=== PATIENT | male | born 1955 | race Caucasian/White ===

== ENCOUNTER 2019-07-15 14:57 | Outpatient (CLI) | payer MEDICARE, MEDICAID, SELFPAY ==
--- NOTE | 2019-07-15 15:14 | CT_ITS ---
WS: [id number] CT CHEST TECHNIQUE: Contrast enhanced CT of the chest with coronal and sagittal reformatted images. CLINICAL INFORMATION: LUNG CANCER COMPARISON: CTA chest August 02, [address] chest May 15, 2018 DLP: 488.[address] scans at [facility] use at least one of these dose optimization techniques: automat ed exposure control; mA and/or kV adjustment per patient size (includes targeted exams where dose is matched to clinical indication); or iterative reconstruction. FINDINGS: Advanced chronic emphysematous changes. Prior postoperative changes left upper lobe laterally with pu lmonary nodule resection. Associated parenchymal fibrosis along the area of resection left upper lobe anteriorly. No recurrent parenchymal lesion in this location. Increasing nodular opacity left lower lobe along the diaphragm laterally measuring 7 mm. On the prior examination there was hazy ill-defined fibrosis in this area. Recommend 3 month follow-up. Proximal main pulmonary arteries are normal. No mediastinal or hilar lymphadenopathy. Normal caliber thoracic aorta. No axillary lymphadenopathy. Postoperative changes lower cervical spine. Multiple chronic left posterior rib fractures. CT/CT chest w con* [id number] IMPRESSION: 1. Prior postoperative changes resection left upper lobe pulmonary nodule. No evidence of recurrent parenchymal lesion in this location. 2. Noncalcified nodule left lower lobe measuring 7 mm with surrounding fibros is. This is increased since the prior examinations and recommend 3 month follow -up. 3. No mediastinal or hilar lymphadenopathy. 4. Advanced chronic emphysematous changes.
[2019-07-15 15:37] LABS: Basophils # 0.1 10^3/uL (0.0-0.1); Basophils % 0.7 %; Eosinophils # 0.2 10^3/uL (0.0-0.8); Eosinophils % 2.6 %; Hematocrit 44.8 % (42.0-52.0); Hemoglobin 14.4 g/dL (11.7-16.6); Lymphocytes # 2.5 10^3/uL (0.8-4.8); Lymphocytes % 36.2 %; Mean Corpuscular HGB Conc 32.1 g/dL (30.0-36.0); Mean Corpuscular Hemoglobin 29.7 pg (28.0-34.0); Mean Corpuscular Volume 92.4 fL (80-94); Mean Platelet Volume 10.8 fL (7.4-10.4); Monocytes # 0.4 10^3/uL (0.2-0.9); Monocytes % 5.6 %; Neutrophils # 3.8 10^3/uL (1.8-7.7); Neutrophils % 54.8 %; Nucleated Red Blood Cells % 0 %; Platelet Count 212 10^3/cmm (130-400); Red Blood Count 4.85 10^6/uL (4.1-5.3); Red Cell Distribution Width 12.8 % (12.1-15.1)
[2019-07-15 16:01] LABS: Alanine Aminotransferase 9 U/L (0-41); Albumin Level 4.3 g/dL (3.5-5.2); Alkaline Phosphatase 74 IU/L (40-130); Anion Gap 14.2 (5-19); Aspartate Amino Transferase 16 U/L (0-40); Blood Urea Nitrogen 11 mg/dL (8-23); Calcium 9.2 mg/dL (8.5-10.5); Carbon Dioxide 29 mmol/L (22-29); Chloride 99 mmol/L (98-107); Globulin 2.7 g/dL (1.3-4.6); Glomerular Filtration Rate 98.3 mL/min (90-130); Glucose 97 mg/dL (65-115); Osmolality Calculated 282 mOsm/kg (285-295); Potassium 4.2 mmol/L (3.5-5.1); Sodium 138 mmol/L (136-145); Total Bilirubin 0.2 mg/dL (0.15-1.2)
[2019-07-15] MEDS: iohexol 300 mg/mL 100 mL Btl IV (16:23)
== END 2019-07-15 14:58 | disposition home or self-care (01) ==
LOC: RAD 14:58
PROVIDERS: PCP Family Medicine; Visit Provider Internal Medicine Hematology & Oncology
DX: C34.90 Malignant neoplasm of unspecified part of unspecified bronchus or lung (principal); R91.1 Solitary pulmonary nodule
CPT/HCPCS: 36415; 71260; 80053; 85025

== ENCOUNTER 2019-07-20 09:11 | Outpatient (CLI) | payer MEDICARE, MEDICAID, SELFPAY ==
--- NOTE | 2019-07-25 23:03 | ONC FU_ITS ---
[facility] Patient Note Patient: Gato Lizarraga Unit #: [id number]: 1955 Dictated By: Giat EwingDate of Visit: July 20, 2019 Onc MED Follow-Up/Prog Note Chief Complaint: Left lung cancer status post wedge resection History of Present Illness: Mr. Lizarraga is a 63-year-old gentleman with history of small left upper lobe pulmonary nodule first seen on CT scan of chest done in February 2017. A follow-up CT scan done on 10/02/2017 showed small increase in size. CT PET scan was done on 10/09/2017 showed increased activity in this suspicious lesion and also in right thyroid lobe nodule. Mr Lizarraga has history of COPD/emphysema bilaterally and is dependent on home oxygen. Mr Lizarraga underwent left upper lobe wedge resection on 11/10/2017. 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 An additional nodule in left upper lung apex was a hematoma as per discussion with Dr. Cummings pathologist. Patient tolerated procedure well PMH: history of melanoma excision from his head ???2 in the past. 40+ year history of chronic smoking Mr Lizarraga is here today for followup and review of CT Chest from 07/15/2019. He was scheduled to see Dr Mullen this am, but Dr Mullen could not make it to the office today. Mr Lizarraga was offered an appointment with me today to review the CT report and this allowed him to be seen by an oncology provider. He states overall he feels really rough . He states he is having more shortness of breath and is having to wear his o2 continuous at home, but he did not have any with him at the time of our visit. Mr Pelaez was informed of the CT findings per the report statements. The report statements were: Prior postoperative changes resection left upper lobe pulmonary nodule. No evidence of recurrent parenchymal lesion in this location. 2. Noncalcified nodule left lower lobe measuring 7 mm with surrounding fibrosis. This is increased since the prior examination recommend 3-month follow-up. 3. No mediastinal or hilar lymphadenopathy. 4. Advanced chronic emphysematous changes. He states that he is having significant shortness of breath, scratchy throat, productive cough of brown sputum. He states that his shortness of breath has gotten worse. He is currently on prednisone. He states overall he is feeling pretty rotten. I suspect this is more a COPD flare and the cancer is the scan looks so good. He denies diarrhea or constipation. He has had no mouth sores or sore throat or difficulty swallowing. His ECOG is 2. Past Medical History: Anxiety Attention deficit disorder Bph Cervical disc disease Chronic obstructive pulmonary disease Depression Emphysema Nocturnal hypoxia Osteoarthritis Overactive bladder History of viral hep c Past Surgical History: Appendectomy Carpal tunnel release Lumbar fusion Multiple cervical discectomies Had surgery x 2 for pneumothorax. Allergies: Ambien, Aminophylline, Amitriptyline HCl, Biaxin, Cymbalta, Doxycycline, FentaNYL, Ibuprofen, Ketorolac Tromethamine, Methadone HCl, Nubain, and Tetracycline HCl. Medications: Albuterol Sulfate 1 ((2.5 mg/3ml) 0.083%) Nebulization solution Inhalation PRN ARIPiprazole 1 Tablet (of 20 mg) Oral daily Baclofen 1 Tablet (of 20 mg) Oral b.i.d. Cialis 1 Tablet (of 5 mg) Oral daily FLUoxetine HCl 1 Capsule (of 20 mg) Oral daily Gabapentin 1 Tablet (of 600 mg) Oral t.i.d. Multiple Vitamins-Minerals 1 Tablet Oral daily predniSONE 1 Tablet (of 5 mg) Oral b.i.d. for 2 days PRN Spiriva Respimat 1 Puff(s) (of 1.25 mcg/act) Aerosol, solution Inhalation b.i.d. Symbicort 2 puff(s) (of 160-4.5 mcg/act) Aerosol Inhalation b.i.d. Tamsulosin HCl 2 Capsule (of 0.4 mg) Oral daily Family History: Mr. Lizarraga's mother at age 55: lung cancer. Mr. Lizarraga's father at age 64: stroke. Mr. Lizarraga has 1 brother who is : lung cancer. Social History: Mr. Lizarraga is and he is a disabled. He is a daily smoker who has smoked 1.0 pack/day for 44 years. He drinks occasionally. He has indicated exposure to the following products: recreational drug use. smokes marijuana 3 times daily. Review Of Symptoms: Constitutional Denies fevers, chills, night sweats, excessive fatigue or weight loss. Allergic/Immunologic No reactions. Eyes Denies significant visual changes. No diplopia. No amaurosis. ENMT Denies changes in hearing, sore throat, mouth sores, difficulty or changes in swallowing ability, and/or sinus drainage. Hematologic/Lymphatic Denies easy bruising or bleeding. The patient denies any tender or palpable lymph nodes. Respiratory Denies dyspnea on exertion, chest pain. He has had a cough with scant hemoptysis but denies orthopnea. Hard to breathe at times. Denies wheezing. Cardiovascular Denies anginal chest pain, palpitations or orthopnea. Gastrointestinal Denies nausea, vomiting, diarrhea, GI bleeding, or constipation. Denies change in bowel habits and/or stool color, no heartburn or early satiety. Genitourinary (M) Denies hematuria, dysuria, increased frequency, urgency, hesitancy or incontinence. Musculoskeletal Denies joint pain, swelling or redness. No decreased range of motion. Integumentary Denies chronic rashes, inflammation, ulcerations or skin changes. Neurologic Denies headache, blurred vision, and no areas of focal weakness or numbness. Normal gait. No sensory problems. Psychiatric Denies insomnia, depression, olivier or mood swings. Vital Signs: Performed on July 20, 2019 09:49 Height - 70.50 in Weight - 133.8 lbs (LOW) BSA - 1.77 sq.m BMI - 18.93 Temperature - 97.7 F (LOW) Pulse - 67 /min Respiration - 20 /min BP - 132/81 mm(hg) O2 Sat - 97 % Pain - 6,2 - Ambulatory/capable of all self-care, unable to perform any work activities. Up and about more than 50% of waking hours. (ECOG) Physical Examination: Constitutional Alert, oriented, no acute distress. Skin pink, warm and dry. Head Normocephalic; atraumatic. Eyes Conjunctivae and sclerae are clear and without icterus. Pupils are reactive and equal. ENMT No oral exudates, ulcers, masses, thrush or mucositis. Oropharynx clear. Tongue normal. Neck Supple without masses or thyromegaly. No jugular venous distension. Hematologic/Lymphatic No petechiae or purpura. No tender or palpable lymph nodes in the cervical or supraclavicular areas. Respiratory Lungs are diminished to auscultation without rhonchi but intermittent wheezing. Cardiovascular Regular rate and rhythm of heart without murmurs,clicks, gallops or rubs. Abdomen Non-tender, non-distended, no masses or ascites. No guarding or rebound tenderness. No pulsatile masses. Back/Spine Non-tender to palpation. Extremities No visible deformities, no cyanosis, clubbing or edema. Musculoskeletal No tenderness or swelling, normal range of motion without obvious weakness. Integumentary No rashes or lesions. Neurologic No sensory or motor deficits, normal cerebellar function, normal gait. Psychiatric Alert and oriented times three. Coherent speech. Verbalizes understanding of our discussions today. Laboratory:Test performed on July 15, 2019 15:29 Sodium 138 mmol/L Potassium 4.2 mmol/L Chloride 99 mmol/L CO2 29 mmol/L Anion Gap 14.2 BUN 11 mg/dL Creatinine 0.8 mg/dL Cr Clearance (Est) 83.24 mL/min eGFR 98.3 mL/min Glucose 97 mg/dL Calcium 9.2 mg/dL Protein, Total 7.0 g/dL Albumin 4.3 g/dL Globulin 2.7 g/dL Bilirubin, Total 0.2 mg/dL ALT (SGPT) 9 U/L AST (SGOT) 16 U/L Alkaline Phosphatase 74 IU/L WBC 7.0 10 3/uL RBC 4.85 10 6/uL HGB 14.4 g/dL HCT 44.8 % MCV 92.4 fL MCH 29.7 pg MCHC 32.1 g/dL RDW 12.8 % Platelet Count 212 10 3/cmm MPV 10.8 fL Neutrophils 3.8 10 3/uL Lymphocytes 2.5 10 3/uL Monocytes 0.4 10 3/uL Eosinophils 0.2 10 3/uL Basophils 0.1 10 3/uL Neutrophil % 54.8 % Lymphocyte % 36.2 % Monocyte % 5.6 % Eosinophil % 2.6 % Basophils % 0.7 % Impression: 1. 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 T1a N X, MX stage I A1 Advanced is COPD with emphysema on home oxygen 40+ years History of chronic smoking next Right thyroid nodule evaluated by ENT Dr. Umanzor. Mr Lizarraga is here today to review of CT Chest from 07/15/2019. He was scheduled to see Dr Mullen this am, but Dr Mullen could not make it to the office today. He states overall he feels really rough . He states he is having more shortness of breath and is having to wear his o2 continuous at home, but he did not have any with him at the time of our visit. Mr Pelaez was informed of the CT findings per the report statements. The report statements were: Prior postoperative changes resection left upper lobe pulmonary nodule. No evidence of recurrent parenchymal lesion in this location. 2. Noncalcified nodule left lower lobe measuring 7 mm with surrounding fibrosis. This is increased since the prior examination recommend 3-month follow-up. 3. No mediastinal or hilar lymphadenopathy. 4. Advanced chronic emphysematous changes. I suspect he is having a flare of his emphysema. I will have him start antibiotis and increase his steroid dose to control symptoms. Plan: 1. Proceed with Levaquin 500 mg po if needed. 2, Compazine and Ativan prn nausea. 3. Levaqin 500 mg po daily x 7 days to [facility]. 4. May increase Prednisone up to 20 mg BID. He can try weaning down off it when sees what dose works best for him. 5. Labs from July 15, 2019 were reviewed in detail and a copy was given to Mr. Lizarraga. WBC 7.0, hemoglobin 14.4 platelets 212,000 neutrophils 3800. Potassium 4.2 glucose 97 creatinine 0.8 and LFTs are normal. 6. Will plan for follwup in 2 weeks or before if his symptoms worsen. 7. Mr. Lizarraga's contact us in interim should questions or problems arise. Signed By: Oswaldo EwingNXiomaraPXiomara-ELIJAH, AOENIDP Marisa Mullen MD <<Signature on File>>
== END 2019-07-20 09:12 | disposition home or self-care (01) ==
PROVIDERS: PCP Family Medicine; Visit Provider Nurse Practitioner
DX: C34.12 Malignant neoplasm of upper lobe, left bronchus or lung (principal); J43.9 Emphysema, unspecified; Z90.2 Acquired absence of lung [part of]; R91.1 Solitary pulmonary nodule; J84.10 Pulmonary fibrosis, unspecified; F17.210 Nicotine dependence, cigarettes, uncomplicated; Z79.52 Long term (current) use of systemic steroids
CPT/HCPCS: 99214

== ENCOUNTER 2019-08-12 16:01 | Outpatient (CLI) | payer MEDICARE, MEDICAID, SELFPAY ==
--- NOTE | 2019-08-12 17:01 | ONC FU_ITS ---
Dr. Mullen follow up note Patient: Gato Lizarraga Unit #: [id number]: 1955 Dicatated By: Marisa Mullen M.D.Date of Visit:Aug 12, 2019 Onc Med Follow-up/Prog Note History of Present Illness: Mr. Lizarraga is a 63-year-old gentleman with history of small left upper lobe pulmonary nodule first seen on CT scan of chest done in February 2017. A follow-up CT scan done on 10/02/2017 showed small increase in size. CT PET scan was done on 10/09/2017 showed increased activity in this suspicious lesion and also in right thyroid lobe nodule. Mr Lizarraga has history of COPD/emphysema bilaterally and is dependent on home oxygen. Mr Lizarraga underwent left upper lobe wedge resection on 11/10/2017. 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 An additional nodule in left upper lung apex was a hematoma as per discussion with Dr. Cummings pathologist. Patient tolerated procedure well PMH: history of melanoma excision from his head ???2 in the past. 40+ year history of chronic smoking CT Chest from 07/15/2019. .showed Prior postoperative changes resection left upper lobe pulmonary nodule. No evidence of recurrent parenchymal lesion in this location. 2. Noncalcified nodule left lower lobe measuring 7 mm with surrounding fibrosis. This is increased since the prior examination recommend 3-month follow-up. 3. No mediastinal or hilar lymphadenopathy. 4. Advanced chronic emphysematous changes. Came for follow-up, denies any specific complaint except recently had a spider bite and now taking antibiotics and improving. Also complaining of dyspnea on exertion, has seen his imaging manager in [place], as per patient he was informed about advanced stage lung condition and he is still smoking about half a pack a day. And smoking marijuana for chronic pain, also complaining of anxiety and in the past he has seen psychiatrist behavioral health but did not get long well with him because of his marijuana issue. No willing to go to [place] for evaluation. And also concerned about small subcentimeter nodule seen in his left lower lobe of lung on his recently done CT scan of chest. Medications: Albuterol Sulfate 1 ((2.5 mg/3ml) 0.083%) Nebulization solution Inhalation PRN, ARIPiprazole 1 Tablet (of 20 mg) Oral daily, Baclofen 1 Tablet (of 20 mg) Oral b.i.d., Cialis 1 Tablet (of 5 mg) Oral daily, FLUoxetine HCl 1 Capsule (of 20 mg) Oral daily, Gabapentin 1 Tablet (of 600 mg) Oral t.i.d., Multiple Vitamins-Minerals 1 Tablet Oral daily, predniSONE 1 Tablet (of 20 mg) Oral daily for 30 days, Spiriva Respimat 1 Puff(s) (of 1.25 mcg/act) Aerosol, solution Inhalation b.i.d., Symbicort 2 puff(s) (of 160-4.5 mcg/act) Aerosol Inhalation b.i.d., Tamsulosin HCl 2 Capsule (of 0.4 mg) Oral daily Allergies: Ambien, Aminophylline, Amitriptyline HCl, Biaxin, Cymbalta, Doxycycline, FentaNYL, fentaNYL Citrate, Ibuprofen, Ketorolac Tromethamine, Methadone HCl, Nubain, and Tetracycline HCl. Review of Systems: Constitutional - Appetite is good and weight is stable. Energy level is poor, ENMT - No sinus congestion/drainage. No mouth sores. No sore throat or difficulty swallowing, Hematologic/Lymphatic - No abnormal bruising or bleeding, Respiratory - Frequent shortness of breath. No cough. Pt complains of lung pain , Cardiovascular - No angina pain. No palpitations, Gastrointestinal - No nausea or vomiting. No heartburn or acid reflux. No diarrhea or constipation. No blood in the stool or black stools, Genitourinary (M) - No dysuria or hematuria. No urinary frequency. No urgency or incontinence, Musculoskeletal - No joint or bone pain, Neurologic - No headache or dizziness. No numbness/paresthesias or other focal neurologic symptoms, Psychiatric - No anxiety or depression. No insomnia. Vital Signs: Performed on Aug 12, 2019 16:14 Height - 70.50 in Weight - 98.4 lbs (LOW) BSA - 1.55 sq.m BMI - 13.92 (LOW) Temperature - 98.4 F Pulse - 104 /min (HIGH) Respiration - 18 /min BP - 134/80 mm(hg) O2 Sat - 95 % (LOW) Pain - 8 Performance Status: 1 - No physically strenuous activity, but ambulatory and able to carry out light or sedentary work (e.g. office work, light house work). (ECOG) Physical Examination: ENMT - No mouth sores, no thrush or jaundice, Respiratory - Poor air entry otherwise clear, Cardiovascular - Regular rate and rhythm of heart, Abdomen - Soft, bowel sounds present. Lab/Imaging: Test performed on July 15, 2019 15:29 Sodium 138 mmol/L Potassium 4.2 mmol/L Chloride 99 mmol/L CO2 29 mmol/L Anion Gap 14.2 BUN 11 mg/dL Creatinine 0.8 mg/dL Cr Clearance (Est) 83.24 mL/min eGFR 98.3 mL/min Glucose 97 mg/dL Calcium 9.2 mg/dL Protein, Total 7.0 g/dL Albumin 4.3 g/dL Globulin 2.7 g/dL Bilirubin, Total 0.2 mg/dL ALT (SGPT) 9 U/L AST (SGOT) 16 U/L Alkaline Phosphatase 74 IU/L WBC 7.0 10 3/uL RBC 4.85 10 6/uL HGB 14.4 g/dL HCT 44.8 % MCV 92.4 fL MCH 29.7 pg MCHC 32.1 g/dL RDW 12.8 % Platelet Count 212 10 3/cmm MPV 10.8 fL Neutrophils 3.8 10 3/uL Lymphocytes 2.5 10 3/uL Monocytes 0.4 10 3/uL Eosinophils 0.2 10 3/uL Basophils 0.1 10 3/uL Neutrophil % 54.8 % Lymphocyte % 36.2 % Monocyte % 5.6 % Eosinophil % 2.6 % Basophils % 0.7 % Impression: 1. 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 T1a N X, MX stage I A1 Advanced is COPD with emphysema on home oxygen 40+ years History of chronic smoking next Right thyroid nodule evaluated by ENT Dr. Umanzor. CT Chest from 07/15/2019. showed Prior postoperative changes resection left upper lobe pulmonary nodule. No evidence of recurrent parenchymal lesion in this location. 2. Noncalcified nodule left lower lobe measuring 7 mm with surrounding fibrosis. This is increased since the prior examination recommend 3-month follow-up. 3. No mediastinal or hilar lymphadenopathy. 4. Advanced chronic emphysematous changes. Plan: Discussed with patient regarding his concerns about subcentimeter nodule seen in the left lower lobe of the lung on recently done CT scan of chest. Patient was informed, and as recommended by radiology, will consider repeating his CT scan of the chest in 3 months to assess left lower lobe lung nodule, if change in size , then will consider further work-up. So we will schedule him for CT scan of the chest in the last week of September 2019 and then he will return to clinic [address] scan of the chest is done for follow-up and for further discussion. His recently done lab work-up including CBC CMP showed within normal values. As far as anxiety /stress and history of ADD is concerned, patient has issues with [facility] in [place], so will refer him to behavioral health at [facility] in [facility]. Patient was reassured that his follow-up CT scan done in June 2019 showed no evidence of recurrence of disease. And he was also encouraged to quit smoking and was offered any assistance he may need. And he was advised to follow-up with his PMD and pulmonology for his other active issues. Signed By: Marisa Mullen M.D. <<Signature on File>>
== END 2019-08-12 16:02 | disposition home or self-care (01) ==
LOC: ONCMED 16:06
PROVIDERS: PCP Family Medicine; Visit Provider Internal Medicine Hematology & Oncology
DX: Z08 Encounter for follow-up examination after completed treatment for malignant neoplasm (principal); Z85.118 Personal history of other malignant neoplasm of bronchus and lung; R91.1 Solitary pulmonary nodule; F43.9 Reaction to severe stress, unspecified; F98.8 Other specified behavioral and emotional disorders with onset usually occurring in childhood and adolescence; J43.9 Emphysema, unspecified; F17.200 Nicotine dependence, unspecified, uncomplicated; Z90.2 Acquired absence of lung [part of]; Z99.81 Dependence on supplemental oxygen
CPT/HCPCS: 99214

== ENCOUNTER 2019-09-23 20:07 | Emergency (ER) | payer MEDICARE, MEDICAID, SELFPAY ==
[2019-09-23 20:26] VITALS: BP 132/89; PULSE 87; RESP 18; TEMP 36.5; O2SAT 100; BMI 21.5
--- NOTE | 2019-09-23 20:43 | XRR_ITS ---
PROCEDURE INFORMATION: Exam: XR Chest, 1 View Exam date and time: 09/23/2019 8:52 PM Age: 64 years old Clinical indication: Dyspnea TECHNIQUE: Imaging protocol: XR of the chest Views: 1 view. COMPARISON: CT chest w con* [id number] 07/15/2019 4:08 PM FINDINGS: Lungs: Volume loss left lung with areas of interstitial scarring. Elevation left hemidiaphragm. Moderate gaseous distension of the stomach. Small linear lucency at or below the left medial hemidiaphragm is of uncertain significance. Hyperinflation. Underlying irregular right apical parenchymal opacity probably reflecting scarring/pleural thickening. Pleural space: Unremarkable. No pleural effusion. No pneumothorax. Heart/Mediastinum: Unremarkable. No cardiomegaly. Bones/joints: Plate fixation lower cervical spine. Distortion of multiple left ribs. XR/XR chest 1V portable [id number] IMPRESSION: 1. Volume loss left lung. 2. Hyperinflation with areas of interstitial scarring. 3. Small linear lucency at or below the medial left hemidiaphragm probably related to left upper quadrant soft tissue fat plane. Consider repeat upright chest for complete exclusion of free intraperitoneal air.
--- NOTE | 2019-09-23 20:44 | ECG_ITS ---
[facility] Test Date: 2019-09-23 Pat Name: Gato Lizarraga Department: Room: Gender: Male [place] [employer]: : 1955 Requested By: Yessi Collado Order Number: [id number] [place] MD: Johnny Garcia M.D. Measurements Intervals [place] Rate: 88 P: 78 NC: 148 QRS: 72 QRSD: 90 T: 80 QT: 351 QTc: 425 Interpretive Statements SINUS RHYTHM POSSIBLE RIGHT VENTRICULAR CONDUCTION DELAY [RSR (QR) IN V1/V2] MODERATE VOLTAGE CRITERIA FOR LVH, CONSIDER NORMAL VARIANT [MEETS CRITERIA IN ONE OF: R(aVL), S(V1), R(V5), R(V5/V6)+S(V1)] Compared to ECG 08/02/2018 11:55:59 Ventricular premature complex(es) no longer present Electronically Signed On 09-24-2019 16:02:08 CDT by Johnny Garcia M.D. [email or web address]/[id number]
--- NOTE | 2019-09-23 20:51 | ED_ITS ---
HPI - SOB/Dyspnea General: Chief Complaint: Shortness of Breath/Dyspnea Stated Complaint: sob/left arm pain Time Seen by Provider: 09/23/19 20:40 Source: patient Mode of arrival: ambulatory Limitations: no limitations History of Present Illness: HPI Narrative: Gato is a 64-year-old male who comes in complaining of shortness of breath for the past 2 to 3 days. He states he also has constant pain in the left side of his chest. States the pain feels like when he has had a collapsed lung in the past. States it hurts to move in certain position and hurts to take a deep breath. He has a cough but it is nonproductive. He denies any fevers or chills. Patient states that this is not like a heart problem in his opinion. It is very localized to the left lateral portion of his chest near his scar from previous lung surgery. Patient states that he is certain that he has a collapsed lung but agrees to have his heart checked out while he is here but he is adamant he wants a chest x-ray to make certain his lung is not collapsed. Associated symptoms: Reports chest pain; Deny abdominal pain, chest congestion, diaphoresis, dizziness, extremity pain, fever(s), hemoptysis, lightheadedness, nausea, orthopnea, palpitations, syncope or vomiting Review of Systems Const: Denies: fever(s), chills, body aches, fatigue, malaise or diaphoresis Eyes: Denies: change in vision, blurry vision, blind spots, photophobia, eye discharge or eye redness ENMT: Denies: throat pain, odynophagia, hoarseness, swelling of lips/tongue, oral sores, ear or mastoid pain, ear discharge, change in hearing or nasal discharge Card: Reports: chest pain; Denies: palpitations, irregular heart rhythm, edema, lightheadedness, syncope, pre-syncope, dyspnea on exertion or orthopnea Resp: Reports: dyspnea and non-productive cough; Denies: productive cough, wheezing, hemoptysis or chest congestion GI: Denies: abdominal pain, nausea, vomiting, hematemesis, coffee ground emesis, heartburn, diarrhea, constipation, GI cramping, hematochezia or melena : Denies: flank pain, dysuria, urinary frequency, urinary urgency or hematuria Musc: Denies: neck pain, back pain, extremity pain, extremity swelling, joint pain, joint swelling, joint redness, joint warmth or joint stiffness Skin/Breast: Denies: rash, pruritus, erythema, skin tenderness or jaundice Neuro: Denies: headache(s), numbness in extremities, weakness in extremities, sensory changes, lack of coordination, difficulty walking, dizziness, vertigo, confusion, Slurred speech present or seizure-like activity Jose/Lymph: Denies: easy bruising, easy bleeding, petechiae, purpura or enlarged lymph nodes All/Imm: Denies: urticaria, throat swelling, tongue swelling, facial swelling or acute wheezing PFSH ED PFSH: Medical History COPD (chronic obstructive pulmonary disease) History of lung cancer Spontaneous pneumothorax Surgical History History of cervical spinal surgery (05/14/12) C3-C4 ACDSHALONDA, Dr. Kirk History of decompression of median nerve (~1990) 1990 left wrist History of fusion of cervical spine Dr. May Kirk 03/31/2014 C7-T1 ACDFF Dr. May Kirk 05/14/2012 C3-C4 ACDFF Dr. May Kirk 05/18/2009 C4-C5 ACDFF History of lumbar fusion (~02/03/07) Dr. May Kirk 02/03/2007 L4-L5 anterior lumbar interbody fusion/fixation Dr. May Kirk 01/30/2006 Left L4-L5 hemilaminotomy/discectomy/foraminotomy History of lung surgery (~05/2008) Family History Mother Lung cancer Father Lung cancer Stroke Brother Lung cancer Social History Smoking and tobacco status: current every day smoker Alcohol intake: never Household members: spouse Marital status: Current occupational status: disabled History of recent travel: No Physical Exam Const: COMMON NORMALS: no acute distress, patient oriented x3, no limitations, healthy appearing and well nourished GENERAL APPEARANCE: cooperative, well kempt and well developed HENMT: COMMON NORMALS: normocephalic, atraumatic, external ears normal, EAC's normal and Normal external nose present HEAD & SCALP: normal to inspection, normocephalic and atraumatic FACE & SINUS: normal facial exam and face symmetric NOSE: Normal external nose present and Normal nares present EXTERNAL EAR: Yes external ears normal EXTERNAL AUDITORY CANAL: EAC's normal MOUTH: Normal oral and palatal mucosa present, lip normal and tongue normal Eye: COMMON NORMALS: Equal, round and reactive pupils present and conjunctivae normal GENERAL EYE: appearance normal, both eyes and all related structures ALIGNMENT: Yes alignment normal PERIORBITAL: periorbital findings normal EYELID: eyelids normal CONJUNCTIVA: Yes conjunctivae normal SCLERA: sclerae normal PUPIL: Yes Equal, round and reactive pupils present Neck/C-Spine: COMMON NORMALS: full ROM, no lymphadenopathy, supple, no meningeal signs and no JVD GENERAL: Yes normal visual inspection and Yes trachea midline Chest: COMMONS NORMALS: normal inspection of the chest and normal palpation of entire chest wall Resp: COMMON NORMALS: normal respiratory effort, No retractions and No use of accessory muscles EFFORT & INSPECTION: Yes able to speak in complete senten michael and Yes symmetric chest movement AUSCULTATION: no crackles, no rales, no rhonchi and no wheezes Cardio: COMMON NORMALS: no JVD, regular rate, regular rhythm, S1 normal heart sound present and S2 normal heart sound present RATE: regular rate RHYTHM: regular rhythm HEART SOUNDS: S1 normal heart sound present, S2 normal heart sound present, no click, no gallops, no murmurs, no rubs and abnormal split S2 GI: COMMON NORMALS: Soft to palpation and No hepatosplenomegaly present PALPATION: Yes Soft to palpation, No Tenderness to palpation present (GI), No Guarding due to palpation present (GI), No Rigid due to palpation, Yes No hepatosplenomegaly present, No Hernia present, No Palpable mass present and No Pulsatile mass present : COMMON NORMALS: Yes no CVA tenderness BLADDER/KIDNEY EXAM: Yes no CVA tenderness Back/Pelvis: COMMON NORMALS: no CVA tenderness, thoracic and lumbar spine normal to inspection, no thoracic nor lumbar tenderness and thoraco-lumbar ROM normal Extremity: COMMON NORMALS: normal to inspection, full ROM, capillary refill normal, no joint enlargement, no clubbing, cyanosis or edema and no calf tenderness Neuro: COMMON NORMALS: patient oriented x3, CN's II-XII intact bilaterally, moves all extremities, no focal motor deficits and no sensory deficits noted MENINGEAL SIGNS: Yes no meningeal signs SPEECH: speech normal Psych: COMMON NORMALS: mental status grossly normal, Normal thought process present, cooperative, normal affect, speech normal and activity/motor behavior normal APPEARANCE: Yes well kempt SPEECH: Yes normal speech THOUGHT PROCESS: Normal thought process present Skin: COMMON NORMALS: no rashes or lesions noted, turgor normal, no jaundice, no petechiae and no mottling GENERAL SKIN EXAM: no rashes or lesions noted and turgor normal Course Vital Signs: Vital signs: Vital Signs Temperature 97.7 F 09/23/19 20:26 Pulse Rate 85 09/23/19 21:20 Respiratory Rate 18 09/23/19 21:20 Blood Pressure 115/78 09/23/19 21:20 Pulse Oximetry 100 09/23/19 21:20 MDM - SOB/Dyspnea MDM Narrative: Medical decision making narrative: Patient's pain can mildly be reduced with palpation. Bedside ultrasound revealed no evidence of pneumothorax as there was good lung sliding. Chest x-ray was normal. CTA revealed no evidence of pulmonary embolism or collapsed lung. There is no infiltrates present either. Patient declines to stay and wants to go home. He does not feel as though this is his heart. He agrees to return should her symptoms change or worsen but at this time he is ready for discharge. Lab Data: Attestation: I reviewed the patient's lab results. Labs: Lab Results 09/23/19 09/23/19 09/23/19 Range/Units 20:54 20:58 21:10 WBC 6.1 (4.0-10.0) 10^3/ uL RBC 4.85 (4.1-5.3) 10^6/u L Hgb 14.3 (11.7-16.6) g/dL Hct 46.0 (42.0-52.0) % MCV 94.8 H (80-94) fL MCH 29.5 (28.0-34.0) pg MCHC 31.1 (30.0-36.0) g/dL RDW 12.3 (12.1-15.1) % Plt Count 239 (130-400) 10^3/c mm MPV 10.7 H (7.4-10.4) fL Neut % (Auto) 59.7 % Lymph % (Auto) 34.6 % [place] % (Auto) 4.9 % Eos % (Auto) 0.3 % Baso % (Auto) 0.3 % Neut # (Auto) 3.63 (1.8-7.7) 10^3/u L Lymph # (Auto) 2.1 (0.8-4.8) 10^3/u L [place] # (Auto) 0.3 (0.2-0.9) 10^3/u L Eos # (Auto) 0.0 (0.0-0.8) 10^3/u L Baso # (Auto) 0.0 (0.0-0.1) 10^3/u L Nucleated RBC % (a uto) 0 % Nucleated RBCs # 0.0 /100WBC PT 11.70 (10.5-13.3) SECO NDS INR 0.84 (0.8-1.2) Specimen Type Arterial Sample Site Brachial, left ABG pH 7.48 H (7.35-7.45) ABG pCO2 33.0 L (35-45) mmHg ABG pO2 192.0 H (80.0-100.0) mmH g ABG HCO3 24.6 (22-26) mmol/L ABG Base Excess 1.6 (-2.0-2.0) mmol/ L Torey Test N/a Hematocrit 44.6 (42-52) % O2 Delivery Device Nc O2 Liters/Min 3.0 % Secretary Bookkeeper ID Harkr Sodium (136-145) mmol/L Potassium (3.5-5.1) mmol/L Chloride (98-107) mmol/L Carbon Dioxide (22-29) mmol/L Anion Gap (5-19) BUN (8-23) mg/dL Creatinine (0.7-1.2) mg/dL GFR Calculation (90-130) mL/min Glucose (65-115) mg/dL Calculated Osmolal ity (285-295) mOsm/k g Calcium (8.5-10.5) mg/dL Magnesium (1.7-2.3) mg/dL Total Bilirubin (0.15-1.2) mg/dL AST (0-40) U/L ALT (0-41) U/L Alkaline Phosphata se (40-130) IU/L Troponin T Baselin e (0-15) ng/L Total Protein (6.6-8.7) g/dL Albumin (3.5-5.2) g/dL Globulin (1.3-4.6) g/dL 09/23/19 09/23/19 Range/Units 21:10 21:10 WBC (4.0-10.0) 10^3/ uL RBC (4.1-5.3) 10^6/u L Hgb (11.7-16.6) g/dL Hct (42.0-52.0) % MCV (80-94) fL MCH (28.0-34.0) pg MCHC (30.0-36.0) g/dL RDW (12.1-15.1) % Plt Count (130-400) 10^3/c mm MPV (7.4-10.4) fL Neut % (Auto) % Lymph % (Auto) % [place] % (Auto) % Eos % (Auto) % Baso % (Auto) % Neut # (Auto) (1.8-7.7) 10^3/u L Lymph # (Auto) (0.8-4.8) 10^3/u L [place] # (Auto) (0.2-0.9) 10^3/u L Eos # (Auto) (0.0-0.8) 10^3/u L Baso # (Auto) (0.0-0.1) 10^3/u L Nucleated RBC % (a uto) % Nucleated RBCs # /100WBC PT (10.5-13.3) SECO NDS INR (0.8-1.2) Specimen Type Sample Site ABG pH (7.35-7.45) ABG pCO2 (35-45) mmHg ABG pO2 (80.0-100.0) mmH g ABG HCO3 (22-26) mmol/L ABG Base Excess (-2.0-2.0) mmol/ L Torey Test Hematocrit (42-52) % O2 Delivery Device O2 Liters/Min % Secretary Bookkeeper ID Sodium 141 (136-145) mmol/L Potassium 4.4 (3.5-5.1) mmol/L Chloride 105 (98-107) mmol/L Carbon Dioxide 26 (22-29) mmol/L Anion Gap 14.4 (5-19) BUN 8 (8-23) mg/dL Creatinine 0.8 (0.7-1.2) mg/dL GFR Calculation 98.0 (90-130) mL/min Glucose 102 (65-115) mg/dL Calculated Osmolal ity 288 (285-295) mOsm/k g Calcium 9.7 (8.5-10.5) mg/dL Magnesium 1.9 (1.7-2.3) mg/dL Total Bilirubin 0.2 (0.15-1.2) mg/dL AST 12 (0-40) U/L ALT 9 (0-41) U/L Alkaline Phosphata se 64 (40-130) IU/L Troponin T Baselin e 6 (0-15) ng/L Total Protein 6.8 (6.6-8.7) g/dL Albumin 4.0 (3.5-5.2) g/dL Globulin 2.8 (1.3-4.6) g/dL Imaging Data^: CXR: My impression: No acute cardiopulmonary findings. No pneumothorax. No focal infiltrates. Elevated left hemidiaphragm consistent with previous. CT Chest: Radiologist's impression: [place] [address] CT Scan Report Signed Patient: Gato Lizarraga Unit #: [id number] : 1955 Age/Sex: 64 / M ADM Date: 09/23/19 Loc: ER Room/Bed: Attending Dr: Ordering Provider/Ordering MD: Yessi Bhatia DO Date of Service: 09/23/19 Procedure(s): CT angio chest PE protcl [id number] Accession Number(s): [id number] Report Number: [id number] PROCEDURE INFORMATION: Exam: CT Angiography Chest With Contrast Exam date and time: 09/23/2019 9:37 PM Age: 64 years old Clinical indication: Dyspnea; Prior surgery; Surgery date: 6+ months; Surgery type: Left lung h/o lt lung CA TECHNIQUE: Imaging protocol: Computed tomographic angiography of the chest with intravenous contrast. 3D rendering: MIP and/or 3D reconstructed images were created by the technologist. Radiation optimization: All CT scans at this facility use at least one of these dose optimization techniques: automated exposure control; mA and/or kV adjustment per patient size (includes targeted exams where dose is matched to clinical indication); or iterative reconstruction. Contrast material: OMNI; Contrast volume: 95 ml; Contrast route: INTRAVENOUS (IV); COMPARISON: CTA Chest-Pulmonary Emb [id number] 08/02/2018 11:30 AM, chest CT from 07/15/2019 RADIATION DOSE METRICS: Total DLP (mGy-cm): 550.85 FINDINGS: Pulmonary arteries: Overall exam quality is good for evaluating the pulmonary arteries. There are no intraluminal filling defects to indicate pulmonary embolism. Aorta: Unremarkable. No aortic aneurysm. No aortic dissection. Lungs: Since the recent prior study a somewhat curvilinear opacity in the left lower lobe lateral basal segment is unchanged, measuring 7 mm in thickness. The shape is more suggestive of a scar than a nodule. Extensive pulmonary scarring especially in the left upper lobe and both lung apices are unchanged. Centrilobular emphysema occurs diffusely but with a mild upper lobe predominance. Scattered pulmonary scars . No acute pneumonia. Pleural space: Unremarkable. No pneumothorax. No pleural effusion. Heart: Unremarkable. No cardiomegaly. No pericardial effusion. Lymph nodes: Several bilateral hilar and peribronchial lymph nodes measuring up to 1 cm. Liver: Incidental hepatic focal fat near the falciform ligament. Bones/joints: Chronic left upper lobe thoracotomy changes. No significant bony findings. Soft tissues: Unremarkable. CT/CT angio chest PE protcl [id number] IMPRESSION: 1. No pulmonary embolism or pneumonia. 2. Emphysema. 3. Chronic left upper lobe thoracotomy changes. 4. Unchanged left lower lobe curvilinear density, 7 mm. The shape is more suggestive of a scar than a nodule. 5. Other incidental findings as described. Radiation Dose CTDIVOL = (mGy): DLP = 550.85 (mGy-cm) Dictated By: Maddison Driscoll MD Signed By: Maddison Driscoll MD Signed Date/Time: 09/23/192215 DD/ 14 EKG Data^: EKG 1: Attestation: I personally reviewed and interpreted this EKG as follows: EKG Interpretation Date: 09/23/19 EKG interpretation time: 20:34 Interpretation: Normal sinus rhythm at 88 beats a minute, incomplete right bundle branch block, LVH, no acute ST-T wave changes. Discharge Plan Discharge Patient Disposition: Home Clinical Impression: Acute exacerbation of chronic obstructive airways disease Condition: Stable Prescriptions: New Augmentin 875-125 mg tablet 1 tab PO BID 10 Days Qty: 20 RF: 0 prednisone 10 mg tablet 20 mg PO TID 5 Days Qty: 30 RF: 0 No Action gabapentin 600 mg tablet 600 mg PO TID RF: 0 baclofen 20 mg tablet 20 mg PO BID RF: 0 cyanocobalamin (vitamin B-12) 1,000 mcg capsule 1,000 mcg PO DAILY RF: 0 tamsulosin 0.4 mg capsule 0.4 mg PO BID RF: 0 tadalafil [Cialis] 5 mg tablet 5 mg PO DAILY RF: 0 Symbicort 160-4.5 mcg/actuation HFA aerosol inhaler 2 puff INHALATION BID RF: 0 multivitamin Tablet 1 tab PO DAILY RF: 0 Spiriva Respimat 1.25 mcg/actuation mist 2 puff INHALATION DAILY RF: 0 Zofran 4 mg Tablet 4 mg PO PRN RF: 0 prednisone 5 mg tablet See Rx Instructions .ROUTE .COMPLEX RF: 0 ProAir HFA 90 mcg/actuation Hfa Aerosol Inhaler 2 puff INHALATION Q6H PRN (Reason: Shortness Of Breath) RF: 0 naproxen 500 mg Tablet 500 mg PO PRN RF: 0 Daliresp 500 mcg Tablet 500 mcg PO DAILY RF: 0 Discharge Orders: Discharge Order (Routine); Ordered 09/23/19 Ordered By: Yessi Bhatia Referrals: Jovani Deal MD [Physician] - 1-3 days Discharge Diet: Advance as tolerated Discharge Activity: Increase activity as tolerated Patient Instructions: Emphysema (ED), Chronic Obstructive Pulmonary Disease (ED) Activity Restrictions/Additional Instructions: Please return to the ER immediately for any of the signs or symptoms listed on your discharge instruction sheets, worsening/changing of your symptoms, you are not getting better as quickly as expected, or for ANY other cause or concerns. Return to the ER immediately for increasing shortness of breath, fever, return of chest pain, or for any other cause for concern. You have declined to stay for further cardiac testing and of course any heart problem can be life- threatening so if you change your mind, your chest pain returns, you become lightheaded or dizzy, you pass out or nearly pass out, or you simply change your mind you are more than welcome to return to the ER for recheck. Coding Level of Care Code ED Inside Steward/Stewardess for Laci Hidalgo
[2019-09-23 20:55] VITALS: PULSE 88; RESP 18; O2SAT 98
[2019-09-23] MEDS: ipratropium-albuterol 3 mL Neb INHALATION (20:55)
[2019-09-23 21:00] VITALS: PULSE 89
[2019-09-23 21:09] LABS: ABG PH Result 7.48 (7.35-7.45); Arterial Blood Gas Hematocrit 44.6 % (42-52); Base Excess ABG 1.6 mmol/L (-2.0-2.0); Blood Gas Operator Identificat HARKR; Blood Gas Sample Site Brachial, left; Blood Gas Sample Type Arterial; HCO3 ABG 24.6 mmol/L (22-26); Oxygen Device NC
[2019-09-23 21:20] VITALS: BP 115/78; PULSE 85; RESP 18; O2SAT 100
[2019-09-23 21:21] LABS: Basophils % 0.3 %; Eosinophils % 0.3 %; Hemoglobin 14.3 g/dL (11.7-16.6); Lymphocytes # 2.1 10^3/uL (0.8-4.8); Lymphocytes % 34.6 %; Mean Corpuscular HGB Conc 31.1 g/dL (30.0-36.0); Mean Corpuscular Hemoglobin 29.5 pg (28.0-34.0); Mean Corpuscular Volume 94.8 fL (80-94); Mean Platelet Volume 10.7 fL (7.4-10.4); Monocytes # 0.3 10^3/uL (0.2-0.9); Monocytes % 4.9 %; Neutrophils # 3.63 10^3/uL (1.8-7.7); Neutrophils % 59.7 %; Nucleated Red Blood Cells % 0 %; Platelet Count 239 10^3/cmm (130-400); Red Blood Count 4.85 10^6/uL (4.1-5.3); Red Cell Distribution Width 12.3 % (12.1-15.1); White Blood Count 6.1 10^3/uL (4.0-10.0)
[2019-09-23 21:28] LABS: INR 0.84 (0.8-1.2)
[2019-09-23 21:35] LABS: Alanine Aminotransferase 9 U/L (0-41); Alkaline Phosphatase 64 IU/L (40-130); Anion Gap 14.4 (5-19); Aspartate Amino Transferase 12 U/L (0-40); Blood Urea Nitrogen 8 mg/dL (8-23); Calcium 9.7 mg/dL (8.5-10.5); Carbon Dioxide 26 mmol/L (22-29); Chloride 105 mmol/L (98-107); Globulin 2.8 g/dL (1.3-4.6); Glucose 102 mg/dL (65-115); Magnesium 1.9 mg/dL (1.7-2.3); Osmolality Calculated 288 mOsm/kg (285-295); Potassium 4.4 mmol/L (3.5-5.1); Sodium 141 mmol/L (136-145); Total Bilirubin 0.2 mg/dL (0.15-1.2); Total Protein 6.8 g/dL (6.6-8.7)
[2019-09-23 21:37] LABS: Troponin(5th) Baseline 6 ng/L (0-15)
[2019-09-23] MEDS: sodium chloride 0.9% 1,000 ML 100 ML IV (21:37)
[2019-09-23] MEDS: iohexol 350 mg/mL 100 mL Btl 95 ML IV (21:54)
[2019-09-23 22:56] VITALS: BP 126/85; PULSE 94; RESP 17; O2SAT 100
--- NOTE | 2019-09-24 08:15 | PC.NURSE ---
Attempted to contact pt regarding radiology results and Dr Cortes recommendation that pt come back for further evaluation. Unable to reach pt by his contact number or his 's number. Will continue to try to contact pt.
--- NOTE | 2019-09-24 08:47 | PC.NURSE ---
Attempted to contact pt again, unable to reach pt.
--- NOTE | 2019-09-24 10:54 | PC.NURSE ---
Attempted again to call pt, still unable to reach. Dr Cortes notified.
--- NOTE | 2019-09-24 11:00 | PC.NURSE ---
[facility]'s Office contacted to do a well-being check on pt and instruct pt to return to [facility].
== END 2019-09-23 23:03 | disposition home or self-care (01) ==
PROVIDERS: Emergency Provider Emergency Medicine
DX: J44.1 Chronic obstructive pulmonary disease with (acute) exacerbation (principal); Z85.118 Personal history of other malignant neoplasm of bronchus and lung; F17.210 Nicotine dependence, cigarettes, uncomplicated
CPT/HCPCS: 12345; 36600; 71045; 71275; 80053; 82803; 83735; 84484; 85025; 85610; 93005; 94640; 96361; 96374; 99282; 99284; J2930; J7030; Q9967

== ENCOUNTER 2019-09-24 14:11 | Emergency (ER) | payer MEDICARE, MEDICAID, SELFPAY ==
[2019-09-24] VITALS (7 sets, daily range): BP systolic 119–138; BP diastolic 76–83; PULSE 78–92; RESP 16–20; TEMP 36.6–37.2; O2SAT 96–100
--- NOTE | 2019-09-24 14:12 | CTR_ITS ---
PROCEDURE INFORMATION: Exam: CT Chest With Contrast Exam date and time: 09/24/2019 2:15 PM Age: 64 years old Clinical indication: Abdominal pain; Acute; Chest pain; Type not specified; Additional info: Abdominal pain/ trauma TECHNIQUE: Imaging protocol: Computed tomography of the chest with intravenous contrast. Radiation optimization: All CT scans at this facility use at least one of these dose optimization techniques: automated exposure control; mA and/or kV adjustment per patient size (includes targeted exams where dose is matched to clinical indication); or iterative reconstruction. Contrast material: VISI 320; Contrast volume: 95 ml; Contrast route: INTRAVENOUS (IV); COMPARISON: CT angio chest PE protcl [id number] 09/23/2019 9:46 PM RADIATION DOSE METRICS: Total DLP (mGy-cm): 1160.97 FINDINGS: Thyroid: The bilateral thyroid lobes are unremarkable. Lungs: Moderate-severe paraseptal emphysema bilaterally. Pleural space: No pneumothorax identified. No pleural effusion demonstrated. Heart: Proximal LAD coronary artery calcifications. Mediastinal space: No mediastinal hematoma identified. Aorta: Mild aortic valvular calcification is present. There is no evidence of aortic pseudoaneurysm or traumatic dissection. Lymph nodes: No enlarged lymph nodes. Diaphragm: The left hemidiaphragm is moderately elevated. Bones/joints: No acute thoracic spine or sternal fracture identified. Lower cervical spinal anterior fixation hardware. No displaced rib fracture demonstrated. Chronic healed left 2nd through 11th rib fractures. Soft tissues: Unremarkable. IMPRESSION: 1. Pulmonary emphysema. 2. No acute injury identified. 3. Coronary atherosclerosis. 4. Please see the abdomen/pelvis CT report of the same date for additional findings. PROCEDURE INFORMATION: Exam: CT Abdomen And Pelvis With Contrast Exam date and time: 09/24/2019 2:15 PM Age: 64 years old Clinical indication: Abdominal pain; Acute; Chest pain; Type not specified; Additional info: Abdominal pain/ trauma TECHNIQUE: Imaging protocol: Computed tomography of the abdomen and pelvis with intravenous contrast. Radiation optimization: All CT scans at this facility use at least one of these dose optimization techniques: automated exposure control; mA and/or kV adjustment per patient size (includes targeted exams where dose is matched to clinical indication); or iterative reconstruction. Contrast material: VISI 320; Contrast volume: 95 ml; Contrast route: INTRAVENOUS (IV); COMPARISON: CT angio chest PE protcl [id number] 09/23/2019 9:46 PM RADIATION DOSE METRICS: Total DLP (mGy-cm): 1160.97 FINDINGS: Liver: Normal. No mass. Gallbladder and bile ducts: Normal. No calcified stones. No ductal dilation. Pancreas: Normal. No ductal dilation. Spleen: Normal. No splenomegaly. Adrenals: Normal. No mass. Kidneys and ureters: Mild bilateral extrarenal renal pelviectasis, a normal variant. Stomach and bowel: Mild rectal wall thickening. Appendix: No evidence of appendicitis. Intraperitoneal space: Unremarkable. No free air. No significant fluid collection. Vasculature: Unremarkable. No abdominal aortic aneurysm. Lymph nodes: No enlarged lymph nodes. Bladder: Unremarkable as visualized. Reproductive: Unremarkable as visualized. Bones/joints: No pelvic or sacral fracture identified. No acute lumbar spine fracture identified. Right femoral neck herniation pit, a normal variant. Anterior L4-L5 spinal fixation hardware, fused disc space graft. Soft tissues: Unremarkable. CT/CT chest abd pel w con* IMPRESSION: 1. Mild rectal wall thickening. The finding is consistent with mild nonspecific proctitis. Clinical correlation with the patient's specific symptomatology is recommended. 2. No acute injury identified. 3. Please see the CT chest report of the same date for additional findings. Radiation Dose CTDIVOL = (mGy): DLP = 1160.97~1160.97 (mGy-cm)
--- NOTE | 2019-09-24 14:13 | XRR_ITS ---
PROCEDURE INFORMATION: Exam: XR Chest, 1 View Exam date and time: 09/24/2019 2:48 PM Age: 64 years old Clinical indication: Chest pain; Type not specified; Patient HX: HX of lung cancer TECHNIQUE: Imaging protocol: XR of the chest Views: Frontal portable upright view of the chest. COMPARISON: CR XR chest 1V portable [id number] 09/23/2019 8:43 PM FINDINGS: Lungs: Stable left mid lung zone parenchymal scarring. The pulmonary vasculature appears attenuated in the bilateral upper lung zones. Increased left basilar pulmonary subsegmental atelectasis. The pulmonary vasculature is stable. Pleural space: No pleural effusion. No pneumothorax. Heart/Mediastinum: The heart is normal in size and contour. Mediastinum: Stable. Diaphragm: The left hemidiaphragm remains moderately elevated. Bones/joints: Lower cervical spinal anterior fixation hardware. Stable. XR/XR chest 1V portable [id number] IMPRESSION: 1. Stable left mid lung zone parenchymal scarring. 2. Bilateral pulmonary emphysema. 3. Increased left basilar pulmonary subsegmental atelectasis.
--- NOTE | 2019-09-24 14:13 | ECG_ITS ---
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 Measurements Intervals [place] Rate: 92 P: 76 GA: 140 QRS: 55 QRSD: 86 T: 76 QT: 349 QTc: 433 Interpretive Statements SINUS RHYTHM MODERATE VOLTAGE CRITERIA FOR LVH, CONSIDER NORMAL VARIANT [MEETS CRITERIA IN ONE OF: R(aVL), S(V1), R(V5), R(V5/V6)+S(V1)] Compared to ECG 09/23/2019 20:34:49 No significant changes Electronically Signed On 09-24-2019 16:07:08 CDT by Johnny Garcia M.D. [email or web address]
--- NOTE | 2019-09-24 14:25 | ED_ITS ---
HPI - Chest Pain General: Chief Complaint: Shortness of Breath/Dyspnea Stated Complaint: CP/ SOB Time Seen by Provider: 09/24/19 14:12 Source: patient and EMS Mode of arrival: EMS Limitations: no limitations History of Present Illness: HPI narrative: Gato is a very nice 64-year-old male who comes in for chest pain. Of note the patient was seen here last night for the same complaint. He felt as though he had a collapsed lung which has had several times in the past. X-ray and CT scan did not reveal this finding. The patient had an overread later by [facility] suggesting air underneath the diaphragm but this was not confirmed by our radiologist. The patient never was contacted but came back in on his own today secondary to return of his left-sided chest pain. He denies any abdominal pain. All of his pain is located up adjacent to his thoracotomy scar from previous pneumonectomy. Patient states it hurts to move in certain positions, cough and it hurts to take a deep breath. Patient CTA last night was negative for PE. PFS ED PFSH: Medical History COPD (chronic obstructive pulmonary disease) History of lung cancer Spontaneous pneumothorax Surgical History History of cervical spinal surgery (05/14/12) C3-C4 Dr. Reagan HERRERA History of decompression of median nerve (~1990) 1990 left wrist History of fusion of cervical spine Dr. May Kirk 03/31/2014 C7-T1 ACDFF Dr. May Kirk 05/14/2012 C3-C4 ACDFF Dr. May Kirk 05/18/2009 C4-C5 ACDFF History of lumbar fusion (~02/03/07) Dr. May Kirk 02/03/2007 L4-L5 anterior lumbar interbody fusion/fixation Dr. May Kirk 01/30/2006 Left L4-L5 hemilaminotomy/discectomy/foraminotomy History of lung surgery (~05/2008) Family History Mother Lung cancer Father Lung cancer Stroke Brother Lung cancer Social History Smoking and tobacco status: current every day smoker Alcohol intake: never Household members: spouse Marital status: Current occupational status: disabled History of recent travel: No Physical Exam Const: COMMON NORMALS: no acute distress, patient oriented x3, no limitations, healthy appearing and well nourished GENERAL APPEARANCE: cooperative, well kempt and well developed HENMT: COMMON NORMALS: normocephalic, atraumatic, external ears normal, EAC's normal and Normal external nose present HEAD & SCALP: normal to inspection, normocephalic and atraumatic FACE & SINUS: normal facial exam and face symmetric NOSE: Normal external nose present and Normal nares present EXTERNAL EAR: Yes external ears normal EXTERNAL AUDITORY CANAL: EAC's normal MOUTH: Normal oral and palatal mucosa present, lip normal and tongue normal Eye: COMMON NORMALS: Equal, round and reactive pupils present and conjunctivae normal GENERAL EYE: appearance normal, both eyes and all related structures ALIGNMENT: Yes alignment normal PERIORBITAL: periorbital findings normal EYELID: eyelids normal CONJUNCTIVA: Yes conjunctivae normal SCLERA: sclerae normal PUPIL: Yes Equal, round and reactive pupils present Neck/C-Spine: COMMON NORMALS: full ROM, no lymphadenopathy, supple, no meningeal signs and no JVD GENERAL: Yes normal visual inspection and Yes trachea midline Chest: COMMONS NORMALS: normal inspection of the chest and normal palpation of entire chest wall Resp: COMMON NORMALS: normal respiratory effort, No retractions and No use of accessory muscles EFFORT & INSPECTION: Yes able to speak in complete sentences and Yes symmetric chest movement AUSCULTATION: no crackles, no rales, no rhonchi and no wheezes Cardio: COMMON NORMALS: no JVD, regular rate, regular rhythm, S1 normal heart sound present and S2 normal heart sound present RATE: regular rate RHYTHM: regular rhythm HEART SOUNDS: S1 normal heart sound present, S2 normal heart sound present, no click, no gallops, no murmurs, no rubs and abnormal split S2 GI: COMMON NORMALS: Soft to palpation and No hepatosplenomegaly present PALPATION: Yes Soft to palpation, No Tenderness to palpation present (GI), No Guarding due to palpation present (GI), No Rigid due to palpation, Yes No hepatosplenomegaly present, No Hernia present, No Palpable mass present and No Pulsatile mass present : COMMON NORMALS: Yes no CVA tenderness BLADDER/KIDNEY EXAM: Yes no CVA tenderness Back/Pelvis: COMMON NORMALS: no CVA tenderness, thoracic and lumbar spine normal to inspection, no thoracic nor lumbar tenderness and thoraco-lumbar ROM normal Extremity: COMMON NORMALS: normal to inspection, full ROM, capillary refill normal, no joint enlargement, no clubbing, cyanosis or edema and no calf tenderness Neuro: COMMON NORMALS: patient oriented x3, CN's II-XII intact bilaterally, moves all extremities, no focal motor deficits and no sensory deficits noted MENINGEAL SIGNS: Yes no meningeal signs SPEECH: speech normal Psych: COMMON NORMALS: mental status grossly normal, Normal thought process present, cooperative, normal affect, speech normal and activity/motor behavior normal APPEARANCE: Yes well kempt SPEECH: Yes normal speech THOUGHT PROCESS: Normal thought process present Skin: COMMON NORMALS: no rashes or lesions noted, turgor normal, no jaundice, no petechiae and no mottling GENERAL SKIN EXAM: no rashes or lesions noted and turgor normal Course ED course: 1425 -bedside ultrasound reveals good lung sliding sign on the left. Vital Signs: Vital signs: Vital Signs Temperature 98.9 F 09/24/19 17:04 Pulse Rate 86 09/24/19 17:04 Respiratory Rate 18 09/24/19 17:04 Blood Pressure 136/82 09/24/19 17:04 Pulse Oximetry 96 09/24/19 16:42 MDM - Chest Pain MDM Narrative: Medical decision making narrative: Gato is a nice 64-year-old male who comes in complaining of chest pain. He was worked up and evaluated for this yesterday and there was no evidence of collapsed lung, PE or cardiac etiology. Patient's work-up again today is unremarkable including a CT of the abdomen pelvis which shows no free air. There is questionable proctitis on CT but the patient is asymptomatic. Nonetheless I will add some antibiotics for this. The patient is going to tried [id number] pain medicines for this. He still states that if he gets concerned he will come back as he has had 2 spontaneous pneumothoraces in the past. I have encouraged the patient to do so if he has that concern. At this time though the patient appears to be safe for discharge. His heart score is less than 3 and he shows no sign of PE, aortic dissection, pneumonia or other life-threatening illness. Lab Data: Attestation: I reviewed the patient's lab results. Labs: Lab Results 09/24/19 09/24/19 09/24/19 Range/Units 13:18 13:18 13:18 WBC 12.7 H (4.0-10.0) 10^3/ uL RBC 4.69 (4.1-5.3) 10^6/u L Hgb 14.1 (11.7-16.6) g/dL Hct 43.5 (42.0-52.0) % MCV 92.8 (80-94) fL MCH 30.1 (28.0-34.0) pg MCHC 32.4 (30.0-36.0) g/dL RDW 12.6 (12.1-15.1) % Plt Count 261 (130-400) 10^3/c mm MPV 11.0 H (7.4-10.4) fL Neut % (Auto) 90.1 % Lymph % (Auto) 6.9 % [place] % (Auto) 2.5 % Eos % (Auto) 0.0 % Baso % (Auto) 0.1 % Neut # (Auto) 11.43 H (1.8-7.7) 10^3/u L Lymph # (Auto) 0.9 (0.8-4.8) 10^3/u L [place] # (Auto) 0.3 (0.2-0.9) 10^3/u L Eos # (Auto) 0.0 (0.0-0.8) 10^3/u L Baso # (Auto) 0.0 (0.0-0.1) 10^3/u L Nucleated RBC % (a uto) 0 % Nucleated RBCs # 0.0 /100WBC Sodium 142 (136-145) mmol/L Potassium 3.8 (3.5-5.1) mmol/L Chloride 105 (98-107) mmol/L Carbon Dioxide 25 (22-29) mmol/L Anion Gap 15.8 (5-19) BUN 7 L (8-23) mg/dL Creatinine 0.7 (0.7-1.2) mg/dL GFR Calculation 114.3 (90-130) mL/min Glucose 124 H (65-115) mg/dL Calculated Osmolal ity 291 (285-295) mOsm/k g Lactic Acid (0.5-2.2) mmol/L Lactate (0.5-2.2) mmol/L Calcium 9.8 (8.5-10.5) mg/dL Magnesium 1.8 (1.7-2.3) mg/dL Total Bilirubin 0.2 (0.15-1.2) mg/dL AST 13 (0-40) U/L ALT 11 (0-41) U/L Alkaline Phosphata se 62 (40-130) IU/L Troponin T Baselin e 6 (0-15) ng/L Troponin T 120 Min [place] (0-15) ng/L Delta Troponin T (0-10) ABS# Total Protein 7.0 (6.6-8.7) g/dL Albumin 4.2 (3.5-5.2) g/dL Globulin 2.8 (1.3-4.6) g/dL Lipase 41 (13-60) U/L Urine Color (Yellow) Urine Appearance (CLEAR) Urine pH (5-7) Ur Specific Gravit y (1.005-1.030) Urine Protein (Negative) Urine Glucose (UA) (Normal) Urine Ketones (Negative) Urine Blood (Negative) Urine Nitrate (Negative) Urine Bilirubin (NEGATIVE) Urine Urobilinogen (Negative) mg/dL Ur Leukocyte Marilyn ase (Negative) Urine RBC (0-2) /hpf Urine WBC (0-5) /hpf Ur Squamous Epith Cells (0-5) Amorphous Sediment Urine Bacteria (NONE) 09/24/19 09/24/19 09/24/19 Range/Units 14:56 15:20 16:16 WBC (4.0-10.0) 10^3/ uL RBC (4.1-5.3) 10^6/u L Hgb (11.7-16.6) g/dL Hct (42.0-52.0) % MCV (80-94) fL MCH (28.0-34.0) pg MCHC (30.0-36.0) g/dL RDW (12.1-15.1) % Plt Count (130-400) 10^3/c mm MPV (7.4-10.4) fL Neut % (Auto) % Lymph % (Auto) % [place] % (Auto) % Eos % (Auto) % Baso % (Auto) % Neut # (Auto) (1.8-7.7) 10^3/u L Lymph # (Auto) (0.8-4.8) 10^3/u L [place] # (Auto) (0.2-0.9) 10^3/u L Eos # (Auto) (0.0-0.8) 10^3/u L Baso # (Auto) (0.0-0.1) 10^3/u L Nucleated RBC % (a uto) % Nucleated RBCs # /100WBC Sodium (136-145) mmol/L Potassium (3.5-5.1) mmol/L Chloride (98-107) mmol/L Carbon Dioxide (22-29) mmol/L Anion Gap (5-19) BUN (8-23) mg/dL Creatinine (0.7-1.2) mg/dL GFR Calculation (90-130) mL/min Glucose (65-115) mg/dL Calculated Osmolal ity (285-295) mOsm/k g Lactic Acid 2.3 H (0.5-2.2) mmol/L Lactate (0.5-2.2) mmol/L Calcium (8.5-10.5) mg/dL Magnesium (1.7-2.3) mg/dL Total Bilirubin (0.15-1.2) mg/dL AST (0-40) U/L ALT (0-41) U/L Alkaline Phosphata se (40-130) IU/L Troponin T Baselin e (0-15) ng/L Troponin T 120 Min [place] 6.00 (0-15) ng/L Delta Troponin T 0 (0-10) ABS# Total Protein (6.6-8.7) g/dL Albumin (3.5-5.2) g/dL Globulin (1.3-4.6) g/dL Lipase (13-60) U/L Urine Color Straw (Yellow) Urine Appearance Clear (CLEAR) Urine pH 7 (5-7) Ur Specific Gravit y 1.010 (1.005-1.030) Urine Protein Neg (Negative) Urine Glucose (UA) Norm (Normal) Urine Ketones Negative (Negative) Urine Blood Neg (Negative) Urine Nitrate Negative (Negative) Urine Bilirubin Neg (NEGATIVE) Urine Urobilinogen Norm (Negative) mg/dL Ur Leukocyte Marilyn ase Negative (Negative) Urine RBC 0-4 H (0-2) /hpf Urine WBC None (0-5) /hpf Ur Squamous Epith Cells None (0-5) Amorphous Sediment Not Reportable Urine Bacteria Trace (NONE) 09/24/19 Range/Units 16:16 WBC (4.0-10.0) 10^3/ uL RBC (4.1-5.3) 10^6/u L Hgb (11.7-16.6) g/dL Hct (42.0-52.0) % MCV (80-94) fL MCH (28.0-34.0) pg MCHC (30.0-36.0) g/dL RDW (12.1-15.1) % Plt Count (130-400) 10^3/c mm MPV (7.4-10.4) fL Neut % (Auto) % Lymph % (Auto) % [place] % (Auto) % Eos % (Auto) % Baso % (Auto) % Neut # (Auto) (1.8-7.7) 10^3/u L Lymph # (Auto) (0.8-4.8) 10^3/u L [place] # (Auto) (0.2-0.9) 10^3/u L Eos # (Auto) (0.0-0.8) 10^3/u L Baso # (Auto) (0.0-0.1) 10^3/u L Nucleated RBC % (a uto) % Nucleated RBCs # /100WBC Sodium (136-145) mmol/L Potassium (3.5-5.1) mmol/L Chloride (98-107) mmol/L Carbon Dioxide (22-29) mmol/L Anion Gap (5-19) BUN (8-23) mg/dL Creatinine (0.7-1.2) mg/dL GFR Calculation (90-130) mL/min Glucose (65-115) mg/dL Calculated Osmolal ity (285-295) mOsm/k g Lactic Acid (0.5-2.2) mmol/L Lactate 2.2 (0.5-2.2) mmol/L Calcium (8.5-10.5) mg/dL Magnesium (1.7-2.3) mg/dL Total Bilirubin (0.15-1.2) mg/dL AST (0-40) U/L ALT (0-41) U/L Alkaline Phosphata se (40-130) IU/L Troponin T Baselin e (0-15) ng/L Troponin T 120 Min [place] (0-15) ng/L Delta Troponin T (0-10) ABS# Total Protein (6.6-8.7) g/dL Albumin (3.5-5.2) g/dL Globulin (1.3-4.6) g/dL Lipase (13-60) U/L Urine Color (Yellow) Urine Appearance (CLEAR) Urine pH (5-7) Ur Specific Gravit y (1.005-1.030) Urine Protein (Negative) Urine Glucose (UA) (Normal) Urine Ketones (Negative) Urine Blood (Negative) Urine Nitrate (Negative) Urine Bilirubin (NEGATIVE) Urine Urobilinogen (Negative) mg/dL Ur Leukocyte Marilyn ase (Negative) Urine RBC (0-2) /hpf Urine WBC (0-5) /hpf Ur Squamous Epith Cells (0-5) Amorphous Sediment Urine Bacteria (NONE) Imaging Data^: CXR: My impression: No acute pneumothorax or infiltrate. Unchanged from previous. CT Chest/Abdomen/Pelvis: Radiologist's impression: [place] [address] CT Scan Report Signed Patient: Gato Lizarraga Unit #: [id number] : 1955 Age/Sex: 64 / M ADM Date: 09/24/19 Loc: ER Room/Bed: Attending Dr: Ordering Provider/Ordering MD: Yessi Bhatia DO Date of Service: 09/24/19 Procedure(s): CT chest abd pel w con* Accession Number(s): [id number] Report Number: [id number] PROCEDURE INFORMATION: Exam: CT Chest With Contrast Exam date and time: 09/24/2019 2:15 PM Age: 64 years old Clinical indication: Abdominal pain; Acute; Chest pain; Type not specified; Additional info: Abdominal pain/ trauma TECHNIQUE: Imaging protocol: Computed tomography of the chest with intravenous contrast. Radiation optimization: All CT scans at this facility use at least one of these dose optimization techniques: automated exposure control; mA and/or kV adjustment per patient size (includes targeted exams where dose is matched to clinical indication); or iterative reconstruction. Contrast material: VISI 320; Contrast volume: 95 ml; Contrast route: INTRAVENOUS (IV); COMPARISON: CT angio chest PE prot [id number] 09/23/2019 9:46 PM RADIATION DOSE METRICS: Total DLP (mGy-cm): 1160.97 FINDINGS: Thyroid: The bilateral thyroid lobes are unremarkable. Lungs: Moderate-severe paraseptal emphysema bilaterally. Pleural space: No pneumothorax identified. No pleural effusion demonstrated. Heart: Proximal LAD coronary artery calcifications. Mediastinal space: No mediastinal hematoma identified. Aorta: Mild aortic valvular calcification is present. There is no evidence of aortic pseudoaneurysm or traumatic dissection. Lymph nodes: No enlarged lymph nodes. Diaphragm: The left hemidiaphragm is moderately elevated. Bones/joints: No acute thoracic spine or sternal fracture identified. Lower cervical spinal anterior fixation hardware. No displaced rib fracture demonstrated. Chronic healed left 2nd through 11th rib fractures. Soft tissues: Unremarkable. IMPRESSION: 1. Pulmonary emphysema. 2. No acute injury identified. 3. Coronary atherosclerosis. 4. Please see the abdomen/pelvis CT report of the same date for additional findings. PROCEDURE INFORMATION: Exam: CT Abdomen And Pelvis With Contrast Exam date and time: 09/24/2019 2:15 PM Age: 64 years old Clinical indication: Abdominal pain; Acute; Chest pain; Type not specified; Additional info: Abdominal pain/ trauma TECHNIQUE: Imaging protocol: Computed tomography of the abdomen and pelvis with intravenous contrast. Radiation optimization: All CT scans at this facility use at least one of these dose optimization techniques: automated exposure control; mA and/or kV adjustment per patient size (includes targeted exams where dose is matched to clinical indication); or iterative reconstruction. Contrast material: VISI 320; Contrast volume: 95 ml; Contrast route: INTRAVENOUS (IV); COMPARISON: CT angio chest PE protcl [id number] 09/23/2019 9:46 PM RADIATION DOSE METRICS: Total DLP (mGy-cm): 1160.97 FINDINGS: Liver: Normal. No mass. Gallbladder and bile ducts: Normal. No calcified stones. No ductal dilation. Pancreas: Normal. No ductal dilation. Spleen: Normal. No splenomegaly. Adrenals: Normal. No mass. Kidneys and ureters: Mild bilateral extrarenal renal pelviectasis, a normal variant. Stomach and bowel: Mild rectal wall thickening. Appendix: No evidence of appendicitis. Intraperitoneal space: Unremarkable. No free air. No significant fluid collection. Vasculature: Unremarkable. No abdominal aortic aneurysm. Lymph nodes: No enlarged lymph nodes. Bladder: Unremarkable as visualized. Reproductive: Unremarkable as visualized. Bones/joints: No pelvic or sacral fracture identified. No acute lumbar spine fracture identified. Right femoral neck herniation pit, a normal variant. Anterior L4-L5 spinal fixation hardware, fused disc space graft. Soft tissues: Unremarkable. CT/CT chest abd pel w con* IMPRESSION: 1. Mild rectal wall thickening. The finding is consistent with mild nonspecific proctitis. Clinical correlation with the patient's specific symptomatology is recommended. 2. No acute injury identified. 3. Please see the CT chest report of the same date for additional findings. Radiation Dose CTDIVOL = (mGy): DLP = 1160.97 1160.97 (mGy-cm) Dictated By: Marty Gasca MD Signed By: Marty Gasca MD Signed Date/Time: 09/24/19 1534 DD/ 1532 EKG Data^: EKG 1: Attestation: I personally reviewed and interpreted this EKG as follows: EKG interpretation date: 09/24/19 EKG interpretation time: 14:19 Interpretation: Normal sinus rhythm at 92 beats a minute, LVH, no acute ST-T wave changes. EKG 2: Attestation: I personally reviewed and interpreted this EKG as follows: EKG interpretation date: 09/24/19 EKG interpretation time: 15:53 Interpretation: Normal sinus rhythm at 86 beats a minute, LVH, unchanged from previous. Discharge Plan Discharge Patient Disposition: Home Clinical Impression: Proctitis Chest pain Qualifiers: Chest pain type: chest pain on breathing Qualified Code(s): R07.1 - Chest pain on breathing Condition: Stable Prescriptions: New Cipro 500 mg tablet 500 mg PO BID Qty: 20 RF: 0 Flagyl 500 mg tablet 500 mg PO TID 10 Days Qty: 30 RF: 0 No Action gabapentin 600 mg tablet 600 mg PO TID RF: 0 baclofen 20 mg tablet 20 mg PO BID RF: 0 cyanocobalamin (vitamin B-12) 1,000 mcg capsule 1,000 mcg PO DAILY RF: 0 tamsulosin 0.4 mg capsule 0.4 mg PO BID RF: 0 tadalafil [Cialis] 5 mg tablet 5 mg PO DAILY RF: 0 Symbicort 160-4.5 mcg/actuation HFA aerosol inhaler 2 puff INHALATION BID RF: 0 multivitamin Tablet 1 tab PO DAILY RF: 0 Spiriva Respimat 1.25 mcg/actuation mist 2 puff INHALATION DAILY RF: 0 ondansetron HCl [Zofran] 4 mg Tablet 4 mg PO Q6H PRN (Reason: Nausea) RF: 0 albuterol sulfate [ProAir HFA] 90 mcg/actuation Hfa Aerosol Inhaler 2 puff INHALATION Q6H PRN (Reason: Shortness Of Breath) RF: 0 naproxen 500 mg Tablet 500 mg PO PRN RF: 0 Daliresp 500 mcg Tablet 500 mcg PO DAILY RF: 0 amoxicillin-pot clavulanate [Augmentin] 875-125 mg tablet 1 tab PO BID 10 Days Qty: 20 RF: 0 prednisone 10 mg tablet 20 mg PO TID 5 Days Qty: 30 RF: 0 Discharge Orders: Discharge Order (Routine); Ordered 09/24/19 Ordered By: Yessi Bhatia Referrals: Jovani Deal MD [Physician] - 1-3 days Discharge Diet: Advance as tolerated Discharge Activity: Increase activity as tolerated Patient Instructions: Pleurisy (ED) Activity Restrictions/Additional Instructions: Please return to the ER immediately for any of the signs or symptoms listed on your discharge instruction sheets, worsening/changing of your symptoms, you are not getting better as quickly as expected, or for ANY other cause or concerns. Discharge Date/Time: 09/24/19 17:06 Coding Level of Care Code ED [employer] for Chg Fwd Exam Comprehensive
[2019-09-24] MEDS: sodium chloride 0.9% 1,000 ML 100 ML IV (14:36)
[2019-09-24 14:42] LABS: Basophils % 0.1 %; Hematocrit 43.5 % (42.0-52.0); Hemoglobin 14.1 g/dL (11.7-16.6); Lymphocytes # 0.9 10^3/uL (0.8-4.8); Lymphocytes % 6.9 %; Mean Corpuscular HGB Conc 32.4 g/dL (30.0-36.0); Mean Corpuscular Hemoglobin 30.1 pg (28.0-34.0); Mean Corpuscular Volume 92.8 fL (80-94); Monocytes # 0.3 10^3/uL (0.2-0.9); Monocytes % 2.5 %; Neutrophils # 11.43 10^3/uL (1.8-7.7); Neutrophils % 90.1 %; Nucleated Red Blood Cells % 0 %; Platelet Count 261 10^3/cmm (130-400); Red Blood Count 4.69 10^6/uL (4.1-5.3); Red Cell Distribution Width 12.6 % (12.1-15.1); White Blood Count 12.7 10^3/uL (4.0-10.0)
[2019-09-24] MEDS: sodium chloride 0.9% 1,000 ML 999 ML IV ×2 (14:48→15:47)
[2019-09-24] MEDS: morphine 4 mg/mL SDV 1 mL IVP (14:49)
[2019-09-24] MEDS: ondansetron 2 mg/ML SDV 2 mL 4 MG IVP (14:50)
[2019-09-24 14:57] LABS: Alanine Aminotransferase 11 U/L (0-41); Albumin Level 4.2 g/dL (3.5-5.2); Alkaline Phosphatase 62 IU/L (40-130); Anion Gap 15.8 (5-19); Aspartate Amino Transferase 13 U/L (0-40); Blood Urea Nitrogen 7 mg/dL (8-23); Calcium 9.8 mg/dL (8.5-10.5); Carbon Dioxide 25 mmol/L (22-29); Chloride 105 mmol/L (98-107); Globulin 2.8 g/dL (1.3-4.6); Glomerular Filtration Rate 114.3 mL/min (90-130); Glucose 124 mg/dL (65-115); Lipase 41 U/L (13-60); Magnesium 1.8 mg/dL (1.7-2.3); Osmolality Calculated 291 mOsm/kg (285-295); Potassium 3.8 mmol/L (3.5-5.1); Sodium 142 mmol/L (136-145); Total Bilirubin 0.2 mg/dL (0.15-1.2)
[2019-09-24] MEDS: iodixanol 320 mg/mL 100mL Btl IV (15:06)
[2019-09-24 15:17] LABS: Bacteria Urine TRACE; Bilirubin Urine Neg (NEGATIVE); Blood Urine Neg (Negative); Glucose Urine UA Norm (Normal); Ketones Urine Negative (Negative); Leukocyte Esterase Urine Negative (Negative); Nitrate Urine Negative (Negative); Protein Urine Neg (Negative); Urine Appearance Clear (CLEAR); Urine Color Straw (Yellow); Urobilinogen Urine Norm (Negative); pH Urine 7 (5-7)
[2019-09-24 15:18] LABS: Add Urine Culture? No; RBC Urine 0-4 /hpf (0-2)
[2019-09-24 15:22] LABS: Troponin(5th) Baseline 6 ng/L (0-15)
[2019-09-24] MEDS: nicotine 21 mg Patch 1 PATCH TRANSDERMA (15:27)
[2019-09-24] MEDS: HYDROmorphone 1 mg/mL INJ 1 mL 0.5 MG IVP (15:28)
[2019-09-24 15:37] LABS: Lactic Sepsis W/Reflex 2.3 mmol/L (0.5-2.2)
--- NOTE | 2019-09-24 15:54 | PC.NURSE ---
EKG done at 1550 and shown to ER doctor
--- NOTE | 2019-09-24 16:13 | ECG_ITS ---
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 Measurements Intervals [place] Rate: 86 P: 72 [place]: 130 QRS: 56 QRSD: 86 T: 70 QT: 365 QTc: 437 Interpretive Statements SINUS RHYTHM MINIMAL VOLTAGE CRITERIA FOR LVH, CONSIDER NORMAL VARIANT [MEETS CRITERIA IN ONE OF: R(aVL), S(V1), R(V5), R(V5/V6)+S(V1)] Compared to ECG 09/24/2019 14:19:40 No significant changes Electronically Signed On 09-24-2019 16:20:42 CDT by Johnny Garcia M.D. [email or web address]
[2019-09-24 16:39] LABS: Lactate (Lactic Acid level) 2.2 mmol/L (0.5-2.2)
[2019-09-24 16:42] LABS: Troponin 5 2HR Delta 0 ABS# (0-10)
[2019-09-24 17:09] LABS: Reflex Lactate Order REFLEX LACTIC ORDERD
== END 2019-09-24 17:06 | disposition home or self-care (01) ==
PROVIDERS: Emergency Provider Emergency Medicine
DX: R07.1 Chest pain on breathing (principal); K62.89 Other specified diseases of anus and rectum; J44.9 Chronic obstructive pulmonary disease, unspecified; Z85.118 Personal history of other malignant neoplasm of bronchus and lung; F17.210 Nicotine dependence, cigarettes, uncomplicated
CPT/HCPCS: 12345; 36415; 71045; 71260; 74177; 80053; 81001; 83605; 83690; 83735; 84484; 85025; 93005; 96361; 96374; 96375; 99284; J1170; J2270; J2405; J3490; J7030; Q9967

== ENCOUNTER 2019-10-19 08:58 | Emergency (ER) | payer MEDICARE, MEDICAID, SELFPAY ==
[2019-10-19 08:59] VITALS: BP 116/79; PULSE 84; RESP 16; TEMP 36.7; O2SAT 96; BMI 19.5
[2019-10-19 09:35] VITALS: BP 116/79; PULSE 80; RESP 17; O2SAT 96
--- NOTE | 2019-10-19 09:36 | W.ED.SKABFB ---
HPI - Skin/Abscess/Foreign Bdy General: Chief complaint: General Medical Stated complaint: LEFT ELBOW INFECTION Time Seen by Provider: 10/19/19 09:09 Source: patient Mode of arrival: ambulatory Limitations: no limitations History of Present Illness: HPI narrative: Patient is a 64-year-old male who presents to ED today with a complaint of a spider bite to his right elbow that he initially noticed approximately 10 days ago. He was initially seen in [place] and placed on Clindamycin. Patient states after 2 days he was not improving so went back to the clinic where they switched his antibiotics to Keflex. Patient states he has been on this medication for 8 days now and does not seem to be improving. Patient has not noticed any redness streaking up or down his arm. He denies fever/chills. He is complaining of burning and pain around the wound site. Patient maintains full range of motion of his elbow. MD complaint: insect bite/sting (possibly ) and abscess/boil Onset (ago): day(s) Tetanus up to date: yes Location: RUE Severity: moderate Quality: burning Pain Consistency: constant Relieving factors: none Exacerbating factors: none Associated symptoms: Deny chills, fever(s), nausea or vomiting Treatments prior to arrival: antibiotic Review of Systems Const: Denies: fever(s), chills, body aches, change in appetite, change in weight, fatigue or malaise Card: Denies: chest pain Resp: Denies: dyspnea GI: Denies: nausea or vomiting Musc: Reports: joint pain (R elbow); Denies: extremity pain, extremity swelling, joint swelling, joint stiffness or limited range of motion Skin/Breast: Reports: new lesions (R elbow wound) Neuro: Denies: numbness in extremities, weakness in extremities or sensory changes [facility] ED PFSH: Medical History (Updated 10/19/19 @ 11:12 by ABDULLAHI Moody) COPD (chronic obstructive pulmonary disease) History of lung cancer Spontaneous pneumothorax Surgical History History of cervical spinal surgery (05/14/12) C3-C4 ACDSHALONDA, Dr. Kirk History of decompression of median nerve (~1990) 1990 left wrist History of fusion of cervical spine Dr. May Kirk 03/31/2014 C7-T1 ACDFF Dr. May Kirk 05/14/2012 C3-C4 ACDFF Dr. May Kirk 05/18/2009 C4-C5 ACDFF History of lumbar fusion (~02/03/07) Dr. May Kirk 02/03/2007 L4-L5 anterior lumbar interbody fusion/fixation Dr. May Kirk 01/30/2006 Left L4-L5 hemilaminotomy/discectomy/foraminotomy History of lung surgery (~05/2008) Family History Mother Lung cancer Father Lung cancer Stroke Brother Lung cancer Social History Smoking and tobacco status: current every day smoker Alcohol intake: never Household members: spouse Marital status: Current occupational status: disabled History of recent travel: No Physical Exam Const: COMMON NORMALS: no acute distress, patient oriented x3, no limitations and alert GENERAL APPEARANCE: cooperative and disheveled Extremity: NARRATIVE EXTREMITY EXAM: pt with wound to posterior aspect of R elbow; wound draining scant amount of clear/yellow liquid; no odor noted; there is no surrounding cellulitis or streaking; wound appears superficial and does not appear to involve olecranon bursa Neuro: COMMON NORMALS: patient oriented x3, moves all extremities, no focal motor deficits and no sensory deficits noted SENSORIUM/ORIENTATION: Yes alert Skin: OTHER: see extremity assessment Course Vital Signs: Vital signs: Vital Signs Temperature 98.0 F 10/19/19 08:59 Pulse Rate 80 10/19/19 09:35 Respiratory Rate 17 10/19/19 09:35 Blood Pressure 116/79 10/19/19 09:35 Pulse Oximetry 96 10/19/19 09:35 MDM - Skin/Abscess/Foreign Bdy MDM Narrative: Medical decision making narrative: pts vitals are normal; labs are non-concerning at this time; this does not appear to be infecting his bursa; pt maintains full ROM of joint; abscess draining on its own and not amendable to I&D at this time; culture was obtained from the drainage; recommended we place him on doxy or bactrim but patient reporting allergies to both of these medications; will put him on Augmentin until cultures return Lab Data: Labs: Lab Results 10/19/19 10/19/19 Range/Units 10:00 10:00 WBC 7.7 (4.0-10.0) 10^3/ uL RBC 4.11 (4.1-5.3) 10^6/u L Hgb 12.3 (11.7-16.6) g/dL Hct 38.7 L (42.0-52.0) % MCV 94.2 H (80-94) fL MCH 29.9 (28.0-34.0) pg MCHC 31.8 (30.0-36.0) g/dL RDW 12.7 (12.1-15.1) % Plt Count 214 (130-400) 10^3/c mm MPV 10.9 H (7.4-10.4) fL Neut % (Auto) 77.7 % Lymph % (Auto) 16.6 % [place] % (Auto) 3.5 % Eos % (Auto) 1.4 % Baso % (Auto) 0.4 % Neut # (Auto) 5.96 (1.8-7.7) 10^3/u L Lymph # (Auto) 1.3 (0.8-4.8) 10^3/u L [place] # (Auto) 0.3 (0.2-0.9) 10^3/u L Eos # (Auto) 0.1 (0.0-0.8) 10^3/u L Baso # (Auto) 0.0 (0.0-0.1) 10^3/u L Nucleated RBC % (a uto) 0 % Nucleated RBCs # 0.0 /100WBC Sodium 140 (136-145) mmol/L Potassium 3.8 (3.5-5.1) mmol/L Chloride 104 (98-107) mmol/L Carbon Dioxide 26 (22-29) mmol/L Anion Gap 13.8 (5-19) BUN 12 (8-23) mg/dL Creatinine 0.6 L (0.7-1.2) mg/dL GFR Calculation 136.5 H (90-130) mL/min Glucose 115 (65-115) mg/dL Calculated Osmolal ity 287 (285-295) mOsm/k g Calcium 8.3 L (8.5-10.5) mg/dL Total Bilirubin 0.2 (0.15-1.2) mg/dL AST 21 (0-40) U/L ALT 21 (0-41) U/L Alkaline Phosphata se 54 (40-130) IU/L C-Reactive Protein 12.6 H (0.0-4.9) mg/L Total Protein 6.3 L (6.6-8.7) g/dL Albumin 3.5 (3.5-5.2) g/dL Globulin 2.8 (1.3-4.6) g/dL Discharge Plan Discharge Patient Disposition: Home Clinical Impression: Accidental spider bite, Abscess of right elbow Condition: Stable Prescriptions: New Augmentin 875-125 mg tablet 1 tab PO Q12H 7 Days Qty: 14 RF: 0 No Action gabapentin 600 mg tablet 600 mg PO TID RF: 0 baclofen 20 mg tablet 20 mg PO BID RF: 0 cyanocobalamin (vitamin B-12) 1,000 mcg capsule 1,000 mcg PO DAILY RF: 0 tamsulosin 0.4 mg capsule 0.4 mg PO BID RF: 0 tadalafil [Cialis] 5 mg tablet 5 mg PO DAILY RF: 0 Symbicort 160-4.5 mcg/actuation HFA aerosol inhaler 2 puff INHALATION BID RF: 0 multivitamin Tablet 1 tab PO DAILY RF: 0 Spiriva Respimat 1.25 mcg/actuation mist 2 puff INHALATION DAILY RF: 0 ondansetron HCl [Zofran] 4 mg Tablet 4 mg PO Q6H PRN (Reason: Nausea) RF: 0 albuterol sulfate [ProAir HFA] 90 mcg/actuation Hfa Aerosol Inhaler 2 puff INHALATION Q6H PRN (Reason: Shortness Of Breath) RF: 0 naproxen 500 mg Tablet 500 mg PO PRN RF: 0 Daliresp 500 mcg Tablet 500 mcg PO DAILY RF: 0 Cipro 500 mg tablet 500 mg PO BID Qty: 20 RF: 0 Discharge Orders: Discharge Order (Routine); Ordered 10/19/19 Ordered By: Halima Acuña Patient Instructions: Brown Recluse Spider Bite, Brown Recluse Spider Bite (ED), Abscess (ED) Activity Restrictions/Additional Instructions: Please followup with primary care in 3-5 days for re-evaluation. Return to ED for worsening abscess, extreme pain with movement of your elbow, fevers greater than 100.4, red streaking up or down your arm or any other concerns you may have. Coding Level of Care Code ED Human Services Case Manager for Chg Fwd Exam Expanded Problem Focused
[2019-10-19] MEDS: vancomycin 1,000 MG in sodium chloride 0.9% 250 ML 250 MG IV (10:14)
[2019-10-19 10:23] LABS: Basophils % 0.4 %; Eosinophils # 0.1 10^3/uL (0.0-0.8); Eosinophils % 1.4 %; Hematocrit 38.7 % (42.0-52.0); Hemoglobin 12.3 g/dL (11.7-16.6); Lymphocytes # 1.3 10^3/uL (0.8-4.8); Lymphocytes % 16.6 %; Mean Corpuscular HGB Conc 31.8 g/dL (30.0-36.0); Mean Corpuscular Hemoglobin 29.9 pg (28.0-34.0); Mean Corpuscular Volume 94.2 fL (80-94); Mean Platelet Volume 10.9 fL (7.4-10.4); Monocytes # 0.3 10^3/uL (0.2-0.9); Monocytes % 3.5 %; Neutrophils # 5.96 10^3/uL (1.8-7.7); Neutrophils % 77.7 %; Nucleated Red Blood Cells % 0 %; Platelet Count 214 10^3/cmm (130-400); Red Blood Count 4.11 10^6/uL (4.1-5.3); Red Cell Distribution Width 12.7 % (12.1-15.1); White Blood Count 7.7 10^3/uL (4.0-10.0)
[2019-10-19 10:33] LABS: Alanine Aminotransferase 21 U/L (0-41); Albumin Level 3.5 g/dL (3.5-5.2); Alkaline Phosphatase 54 IU/L (40-130); Aspartate Amino Transferase 21 U/L (0-40); Blood Urea Nitrogen 12 mg/dL (8-23); C Reactive Protein 12.6 mg/L (0.0-4.9); Calcium 8.3 mg/dL (8.5-10.5); Carbon Dioxide 26 mmol/L (22-29); Chloride 104 mmol/L (98-107); Globulin 2.8 g/dL (1.3-4.6); Glomerular Filtration Rate 136.5 mL/min (90-130); Glucose 115 mg/dL (65-115); Osmolality Calculated 287 mOsm/kg (285-295); Sodium 140 mmol/L (136-145); Total Bilirubin 0.2 mg/dL (0.15-1.2); Total Protein 6.3 g/dL (6.6-8.7)
[2019-10-19 10:35] LABS: Anion Gap 13.8 (5-19); Potassium 3.8 mmol/L (3.5-5.1)
[2019-10-19 11:26] VITALS: BP 98/76; PULSE 83; RESP 17; O2SAT 96
== END 2019-10-19 11:20 | disposition home or self-care (01) ==
PROVIDERS: Emergency Provider Physician Assistant
DX: T63.301A Toxic effect of unspecified spider venom, accidental (unintentional), initial encounter (principal); L02.413 Cutaneous abscess of right upper limb; J44.9 Chronic obstructive pulmonary disease, unspecified; Z85.118 Personal history of other malignant neoplasm of bronchus and lung; F17.210 Nicotine dependence, cigarettes, uncomplicated
CPT/HCPCS: 12345; 36415; 80053; 85025; 86140; 87040; 87070; 87077; 87186; 87205; 96365; 99283; J3370; J7050

== ENCOUNTER 2019-10-27 07:59 | Outpatient (CLI) | payer MEDICARE, MEDICAID, SELFPAY ==
--- NOTE | 2019-10-27 09:00 | IR_ITS ---
WS: [id number] MYELOGRAM CERVICAL AND LUMBAR SPINE Fluoroscopic guided cervical myelogram CLINICAL INFORMATION: lumbar pain, CERVICAL PAIN COMPARISON: None. TECHNIQUE: The procedure, including risks, benefits, and complications, were discussed with the patie nt who agreed to proceed. A timeout was performed to confirm correct patient, procedure, and site. Using sterile technique, the patient was prepped and draped in the usual sterile fashion. After admin istration of local anesthesia using 1% preservative-free lidocaine and using fluoroscopic guidance, a 22-gauge spinal needle was advanced into the subarachnoid space at the L3-L4 level. Subsequently 13 cc of Omnipaque 300 was administered into the thecal sac. The needle was removed and hemostasis was a chieved. Subsequently the table was tilted down and contrast flowed freely into the cervical spine. S pot fluoroscopic images were obtained. FLUOROSCOPIC TIME: 1.[address] myelogram report for additional detail. IR/IR myelogram spine cervic/lumb IMPRESSION: 1. Uncomplicated cervical and lumbar myelogram. 2. Please see CT myelogram report for anatomic detail
[2019-10-27] MEDS: iohexol 300 mg/mL 50 mL Btl INTRATHECA (09:31)
--- NOTE | 2019-10-27 11:00 | CT_ITS ---
WS: [id number] CT CERVICAL MYELOGRAM TECHNIQUE: CT of the cervical spine coronal and sagittal reformatted images post intrathecal administ ration of contrast. CLINICAL INFORMATION: cervical pain COMPARISON: CT cervical spine July 17, 2015 DLP: 1433.[address] scans at [facility] use at least one of these dose optimization techniques: automat ed exposure control; mA and/or kV adjustment per patient size (includes targeted exams where dose is matched to clinical indication); or iterative reconstruction. FINDINGS: Mild cervical curve. Straightening of the normal cervical lordosis. Postoperative changes anterior in terbody cervical fusion C3-C4 and C4-C5. Anterior interbody cervical fusion at C7-T1 with subsidence along the C7-T1 interbody fusion graft. C2-C3: Mild disc bulging. Spinal canal and foramen are patent. Mild facet arthropathy. C3-C4: Anterior interbody cervical fusion. Moderate left bony foraminal narrowing. Mild right bony fo raminal narrowing. Mild to moderate facet arthropathy. C4-C5: Osteophytic ridging. Mild bilateral bony foraminal narrowing. Moderate facet arthropathy. C5-C6: Disc osteophytic ridging. Mild central canal stenosis. Moderate left greater than right bony f oraminal narrowing. Moderate facet arthropathy. C6-C7: Disc osteophyte complex with endplate ridging. Severe bilateral bony foraminal narrowing right greater than left. Mild facet arthropathy. Mild central canal stenosis. C7-T1: Anterior cervical fusion. Spinal canal is patent. Mild left greater than right bony foraminal narrowing. T1-T2: Tiny central disc protrusion. Slight contact of the thoracic cord. Spinal canal and foramen ar e patent. Advanced chronic emphysematous changes in the lung apices. CT/CT cervical spine w con [id number] IMPRESSION: 1. Anterior cervical fusion appears solid at C3-C4 and C4-C5. Solid appearing interbody fusion grafts at C3-C5. Anterior cervical fusion hardware at C3-4. No evidence of loosening. 2. C7-T1 Cervical fusion with interbody fusion graft. Subsidence along the int erbody fusion graft with no evidence of bony bridging beyond the confines of th e graft. 3. Mild central canal stenosis C5-C6 and C6-C7 due to disc osteophyte complexe s. 4. Multilevel moderate to severe bony foraminal narrowing worse at left C5-C6 and bilateral C6-7. 5. Small central disc protrusion T1-2 with slight contact of the thoracic cord . 6. Moderate to advanced facet arthropathy worse at left C5-C6.
--- NOTE | 2019-10-27 11:30 | CT_ITS ---
WS: [id number] CT LUMBAR SPINE TECHNIQUE: Contrast-enhanced CT of the lumbar spine with coronal and sagittal reformatted images. CLINICAL INFORMATION: lumbar pain COMPARISON: MRI lumbar 4 16,[address] 1 19,018 DLP: 1877.[address] scans at [facility] use at least one of these dose optimization techniques: automat ed exposure control; mA and/or kV adjustment per patient size (includes targeted exams where dose is matched to clinical indication); or iterative reconstruction. FINDINGS: Mild lumbar curve. No acute compression. No high-grade central canal stenosis. Pedicle screw fixation L4-5 with interbody fusion graft. No evidence of hardware loosening. L1-L2: Mild disc bulging. Slight effacement of ventral thecal sac. Narrowing of the left subarticular recess. Mild left foraminal narrowing. L2-L3: Mild disc bulging with narrowing of the subarticular recess bilaterally. Small right foraminal protrusion with mild right foraminal narrowing. Left subarticular protrusion impinges the traversing left L3 nerve root. L3-L4: Annular bulging with mild central canal stenosis. Narrowing of the subarticular recess bilater ally slight impingement traversing L4 nerve roots. Mild central canal stenosis. Mild right and no sig nificant left foraminal narrowing. Moderate facet arthropathy. L4-L5: Anterior lumbar fusion. Osteophytic ridging. Foramen are patent. Moderate facet arthropathy. L5-S1: Mild annular bulging with a tiny broad-based central protrusion. Mild facet arthropathy. Lasha[place] en are patent. Slight contact of the traversing right S1 nerve root. Mild facet arthropathy. Visualized pelvic bony structures: Normal. Paravertebral soft tissues: Normal. CT/CT lumbar spine w con [id number] IMPRESSION: 1. Mild lumbar curve. No acute compression. No high-grade central canal stenos is. 2. Prior postoperative changes pedicle screw fixation L4-5 with interbody fusi on. 3. Small left subarticular protrusion L2-3 impinges the traversing left L3 ner ve root in the subarticular recess. Mild left L2-3 foraminal narrowing. 4. Small right foraminal protrusion L2-3 contacts the exiting right L2 nerve r oot . 5. Mild central canal stenosis L3-4. 6. Mild left L1-2 foraminal narrowing with narrowing of the left subarticular recess.
== END 2019-10-27 08:00 | disposition home or self-care (01) ==
LOC: RADWPI 08:07
PROVIDERS: Family Provider Family Medicine; PCP Family Medicine; Visit Provider Licensed Practical Nurse
DX: M96.1 Postlaminectomy syndrome, not elsewhere classified (principal); Z98.1 Arthrodesis status; F17.210 Nicotine dependence, cigarettes, uncomplicated
CPT/HCPCS: 62305; 72040; 72120; 72126; 72132; 99214; Q9967

== ENCOUNTER 2020-01-17 11:02 | Outpatient (CLI) | payer MEDICARE, MEDICAID, SELFPAY ==
--- NOTE | 2020-01-17 11:12 | XR_ITS ---
WS: [id number] CERVICAL SPINE TECHNIQUE: 3 views of the cervical spine CLINICAL INFORMATION: RADICULOPATHY, CERVICAL REGION COMPARISON: None. FINDINGS: Straightening of the normal cervical lordosis. Normal C1-C2 articulation. Anterior cervical fusion C3 -5 and C7-T1. Fusion appears solid. Normal prevertebral soft tissues. Mild bony foraminal narrowing w orse at bilateral C6-7. XR/XR cervical spine 4-5V [id number] IMPRESSION: Straightening of the normal cervical lordosis with solid-appearing anterior cer vical fusion C3-C5 and C7-T1.
== END 2020-01-17 11:03 | disposition home or self-care (01) ==
LOC: RADWPI 11:10
PROVIDERS: PCP Family Medicine; Visit Provider Neurological Surgery
DX: M54.12 Radiculopathy, cervical region (principal); M43.23 Fusion of spine, cervicothoracic region; M43.22 Fusion of spine, cervical region
CPT/HCPCS: 72050

== ENCOUNTER 2020-01-23 11:42 | Emergency (ER) | payer MEDICARE, MEDICAID, SELFPAY ==
[2020-01-23 11:48] VITALS: BP 115/76; PULSE 93; RESP 14; TEMP 36.7; O2SAT 98
[2020-01-23 12:00] VITALS: BP 120/78; PULSE 82; O2SAT 98
--- NOTE | 2020-01-23 12:22 | ED_ITS ---
HPI - GI Bleed General: Chief complaint: GI Bleed Stated complaint: Bleeding from Rectum Time Seen by Provider: 01/23/20 11:56 Source: patient Mode of arrival: ambulatory Limitations: no limitations History of Present Illness: HPI Narrative: Mr. Lizarraga is a very nice 64-year-old male who comes in complaining of a 2-day history of bright red blood in his stools. The blood will be mixed with stool but can also happen spontaneously. Patient states he is blood mild to moderate amount at home. He does have some occasional cramping deep in his rectum. Patient denies any n ausea or vomiting. He denies any hematic emesis or melena. Patient has not had symptoms like this before. He is concerned he may have a hemorrhoid. Patient denies any syncopal or near syncopal type symptoms. He does not report dyspnea on exertion, chest pain or dizzy spells. Patient does not take any anticoagulation or antiplatelet agents. He is unaware of any exacerbating or alleviating factors. Associated symptoms: Denies abdominal pain, chills, easy bruising, fever(s), headache(s), malaise, nausea, rash, syncope or vomiting Review of Systems Const: Denies: fever(s), chills, body aches, fatigue, malaise or diaphoresis Eyes: Denies: change in vision, blurry vision, photophobia, eye discomfort, eye discharge, eye redness or yellow eyes ENMT: Denies: throat pain, odynophagia, hoarseness, swelling of lips/tongue, ear or mastoid pain, ear discharge, change in hearing or nasal discharge Card: Denies: chest pain, palpitations, irregular heart rhythm, edema, lightheadedness, syncope, pre-syncope, dyspnea on exertion or orthopnea Resp: Denies: dyspnea, productive cough, non-productive cough, wheezing, hemoptysis or chest congestion GI: Reports: hematochezia; Denies: abdominal pain, nausea, vomiting, hematemesis, coffee ground emesis, heartburn, diarrhea, constipation, GI cramping or melena : Denies: flank pain, dysuria, urinary frequency, urinary urgency or hematuria Musc: Denies: neck pain, back pain, extremity pain, extremity swelling, joint pain, joint swelling, joint redness, joint warmth or joint stiffness Skin/Breast: Denies: rash, pruritus, erythema, skin pain or skin tenderness Neuro: Denies: headache(s), numbness in extremities, weakness in extremities, sensory changes, lack of coordination, difficulty walking, dizziness, vertigo, confusion, Slurred speech present or seizure-like activity Jose/Lymph: Denies: easy bruising, easy bleeding, petechiae, purpura or enlarged lymph nodes All/Imm: Denies: urticaria, throat swelling, tongue swelling, facial swelling or acute wheezing PFSH ED PFSH: Medical History Cervical post-laminectomy syndrome COPD (chronic obstructive pulmonary disease) History of lung cancer Lumbar post-laminectomy syndrome Spontaneous pneumothorax Surgical History History of cervical spinal surgery (05/14/12) C3-C4 ACDFF, Dr. Kirk History of decompression of median nerve (~1990) 1990 left wrist History of fusion of cervical spine Dr. May Kirk 03/31/2014 C7-T1 ACDFF Dr. May Kirk 05/14/2012 C3-C4 ACDFF Dr. May Kirk 05/18/2009 C4-C5 ACDFF History of lumbar fusion (~02/03/07) Dr. May Kirk 02/03/2007 L4-L5 anterior lumbar interbody fusion/fixation Dr. May Kirk 01/30/2006 Left L4-L5 hemilaminotomy/discectomy/foraminotomy History of lung surgery (~05/2008) Family History Mother Lung cancer Father Lung cancer Stroke Brother Lung cancer Social History Smoking and tobacco status: current every day smoker Alcohol intake: never Household members: spouse Marital status: Current occupational status: disabled History of recent travel: No Physical Exam Const: COMMON NORMALS: no acute distress, patient oriented x3, no limitations and alert GENERAL APPEARANCE: cooperative HENMT: COMMON NORMALS: normocephalic, atraumatic, external ears normal, EAC's normal and Normal external nose present HEAD & SCALP: normal to inspection, normocephalic and atraumatic FACE & SINUS: normal facial exam and face symmetric NOSE: Normal external nose present and Normal nares present EXTERNAL EAR: Yes external ears normal EXTERNAL AUDITORY CANAL: EAC's normal MOUTH: Normal oral and palatal mucosa present, lip normal and tongue normal Eye: COMMON NORMALS: Equal, round and reactive pupils present and conjunctivae normal GENERAL EYE: appearance normal, both eyes and all related structures ALIGNMENT: Yes alignment normal PERIORBITAL: periorbital findings normal EYELID: eyelids normal CONJUNCTIVA: Yes conjunctivae normal SCLERA: sclerae normal PUPIL: Yes Equal, round and reactive pupils present Neck/C-Spine: COMMON NORMALS: full ROM, no lymphadenopathy, supple, no meningeal signs and no JVD GENERAL: Yes normal visual inspection and Yes tr achea midline Chest: COMMONS NORMALS: normal inspection of the chest and normal palpation of entire chest wall Resp: COMMON NORMALS: normal respiratory effort, No retractions, No use of accessory muscles and clear to auscultation bilaterally EFFORT & INSPECTION: Yes able to speak in complete sentences and Yes symmetric chest movement AUSCULTATION: clear to auscultation bilaterally, no crackles, no rales, no rhonchi and no wheezes Cardio: COMMON NORMALS: no JVD, regular rate, regular rhythm, S1 normal heart sound present and S2 normal heart sound present RATE: regular rate RHYTHM: regular rhythm HEART SOUNDS: S1 normal heart sound present, S2 normal heart sound present, no click, no gallops, no murmurs and no rubs GI: COMMON NORMALS: Soft to palpation and No hepatosplenomegaly present PALPATION: Yes Soft to palpation, No Tenderness to palpation present (GI), No Guarding due to palpation present (GI), No Rigid due to palpation, Yes No hepatosplenomegaly present, No Hernia present, No Palpable mass present and No Pulsatile mass present RECTAL EXAM: Yes deferred (Patient cannot tolerate pain for complete rectal.) OTHER: Hemorrhoid located in the 6 o'clock position with possible drainage/perirectal abscess. : COMMON NORMALS: Yes no CVA tenderness BLADDER/KIDNEY EXAM: Yes no CVA tenderness Back/Pelvis: COMMON NORMALS: no CVA tenderness, thoracic and lumbar spine normal to inspection, no thoracic nor lumbar tenderness and thoraco-lumbar ROM normal Extremity: COMMON NORMALS: normal to inspection, full ROM, capillary refill normal, no joint enlargement, no clubbing, cyanosis or edema and no calf tenderness Neuro: COMMON NORMALS: patient oriented x3, CN's II-XII intact bilaterally, moves all extremities, no focal motor deficits and no sensory deficits noted SENSORIUM/ORIENTATION: Yes alert MENINGEAL SIGNS: Yes no meningeal signs SPEECH: speech normal Psych: COMMON NORMALS: mental status grossly normal, Normal thought process present, cooperative, normal affect, speech normal and activity/motor behavior normal SPEECH: Yes normal speech THOUGHT PROCESS: Normal thought process present Skin: COMMON NORMALS: no rashes or lesions noted, turgor normal, no jaundice, no petechiae and no mottling GENERAL SKIN EXAM: no rashes or lesions noted and turgor normal Course Vital Signs: Vital signs: Vital Signs Temperature 98.0 F 01/23/20 11:48 Pulse Rate 93 01/23/20 11:48 Respiratory Rate 18 01/23/20 14:06 Blood Pressure 115/76 01/23/20 11:48 Pulse Oximetry 96 01/23/20 14:06 MDM - GI Bleed MDM Narrative: Medical decision making narrative: 0823 -patient was advised that he would need to come into the hospital for surgical drainage of his perirectal abscess. The patient is refusing this at this time. He wants his to stay with him but secondary to hospital policy this cannot happen. I did inform him he would be leaving AGAINST MEDICAL ADVICE but the patient has become hostile and angry and refuses to even signed AMA form. I will go and discharge him AMA with antibiotics. He does understand he is welcome to return. Patient at this time appears more than capable of making this decision. He has asked me questions and recent in his mind but ultimately he wants to go home and be with his . Patient was warned but he was also welcomed to return. Please see Dr. Harrison's consult as well. Lab Data: Attestation: I reviewed the patient's lab results. Labs: Lab Results 01/23/20 01/23/20 01/23/20 Range/Units 12:32 12:32 12:32 WBC 7.4 (4.0-10.0) 10^3/ uL RBC 3.99 L (4.1-5.3) 10^6/u L Hgb 11.8 (11.7-16.6) g/dL Hct 37.3 L (42.0-52.0) % MCV 93.5 (80-94) fL MCH 29.6 (28.0-34.0) pg MCHC 31.6 (30.0-36.0) g/dL RDW 12.5 (12.1-15.1) % Plt Count 222 (130-400) 10^3/c mm MPV 10.9 H (7.4-10.4) fL Neut % (Auto) 69.1 % Lymph % (Auto) 24.2 % Brantley % (Auto) 4.6 % Eos % (Auto) 1.7 % Baso % (Auto) 0.3 % Neut # (Auto) 5.13 (1.8-7.7) 10^3/u L Lymph # (Auto) 1.8 (0.8-4.8) 10^3/u L Brantley # (Auto) 0.3 (0.2-0.9) 10^3/u L Eos # (Auto) 0.1 (0.0-0.8) 10^3/u L Baso # (Auto) 0.0 (0.0-0.1) 10^3/u L Nucleated RBC % (a uto) 0 % Nucleated RBCs # 0.0 /100WBC PT 12.90 (12.1-14.9) SECO NDS INR 0.94 (0.8-1.2) Sodium (136-145) mmol/L Potassium (3.5-5.1) mmol/L Chloride (98-107) mmol/L Carbon Dioxide (22-29) mmol/L Anion Gap (5-19) BUN (8-23) mg/dL Creatinine (0.7-1.2) mg/dL GFR Calculation (90-130) mL/min Glucose (65-115) mg/dL Calculated Osmolal ity (285-295) mOsm/k g Calcium (8.5-10.5) mg/dL Total Bilirubin (0.15-1.2) mg/dL AST (0-40) U/L ALT (0-41) U/L Alkaline Phosphata se (40-130) IU/L Total Protein (6.6-8.7) g/dL Albumin (3.5-5.2) g/dL Globulin (1.3-4.6) g/dL Blood Type A Positive Rho(D) Type Positive Antibody Screen Negative 01/23/20 Range/Units 12:32 WBC (4.0-10.0) 10^3/ uL RBC (4.1-5.3) 10^6/u L Hgb (11.7-16.6) g/dL Hct (42.0-52.0) % MCV (80-94) fL MCH (28.0-34.0) pg MCHC (30.0-36.0) g/dL RDW (12.1-15.1) % Plt Count (130-400) 10^3/c mm MPV (7.4-10.4) fL Neut % (Auto) % Lymph % (Auto) % Brantley % (Auto) % Eos % (Auto) % Baso % (Auto) % Neut # (Auto) (1.8-7.7) 10^3/u L Lymph # (Auto) (0.8-4.8) 10^3/u L Brantley # (Auto) (0.2-0.9) 10^3/u L Eos # (Auto) (0.0-0.8) 10^3/u L Baso # (Auto) (0.0-0.1) 10^3/u L Nucleated RBC % (a uto) % Nucleated RBCs # /100WBC PT (12.1-14.9) SECO NDS INR (0.8-1.2) Sodium 139 (136-145) mmol/L Potassium 4.2 (3.5-5.1) mmol/L Chloride 100 (98-107) mmol/L Carbon Dioxide 32 H (22-29) mmol/L Anion Gap 11.2 (5-19) BUN 8 (8-23) mg/dL Creatinine 0.6 L (0.7-1.2) mg/dL GFR Calculation 136.5 H (90-130) mL/min Glucose 111 (65-115) mg/dL Calculated Osmolal ity 287 (285-295) mOsm/k g Calcium 8.8 (8.5-10.5) mg/dL Total Bilirubin 0.2 (0.15-1.2) mg/dL AST 16 (0-40) U/L ALT 14 (0-41) U/L Alkaline Phosphata se 75 (40-130) IU/L Total Protein 6.3 L (6.6-8.7) g/dL Albumin 3.2 L (3.5-5.2) g/dL Globulin 3.1 (1.3-4.6) g/dL Blood Type Rho(D) Type Antibody Screen Discharge Plan Discharge Patient Disposition: Left Against Medical Advice Clinical Impression: Perianal abscess Condition: Stable Prescriptions: New Flagyl 500 mg tablet 500 mg PO TID 10 Days Qty: 30 RF: 0 Cipro 500 mg tablet 500 mg PO BID Qty: 20 RF: 0 No Action gabapentin 600 mg tablet 600 mg PO TID RF: 0 cyanocobalamin (vitamin B-12) 1,000 mcg capsule 1,000 mcg PO DAILY RF: 0 tamsulosin 0.4 mg capsule 0.4 mg PO BID RF: 0 tadalafil [Cialis] 5 mg tablet 5 mg PO DAILY RF: 0 Symbicort 160-4.5 mcg/actuation HFA aerosol inhaler 2 puff INHALATION BID RF: 0 multivitamin Tablet 1 tab PO DAILY RF: 0 Spiriva Respimat 1.25 mcg/actuation mist 2 puff INHALATION DAILY RF: 0 baclofen 20 mg tablet 20 mg PO BID PRN (Reason: Pain) RF: 0 albuterol sulfate [ProAir HFA] 90 mcg/actuation Hfa Aerosol Inhaler 2 puff INHALATION Q6H PRN (Reason: Shortness Of Breath) RF: 0 naproxen 500 mg Tablet 500 mg PO BID PRN (Reason: Pain) RF: 0 Daliresp 500 mcg Tablet 500 mcg PO DAILY RF: 0 prednisone 5 mg Tablet 5 - 10 mg PO BID RF: 0 ropinirole 0.25 mg Tablet 0.25 mg PO DAILY RF: 0 Chantix 1 mg Tablet 1 mg PO . DIRECTED RF: 0 Discharge Orders: Discharge Order (Routine); Ordered 01/23/20 Ordered By: Yessi Bhatia Referrals: Jordy Harrison MD [Physician] - 1-3 days Gwyn Ruby [Primary Care Provider] - Discharge Diet: Clear Liquid Discharge Activity: Increase activity as tolerated Patient Instructions: Anorectal Abscess and Anal Fistula (ED) Activity Restrictions/Additional Instructions: You're leaving AGAINST MEDICAL ADVICE and are at risk for or severe permanent disability by doing so. You are more than welcome to return at any time for recheck and for further evaluation and care suture change you change your mind. Return to the ER for increased pain, fever, vomiting, or for any other cause for concern. Stand Alone Forms: Against Medical Advice Coding Level of Care Code ED Food Selector for Chg Fwd Exam Comprehensive
[2020-01-23] MEDS: sodium chloride 0.9% 1,000 ML 100 ML IV (12:45)
[2020-01-23] MEDS: ondansetron 2 mg/ML SDV 2 mL 4 MG IVP (12:46)
[2020-01-23 12:50] VITALS: RESP 18; O2SAT 97
[2020-01-23] MEDS: morphine 4 mg/mL SDV 1 mL IVP ×2 (12:50→14:06)
--- NOTE | 2020-01-23 12:57 | CTR_ITS ---
PROCEDURE INFORMATION: Exam: CT Abdomen And Pelvis With Contrast Exam date and time: 01/23/2020 1:36 PM Age: 64 years old Clinical indication: Abdominal pain; Additional info: Abdominal pain blood in stool TECHNIQUE: Imaging protocol: Computed tomography of the abdomen and pelvis with intravenous contrast. Radiation optimization: All CT scans at this facility use at least one of these dose optimization techniques: automated exposure control; mA and/or kV adjustment per patient size (includes targeted exams where dose is matched to clinical indication); or iterative reconstruction. Contrast material: OMNI 300; Contrast volume: 95 ml; Contrast route: INTRAVENOUS (IV); COMPARISON: CT chest abd pel w con* 09/24/2019 2:56 PM RADIATION DOSE METRICS: Total DLP (mGy-cm): 289.77 FINDINGS: Lungs: There are emphysematous changes at the lung bases. Streaky densities at the lung bases are most consistent with scarring and/or atelectasis. Diaphragm: Elevation of the left hemidiaphragm. Liver: Normal. No mass. Gallbladder and bile ducts: Normal. No calcified stones. No ductal dilation. Pancreas: Normal. No ductal dilation. Spleen: Normal. No splenomegaly. Adrenal glands: Normal. No mass. Kidneys and ureters: Normal. No hydronephrosis. Stomach and bowel: Colonic constipation is present. There is mucosal thickening of the distal rectosigmoid colon. Appendix: No evidence of appendicitis. Intraperitoneal space: Unremarkable. No free air. No significant fluid collection. Vasculature: There is scattered atherosclerotic plaque in the aorta and iliac arteries. Lymph nodes: Unremarkable. No enlarged lymph nodes. Urinary bladder: Unremarkable as visualized. Reproductive: Unremarkable as visualized. Bones/joints: There are chronic/healed left rib fracture sites. Status post L4-L5 anterior and interbody lumbar fusion. There is an anterior plate and screw fixation device in place without obvious complication. There are degenerative changes in the visualized spine. Soft tissues: Unremarkable. CT/CT abdomen pelvis w con* [id number] IMPRESSION: 1. There is mucosal thickening of the distal rectosigmoid colon. Differential includes nonspecific colitis. Follow-up to exclude neoplasm as clinically warranted. 2. Colonic constipation is present. 3. There are emphysematous changes at the lung bases. Radiation Dose CTDIVOL = (mGy): DLP = 289.77 (mGy-cm)
[2020-01-23 12:58] LABS: Basophils % 0.3 %; Eosinophils # 0.1 10^3/uL (0.0-0.8); Eosinophils % 1.7 %; Hematocrit 37.3 % (42.0-52.0); Hemoglobin 11.8 g/dL (11.7-16.6); Lymphocytes # 1.8 10^3/uL (0.8-4.8); Lymphocytes % 24.2 %; Mean Corpuscular HGB Conc 31.6 g/dL (30.0-36.0); Mean Corpuscular Hemoglobin 29.6 pg (28.0-34.0); Mean Corpuscular Volume 93.5 fL (80-94); Mean Platelet Volume 10.9 fL (7.4-10.4); Monocytes # 0.3 10^3/uL (0.2-0.9); Monocytes % 4.6 %; Neutrophils # 5.13 10^3/uL (1.8-7.7); Neutrophils % 69.1 %; Nucleated Red Blood Cells % 0 %; Platelet Count 222 10^3/cmm (130-400); Red Blood Count 3.99 10^6/uL (4.1-5.3); Red Cell Distribution Width 12.5 % (12.1-15.1); White Blood Count 7.4 10^3/uL (4.0-10.0)
[2020-01-23 13:14] LABS: INR 0.94 (0.8-1.2)
[2020-01-23 13:22] LABS: Alanine Aminotransferase 14 U/L (0-41); Albumin Level 3.2 g/dL (3.5-5.2); Alkaline Phosphatase 75 IU/L (40-130); Anion Gap 11.2 (5-19); Aspartate Amino Transferase 16 U/L (0-40); Blood Urea Nitrogen 8 mg/dL (8-23); Calcium 8.8 mg/dL (8.5-10.5); Carbon Dioxide 32 mmol/L (22-29); Chloride 100 mmol/L (98-107); Globulin 3.1 g/dL (1.3-4.6); Glomerular Filtration Rate 136.5 mL/min (90-130); Glucose 111 mg/dL (65-115); Osmolality Calculated 287 mOsm/kg (285-295); Potassium 4.2 mmol/L (3.5-5.1); Sodium 139 mmol/L (136-145); Total Bilirubin 0.2 mg/dL (0.15-1.2); Total Protein 6.3 g/dL (6.6-8.7)
[2020-01-23 14:00] VITALS: BP 119/73; PULSE 70; O2SAT 96
[2020-01-23 14:06] VITALS: RESP 18; O2SAT 96
[2020-01-23] MEDS: metroNIDAZOLE IV 500 MG/100 ML PREMIX 100 MG IV (14:07)
[2020-01-23] MEDS: iohexol 300 mg/mL 100 mL Btl IV (14:29)
[2020-01-23] MEDS: ciprofloxacin 400 MG/200 ML PREMIX 200 MG IV (14:58)
--- NOTE | 2020-01-23 15:08 | PM.CONSULT ---
Providers/Reason For Consult Consulting Physican/Specialty*: Jordy Harrison MD Reason for Consult*: Bleeding per rectum Requesting Physcian: Dr. Bhatia Primary Care Provider: Gwyn Ruby History of Present Illness History of Present Illness Chief Complaint: I have blood coming from the bottom History of present illness: Mr. Gato Lizarraga is a 64 year old male presents to the emergency department with worsening bleeding per rectum per his description, patient reports to me that for the past couple of days he has been having blood coming from the bottom and as it got worse presented to the emergency department for medical advice and evaluation. Also has been associated with pain at the perianal area but no report of fevers chills nausea or vomiting. Patient undergone lab work that was of insignificance a CT scan of the abdomen and pelvis that showed: FINDINGS: Lungs: There are emphysematous changes at the lung bases. Streaky densities at the lung bases are most consistent with scarring and/or atelectasis. Diaphragm: Elevation of the left hemidiaphragm. Liver: Normal. No mass. Gallbladder and bile ducts: Normal. No calcified stones. No ductal dilation. Pancreas: Normal. No ductal dilation. Spleen: Normal. No splenomegaly. Adrenal glands: Normal. No mass. Kidneys and ureters: Normal. No hydronephrosis. Stomach and bowel: Colonic constipation is present. There is mucosal thickening of the distal rectosigmoid colon. Appendix: No evidence of appendicitis. Intraperitoneal space: Unremarkable. No free air. No significant fluid collection. Vasculature: There is scattered atherosclerotic plaque in the aorta and iliac arteries. Lymph nodes: Unremarkable. No enlarged lymph nodes. Urinary bladder: Unremarkable as visualized. Reproductive: Unremarkable as visualized. Bones/joints: There are chronic/healed left rib fracture sites. Status post L4-L5 anterior and interbody lumbar fusion. There is an anterior plate and screw fixation device in place without obvious complication. There are degenerative changes in the visualized spine. Soft tissues: Unremarkable. CT/CT abdomen pelvis w con* [id number] IMPRESSION: 1. There is mucosal thickening of the distal rectosigmoid colon. Differential includes nonspecific colitis. Follow-up to exclude neoplasm as clinically warranted. 2. Colonic constipation is present. 3. There are emphysematous changes at the lung bases. General surgery was consulted for further evaluation and potential intervention Obtaining more history from the patient reports that he had history of lung cancer and he never had radiation to the pelvic region. Had a colonoscopy few years ago and few polyps were removed. Never had history of hemorrhoid. And he has been regular . Patient has been on prednisone for his COPD but he stopped taking it about a week ago. Patient was seen and evaluated in the emergency department room #13. Review of Systems General: Reports: 10 or more systems reviewed and unremarkable except in HPI and below Meds/Allergies Home Medications and Allergies Home Medications Medication Instructions Recorded Confirmed Last Taken Type gabapentin 600 mg tablet 600 mg PO TID 03/08/19 01/23/20 01/23/20 History budesonide-formoterol HFA 160 2 puff INHALATION BID 04/09/19 01/23/20 01/23/20 History mcg-4.5 mcg/actuation aerosol inhaler cyanocobalamin (vitamin B-12) 1,000 mcg PO DAILY 04/09/19 01/23/20 09/24/19 History 1,000 mcg capsule multivitamin 1 tab PO DAILY 04/09/19 01/23/20 01/23/20 History tadalafil 5 mg tablet 5 mg PO DAILY 04/09/19 01/23/20 01/22/20 History tamsulosin 0.4 mg capsule 0.4 mg PO BID 04/09/19 01/23/20 01/23/20 History tiotropium bromide 1.25 2 puff INHALATION DAILY 04/09/19 01/23/20 01/23/20 History mcg/actuation mist for inhalation albuterol sulfate [ProAir HFA] 2 puff INHALATION Q6H PRN 09/23/19 01/23/20 09/24/19 History naproxen 500 mg PO BID PRN 09/23/19 01/23/20 09/23/19 History roflumilast [Daliresp] 500 mcg PO DAILY 09/23/19 01/23/20 01/23/20 History baclofen 20 mg tablet 20 mg PO BID PRN 10/27/19 01/23/20 Unknown History ciprofloxacin HCl [Cipro] 500 mg PO BID #20 tab 01/23/20 Unknown Rx metronidazole [Flagyl] 500 mg PO TID 10 Days #30 tab 01/23/20 Unknown Rx prednisone 5 - 10 mg PO BID 01/23/20 01/23/20 Unknown History ropinirole 0.25 mg PO DAILY 01/23/20 01/23/20 01/22/20 History varenicline [Chantix] 1 mg PO . DIRECTED 01/23/20 01/23/20 Unknown History Allergies Allergy/AdvReac Type Severity Reaction Status Date / Time fentanyl Allergy Severe anaphylaxic Verified 01/23/20 15:09 hydroxyzine Allergy Severe ADR-Anxiety Verified 01/23/20 15:09 ibuprofen Allergy swelling Verified 01/23/20 15:09 ketorolac Allergy Unknown Verified 01/23/20 15:09 meloxicam Allergy Unknown Verified 01/23/20 15:09 methadone Allergy anaphlyaxic Verified 01/23/20 15:09 nalbuphine Allergy Unknown Verified 01/23/20 15:09 naproxen Allergy Unknown Verified 01/23/20 15:09 amitriptyline AdvReac mood Verified 01/23/20 15:09 altering cephalexin AdvReac nauseated Verified 01/23/20 15:09 clarithromycin AdvReac nauseated Verified 01/23/20 15:09 doxycycline AdvReac nauseated, Verified 01/23/20 15:09 vomiting tetracycline AdvReac nausea, Verified 01/23/20 15:09 vomiting Current Medications Current Medications Generic Name Dose Route Start Last Admin Trade Name Freq PRN Reason Stop Dose Admin Sodium Chloride 1,000 mls @ 100 mls/hr 01/23/20 12:00 01/23/20 12:45 Sodium Chloride 0.9% IV 100 mls/hr .Q10H MOI Administration PFSH Acute PFSH: Medical History Cervical post-laminectomy syndrome COPD (chronic obstructive pulmonary disease) History of lung cancer Lumbar post-laminectomy syndrome Spontaneous pneumothorax Surgical History History of cervical spinal surgery (05/14/12) C3-C4 Dr. Reagan HERRERA History of decompression of median nerve (~1990) 1990 left wrist History of fusion of cervical spine Dr. May Kirk 03/31/2014 C7-T1 ACDFF Dr. May Kirk 05/14/2012 C3-C4 ACDFF Dr. May Kirk 05/18/2009 C4-C5 ACDFF History of lumbar fusion (~02/03/07) Dr. May Kirk 02/03/2007 L4-L5 anterior lumbar interbody fusion/fixation Dr. May Kirk 01/30/2006 Left L4-L5 hemilaminotomy/discectomy/foraminotomy History of lung surgery (~05/2008) Family History Mother Lung cancer Father Lung cancer Stroke Brother Lung cancer Social History Smoking and tobacco status: current every day smoker Alcohol intake: never Household members: spouse Marital status: Current occupational status: disabled History of recent travel: No Vitals/I&O/Wt Last Vital Signs Temp 98.0 F 01/23/20 11:48 Pulse 93 01/23/20 11:48 Resp 18 01/23/20 14:06 BP 115/76 01/23/20 11:48 Pulse Ox 96 01/23/20 14:06 Weight last 48 hrs Weight 140 lb Physical Exam Narrative: EXAM NARRATIVE: Patient is conscious alert oriented X3 BMI 20.1 Head and neck examination PERRLA no masses no cervical lymphadenopathy no jaundice Cardiac examination audible S1-S2 no murmurs no gallops no arrhythmias Chest is clear bilateral,abscence of Rhonchi or wheezes,no surgical emphysema Abdomen nontender nondistended soft no organomegaly guarding or rigidity/no signs of peritonitis. Perianal examination shows left lower lateral perianal abscess with an opening about 1.5 cm draining pus. Mild perianal induration/tenderness at the same area and no evidence of sinuses or fistulae or perineal bulge. Or perianal crepitus. Digital rectal examination was deferred due to pain Extremities no cyanosis no clubbing no edema A&P Assessment and plan (1) Perianal abscess: After thorough history physical examination and reviewing the chart and CT scan images with my personal interpretation, my recommendation is to perform an examination under anesthesia with I&D of left perianal abscess. In the OR tomorrow. Down the road after the patient heals likely would benefit from a colonoscopy to address the underlying potential sigmoid colitis demonstrated on the CT scan and to rule out potential underlying neoplastic process. Ciprofloxacin and Flagyl IV N.p.o. after midnight And IV fluid resuscitation Recommend to admit to the hospital service because of the associated multiple medical comorbidities and relative immunosuppression status and will follow as a consult. Aftercare in the form of sits baths 3-4 times a day using warm water and Epsom salt On daily basis. Assurance and education All questions have been answered and all concerns have been addressed to patient's satisfaction. At the end of the clinical encounter patient decided to be discharged AGAINST MEDICAL ADVICE as he does not want to stay in the hospital. Status: Acute Consult Attestations Medical Necessity Statement: Observation overnight for IV antibiotic therapy And surgical intervention. Time Spent in Patient Care: (>than 50% of time spent in counselling and/or direct pt care on unit). 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
[2020-01-23 15:30] VITALS: BP 126/83; PULSE 71; O2SAT 98
[2020-01-23] MEDS: nicotine 21 mg Patch 1 PATCH TRANSDERMA (16:27)
[2020-01-23] MEDS: LORazepam 1 mg Tablet PO (16:27)
== END 2020-01-23 17:20 | disposition left against medical advice (07) ==
PROVIDERS: Emergency Provider Emergency Medicine; PCP Family Medicine
DX: K61.0 Anal abscess (principal); Z53.21 Procedure and treatment not carried out due to patient leaving prior to being seen by health care provider; J44.9 Chronic obstructive pulmonary disease, unspecified; Z85.118 Personal history of other malignant neoplasm of bronchus and lung; F17.210 Nicotine dependence, cigarettes, uncomplicated
CPT/HCPCS: 12345; 74177; 80053; 85025; 85610; 86850; 86900; 96365; 96367; 96375; 96376; 99283; 99284; J0744; J2270; J2405; J7030; Q9967; S0030

== ENCOUNTER 2020-01-23 19:30 | Observation (INO) | payer MEDICARE, MEDICAID, SELFPAY ==
[2020-01-23 19:49] VITALS: PULSE 96; RESP 14; TEMP 37.1; O2SAT 100
--- NOTE | 2020-01-23 20:16 | W.ED.GENADLT ---
HPI - General Adult General: Chief complaint: General Medical Stated complaint: here earlier/perianal abscess Time Seen by Provider: 01/23/20 20:08 Source: patient Mode of arrival: ambulatory Limitations: no limitations History of Present Illness: HPI narrative: 64-year-old male who was seen here earlier for perianal abscess. Patient has been seen by the surgeon in the ER and was going to admit for surgery tomorrow for the abscess. Patient at that time had things to do and signed out AMA. He states he is back now and would like to be admitted. He is still having anal pain. Denies any fever. Associated symptoms: Deny chest pain, dyspnea, headache(s), nausea, rash or vomiting Review of Systems Const: Denies: fever(s), chills, body aches or change in appetite Eyes: Denies: blurry vision or eye discomfort ENMT: Denies: throat pain or dental pain Card: Denies: chest pain Resp: Denies: dyspnea GI: Denies: abdominal pain, nausea, vomiting or diarrhea : Denies: dysuria Musc: Denies: neck pain or back pain Skin/Breast: Denies: rash Neuro: Denies: headache(s) Psych: Denies: depression Jose/Lymph: Denies: easy bruising All/Imm: Denies: urticaria PFSH ED PFSH: Medical History Cervical post-laminectomy syndrome COPD (chronic obstructive pulmonary disease) History of lung cancer Lumbar post-laminectomy syndrome Spontaneous pneumothorax Surgical History History of cervical spinal surgery (05/14/12) C3-C4 ACDSHALONDA, Dr. Kirk History of decompression of median nerve (~1990) 1990 left wrist History of fusion of cervical spine Dr. May Kirk 03/31/2014 C7-T1 ACDFF Dr. May Kirk 05/14/2012 C3-C4 ACDFF Dr. May Kirk 05/18/2009 C4-C5 ACDFF History of lumbar fusion (~02/03/07) Dr. May Kirk 02/03/2007 L4-L5 anterior lumbar interbody fusion/fixation Dr. May Kirk 01/30/2006 Left L4-L5 hemilaminotomy/discectomy/foraminotomy History of lung surgery (~05/2008) Family History Mother Lung cancer Father Lung cancer Stroke Brother Lung cancer Social History Smoking and tobacco status: current every day smoker Alcohol intake: never Household members: spouse Marital status: Current occupational status: disabled History of recent travel: No Physical Exam Const: COMMON NORMALS: no acute distress, patient oriented x3 and healthy appearing HENMT: COMMON NORMALS: normocephalic and atraumatic HEAD & SCALP: normocephalic and atraumatic Eye: COMMON NORMALS: Equal, round and reactive pupils present and EOMs intact bilaterally PUPIL: Yes Equal, round and reactive pupils present Neck/C-Spine: COMMON NORMALS: full ROM and supple Chest: COMMONS NORMALS: normal inspection of the chest and normal palpation of entire chest wall Resp: COMMON NORMALS: normal respiratory effort, No retractions, No use of accessory muscles and clear to auscultation bilaterally AUSCULTATION: clear to auscultation bilaterally Cardio: COMMON NORMALS: regular rate, regular rhythm and No murmurs present (Cardio) RATE: regular rate RHYTHM: regular rhythm GI: COMMON NORMALS: Normal to inspection, nondistended, normoactive bowel sounds present, Soft to palpation, non-tender and no masses PALPATION: Yes Soft to palpation Extremity: COMMON NORMALS: normal to inspection and full ROM Neuro: COMMON NORMALS: patient oriented x3, moves all extremities and no focal motor deficits Psych: COMMON NORMALS: mental status grossly normal, Normal thought process present and cooperative THOUGHT PROCESS: Normal thought process present Skin: COMMON NORMALS: no rashes or lesions noted and no wounds GENERAL SKIN EXAM: no rashes or lesions noted Course Vital Signs: Vital signs: Vital Signs Temperature 98.7 F 01/23/20 19:49 Pulse Rate 96 01/23/20 19:49 Respiratory Rate 14 01/23/20 19:49 Pulse Oximetry 100 01/23/20 19:49 MDM - General Adult MDM Narrative: Medical decision making narrative: Patient presents with perianal abscess. Patient given IV antibiotics earlier today and had full work-up. Spoke to Dr. Lewis along with hospitalist and will admit at this time for surgery in the morning. Discharge Plan Discharge Patient Disposition: Admitted As Inpatient Clinical Impression: Perianal abscess Condition: Stable Coding Level of Care Code ED Records And Tape Recordings Engineer for Laci Hidalgo
[2020-01-23 20:43] VITALS: BP 145/98; PULSE 83; RESP 18; O2SAT 96
--- NOTE | 2020-01-23 20:44 | P.HP_ITS ---
Providers/Chief Complaint Admitting Physician: Kathy Cox MD Primary Care Provider: Gwyn Ruby Chief Complaint: here earlier/perianal abscess History of Present Illness Gato Lizarraga is a 64 year old male with PMH COPD/emphysema, 02 dependent at baseline, NSCLC s/p wedge resection 10/2017, ADD, presented to ER with c/o bleeding per rectum over the past week which has bene getting worse. Also associated pain over the perienal region. No fever or chills. Evaluted by gen/ surg in the ER and noted to have a perinanal abscess, scheduled for I&D in the morning. Review of Systems General: Reports: 10 or more systems reviewed and unremarkable except in HPI and below Const: Denies: fever(s), chills or body aches Eyes: Denies: change in vision, blurry vision or photophobia ENMT: Reports: hoarseness; Denies: throat pain, enlarged tonsils, odynophagia or nasal congestion Card: Denies: chest pain, palpitations, irregular heart rhythm, edema, swelling of feet/ankles, lightheadedness, pre-syncope, dyspnea on exertion or or thopnea Resp: Denies: dyspnea, productive cough, non-productive cough, wheezing, stridor, pain on inspiration, change in phlegm color, hemoptysis or chest congestion GI: Denies: abdominal pain, nausea, vomiting, hematemesis, coffee ground emesis, dysphagia, heartburn, diarrhea, constipation, GI cramping, change in stool character, hematochezia or melena : Denies: flank pain, dysuria, urinary frequency, urinary urgency, urinary hesitancy or hematuria Musc: Denies: neck pain, back pain, extremity pain, joint swelling, joint warmth or deformity Neuro: Denies: headache(s), numbness in extremities, weakness in extremities, sensory changes, difficulty walking, frequent falls, dizziness, vertigo, behavioral changes, Slurred speech present or seizure-like activity Psych: Denies: anxiety, depression, suicidal ideation or homicidal ideation Endo: Denies: polyuria, polydipsia, tired all the time, cold intolerance or hot flashes Jose/Lymph: Denies: easy bruising or easy bleeding Medications/Allergies Home Medications Medication Instructions Recorded Confirmed Last Taken Type gabapentin 600 mg tablet 600 mg PO TID 03/08/19 01/23/20 01/23/20 History budesonide-formoterol HFA 160 2 puff INHALATION BID 04/09/19 01/23/20 01/23/20 History mcg-4.5 mcg/actuation aerosol inhaler cyanocobalamin (vitamin B-12) 1,000 mcg PO DAILY 04/09/19 01/23/20 09/24/19 History 1,000 mcg capsule multivitamin 1 tab PO DAILY 04/09/19 01/23/20 01/23/20 History tadalafil 5 mg tablet 5 mg PO DAILY 04/09/19 01/23/20 01/22/20 History tamsulosin 0.4 mg capsule 0.4 mg PO BID 04/09/19 01/23/20 01/23/20 History tiotropium bromide 1.25 2 puff INHALATION DAILY 04/09/19 01/23/20 01/23/20 History mcg/actuation mist for inhalation albuterol sulfate [ProAir HFA] 2 puff INHALATION Q6H PRN 09/23/19 01/23/20 09/24/19 History naproxen 500 mg PO BID PRN 09/23/19 01/23/20 09/23/19 History roflumilast [Daliresp] 500 mcg PO DAILY 09/23/19 01/23/20 01/23/20 History baclofen 20 mg tablet 20 mg PO BID PRN 10/27/19 01/23/20 Unknown History ciprofloxacin HCl [Cipro] 500 mg PO BID #20 tab 01/23/20 Unknown Rx metronidazole [Flagyl] 500 mg PO TID 10 Days #30 tab 01/23/20 Unknown Rx prednisone 5 - 10 mg PO BID 01/23/20 01/23/20 Unknown History ropinirole 0.25 mg PO DAILY 01/23/20 01/23/20 01/22/20 History varenicline [Chantix] 1 mg PO . DIRECTED 01/23/20 01/23/20 Unknown History Allergies Allergy/AdvReac Type Severity Reaction Status Date / Time fentanyl Allergy Severe anaphylaxic Verified 01/23/20 15:09 hydroxyzine Allergy Severe ADR-Anxiety Verified 01/23/20 15:09 ibuprofen Allergy swelling Verified 01/23/20 15:09 ketorolac Allergy Unknown Verified 01/23/20 15:09 meloxicam Allergy Unknown Verified 01/23/20 15:09 methadone Allergy anaphlyaxic Verified 01/23/20 15:09 nalbuphine Allergy Unknown Verified 01/23/20 15:09 naproxen Allergy Unknown Verified 01/23/20 15:09 amitriptyline AdvReac mood Verified 01/23/20 15:09 altering cephalexin AdvReac nauseated Verified 01/23/20 15:09 clarithromycin AdvReac nauseated Verified 01/23/20 15:09 doxycycline AdvReac nauseated, Verified 01/23/20 15:09 vomiting tetracycline AdvReac nausea, Verified 01/23/20 15:09 vomiting PFSH Acute PFSH: Medical History Cervical post-laminectomy syndrome COPD (chronic obstructive pulmonary disease) History of lung cancer Lumbar post-laminectomy syndrome Spontaneous pneumothorax Surgical History History of cervical spinal surgery (05/14/12) C3-C4 [facility]AV[facility], Dr. Kirk History of decompression of median nerve (~1990) 1990 left wrist History of fusion of cervical spine Dr. May Kirk 03/31/2014 C7-T1 ACDFF Dr. May Kirk 05/14/2012 C3-C4 ACDFF Dr. May Kirk 05/18/2009 C4-C5 ACDFF History of lumbar fusion (~02/03/07) Dr. May Kirk 02/03/2007 L4-L5 anterior lumbar interbody fusion/fixation Dr. May Kirk 01/30/2006 Left L4-L5 hemilaminotomy/discectomy/foraminotomy History of lung surgery (~05/2008) Family History Mother Lung cancer Father Lung cancer Stroke Brother Lung cancer Social History Smoking and tobacco status: current every day smoker Alcohol intake: never Household members: spouse Marital status: Current occupational status: disabled History of recent travel: No Vitals/I&O/Wt Last Vital Signs Temp 98.7 F 01/23/20 19:49 Pulse 96 01/23/20 19:49 Resp 14 01/23/20 19:49 Pulse Ox 100 01/23/20 19:49 Physical Exam Const: COMMON NORMALS: no acute distress, average body habitus, patient orient ed x3, no limitations, healthy appearing, alert and well nourished HENMT: COMMON NORMALS: normocephalic and atraumatic HEAD & SCALP: normocephalic and atraumatic Eye: COMMON NORMALS: Equal, round and reactive pupils present, EOMs intact bilaterally, conjunctivae normal and no scleral icterus CONJUNCTIVA: Yes conj unctivae normal PUPIL: Yes Equal, round and reactive pupils present Neck/C-Spine: COMMON NORMALS: no JVD Resp: COMMON NORMALS: normal respiratory effort, No retractions, No use of accessory muscles, clear to auscultation bilaterally and percussion normal AUSCULTATION: clear to auscultation bilaterally PERCUSSION: percussion normal Cardio: COMMON NORMALS: no JVD, regular rate, regular rhythm, S1 normal heart sound present, S2 normal heart sound present, No gallops present (Cardio), No clicks present (Cardio), No murmurs present (Cardio), No rub (Cardio) and Peripheral pulses 2+ throughout RATE: regular rate RHYTHM: regular rhythm HEART SOUNDS: S1 normal heart sound present and S2 normal heart sound present PERIPHERAL PULSES: Peripheral pulses 2+ throughout GI: COMMON NORMALS: Normal to inspection, nondistended, normoactive bowel sounds present, Soft to palpation, non-tender, No hepatosplenomegaly present, no masses and no bruits PALPATION: Yes Soft to palpation and Yes No hepatosple nomegaly present Extremity: COMMON NORMALS: normal to inspection, full ROM, capillary refill normal, no joint enlargement, no clubbing, cyanosis or edema, no calf tenderness and no pedal edema Neuro: COMMON NORMALS: patient oriented x3, CN's II-XII intact bilaterally, moves all extremities, no focal motor deficits, no sensory deficits noted, deep tendon reflexes 2+ bilaterally and gait normal SENSORIUM/ORIENTATION: Yes alert Psych: COMMON NORMALS: mental status grossly normal, Normal thought process present, cooperative, normal affect, speech normal, activity/motor behavior normal, denies hallucinations, denies homicidal ideation and denies suicidal ideation SPEECH: Yes normal speech THOUGHT PROCESS: Normal thought process present Skin: COMMON NORMALS: no rashes or lesions noted, no wounds, turgor normal, no jaundice, no petechiae and no mottling GENERAL SKIN EXAM: no rashes or lesions noted and turgor normal Data : 01/23/20 21:30 01/23/20 21:30 CT Abd/Pel: Radiologist's impression: CT/CT abdomen pelvis w con* [id number] IMPRESSION: 1. There is mucosal thickening of the distal rectosigmoid colon. Differential includes nonspecific colitis. Follow-up to exclude neoplasm as clinically warranted. 2. Colonic constipation is present. 3. There are emphysematous changes at the lung bases. A&P Assessment and plan (1) Perianal abscess: Planned for I&D with general surgery in the morning NPO post midnight empiric zosyn/vancomycin , past cx show MRSA colonization Status: Acute (2) COPD (chronic obstructive pulmonary disease): Not currently exacerbated duoneb and budesonide scheduled inhalation continue Daliresp Status: Acute Attestations Medical Necessity Statement*: less than 2 midnight anticipated for I&D perianal abscess Coding Level of Care Code Acute Coffin Maker for [facility] Fwd Diagnoses Perianal abscess K61.0 COPD (chronic obstructive pulmonary disease) J44.9
[2020-01-23 21:02] VITALS: BP 134/80; PULSE 97; RESP 18; TEMP 36.8; O2SAT 95
--- NOTE | 2020-01-23 21:03 | PC.NURSE ---
patient came up from ER without oxygen on, O2 at 86%. nurse notified. O2 put on and now up to 95%
--- NOTE | 2020-01-23 21:05 | PC.NURSE ---
This nurse was notified by EDGER MACHINE HELPER that patient oxygen saturation is 86% on RA upon arrival from ER. This nurse applied NC on 3L. Patient says he wear 3L NC at home.
[2020-01-23] MEDS: morphine 4 mg/mL SDV 1 mL 2 MG IVP (22:03)
[2020-01-23] MEDS: gabapentin 300 mg Capsule 600 MG PO (22:03)
[2020-01-23 22:22] LABS: Basophils % 0.4 %; Eosinophils # 0.1 10^3/uL (0.0-0.8); Eosinophils % 1.8 %; Hematocrit 35.2 % (42.0-52.0); Lymphocytes # 1.8 10^3/uL (0.8-4.8); Lymphocytes % 25.2 %; Mean Corpuscular HGB Conc 31.3 g/dL (30.0-36.0); Mean Corpuscular Hemoglobin 29.2 pg (28.0-34.0); Mean Corpuscular Volume 93.4 fL (80-94); Mean Platelet Volume 11.3 fL (7.4-10.4); Monocytes # 0.5 10^3/uL (0.2-0.9); Monocytes % 7.1 %; Neutrophils % 65.2 %; Nucleated Red Blood Cells % 0 %; Platelet Count 213 10^3/cmm (130-400); Red Blood Count 3.77 10^6/uL (4.1-5.3); Red Cell Distribution Width 12.6 % (12.1-15.1); White Blood Count 7.1 10^3/uL (4.0-10.0)
[2020-01-23 22:45] LABS: Alanine Aminotransferase 13 U/L (0-41); Albumin Level 3.2 g/dL (3.5-5.2); Alkaline Phosphatase 61 IU/L (40-130); Anion Gap 8.7 (5-19); Aspartate Amino Transferase 14 U/L (0-40); Blood Urea Nitrogen 8 mg/dL (8-23); Calcium 8.5 mg/dL (8.5-10.5); Carbon Dioxide 32 mmol/L (22-29); Chloride 102 mmol/L (98-107); Globulin 2.6 g/dL (1.3-4.6); Glomerular Filtration Rate 136.5 mL/min (90-130); Glucose 118 mg/dL (65-115); Osmolality Calculated 287 mOsm/kg (285-295); Potassium 3.7 mmol/L (3.5-5.1); Sodium 139 mmol/L (136-145); Total Bilirubin 0.2 mg/dL (0.15-1.2); Total Protein 5.8 g/dL (6.6-8.7)
[2020-01-23 23:26] VITALS: BP 114/68; PULSE 80; RESP 18; TEMP 36.6; O2SAT 98
[2020-01-24] VITALS (17 sets, daily range): BP systolic 96–155; BP diastolic 69–89; PULSE 70–80; RESP 12–20; TEMP 36.6–37.3; O2SAT 94–100
--- NOTE | 2020-01-24 00:05 | PC.PHAR ---
Vancomycin is dosed at 1250 mg IVPB every 12 hours to produce a predicted trough level of 13.73 (population based pharmacokinetic analysis). A trough level has been ordered from the lab to be obtained before the fourth dose to confirm and adjust if needed. The Zosyn is dosed at 3.375gm IVPB every 8 hours on basis of creatinine clearance of 111.9. Each dose is to be infused over four hours per extended infusion protocol.
[2020-01-24] MEDS: vancomycin 1,250 MG/250 ML PIGGYBACK 250 MG IV (00:21)
[2020-01-24] MEDS: oxyCODONE-APAP 5-325 mg Tablet 1 TAB PO ×2 (00:26→07:38)
[2020-01-24] MEDS: piperacillin-tazobactam 3.375 GM in sodium chloride 0.9% (plus) 50 ML IV ×2 (01:35→08:43)
[2020-01-24] MEDS: morphine 4 mg/mL SDV 1 mL 2 MG IVP ×3 (03:20→12:49)
[2020-01-24 04:27] LABS: Basophils % 0.4 %; Eosinophils # 0.2 10^3/uL (0.0-0.8); Eosinophils % 3.4 %; Hematocrit 34.7 % (42.0-52.0); Hemoglobin 10.8 g/dL (11.7-16.6); Lymphocytes # 1.8 10^3/uL (0.8-4.8); Lymphocytes % 32.4 %; Mean Corpuscular HGB Conc 31.1 g/dL (30.0-36.0); Mean Corpuscular Hemoglobin 29.5 pg (28.0-34.0); Mean Corpuscular Volume 94.8 fL (80-94); Monocytes # 0.5 10^3/uL (0.2-0.9); Monocytes % 8.5 %; Neutrophils # 3.07 10^3/uL (1.8-7.7); Neutrophils % 55.1 %; Nucleated Red Blood Cells % 0 %; Platelet Count 206 10^3/cmm (130-400); Red Blood Count 3.66 10^6/uL (4.1-5.3); Red Cell Distribution Width 12.6 % (12.1-15.1); White Blood Count 5.6 10^3/uL (4.0-10.0)
[2020-01-24 04:54] LABS: Alanine Aminotransferase 11 U/L (0-41); Albumin Level 2.9 g/dL (3.5-5.2); Alkaline Phosphatase 60 IU/L (40-130); Anion Gap 8.9 (5-19); Aspartate Amino Transferase 11 U/L (0-40); Blood Urea Nitrogen 9 mg/dL (8-23); Calcium 8.2 mg/dL (8.5-10.5); Carbon Dioxide 32 mmol/L (22-29); Chloride 102 mmol/L (98-107); Globulin 2.6 g/dL (1.3-4.6); Glomerular Filtration Rate 136.5 mL/min (90-130); Glucose 101 mg/dL (65-115); Osmolality Calculated 287 mOsm/kg (285-295); Potassium 3.9 mmol/L (3.5-5.1); Sodium 139 mmol/L (136-145); Total Bilirubin 0.2 mg/dL (0.15-1.2); Total Protein 5.5 g/dL (6.6-8.7)
[2020-01-24] MEDS: ipratropium-albuterol 3 mL Neb INHALATION (08:04)
[2020-01-24] MEDS: budesonide 0.5 mg/2 mL Neb INHALATION (08:04)
[2020-01-24] MEDS: tamsulosin 0.4 mg Capsule PO (08:42)
[2020-01-24] MEDS: roflumilast 500 mcg Tablet PO (08:42)
[2020-01-24] MEDS: gabapentin 300 mg Capsule 600 MG PO (08:42)
[2020-01-24] MEDS: ropinirole 0.25 mg Tablet PO (08:42)
[2020-01-24] MEDS: pantoprazole DR 40 mg Tablet PO (08:43)
--- NOTE | 2020-01-24 09:41 | PC.CHAP ---
Pastoral Care Encounter/Spiritual Assessment Type of Contact [] Declined band and cuff cutter visit [] Patient/Family/Request visit [] Outpatient visit [] Follow-up visit [] Physician referral [] Code/Alert [] Routine visit [] Staff referral [] Actively dying [] Patient sleeping [] Family support [] [] Out of room [] Palliative care [] [] Receiving care in room [] Pre-surgical visit [] Trauma [] Long length of stay [] ICU visit [] Other: Relational/Emotional Strength [x] Patient feels connected with others/family/visitors/staff [] Distress [] Loneliness/isolation [] Abandonment Spirituality of Patient [x] Person of Tejal [] Attends Restoration of their Tejal [] Believes in Prayer [] Reads Bible or Amish materials [] There are Spiritual issues to be addressed First Coat Operator Interventions [x] Prayer [] Active listening [] Non-anxious presence [] Spiritual/emotional support [] Crisis/trauma care [] Spiritual counseling [] Bereavement support [] Provided bereavement packet [] Provided Bible/devotional materials [] Provided toy/stuffed animal, coloring book to patient or family member [] Provided Communion [] Anointing/[place] [] Salvation [x Completed spiritual assessment [] Other: Impact on Illness or Injury [] Angry [] Fearful [] Anxious [] Often cries [] Exhaustion [] Unable to work [] Unable to attend moravian [] Unable to walk/stand [] Unable to read [] Unable to drive [] Unable to eat/drink [] Unable to sleep [] Unable to be with family [] Patient intubated [] Other: Summary Time spent with patient 10 min
--- NOTE | 2020-01-24 09:48 | ANES.PREANE2 ---
Pre-Anesthetic Assessment Pre-Anesthetic Assessment: Height/Weight: Height 1.78 m Weight 62.142 kg Temp Pulse Resp BP Pulse Ox 98.7 F 70 18 131/78 100 01/24/20 09:30 01/24/20 09:30 01/24/20 09:30 01/24/20 09:30 01/24/20 09:30 Preop Diagnosis: PERIANAL ABSCESS Proposed Procedure: Operation Date: 01/24/20 10:00 Proposed Procedures p EXAM UNDER ANESTHESIA; INCISION AND DRAINAGE OF PERIANAL ABSCESS(Not Applicable) - Jordy Harrison MD Social: Social History: Tobacco Exam: Pre-Anes Outpt Exam: alert, oriented x 3 and regular rate & rhythm Additional Exam Findings (including area of procedure): Decreased BS, rhonchi Airway: Submandibular: WNL Cervical ROM: WNL MP: 2 Dentition: False Pulmonary: Pulmonary: COPD Comments: Mod-severe COPD, heavy smoker, chronic steroids CV/HEM: CV/HEM: None reported : : None reported Hepatic: Hepatic: None reported GI: Comments: abscess Metabolic: Metabolic: None reported Musc/skel: Musc/skel: Lower Back Pain Comments: Chronic pain, left upper ext numbness, BLE pain Neuropsych: Neuropsych: None reported Anesthetic Plan: ASA status: 3 Anesthesia: MAC Risk of > 500 ml blood loss (7ml/kg in children): No Meds/Allergies Current Medications: Current Medications Generic Name Dose Route Start Last Admin Trade Name Freq PRN Reason Stop Dose Admin Albuterol/Ipratrop ium 3 ml 01/23/20 21:00 01/24/20 08:04 Ipratropium-Albu terol 3 Ml Neb INHALATION 3 ml Q6H.RESPIRATORY S CH Administration Budesonide 0.5 mg 01/24/20 08:00 01/24/20 08:04 Budesonide 0.5 M g/2 Ml Neb INHALATION 0.5 mg BID.RESPIRATORY S CH Administration Gabapentin 600 mg 01/23/20 21:00 01/24/20 08:42 Gabapentin 300 M g Capsule PO 600 mg TID MOI Administration Piperacillin Sod/T azobactam 50 mls @ 12.5 mls /hr 01/24/20 01:00 01/24/20 08:43 Sod 3.375 gm/ So dium Chloride IV 12.5 mls/hr Q8H MOI Administration Protocol As Directed Vancomycin/PEG/NAD A/Lysine/Water 1,250 mg in 250 m ls @ 250 mls/hr 01/24/20 00:00 01/24/20 00:21 Vancocin IV 250 mls/hr Q12H MOI Administration Morphine Sulfate 2 mg 01/23/20 21:33 01/24/20 08:29 Morphine 4 Mg/Ml Sdv 1 Ml IVP 2 mg Q4H PRN Administration SEVERE PAIN Non-Formulary Medi cation 5 mg 01/24/20 09:00 01/24/20 08:45 Tadalafil [Ciali s] PO Not Given DAILY MOI Oxycodone/Acetamin ophen 1 tab 01/23/20 21:33 01/24/20 07:38 Oxycodone-Apap 5 -325 Mg Tablet PO 1 tab Q6H PRN Administration MODERATE PAIN Pantoprazole Sodiu m 40 mg 01/24/20 09:00 01/24/20 08:[address] 40 Mg Tablet PO 40 mg DAILY MOI Administration Roflumilast 500 mcg 01/24/20 09:00 01/24/20 08:42 Roflumilast 500 Mcg Tablet PO 500 mcg DAILY MOI Administration Ropinirole HCl 0.25 mg 01/24/20 09:00 01/24/20 08:42 Ropinirole 0.25 Mg Tablet PO 0.25 mg DAILY MOI Administration Tamsulosin HCl 0.4 mg 01/24/20 09:00 01/24/20 08:42 Tamsulosin 0.4 M g Capsule PO 0.4 mg BID MOI Administration PFSH Anesthesia PFSH: Medical History Cervical post-laminectomy syndrome COPD (chronic obstructive pulmonary disease) History of lung cancer Lumbar post-laminectomy syndrome Spontaneous pneumothorax Surgical History History of cervical spinal surgery (05/14/12) C3-C4 Dr. Reagan HERRERA History of decompression of median nerve (~1990) 1990 left wrist History of fusion of cervical spine Dr. May Kirk 03/31/2014 C7-T1 ACD[address] Dr. May Kirk 05/14/2012 C3-C4 ACDFF Dr. May Kirk 05/18/2009 C4-C5 ACDFF History of lumbar fusion (~02/03/07) Dr. May Kirk 02/03/2007 L4-L5 anterior lumbar interbody fusion/fixation Dr. May Kirk 01/30/2006 Left L4-L5 hemilaminotomy/discectomy/foraminotomy History of lung surgery (~05/2008) Family History Mother Lung cancer Father Lung cancer Stroke Brother Lung cancer Social History Smoking and tobacco status: current every day smoker Alcohol intake: never Household members: spouse Marital status: Current occupational status: disabled History of recent travel: No Data Anesthesia CBC & Chem 7: 01/24/20 03:56 01/24/20 03:56 Other Labs: Laboratory Results - last 48 hr 01/23/20 01/23/20 01/24/20 21:30 21:30 03:56 WBC 7.1 5.6 RBC 3.77 L 3.66 L Hgb 11.0 L 10.8 L Hct 35.2 L 34.7 L MCV 93.4 94.8 H MCH 29.2 29.5 MCHC 31.3 31.1 RDW 12.6 12.6 Plt Count 213 206 MPV 11.3 H 11.0 H Neut % (Auto) 65.2 55.1 Lymph % (Auto) 25.2 32.4 [place] % (Auto) 7.1 8.5 Eos % (Auto) 1.8 3.4 Baso % (Auto) 0.4 0.4 Neut # (Auto) 4.60 3.07 Lymph # (Auto) 1.8 1.8 [place] # (Auto) 0.5 0.5 Eos # (Auto) 0.1 0.2 Baso # (Auto) 0.0 0.0 Nucleated RBC % (auto) 0 0 Nucleated RBCs # 0.0 0.0 Sodium 139 Potassium 3.7 Chloride 102 Carbon Dioxide 32 H Anion Gap 8.7 BUN 8 Creatinine 0.6 L GFR Calculation 136.5 H Glucose 118 H Calculated Osmolality 287 Calcium 8.5 Total Bilirubin 0.2 AST 14 ALT 13 Alkaline Phosphatase 61 Total Protein 5.8 L Albumin 3.2 L Globulin 2.6 01/24/20 03:56 WBC RBC Hgb Hct MCV MCH MCHC RDW Plt Count MPV Neut % (Auto) Lymph % (Auto) [place] % (Auto) Eos % (Auto) Baso % (Auto) Neut # (Auto) Lymph # (Auto) [place] # (Auto) Eos # (Auto) Baso # (Auto) Nucleated RBC % (auto) Nucleated RBCs # Sodium 139 Potassium 3.9 Chloride 102 Carbon Dioxide 32 H Anion Gap 8.9 BUN 9 Creatinine 0.6 L GFR Calculation 136.5 H Glucose 101 Calculated Osmolality 287 Calcium 8.2 L Total Bilirubin 0.2 AST 11 ALT 11 Alkaline Phosphatase 60 Total Protein 5.5 L Albumin 2.9 L Globulin 2.6 Cardiac Studies: No Data to Display
--- NOTE | 2020-01-24 10:18 | PM.OP ---
Operative Report Date of procedure: January 24, 2020 Pre-op Diagnosis: PERIANAL ABSCESS Post-op Diagnosis: Left perianal abscess with indurated puckett Procedure Done: Examination under anesthesia with incision and drainage of left lower lateral perianal abscess with sharp debridement of the abscess cavity. Implants: Small piece of Surgicel followed by packing with 2 inches Nu Gauze impregnated in Exparel Specimens removed/disposition: Abscess cavity wall for permanent Tissues for cultures and sensitivity Surgeon: Jordy Harrison Combine Mechanic: research and development technician [employer]/medical student Gregoria Lemus Circulating nurse Margarita Lozano Anesthesia: MAC (music engineer Stevan) Estimated blood loss (mL): 5 Condition: stable Disposition: observation Brief History: Mr. Gato Lizarraga is a 64 year old male presents to the emergency department with worsening bleeding per rectum per his description, patient reports to me that for the past couple of days he has been having blood coming from the bottom and as it got worse presented to the emergency department for medical advice and evaluation. Also has been associated with pain at the perianal area but no report of fevers chills nausea or vomiting. After further evaluation patient was found to have a left lower lateral perianal abscess and was offered surgery in the form of Examination under anesthesia with incision and drainage of perianal abscess Procedure: Patient was identified in the holding area and was taken back to A negative pressure operating room because of COVID-19 precautions, which was first placed in supine position, IV propofol was infused by the anesthesia provider, prophylactic IV antibiotics were given per protocol,Time-out was done verifying the patient's name/date of /planned procedure and destination after the procedure, all were in agreement. Patient was continuously monitored with awake overnight monitor through the whole entire procedure Patient was placed in left lateral position were all pressure points were padded.Prep and drape was done thereafter under the usual sterile technique,started by injecting Exparel arround the abscess cavity. Digital rectal examination was done shows no masses or blood,found to have left lower lateral indurated abscess cavity with pre-I&D measurement 1.5 x 1 [address] to the subcutaneous layer. Anoscope was then introduced, there was no evidence of anal masses or fistulae or sinuses or fissures .I placed a wet 4 x 4 inside the anal canal to prevent stools from encroaching on the wound site, that was taken out at the end of the procedure. Started by jonatanfing the abscess cavity and tissues were sent for cultures and abscess wall tissues were sent for permanent pathology, necrotic tissues were debrided sharply at the bed of the abscess cavity and the post debridement measurements show 3 x [address] to the subcutaneous layer without jeopardizing internal or external sphincters. At that point after removal of the 4 x 4's, a piece of Surgicel was placed at the wound bed after appropriate hemostasis by Bovie cauterization followed by packing with 2 inches Nu Gauze impregnated in Exparel.Followed by ABD,a surgical pants was then placed to hold the dressing in place. Count was completed at the end of the procedure,patient was then taken to the recovery room in stable condition I was present for the whole entire procedure
--- NOTE | 2020-01-24 11:37 | PM.PACU ---
PACU note PACU note: VSS Post-Anesthesia Exam: awake Disposition: back to floor
--- NOTE | 2020-01-24 11:47 | P.DS_ITS ---
Discharge Providers Date of Admission: 01/23/20 20:12 Date of Discharge: January 24, 2020 Attending Provider at Admission: Kathy Cox MD Attending Provider at Discharge: Bob Hernandez MD Primary Care Provider: Gwyn Ivory Diagnoses at Discharge Discharge Diagnosis (1) Perianal abscess: Status: Acute (2) COPD (chronic obstructive pulmonary disease): Status: Acute Reason for Visit Reason for Visit: here earlier/perianal abscess Hospital Course Hospital Course Gato is a 64-year-old white male who presented to the emergency department with concerns of a perirectal abscess. He had had no fever. White blood cell count was not elevated. Secondary to past history of lung cancer there was concerns of immunosuppression so he was admitted to the hospital for IV antibiotics and surgery was consulted. He underwent an incision and drainage, on January 23. Following this it was thought he could be discharged home, with further follow- up with his primary care provider as well as surgeon. This was arranged. CT abdomen and pelvis demonstrated question of colitis and this will be evaluated further on follow-up with surgery. Physical Exam Narrative: EXAM NARRATIVE: General exam no apparent distress Cardiovascular regular in rhythm Lungs clear Abdomen soft with positive bowel sounds Extremities no cyanosis clubbing or edema Discharge Data Data Completed and Pending: Pending at discharge Category Date Time Status Abscess Culture a nd Gram Stain Rout ine Lab 01/24/20 10:10 Received CMP [Comprehensiv e Metabolic Panel] AM LABS Lab 01/25/20 04:00 Ordered CMP [Comprehensiv e Metabolic Panel] AM LABS Lab 01/26/20 04:00 Ordered Complete Blood Co unt w/Auto AM LABS Lab 01/25/20 04:00 Ordered Complete Blood Co unt w/Auto AM LABS Lab 01/26/20 04:00 Ordered Vancomycin Trough Timed Lab 01/25/20 11:00 Ordered Wound Culture Rou pallavi Lab 01/24/20 10:10 Received Pathology: Surgic al [PTH] Routine Pth 01/24/20 10:38 Ordered Labs from last 24 hours 01/24/20 01/24/20 01/23/20 03:56 03:56 21:30 WBC 5.6 RBC 3.66 L Hgb 10.8 L Hct 34.7 L MCV 94.8 H MCH 29.5 MCHC 31.1 RDW 12.6 Plt Count 206 MPV 11.0 H Neut % (Auto) 55.1 Lymph % (Auto) 32.4 Sully % (Auto) 8.5 Eos % (Auto) 3.4 Baso % (Auto) 0.4 Neut # (Auto) 3.07 Lymph # (Auto) 1.8 Sully # (Auto) 0.5 Eos # (Auto) 0.2 Baso # (Auto) 0.0 Nucleated RBC % (a uto) 0 Nucleated RBCs # 0.0 Sodium 139 139 Potassium 3.9 3.7 Chloride 102 102 Carbon Dioxide 32 H 32 H Anion Gap 8.9 8.7 BUN 9 8 Creatinine 0.6 L 0.6 L GFR Calculation 136.5 H 136.5 H Glucose 101 118 H Calculated Osmolal ity 287 287 Calcium 8.2 L 8.5 Total Bilirubin 0.2 0.2 AST 11 14 ALT 11 13 Alkaline Phosphata se 60 61 Total Protein 5.5 L 5.8 L Albumin 2.9 L 3.2 L Globulin 2.6 2.6 01/23/20 21:30 WBC 7.1 RBC 3.77 L Hgb 11.0 L Hct 35.2 L MCV 93.4 MCH 29.2 MCHC 31.3 RDW 12.6 Plt Count 213 MPV 11.3 H Neut % (Auto) 65.2 Lymph % (Auto) 25.2 Sully % (Auto) 7.1 Eos % (Auto) 1.8 Baso % (Auto) 0.4 Neut # (Auto) 4.60 Lymph # (Auto) 1.8 Sully # (Auto) 0.5 Eos # (Auto) 0.1 Baso # (Auto) 0.0 Nucleated RBC % (a uto) 0 Nucleated RBCs # 0.0 Sodium Potassium Chloride Carbon Dioxide Anion Gap BUN Creatinine GFR Calculation Glucose Calculated Osmolal ity Calcium Total Bilirubin AST ALT Alkaline Phosphata se Total Protein Albumin Globulin Vitals: Last Vital Signs Temp 97.9 F 01/24/20 11:09 Pulse 80 01/24/20 11:09 Resp 17 01/24/20 11:09 BP 155/89 01/24/20 11:09 Pulse Ox 95 01/24/20 11:09 Discharge Plan Discharge Patient Disposition: Home Condition: Stable Prescriptions: New hydrocodone-acetaminophen 5-325 mg tablet 1 tab PO Q6H PRN (Reason: pain) Qty: 10 RF: 0 Continued gabapentin 600 mg tablet 600 mg PO TID RF: 0 cyanocobalamin (vitamin B-12) 1,000 mcg capsule 1,000 mcg PO DAILY RF: 0 tamsulosin 0.4 mg capsule 0.4 mg PO BID RF: 0 tadalafil [Cialis] 5 mg tablet 5 mg PO BEDTIME RF: 0 Symbicort 160-4.5 mcg/actuation HFA aerosol inhaler 2 puff INHALATION BID RF: 0 multivitamin Tablet 1 tab PO DAILY RF: 0 Spiriva Respimat 1.25 mcg/actuation mist 2 puff INHALATION DAILY RF: 0 baclofen 20 mg tablet 20 mg PO BID PRN (Reason: Pain) RF: 0 albuterol sulfate [ProAir HFA] 90 mcg/actuation Hfa Aerosol Inhaler 2 puff INHALATION Q6H PRN (Reason: Shortness Of Breath) RF: 0 naproxen 500 mg Tablet 500 mg PO BID PRN (Reason: Pain) RF: 0 Daliresp 500 mcg Tablet 500 mcg PO DAILY RF: 0 prednisone 5 mg Tablet 10 - 20 mg PO BID RF: 0 ropinirole 0.25 mg Tablet 0.25 mg PO DAILY RF: 0 Chantix 1 mg Tablet 1 mg PO . DIRECTED RF: 0 metronidazole [Flagyl] 500 mg tablet 500 mg PO TID 10 Days Qty: 30 RF: 0 ciprofloxacin HCl [Cipro] 500 mg tablet 500 mg PO BID Qty: 20 RF: 0 Discharge Orders: Discharge Order (Routine); Ordered 01/24/20 Ordered By: Jordy Harrison Referrals: Jordy Harrison MD [Physician] - 01/31/20 11:30 am (Return to surgery office in 1 week) Gwyn Ivory [Primary Care Provider] - 02/02/20 2:20 pm (YOUR APPOINTMENT IS WITH [facility] WITH DR IVORY) Discharge Diet: Advance as tolerated Discharge Activity: Increase activity as tolerated Patient Instructions: Incision and Drainage (DC) Activity Restrictions/Additional Instructions: 1. Patient can shower after 48 hours from surgery 2. Remove packing tomorrow and start packing the wound with twice daily wet-to-dry using 2 inch Nu Gauze followed by ABDs. 3. Sitz bath's daily using water at room temperature and Epsom salt 3-4 times a day 3. Up and walking as tolerated 4. Do lift more than 5 pounds first 2 weeks after surgery and not more than 25 pounds 6 to 8 weeks after surgery. 5. Do not operate heavy machinery or drive while using pain medications. 6.Contact the office or return to the ER for worsening nausea vomiting fevers or chills, or noticing any redness around incision sites or discharge. 7. Avoid constipation Follow-up with your primary care provider in 3 to 5 days Wound care instructions per surgery Finish up your antibiotics, as prescribed in the emergency department consisting of Cipro and Flagyl. Nursing to ensure these prescriptions were sent in. Discharge Attestations Time Spent in Discharge Care*: greater than 30 min Quality Metrics Clinical Quality Measures During this hospital stay, did patient experience: None Coding Level of Care Code Acute Saloonkeeper for Edwardg Fwd Diagnoses Perianal abscess K61.0 COPD (chronic obstructive pulmonary disease) J44.9
--- NOTE | 2020-01-24 12:30 | PC.NURSE ---
Patient to floor for education on dressing changes. Nurse demonstrated correct technique and educated dressing should be changed two times daily or as needed. All other discharge instructions gone over including the need to continue antibiotics ordered through the ED. Patient and educated the importance of taking these antibiotics and finishing the full course. Both voiced understanding and said they would rock picker the prescriptions today.
--- NOTE | 2020-01-24 17:23 | PC.RESP ---
Smoking Cessation and Pulmonary Rehab information sent to patient.
--- NOTE | 2020-01-31 15:22 | PC.SOCIAL ---
Culture results on Abscess received on 01/28/2020. Notified Dr Selene Hernandez. Order given to start Bactrim DS 1 tab BID. Tried to reach patient unable to reach but left message. 01/31/2020 No return call received. Called patient again today, was able to reach and explained the culture results from abscess and indicates patient cant tolerate Bactrim. He is to see Dr Ruby on Friday however indicates they will be going out of town. She was encouraged to have him make this appointment. Called Dr Ruby office and talked with Nurse Angeles. Explained to her that indicates she will have him discuss options with Dr Ruby. Explained to Bridgette that patient is to follow up with Dr Harrison so Dr Ruby may want to collaborate with this provider as well. Micro results with DC summary and ED provider record from 01/[address] was sent [address] attn Dr Ruby and Nurse Angeles with confirmation that fax was sent successfully. Did discuss in detail the organisms listed and the sensitivities with Nurse Angeles at Dr Ruby office.
== END 2020-01-24 13:34 | disposition home or self-care (01) ==
LOC: ER 20:20 → MEDSURG 01-24 05:38
PROVIDERS: Surgery; Admitting Provider Student in an Organized Health Care Education/Training Program; Emergency Provider Emergency Medicine; PCP Family Medicine; Visit Provider Internal Medicine
PROC: (CPT 46050; principal; 2020-01-24 09:50)
PROC: (CPT 46050; 2020-01-24 09:50)
DX: K61.0 Anal abscess (principal); J44.9 Chronic obstructive pulmonary disease, unspecified; F17.210 Nicotine dependence, cigarettes, uncomplicated; Z79.52 Long term (current) use of systemic steroids; Z85.118 Personal history of other malignant neoplasm of bronchus and lung; Z98.1 Arthrodesis status; Z53.21 Procedure and treatment not carried out due to patient leaving prior to being seen by health care provider
CPT/HCPCS: 46050; 12345; 36415; 74177; 80053; 85025; 85610; 86850; 86900; 87070; 87075; 87077; 87186; 87205; 88304; 94640; 96361; 96365; 96367; 96375; 96376; 99282; 99283; 99284; 99285; C9290; G0378; J0131; J0744; J2250; J2270; J2405; J2543; J3370; J3490; J7030; J7626; Q9967; S0030

== ENCOUNTER 2020-01-29 14:01 | Emergency (ER) | payer MEDICARE, MEDICAID, SELFPAY ==
[2020-01-29 14:08] VITALS: BP 109/67; PULSE 86; RESP 18; TEMP 36.4; O2SAT 94
--- NOTE | 2020-01-29 14:15 | W.ED.ABDPA2 ---
HPI - Abdominal Pain General: Chief Complaint: Urogenital-Male Stated Complaint: BLOOD IN URINE Time Seen by Provider: 01/29/20 14:03 Source: patient and EMS Mode of arrival: EMS Limitations: no limitations History of Present Illness: HPI narrative: 64-year-old male patient presents to the emergency department with 2-day history of hematuria. He was discharged from the hospital 01/24/2020 status post perirectal abscess incision and drainage. Discharged home with Flagyl and Cipro. He is alert and oriented x4, continuous jerking upon exam. Reports 3-4 joints of marijuana daily but denies methamphetamine use. Reports feels aggitated, states nausea x 2 days, denies vomiting. Reports urine is dark red, not painful. History of non-small cell carcinoma left upper lobe, with resection 2018. Oxygen dependent, history of COPD, denies baseline change of cough or congestion/sputum production. Reports 2-day history of, feeling drunk reports unable to drive due to feeling off balance. He denies falls or trauma. Pertinent past history: other (perianal abscess) Onset (ago): day(s) (2) Pain Consistency: other (denies pain) Associated Symptoms: Reports change in stool character, diarrhea (today), hematuria, loose stools, nausea and poor appetite; Denies chills and fever(s) Review of Systems General: Reports: 10 or more systems reviewed and unremarkable except in HPI and below Const: Denies: fever(s), chills or diaphoresis Eyes: Denies: blurry vision or eye redness ENMT: Denies: throat pain, dental pain or disequilibrium Card: Denies: chest pain, palpitations or irregular heart rhythm Resp: Reports: non-productive cough (chronic) and chest congestion (chronic); Denies: dyspnea, productive cough or wheezing GI: Reports: nausea, diarrhea (today) and change in stool character : Reports: hematuria Musc: Reports: neck pain (reports scheduled for EMG Friday with Dr Hennessy); Denies: back pain, joint pain or joint stiffness Skin/Breast: Denies: rash or pruritus Neuro: Denies: headache(s), weakness in extremities or behavioral changes Psych: Reports: irritability Jose/Lymph: Reports: easy bruising; Denies: easy bleeding or tender lymph nodes PFS ED PFSH: Medical History Cervical post-laminectomy syndrome COPD (chronic obstructive pulmonary disease) History of lung cancer Lumbar post-laminectomy syndrome Spontaneous pneumothorax Surgical History History of cervical spinal surgery (05/14/12) C3-C4 ACDFF, Dr. Kirk History of decompression of median nerve (~1990) 1990 left wrist History of fusion of cervical spine Dr. May Kirk 03/31/2014 C7-T1 ACDFF Dr. May Kirk 05/14/2012 C3-C4 ACDFF Dr. May Kirk 05/18/2009 C4-C5 ACDFF History of lumbar fusion (~02/03/07) Dr. May Kirk 02/03/2007 L4-L5 anterior lumbar interbody fusion/fixation Dr. May Kirk 01/30/2006 Left L4-L5 hemilaminotomy/discectomy/foraminotomy History of lung surgery (~05/2008) Family History Mother Lung cancer Father Lung cancer Stroke Brother Lung cancer Social History Smoking and tobacco status: current every day smoker Alcohol intake: never Household members: spouse Marital status: Current occupational status: disabled History of recent travel: No Physical Exam Const: COMMON NORMALS: no acute distress, patient oriented x3 and alert; negative for well nourished EXAM LIMITATIONS: physical limitations (constant jerking, movement upon exam) GENERAL APPEARANCE: cooperative, anxious, disheveled, frail appearing and appears older than stated age NUTRITIONAL APPEARANCE: thin ORIENTATION/CONSCIOUSNESS: Yes awake, Yes oriented to person, Yes oriented to place and Yes oriented to time HENMT: COMMON NORMALS: normocephalic, atraumatic, Normal external nose present and moist oral mucous membranes HEAD & SCALP: normal to inspection, normocephalic and atraumatic FACE & SINUS: normal facial exam, sinuses nontender and face symmetric NOSE: Normal external nose present and Normal nares present MOUTH: Normal oral and palatal mucosa present THROAT: posterior oropharynx normal Eye: COMMON NORMALS: Equal, round and reactive pupils present and EOMs intact bilaterally GENERAL EYE: appearance normal, both eyes and all related structures PERIORBITAL: periorbital findings normal EYELID: eyelids normal PUPIL: Yes Equal, round and reactive pupils present Neck/C-Spine: COMMON NORMALS: full ROM, no lymphadenopathy and supple GENERAL: Yes normal visual inspection and Yes trachea midline CERVICAL SPINE: Yes cervical ROM normal Lymph: LYMPHATIC: no lymphadenopathy noted Chest: COMMONS NORMALS: normal inspection of the chest and normal palpation of entire chest wall CHEST: No localized rib tenderness with anteroposterior compression Resp: COMMON NORMALS: normal respiratory effort, No retractions and No use of accessory muscles EFFORT & INSPECTION: Yes able to speak in complete sentences, No pursed lip breathing, No labored and No paradoxical thoraco-abdominal movements AUSCULTATION: diminished lung sounds bilateral in the lower lung hagen Cardio: COMMON NORMALS: regular rate, regular rhythm, S1 normal heart sound present, S2 normal heart sound present and Peripheral pulses 2+ throughout RATE: regular rate RHYTHM: regular rhythm HEART SOUNDS: S1 normal heart sound present and S2 normal heart sound present PERIPHERAL PULSES: Peripheral pulses 2+ throughout GI: COMMON NORMALS: Normal to inspection, nondistended, normoactive bowel sounds present, Soft to palpation and non-tender INSPECTION: Yes normal to inspection AUSCULTATION: Yes normoactive bowel sounds PALPATION: Yes Soft to palpation RECTAL EXAM: Yes other (perianal abscess site with healing, small amount of purulent drainage) OTHER: negative tenderness to the surgical area : COMMON NORMALS: Yes no CVA tenderness BLADDER/KIDNEY EXAM: Yes no CVA tenderness Back/Pelvis: COMMON NORMALS: no CVA tenderness and thoracic and lumbar spine normal to inspection Extremity: COMMON NORMALS: normal to inspection and capillary refill normal Neuro: SHELBY COMA SCALE: document GCS findings Malott coma scale eye opening: Spontaneous Malott coma scale verbal response: Orientated Malott coma scale motor response: Obey commands Malott coma scale total score: 15 COMMON NORMALS: patient oriented x3, moves all extremities and no focal motor deficits SENSORIUM/ORIENTATION: Yes alert, Yes oriented to person, Yes oriented to place and Yes oriented to time SPEECH: speech normal MOTOR EXAM: 5/5 motor strength present throughout and Motor abnormalites present tics PUPIL EXAM: Normal pupillary reactivity/response: right and left Right pupil size (mm): 2 Left pupil size (mm): 2 Psych: COMMON NORMALS: mental status grossly normal, Normal thought process present and cooperative ACTIVITY/MOTOR BEHAVIOR: Yes appropriate eye contact THOUGHT PROCESS: Normal thought process present Skin: COMMON NORMALS: no rashes or lesions noted and turgor normal GENERAL SKIN EXAM: no rashes or lesions noted and turgor normal Course ED course: 64-year-old male patient presents to the emergency department with acute intoxication of methamphetamine. 1 mg Ativan IV was administered to help control uncontrolled movement/restless behavior. Medication administered so CT scan head could be completed to rule out neurological etiology of presented behavior. No leukocytosis, anemia, slight elevation of AST appreciated, ALT normal. KUB abdomen without acute abnormalities, recent perianal abscess incision and drainage/recent discharge from the hospital, no erythema foul odor or drainage from the abscess site appreciated. Case discussed Dr. Andrews, no further orders received. UTI appreciated on urinalysis, negative hematuria appreciated today. Advised to continue Cipro and Flagyl until all gone, advised to continue follow-up with primary care/surgical team, advised to continue instructions provided by surgical team. Vital Signs: Vital signs: Vital Signs Temperature 97.9 F 01/29/20 18:31 Pulse Rate 72 01/29/20 18:31 Respiratory Rate 18 01/29/20 18:31 Blood Pressure 112/76 01/29/20 18:31 Pulse Oximetry 96 01/29/20 18:31 MDM - Abdominal Pain Lab Data: Labs: Lab Results 01/29/20 01/29/20 01/29/20 Range/Units 14:40 14:40 14:41 WBC 7.6 (4.0-10.0) 10^3/ uL RBC 4.16 (4.1-5.3) 10^6/u L Hgb 12.1 (11.7-16.6) g/dL Hct 36.5 L (42.0-52.0) % MCV 87.7 (80-94) fL MCH 29.1 (28.0-34.0) pg MCHC 33.2 (30.0-36.0) g/dL RDW 12.6 (12.1-15.1) % Plt Count 244 (130-400) 10^3/c mm MPV 9.9 (7.4-10.4) fL Neut % (Auto) 65.5 % Lymph % (Auto) 23.2 % [place] % (Auto) 9.6 % Eos % (Auto) 0.9 % Baso % (Auto) 0.4 % Neut # (Auto) 4.98 (1.8-7.7) 10^3/u L Lymph # (Auto) 1.8 (0.8-4.8) 10^3/u L [place] # (Auto) 0.7 (0.2-0.9) 10^3/u L Eos # (Auto) 0.1 (0.0-0.8) 10^3/u L Baso # (Auto) 0.0 (0.0-0.1) 10^3/u L Nucleated RBC % (a uto) 0 % Nucleated RBCs # 0.0 /100WBC Sodium 138 (136-145) mmol/L Potassium 3.6 (3.5-5.1) mmol/L Chloride 102 (98-107) mmol/L Carbon Dioxide 30 H (22-29) mmol/L Anion Gap 9.6 (5-19) BUN 23 (8-23) mg/dL Creatinine 0.9 (0.7-1.2) mg/dL GFR Calculation 85.5 L (90-130) mL/min Glucose 155 H (65-115) mg/dL Calculated Osmolal ity 293 (285-295) mOsm/k g Calcium 8.4 L (8.5-10.5) mg/dL Total Bilirubin 0.2 (0.15-1.2) mg/dL AST 85 H (0-40) U/L ALT 35 (0-41) U/L Alkaline Phosphata se 61 (40-130) IU/L Total Protein 6.1 L (6.6-8.7) g/dL Albumin 3.6 (3.5-5.2) g/dL Globulin 2.5 (1.3-4.6) g/dL Lipase 13 (13-60) U/L Urine Color Dark yellow (Yellow) Urine Appearance Clear (CLEAR) Urine pH 5 (5-7) Ur Specific Gravit y 1.030 (1.005-1.030) Urine Protein 1+ H (Negative) Urine Glucose (UA) Norm (Normal) Urine Ketones 1+ H (Negative) Urine Blood Neg (Negative) Urine Nitrate Negative (Negative) Urine Bilirubin 1+ H (Negative) Urine Urobilinogen 1 H (Negative) mg/dL Ur Leukocyte Marilyn ase Trace H (Negative) Urine RBC None (0-2) /hpf Urine WBC 5-10 H (0-5) /hpf Ur Squamous Epith Cells None (0-5) /hpf Amorphous Sediment Not Reportable Urine Bacteria Trace (NONE) /hpf Hyaline Casts 5-10 H /lpf Coarse Granular Ca sts 0-4 H /lpf Urine Mucus 1+ /hpf Urine Opiates Scre en (Negative) ng/mL Ur Barbiturates Sc reen (Negative) ng/mL Ur Phencyclidine S crn (Negative) ng/mL Ur Amphetamines Sc reen (Negative) ng/mL U Benzodiazepines Scrn (Negative) ng/mL Urine Cocaine Scre en (Negative) ng/mL U Marijuana (THC) Screen (Negative) ng/mL 01/29/20 Range/Units 14:41 WBC (4.0-10.0) 10^3/ uL RBC (4.1-5.3) 10^6/u L Hgb (11.7-16.6) g/dL Hct (42.0-52.0) % MCV (80-94) fL MCH (28.0-34.0) pg MCHC (30.0-36.0) g/dL RDW (12.1-15.1) % Plt Count (130-400) 10^3/c mm MPV (7.4-10.4) fL Neut % (Auto) % Lymph % (Auto) % [place] % (Auto) % Eos % (Auto) % Baso % (Auto) % Neut # (Auto) (1.8-7.7) 10^3/u L Lymph # (Auto) (0.8-4.8) 10^3/u L [place] # (Auto) (0.2-0.9) 10^3/u L Eos # (Auto) (0.0-0.8) 10^3/u L Baso # (Auto) (0.0-0.1) 10^3/u L Nucleated RBC % (a uto) % Nucleated RBCs # /100WBC Sodium (136-145) mmol/L Potassium (3.5-5.1) mmol/L Chloride (98-107) mmol/L Carbon Dioxide (22-29) mmol/L Anion Gap (5-19) BUN (8-23) mg/dL Creatinine (0.7-1.2) mg/dL GFR Calculation (90-130) mL/min Glucose (65-115) mg/dL Calculated Osmolal ity (285-295) mOsm/k g Calcium (8.5-10.5) mg/dL Total Bilirubin (0.15-1.2) mg/dL AST (0-40) U/L ALT (0-41) U/L Alkaline Phosphata se (40-130) IU/L Total Protein (6.6-8.7) g/dL Albumin (3.5-5.2) g/dL Globulin (1.3-4.6) g/dL Lipase (13-60) U/L Urine Color (Yellow) Urine Appearance (CLEAR) Urine pH (5-7) Ur Specific Gravit y (1.005-1.030) Urine Protein (Negative) Urine Glucose (UA) (Normal) Urine Ketones (Negative) Urine Blood (Negative) Urine Nitrate (Negative) Urine Bilirubin (Negative) Urine Urobilinogen (Negative) mg/dL Ur Leukocyte Marilyn ase (Negative) Urine RBC (0-2) /hpf Urine WBC (0-5) /hpf Ur Squamous Epith Cells (0-5) /hpf Amorphous Sediment Urine Bacteria (NONE) /hpf Hyaline Casts /lpf Coarse Granular Ca sts /lpf Urine Mucus /hpf Urine Opiates Scre en Positive H (Negative) ng/mL Ur Barbiturates Sc reen Negative (Negative) ng/mL Ur Phencyclidine S crn Negative (Negative) ng/mL Ur Amphetamines Sc reen Positive H (Negative) ng/mL U Benzodiazepines Scrn Negative (Negative) ng/mL Urine Cocaine Scre en Negative (Negative) ng/mL U Marijuana (THC) Screen Positive H (Negative) ng/mL Imaging Data ^: CT Head: Radiologist's impression: [address] [address] [address] Scan Report Signed Patient: Gato Lizarraga Unit #: [id number] : 1955 Age/Sex: 64 / M ADM Date: 01/29/20 Loc: ER Room/Bed: Attending Dr: Ordering Provider/Ordering MD: Shabana Colunga Date of Service: 01/29/20 Procedure(s): CT head wo con* [id number] Accession Number(s): [id number] Report Number: [id number] PROCEDURE INFORMATION: Exam: CT Head Without Contrast Exam date and time: 01/29/2020 2:48 PM Age: 64 years old Clinical indication: Other: Dizzy; Additional info: Dizziness, ataxia TECHNIQUE: Imaging protocol: Computed tomography of the head without contrast. Radiation optimization: All CT scans at this facility use at least one of these dose optimization techniques: automated exposure control; mA and/or kV adjustment per patient size (includes targeted exams where dose is matched to clinical indication); or iterative reconstruction. COMPARISON: CT head wo con* [id number] 12/22/2017 5:26 PM RADIATION DOSE METRICS: Total DLP (mGy-cm): 961.36 FINDINGS: Brain: Normal. No hemorrhage. Unremarkable white matter. No mass effect. Cerebral ventricles: No ventriculomegaly. Bones/joints: Unremarkable. No acute fracture. Paranasal sinuses: Visualized sinuses are unremarkable. No fluid levels. Mastoid air cells: Visualized mastoid air cells are well aerated. Soft tissues: Unremarkable. CT/CT head wo con* [id number] IMPRESSION: No acute intracranial abnormality. Radiation Dose CTDIVOL = (mGy): DLP = 961.36 (mGy-cm) Dictated By: Brenna Kaplan Signed By: Brenna Kaplan Signed Date/Time: 01/29/20 1636 Other Xray: Radiologist's impression: [address] [address] XRay Report Signed Patient: Gato Lizarraga Unit #: [id number] : 1955 Age/Sex: 64 / M ADM Date: 01/29/20 Loc: ER Room/Bed: Attending Dr: Ordering Provider/Ordering MD: Shabana Colunga Date of Service: 01/29/20 Procedure(s): XR abdomen 1V* [id number] Accession Number(s): [id number] Report Number: [id number] PROCEDURE INFORMATION: Exam: XR Abdomen, 1 View Exam date and time: 01/29/2020 2:50 PM Age: 64 years old Clinical indication: Other: Hematuria TECHNIQUE: Imaging protocol: XR of the abdomen. Views: Frontal supine view of the abdomen. 1 View. COMPARISON: CT abdomen pelvis w con* [id number] 01/23/2020 2:18 PM FINDINGS: Gastrointestinal tract: Normal. No bowel dilation. There is a moderate amount of colonic stool. No calculi are identified in the projection of the kidneys, ureters or bladder. Bones/joints: Unremarkable. There are postoperative changes in the lower lumbar spine. XR/XR abdomen 1V* [id number] IMPRESSION: No acute findings. Dictated By: Brenna Kaplan Signed By: Brenna Kaplan Signed Date/Time: 01/29/201633 DD/ 32 Discharge Plan Discharge Patient Disposition: Home Clinical Impression: Amphetamine abuse, episodic, Perianal abscess, Acute UTI, Dehydration, mild Condition: Stable Prescriptions: No Action gabapentin 600 mg tablet 600 mg PO TID RF: 0 tamsulosin 0.4 mg capsule 0.4 mg PO BID RF: 0 tadalafil [Cialis] 5 mg tablet 5 mg PO BEDTIME RF: 0 Symbicort 160-4.5 mcg/actuation HFA aerosol inhaler 2 puff INHALATION BID RF: 0 Spiriva Respimat 1.25 mcg/actuation mist 2 puff INHALATION DAILY RF: 0 baclofen 20 mg tablet 20 mg PO BID PRN (Reason: Pain) RF: 0 albuterol sulfate [ProAir HFA] 90 mcg/actuation Hfa Aerosol Inhaler 2 puff INHALATION Q6H PRN (Reason: Shortness Of Breath) RF: 0 naproxen 500 mg Tablet 500 mg PO BID PRN (Reason: Pain) RF: 0 Daliresp 500 mcg Tablet 500 mcg PO DAILY RF: 0 oxycodone-acetaminophen [Percocet] 5-325 mg tablet 1 tab PO Q6H PRN (Reason: pain) Qty: 10 RF: 0 ropinirole 0.25 mg Tablet 0.25 mg PO DAILY RF: 0 metronidazole [Flagyl] 500 mg tablet 500 mg PO TID 10 Days Qty: 30 RF: 0 ciprofloxacin HCl [Cipro] 500 mg tablet 500 mg PO BID Qty: 20 RF: 0 ondansetron HCl 4 mg tablet 4 mg PO Q6H PRN (Reason: nausea/vomiting) RF: 0 pantoprazole 40 mg Tablet,Delayed Release (Dr/Ec) 40 mg PO DAILY RF: 0 Discharge Orders: Discharge ED (Routine); Ordered 01/29/20 Ordered By: Shabana Colunga Referrals: Gwyn Ruby [Primary Care Provider] - Discharge Diet: GI Soft Discharge Activity: Limit activity as instructed Patient Instructions: Dehydration (ED), Urinary Tract Infection in Men (ED), Methamphetamine Abuse (ED) Activity Restrictions/Additional Instructions: COntinue discharge orders from 01/24/[address] Abraham, No heavy lifting as per instructions, continue with wound care and sitz baths as per instructions, Continue Cipro and Flagyl until all gone, antibiotics will help with urinary tract infection, push fluids, you will need lots and lots of fluids Avoid methamphetamine as this will delay healing and cause increased risk of infection. Avoid use of marijuana unless purchased from an authorized merchant. Return to the emergency department if you develop worsening symptoms such as weakness of the extremities, facial drooping, fever, abdominal pain or other concerning symptoms. Coding Level of Care Code ED Push Button Switch Assembler for Chg Fwd Exam Comprehensive
[2020-01-29 14:29] VITALS: BP 109/67; PULSE 86; RESP 18; O2SAT 94
--- NOTE | 2020-01-29 14:42 | CTR_ITS ---
PROCEDURE INFORMATION: Exam: CT Head Without Contrast Exam date and time: 01/29/2020 2:48 PM Age: 64 years old Clinical indication: Other: Dizzy; Additional info: Dizziness, ataxia TECHNIQUE: Imaging protocol: Computed tomography of the head without contrast. Radiation optimization: All CT scans at this facility use at least one of these dose optimization techniques: automated exposure control; mA and/or kV adjustment per patient size (includes targeted exams where dose is matched to clinical indication); or iterative reconstruction. COMPARISON: CT head wo con* [id number] 12/22/2017 5:26 PM RADIATION DOSE METRICS: Total DLP (mGy-cm): 961.36 FINDINGS: Brain: Normal. No hemorrhage. Unremarkable white matter. No mass effect. Cerebral ventricles: No ventriculomegaly. Bones/joints: Unremarkable. No acute fracture. Paranasal sinuses: Visualized sinuses are unremarkable. No fluid levels. Mastoid air cells: Visualized mastoid air cells are well aerated. Soft tissues: Unremarkable. CT/CT head wo con* [id number] IMPRESSION: No acute intracranial abnormality. Radiation Dose CTDIVOL = (mGy): DLP = 961.36 (mGy-cm)
--- NOTE | 2020-01-29 14:49 | XRR_ITS ---
PROCEDURE INFORMATION: Exam: XR Abdomen, 1 View Exam date and time: 01/29/2020 2:50 PM Age: 64 years old Clinical indication: Other: Hematuria TECHNIQUE: Imaging protocol: XR of the abdomen. Views: Frontal supine view of the abdomen. 1 View. COMPARISON: CT abdomen pelvis w con* [id number] 01/23/2020 2:18 PM FINDINGS: Gastrointestinal tract: Normal. No bowel dilation. There is a moderate amount of colonic stool. No calculi are identified in the projection of the kidneys, ureters or bladder. Bones/joints: Unremarkable. There are postoperative changes in the lower lumbar spine. XR/XR abdomen 1V* [id number] IMPRESSION: No acute findings.
[2020-01-29 14:54] LABS: Basophils % 0.4 %; Eosinophils # 0.1 10^3/uL (0.0-0.8); Eosinophils % 0.9 %; Hematocrit 36.5 % (42.0-52.0); Hemoglobin 12.1 g/dL (11.7-16.6); Lymphocytes # 1.8 10^3/uL (0.8-4.8); Lymphocytes % 23.2 %; Mean Corpuscular HGB Conc 33.2 g/dL (30.0-36.0); Mean Corpuscular Hemoglobin 29.1 pg (28.0-34.0); Mean Corpuscular Volume 87.7 fL (80-94); Mean Platelet Volume 9.9 fL (7.4-10.4); Monocytes # 0.7 10^3/uL (0.2-0.9); Monocytes % 9.6 %; Neutrophils # 4.98 10^3/uL (1.8-7.7); Neutrophils % 65.5 %; Nucleated Red Blood Cells % 0 %; Platelet Count 244 10^3/cmm (130-400); Red Blood Count 4.16 10^6/uL (4.1-5.3); Red Cell Distribution Width 12.6 % (12.1-15.1); White Blood Count 7.6 10^3/uL (4.0-10.0)
[2020-01-29 15:07] LABS: Alanine Aminotransferase 35 U/L (0-41); Albumin Level 3.6 g/dL (3.5-5.2); Alkaline Phosphatase 61 IU/L (40-130); Anion Gap 9.6 (5-19); Aspartate Amino Transferase 85 U/L (0-40); Blood Urea Nitrogen 23 mg/dL (8-23); Calcium 8.4 mg/dL (8.5-10.5); Carbon Dioxide 30 mmol/L (22-29); Chloride 102 mmol/L (98-107); Globulin 2.5 g/dL (1.3-4.6); Glomerular Filtration Rate 85.5 mL/min (90-130); Glucose 155 mg/dL (65-115); Lipase 13 U/L (13-60); Osmolality Calculated 293 mOsm/kg (285-295); Potassium 3.6 mmol/L (3.5-5.1); Sodium 138 mmol/L (136-145); Total Bilirubin 0.2 mg/dL (0.15-1.2); Total Protein 6.1 g/dL (6.6-8.7)
[2020-01-29] MEDS: sodium chloride 0.9% 500 ML 999 ML IV (15:17)
[2020-01-29] MEDS: LORazepam 2 mg/mL INJ 1 mL 1 MG IVP (15:18)
[2020-01-29 15:29] LABS: Amphetamines Screen Urine Positive (Negative); Barbiturates Screen Urine Negative (Negative); Benzodiazepines Screen Urine Negative (Negative); Cocaine Screen Urine Negative (Negative); Opiate Screen Urine Positive (Negative); PCP Screen Urine Negative (Negative); THC Screen Urine Positive (Negative)
[2020-01-29 15:42] LABS: Glucose Urine UA Norm (Normal); Ketones Urine 1+ (Negative); Protein Urine 1+ (Negative); Urine Appearance Clear (CLEAR); Urine Color Dark Yellow (Yellow); pH Urine 5 (5-7)
[2020-01-29 15:43] LABS: Add Urine Microscopic? YES; Bacteria Urine TRACE /hpf; Bilirubin Urine 1+ (Negative); Blood Urine Neg (Negative); Coarse Granular Casts Urine 0-4 /lpf; Leukocyte Esterase Urine Trace (Negative); Mucus Urine 1+ /hpf; Nitrate Urine Negative (Negative); Urobilinogen Urine 1 mg/dL (Negative)
[2020-01-29 15:44] LABS: Add Urine Culture? No
[2020-01-29 17:07] VITALS: BP 115/80; PULSE 76; RESP 18; O2SAT 100
[2020-01-29 18:31] VITALS: BP 112/76; PULSE 72; RESP 18; TEMP 36.6; O2SAT 96
== END 2020-01-29 18:34 | disposition home or self-care (01) ==
PROVIDERS: Emergency Provider Nurse Practitioner Family; PCP Family Medicine
DX: F15.10 Other stimulant abuse, uncomplicated (principal); K61.0 Anal abscess; N39.0 Urinary tract infection, site not specified; E86.0 Dehydration; J44.9 Chronic obstructive pulmonary disease, unspecified; Z85.118 Personal history of other malignant neoplasm of bronchus and lung; F17.210 Nicotine dependence, cigarettes, uncomplicated; Z79.899 Other long term (current) drug therapy
CPT/HCPCS: 12345; 70450; 74018; 80053; 80306; 81001; 83690; 85025; 96374; 96375; 99283; 99284; J2060; J7040

== ENCOUNTER 2020-02-04 15:43 | Day surgery (SDC) | payer MEDICARE, MEDICAID, SELFPAY ==
[2020-02-04] VITALS (7 sets, daily range): BP systolic 147–180; BP diastolic 91–111; PULSE 70–87; RESP 15–18; TEMP 36.5–36.6; O2SAT 94–99; BMI 18.3
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
[2020-02-04] MEDS: sodium chloride 0.9% 1,000 ML 100 ML IV (17:07)
--- NOTE | 2020-02-04 17:13 | P.HP_ITS ---
Providers/Chief Complaint Primary Care Provider: Gwyn Ruby Chief Complaint: Gluteal abscess History of Present Illness Gato Lizarraga is a 64 year old male who presented to the ER with complaints of 2-day history of gluteal and right groin pain. Patient denies any history of trauma or insect bites. He had a left perianal abscess drained 2 weeks ago and apparently had been doing well until 2 days prior. He denies any fevers or chills. Patient is not a diabetic. Review of Systems General: Reports: 10 or more systems reviewed and unremarkable except in HPI and below Medications/Allergies Home Medications Medication Instructions Recorded Confirmed Last Taken Type gabapentin 600 mg tablet 600 mg PO TID@,,03/08/19 02/04/20 02/04/20 History budesonide-formoterol HFA 160 2 puff INHALATION BID@04/09/19 02/04/20 02/04/20 History mcg-4.5 mcg/actuation aerosol inhaler tadalafil 5 mg tablet 5 mg PO BEDTIME@04/09/19 02/04/20 02/03/20 History tamsulosin 0.4 mg capsule 0.4 mg PO BID@04/09/19 02/04/20 02/04/20 History tiotropium bromide 1.25 2 puff INHALATION DAILY@04/09/19 02/04/20 02/04/20 History mcg/actuation mist for inhalation Daliresp 500 mcg PO DAILY@09/23/19 02/04/20 02/04/20 History albuterol sulfate [ProAir HFA] 2 puff INHALATION Q6H PRN 09/23/19 02/04/20 09/24/19 History naproxen 500 mg PO BID PRN 09/23/19 02/04/20 09/23/19 History baclofen 20 mg tablet 20 mg PO BID PRN 10/27/19 02/04/20 Unknown History ciprofloxacin HCl [Cipro] 500 mg PO BID #20 tab 01/23/20 02/04/20 Unknown Rx ropinirole 0.25 mg PO BEDTIME@01/23/20 02/04/20 02/03/20 History oxycodone-acetaminophen [Percocet] 1 tab PO Q6H PRN #10 tab 01/24/20 02/04/20 Unknown Rx ondansetron HCl 4 mg PO Q6H PRN 01/29/20 02/04/20 Unknown History metronidazole 500 mg PO TID 02/04/20 02/04/20 Unknown History prednisone 10 - 20 mg PO BID 02/04/20 02/04/20 Unknown History Allergies Allergy/AdvReac Type Severity Reaction Status Date / Time fentanyl Allergy Severe anaphylaxic Verified 01/31/20 10:57 hydroxyzine Allergy Severe ADR-Anxiety Verified 01/31/20 10:57 ibuprofen Allergy swelling Verified 01/31/20 10:57 ketorolac Allergy Unknown Verified 01/31/20 10:57 meloxicam Allergy Unknown Verified 01/31/20 10:57 methadone Allergy anaphlyaxic Verified 01/31/20 10:57 nalbuphine Allergy Unknown Verified 01/31/20 10:57 naproxen Allergy Unknown Verified 01/29/20 14:07 amitriptyline AdvReac mood Verified 01/31/20 10:57 altering cephalexin AdvReac nauseated Verified 01/31/20 10:57 clarithromycin AdvReac nauseated Verified 01/31/20 10:57 doxycycline AdvReac nauseated, Verified 01/31/20 10:57 vomiting tetracycline AdvReac nausea, Verified 01/31/20 10:57 vomiting PFSH Acute PFSH: Medical History Cervical post-laminectomy syndrome COPD (chronic obstructive pulmonary disease) History of lung cancer Lumbar post-laminectomy syndrome Spontaneous pneumothorax Surgical History History of cervical spinal surgery (05/14/12) C3-C4 ACDSHALONDA, Dr. Kirk History of decompression of median nerve (~1990) 1990 left wrist History of fusion of cervical spine Dr. May Kirk 03/31/2014 C7-T1 ACDFF Dr. May Kirk 05/14/2012 C3-C4 ACDFF Dr. May Kirk 05/18/2009 C4-C5 ACDFF History of lumbar fusion (~02/03/07) Dr. May Kirk 02/03/2007 L4-L5 anterior lumbar interbody fusion/fixation Dr. May Kirk 01/30/2006 Left L4-L5 hemilaminotomy/discectomy/foraminotomy History of lung surgery (~05/2008) Family History Mother Lung cancer Father Lung cancer Stroke Brother Lung cancer Social History Smoking and tobacco status: current every day smoker Alcohol intake: never Household members: spouse Marital status: Current occupational status: disabled History of recent travel: No Vitals/I&O/Wt Last Vital Signs Pulse 70 02/04/20 17:07 Resp 15 02/04/20 17:07 BP 166/100 02/04/20 17:07 Pulse Ox 95 02/04/20 17:07 Weight last 48 hrs Weight 128 lb Physical Exam Narrative: EXAM NARRATIVE: HEENT: Normocephalic Eye: Sclera /conjunctiva normal Respiratory and chest: Bilateral clear breath sounds on auscultation Cardiovascular: Normal S1 and S2 heart sounds Abdomen: Soft to palpation, Neurological: Oriented to place person and time Skin: Intact, 3 x 3 cm abscess right groin, 4 x 4 centimeter abscess right gluteal area, patient has 3 x 2 cm wound in the gluteal cleft A&P Assessment and plan (1) Gluteal abscess: 64-year-old male who had previously undergone incision and drainage of a left renal abscess who now presents with right gluteal and right groin abscess. Patient is hemodynamically stable with no evidence of sepsis. Plan for incisi on and drainage of right gluteal and groin abscess under MAC Procedure, risks, benefits and alternatives have been discussed with the patient who wishes to proceed with surgery. Status: Acute Attestations Medical Necessity Statement*: Gluteal abscess requiring incision and drainage Coding Level of Care Code Acute Fugitive Detective for [facility] Fwd Diagnoses Gluteal abscess L02.31
--- NOTE | 2020-02-04 17:28 | ANES.PREANE2 ---
Pre-Anesthetic Assessment Pre-Anesthetic Assessment: Height/Weight: Height 1.78 m Weight 58.06 kg Pulse Resp BP Pulse Ox 70 15 166/100 95 02/04/20 17:07 02/04/20 17:07 02/04/20 17:07 02/04/20 17:07 Preop Diagnosis: Gluteal and groin abscess Familial anesthetic complications: None Was Beta Cong taken within 24 hours: N/A Last intake: NPO > 8 hrs Social: Social History: Tobacco and No alcohol Exam: Pre-Anes Outpt Exam: alert, oriented x 3, clear to auscultation bilaterally and regular rate & rhythm Additional Exam Findings (including area of procedure): barrel chested - some mild accessory muscle use Airway: Cervical ROM: WNL MP: 3 Dentition: False Pulmonary: Pulmonary: COPD Comments: hx lung cancer and PTX Anesthetic Plan: ASA status: 3 Anesthesia: MAC Risk of > 500 ml blood loss (7ml/kg in children): No Other Pertinent Information: hx amphetamine use PFSH Anesthesia PFSH: Medical History Cervical post-laminectomy syndrome COPD (chronic obstructive pulmonary disease) History of lung cancer Lumbar post-laminectomy syndrome Spontaneous pneumothorax Surgical History History of cervical spinal surgery (05/14/12) C3-C4 ACDDr. Reagan LIZ History of decompression of median nerve (~1990) 1990 left wrist History of fusion of cervical spine Dr. May Kirk 03/31/2014 C7-T1 ACDFF Dr. May Kirk 05/14/2012 C3-C4 ACDFF Dr. May Kirk 05/18/2009 C4-C5 ACDFF History of lumbar fusion (~02/03/07) Dr. May Kirk 02/03/2007 L4-L5 anterior lumbar interbody fusion/fixation Dr. May Kirk 01/30/2006 Left L4-L5 hemilaminotomy/discectomy/foraminotomy History of lung surgery (~05/2008) Family History Mother Lung cancer Father Lung cancer Stroke Brother Lung cancer Social History Smoking and tobacco status: current every day smoker Alcohol intake: never Household members: spouse Marital status: Current occupational status: disabled History of recent travel: No Data Anesthesia Cardiac Studies: No Data to Display
[2020-02-04] MEDS: sodium chloride 0.9% 1,000 ML 30 ML IV (17:49)
[2020-02-04] MEDS: levofloxacin-dextrose 5 % 500 MG/100 ML PREMIX 100 MG IV (17:50)
--- NOTE | 2020-02-04 18:31 | PM.OP ---
Operative Report Date of procedure: February 04, 2020 Pre-op Diagnosis: Gluteal and groin abscess Post-op Diagnosis: 1. Right groin abscess measuring 3 x 3 cm 2. Right gluteal abscess measuring 5 x 4 cm Procedure Done: 1. Incision and drainage of right groin abscess 2. Incision and drainage of right gluteal abscess Pathology: Wound cultures Surgeon: Randy Pascal Anesthesia: MAC Condition: stable Disposition: PACU Procedure: The patient was taken to the operating room and placed in the right lateral position under MAC after IV antibiotic had been administered. The right groin and right gluteal area was prepped and draped in a sterile manner. Using a 15 blade 3 x 3 cm cruciate incision was made over the right gluteal abscess which measured 5 x 4 cm with drainage of concetta pus. Loculations were taken down bluntly. Aerobic anaerobic wound cultures were obtained. Wound was irrigated with saline and packed with quarter inch ribbon gauze and covered with sterile dressings. Using 15 blade 2 x 2 centimeter cruciate incision was made over the right groin abscess which measured 3 x 3 cm with drainage of concetta pus. Loculations were taken down bluntly, wound irrigated with saline and packed with quarter inch ribbon gauze and covered with sterile dressings. The patient was transferred to same-day surgery in stable condition.
[2020-02-04] MEDS: oxyCODONE-APAP 5-325 mg Tablet 1 TAB PO (18:40)
--- NOTE | 2020-02-04 18:45 | ANE.PACU2 ---
Inpatient post-anesthesia follow up: Airway intact: Yes Vital signs: Temperature 97.9 F Pulse Rate [Monito r] 77 Pulse Rate 81 Respiratory Rate 18 Blood Pressure [Le ft Arm] 165/94 Blood Pressure 147/111 Pulse Oximetry 94 Oxygen Delivery Me thod Room Air Oxygen Flow Rate Fraction of Inspir ed Oxygen Hydration adequate: Yes Nausea and vomiting: No Pain level: 7 Mental status: Baseline
--- NOTE | 2020-02-04 19:02 | SUR.PHASEII ---
patient stated pain at 10/10 on arrival to phase 2. pain pill given to patient. patient immediatly wanted discharged. pt present for discharge. post op instructions given to both and patient. patient left ambulatory.
--- NOTE | 2020-02-07 12:42 | DCPLANNER ---
is manager had message to speak with patient due to patient being homeless. is manager called phone number [phone], unable to speak with patient at this time, recording stated that phone number was not in service.
== END 2020-02-04 18:57 | disposition home or self-care (01) ==
LOC: ER 16:24 → OR 18:52
PROVIDERS: Emergency Provider Emergency Medicine; PCP Family Medicine; Visit Provider Surgery
PROC: (CPT 10060; principal; 2020-02-04 17:35)
DX: L02.31 Cutaneous abscess of buttock (principal); L02.214 Cutaneous abscess of groin; J44.9 Chronic obstructive pulmonary disease, unspecified; Z85.118 Personal history of other malignant neoplasm of bronchus and lung; Z98.1 Arthrodesis status; F17.210 Nicotine dependence, cigarettes, uncomplicated
CPT/HCPCS: 10060; 12345; 87070; 87075; 87077; 87186; 87205; 99282; J1956; J2704; J3490; J7030

== ENCOUNTER 2020-03-13 08:02 | Outpatient (CLI) | payer MEDICARE, MEDICAID, SELFPAY ==
[2020-03-13 08:46] LABS: Basophils % 0.4 %; Eosinophils # 0.1 10^3/uL (0.0-0.8); Eosinophils % 2.4 %; Hematocrit 42.1 % (42.0-52.0); Hemoglobin 13.1 g/dL (11.7-16.6); Lymphocytes # 1.4 10^3/uL (0.8-4.8); Lymphocytes % 28.2 %; Mean Corpuscular HGB Conc 31.1 g/dL (30.0-36.0); Mean Corpuscular Hemoglobin 29.1 pg (28.0-34.0); Mean Corpuscular Volume 93.6 fL (80-94); Mean Platelet Volume 10.8 fL (7.4-10.4); Monocytes # 0.4 10^3/uL (0.2-0.9); Monocytes % 8.6 %; Neutrophils # 3.06 10^3/uL (1.8-7.7); Nucleated Red Blood Cells % 0 %; Platelet Count 188 10^3/cmm (130-400); Red Cell Distribution Width 13.6 % (12.1-15.1); White Blood Count 5.1 10^3/uL (4.0-10.0)
[2020-03-13 09:10] LABS: Alanine Aminotransferase 13 U/L (0-41); Albumin Level 3.8 g/dL (3.5-5.2); Alkaline Phosphatase 62 IU/L (40-130); Anion Gap 10.2 (5-19); Aspartate Amino Transferase 16 U/L (0-40); Blood Urea Nitrogen 10 mg/dL (8-23); Calcium 9.4 mg/dL (8.5-10.5); Carbon Dioxide 34 mmol/L (22-29); Chloride 98 mmol/L (98-107); Globulin 3.1 g/dL (1.3-4.6); Glomerular Filtration Rate 136.5 mL/min (90-130); Glucose 88 mg/dL (65-115); Osmolality Calculated 284 mOsm/kg (285-295); Potassium 4.2 mmol/L (3.5-5.1); Sodium 138 mmol/L (136-145); Total Bilirubin 0.2 mg/dL (0.15-1.2); Total Protein 6.9 g/dL (6.6-8.7)
--- NOTE | 2020-03-13 10:02 | ONC FU_ITS ---
Dr. Mullen follow up note Patient: Gato Lizarraga Unit #: [id number]: 1955 Dicatated By: Marisa Mullen M.D.Date of Visit:Mar 13, 2020 Onc Med Follow-up/Prog Note History of Present Illness: Mr. Lizarraga is a 64-year-old gentleman with history of small left upper lobe pulmonary nodule first seen on CT scan of chest done in February 2017. A follow-up CT scan done on 10/02/2017 showed small increase in size. CT PET scan was done on 10/09/2017 showed increased activity in this suspicious lesion and also in right thyroid lobe nodule. Mr Lizarraga has history of COPD/emphysema bilaterally and is dependent on home oxygen. Mr Lizarraga underwent left upper lobe wedge resection on 11/10/2017. 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 An additional nodule in left upper lung apex was a hematoma as per discussion with Dr. Cummings pathologist. Patient tolerated procedure well PMH: history of melanoma excision from his head ???2 in the past. 40+ year history of chronic smoking CT Chest from 07/15/2019. .showed Prior postoperative changes resection left upper lobe pulmonary nodule. No evidence of recurrent parenchymal lesion in this location. 2. Noncalcified nodule left lower lobe measuring 7 mm with surrounding fibrosis. This is increased since the prior examination recommend 3-month follow-up. 3. No mediastinal or hilar lymphadenopathy. 4. Advanced chronic emphysematous changes. Came for follow-up, denies any specific complaint except dyspnea on exertion, using home oxygen for chronic emphysema and still smoking. Denies any hemoptysis or hematemesis complaining of generalized musculoskeletal pain, with recently worsening and also underwent extensive C-spine work-up which include CT scan of C-spine CT cervical myelogram done in October 2019 for neck pain showed multilevel moderate to severe bony foraminal narrowing worse at left C5-C6 and bilateral C6-7 and anterior cervical fusion at C3-4 and C4 and 5 and small central disc protrusion at T1-2 with slight contact of thoracic cord Patient also had CT scan of chest abdomen done on September 24, 2019 which showed moderate to severe paraseptal emphysema bilaterally and no mention of left lower lobe nodule which was seen in CT scan of the chest done in June 2019. CT scan of her abdomen shows mild rectal wall thickening, as per patient he has history of rectal abscess in the past which was drained couple of times. And last colonoscopy was done about 7-8 years ago. Denies any melena or hematochezia, denies any jaundice, denies any hemoptysis or hematemesis, denies any fever or chills. Medications: Albuterol Sulfate 1 ((2.5 mg/3ml) 0.083%) Nebulization solution Inhalation PRN, ARIPiprazole 1 Tablet (of 20 mg) Oral daily, Baclofen 1 Tablet (of 20 mg) Oral b.i.d., Cialis 1 Tablet (of 5 mg) Oral daily, FLUoxetine HCl 1 Capsule (of 20 mg) Oral daily, Gabapentin 1 Tablet (of 600 mg) Oral t.i.d., Keflex 1 Tablet (of 500 mg) Capsule Oral four times a day, Multiple Vitamins-Minerals 1 Tablet Oral daily, predniSONE 1 Tablet (of 20 mg) Oral daily for 30 days, Spiriva Respimat 1 Puff(s) (of 1.25 mcg/act) Aerosol, solution Inhalation b.i.d., Symbicort 2 puff(s) (of 160-4.5 mcg/act) Aerosol Inhalation b.i.d., Tamsulosin HCl 2 Capsule (of 0.4 mg) Oral daily Allergies: Ambien, Aminophylline, Amitriptyline HCl, Biaxin, Cymbalta, Doxycycline, FentaNYL, fentaNYL Citrate, Ibuprofen, Ketorolac Tromethamine, Methadone HCl, Nubain, and Tetracycline HCl. Review of Systems: Constitutional - Appetite is good and weight is stable. Energy level is poor, ENMT - No sinus congestion/drainage. No mouth sores. No sore throat or difficulty swallowing, Hematologic/Lymphatic - No abnormal bruising or bleeding, Respiratory - Frequent shortness of breath. No cough. Pt is on portable oxygen, Cardiovascular - No angina pain. No palpitations, Gastrointestinal - No nausea or vomiting. No heartburn or acid reflux. No diarrhea or constipation. No blood in the stool or black stools, Genitourinary (M) - No dysuria or hematuria. No urinary frequency. No urgency or incontinence, Musculoskeletal - No joint or bone pain, Neurologic - No headache or dizziness. No numbness/paresthesias or other focal neurologic symptoms, Psychiatric - No anxiety or depression. No insomnia. Vital Signs: Vitals are not available for this patient. Performance Status: 2 - Ambulatory/capable of all self-care, unable to perform any work activities. Up and about more than 50% of waking hours. (ECOG) Physical Examination: ENMT - Patient refused to wear mask so he was evaluated visually, patient denies any mouth sores, denies any thrush,, Respiratory - Patient denies any wheezing at rest,, Cardiovascular - Denies any palpitation, Abdomen - Denies any abdominal pain or fullness, Extremities - No visible edema. Lab/Imaging: Test performed on Sep 24, 2019 13:18 Glucose 124 mg/dL BUN 7 mg/dL Creatinine 0.7 mg/dL Cr Clearance (Est) 69.08 mL/min Sodium 142 mmol/L Potassium 3.8 mmol/L Chloride 105 mmol/L CO2 25 mmol/L Calcium 9.8 mg/dL Protein, Total 7.0 g/dL Albumin 4.2 g/dL Globulin 2.8 g/dL Bilirubin, Total 0.2 mg/dL Alkaline Phosphatase 62 IU/L AST (SGOT) 13 IU/L ALT (SGPT) 11 IU/L WBC 12.7 10^9/L RBC 4.69 10^12/L HGB 14.1 g/dL HCT 43.5 % MCV 92.8 fl MCH 30.1 pg MCHC 32.4 g/dL RDW 12.6 % Platelet Count 261 10^9/L MPV 11.0 fL Neutrophils (Gran) 11.43 10^9/L Lymphocytes 0.9 10^9/L Monocytes 0.3 10^9/L Eosinophils 0.0 10^9/L Basophils 0.0 10^9/L Manual Lymphocytes 6.9 % Manual Monocytes 2.5 % Manual Eosinophils 0.0 % Manual Basophils 0.1 % Impression: 1. 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 T1a N X, MX stage I A1 Advanced is COPD with emphysema on home oxygen 40+ years History of chronic smoking next Right thyroid nodule evaluated by ENT Dr. Umanzor. CT Chest from 07/15/2019. showed Prior postoperative changes resection left upper lobe pulmonary nodule. No evidence of recurrent parenchymal lesion in this location. 2. Noncalcified nodule left lower lobe measuring 7 mm with surrounding fibrosis. This is increased since the prior examination recommend 3-month follow-up. 3. No mediastinal or hilar lymphadenopathy. 4. Advanced chronic emphysematous changes. Plan: Discussed with patient regarding his labs white blood count 5.1 hemoglobin 13.1 hematocrit 42.1 platelets 188,000 CMP within normal limits except creatinine is pending Clinically, patient is doing reasonably well with no new signs symptoms history of recurrence of disease, patient missed his last appointment in September 2019 because of personal reasons and never called the office. But now complaining of progressive musculoskeletal discomfort/pain and smoking marijuana activity, which is helping him somewhat. And still smoking knowing that he has severe bilateral emphysema, requiring continuous home oxygen. Patient was advised to quit smoking and was offered any assistance he may need. At this point, we will consider repeating CT scan of chest with special attention to left lower lobe nodule which was mentioned in CT scan of chest done in June 2019 but not in August 2019 and bone scan to rule out recurrence of disease. And as mentioned in CT scan of abdomen done in August 2019, there is evidence of rectal wall thickening as per patient he has history of rectal abscess in the past which were drained couple of times, and last colonoscopy was done many years ago, will refer him to GI for evaluation. Patient will return to clinic after CT scan of chest/bone scan and GI evaluation. Signed By: Marisa Mullen M.D. <<Signature on File>>
== END 2020-03-13 08:03 | disposition home or self-care (01) ==
LOC: ONCMED 08:06
PROVIDERS: PCP Family Medicine; Visit Provider Internal Medicine Hematology & Oncology
DX: Z08 Encounter for follow-up examination after completed treatment for malignant neoplasm (principal); Z85.118 Personal history of other malignant neoplasm of bronchus and lung; R07.89 Other chest pain; R91.1 Solitary pulmonary nodule; J43.9 Emphysema, unspecified; Z90.2 Acquired absence of lung [part of]
CPT/HCPCS: 36415; 80053; 85025; 99214

== ENCOUNTER 2020-03-24 08:11 | Outpatient (CLI) | payer MEDICARE, MEDICAID, SELFPAY ==
--- NOTE | 2020-03-24 08:20 | CT_ITS ---
WS: [id number] CT CHEST TECHNIQUE: Contrast enhanced CT of the chest with coronal and sagittal reformatted images. CLINICAL INFORMATION: LUNG CANCER COMPARISON: CT September 24, 2019 DLP: 381.[address] scans at [facility] use at least one of these dose optimization techniques: automat ed exposure control; mA and/or kV adjustment per patient size (includes targeted exams where dose is matched to clinical indication); or iterative reconstruction. FINDINGS: Advanced chronic emphysematous changes. No acute pulmonary infiltrates. Prior postoperative changes r esection left upper lobe pulmonary lesion. No evidence of recurrent mass or lesion in this location. Previously described noncalcified left lower lobe pulmonary nodule measures 5 mm today with surroundi ng fibrosis. This is decreased in size from previous and less dense. No mediastinal or hilar lymphadenopathy. No axillary lymphadenopathy. Proximal main pulmonary arterie s are normal. Normal caliber thoracic aorta. Prior postoperative changes lower cervical spine. Chroni c left posterior rib fractures. CT/CT chest w con* [id number] IMPRESSION: 1. Prior postoperative changes resection left upper lobe pulmonary nodule. No e vidence of recurrent parenchymal lesion in this location. 2. Noncalcified nodule left lower lobe measuring 5 mm mm with surrounding fibro sis. This is decreased in size and less dense today. 3. No mediastinal or hilar lymphadenopathy. 4. Advanced chronic emphysematous changes.
--- NOTE | 2020-03-24 08:20 | NM_ITS ---
WS: [id number] NUCLEAR MEDICINE BONE SCAN Radiopharmaceutical: 24.8 Tc-99m MDP mCi IV Injection site: ? Postinjection imaging delay: 1 hr CLINICAL INFORMATION: INITIAL STAGING, BONE PAIN COMPARISON: None. FINDINGS: Bone lesions: There are no osseous lesions suspicious for metastatic disease. Soft tissue contours: Normal. Kidneys: Normal. Other findings: Mild thoracolumbar curve. Mild degenerative arthritis at the AC joints. Mild degenera tive type uptake in the left lower cervical spine posterior facet NM/NM bone scan whole body* [id number] IMPRESSION: No evidence of osseous metastatic disease.
[2020-03-24] MEDS: iohexol 300 mg/mL 100 mL Btl IV (08:58)
== END 2020-03-24 08:12 | disposition home or self-care (01) ==
LOC: NM 08:13
PROVIDERS: Visit Provider Internal Medicine Hematology & Oncology
DX: C34.12 Malignant neoplasm of upper lobe, left bronchus or lung (principal); R91.1 Solitary pulmonary nodule; M89.8X9 Other specified disorders of bone, unspecified site
CPT/HCPCS: 71260; 78306; A9561

== ENCOUNTER 2020-03-29 05:45 | Outpatient (CLI) | payer MEDICARE, MEDICAID, SELFPAY ==
--- NOTE | 2020-03-29 14:25 | ONC FU_ITS ---
Dr. Mullen follow up note Patient: Gato Lizarraga Unit #: [id number]: 1955 Dicatated By: Marisa Mullen M.D.Date of Visit:Mar 29, 2020 Onc Med Follow-up/Prog Note History of Present Illness: Mr. Lizarraga is a 64-year-old gentleman with history of small left upper lobe pulmonary nodule first seen on CT scan of chest done in February 2017. A follow-up CT scan done on 10/02/2017 showed small increase in size. CT PET scan was done on 10/09/2017 showed increased activity in this suspicious lesion and also in right thyroid lobe nodule. Mr Lizarraga has history of COPD/emphysema bilaterally and is dependent on home oxygen. Mr Lizarraga underwent left upper lobe wedge resection on 11/10/2017. 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 An additional nodule in left upper lung apex was a hematoma as per discussion with Dr. Cummings pathologist. Patient tolerated procedure well PMH: history of melanoma excision from his head ???2 in the past. 40+ year history of chronic smoking CT Chest from 07/15/2019. .showed Prior postoperative changes resection left upper lobe pulmonary nodule. No evidence of recurrent parenchymal lesion in this location. 2. Noncalcified nodule left lower lobe measuring 7 mm with surrounding fibrosis. This is increased since the prior examination recommend 3-month follow-up. 3. No mediastinal or hilar lymphadenopathy. 4. Advanced chronic emphysematous changes. Came for follow-up, denies any specific complaint except dyspnea on exertion, using home oxygen for chronic emphysema and still smoking. Denies any hemoptysis or hematemesis complaining of generalized musculoskeletal pain, with recently worsening and also underwent extensive C-spine work-up which include CT scan of C-spine CT cervical myelogram done in October 2019 for neck pain showed multilevel moderate to severe bony foraminal narrowing worse at left C5-C6 and bilateral C6-7 and anterior cervical fusion at C3-4 and C4 and 5 and small central disc protrusion at T1-2 with slight contact of thoracic cord Patient also had CT scan of chest abdomen done on September 24, 2019 which showed moderate to severe paraseptal emphysema bilaterally and no mention of left lower lobe nodule which was seen in CT scan of the chest done in June 2019. CT scan of her abdomen shows mild rectal wall thickening, as per patient he has history of rectal abscess in the past which was drained couple of times. And last colonoscopy was done about 7-8 years ago. Follow-up CT scan of chest done on March 24, 2020 showed postoperative changes resection left upper lobe pulmonary nodule. No evidence of recurrent disease. Noncalcified nodule left lower lobe measuring 5 mm with surrounding fibrosis. This has decreased in size and less dense. No mediastinal lymphadenopathy. Advanced chronic emphysematous changes Bone scan done on March 24, 2020 shows no evidence of bone mets Came for follow-up, denies any specific complaint except chronic discomfort/pain in right chest could be due to old trauma injury or musculoskeletal as recently done CT scan and bone scan showed no abnormality. No fever chills, no nausea or vomiting, no diarrhea constipation, no hemoptysis or hematemesis Medications: Albuterol Sulfate 1 ((2.5 mg/3ml) 0.083%) Nebulization solution Inhalation PRN, ARIPiprazole 1 Tablet (of 20 mg) Oral daily, Baclofen 1 Tablet (of 20 mg) Oral b.i.d., Cialis 1 Tablet (of 5 mg) Oral daily, FLUoxetine HCl 1 Capsule (of 20 mg) Oral daily, Gabapentin 1 Tablet (of 600 mg) Oral t.i.d., Keflex 1 Tablet (of 500 mg) Capsule Oral four times a day, Multiple Vitamins-Minerals 1 Tablet Oral daily, predniSONE 1 Tablet (of 20 mg) Oral daily for 30 days, Spiriva Respimat 1 Puff(s) (of 1.25 mcg/act) Aerosol, solution Inhalation b.i.d., Symbicort 2 puff(s) (of 160-4.5 mcg/act) Aerosol Inhalation b.i.d., Tamsulosin HCl 2 Capsule (of 0.4 mg) Oral daily Allergies: Ambien, Aminophylline, Amitriptyline HCl, Biaxin, Cymbalta, Doxycycline, FentaNYL, fentaNYL Citrate, Ibuprofen, Ketorolac Tromethamine, Methadone HCl, Nubain, and Tetracycline HCl. Review of Systems: Review of Systems is not available for this patient. Vital Signs: Performed on Mar 29, 2020 13:53 Height - 70.50 in Weight - 130.4 lbs (LOW) BSA - 1.75 sq.m BMI - 18.45 Temperature - 97.8 F (LOW) Pulse - 82 /min Respiration - 20 /min BP - 108/67 mm(hg) O2 Sat - 98 % Pain - 6 Performance Status: 1 - No physically strenuous activity, but ambulatory and able to carry out light or sedentary work (e.g. office work, light house work). (ECOG) Physical Examination: ENMT - Poor oral hygiene but no thrush, no jaundice, Respiratory - Poor air entry, mild wheezing, Cardiovascular - Regular rate and rhythm of heart , Abdomen - Soft, bowel sounds present, Extremities - No visible edema. Lab/Imaging: Test performed on Mar 13, 2020 08:24 Sodium 138 mmol/L Potassium 4.2 mmol/L Chloride 98 mmol/L CO2 34 mmol/L Anion Gap 10.2 BUN 10 mg/dL Creatinine 0.6 mg/dL Cr Clearance (Est) 109.09 mL/min eGFR 136.5 mL/min Glucose 88 mg/dL Osmolality - Calculated 284 mOsm/kg Calcium 9.4 mg/dL Protein, Total 6.9 g/dL Albumin 3.8 g/dL Globulin 3.1 g/dL Bilirubin, Total 0.2 mg/dL ALT (SGPT) 13 U/L AST (SGOT) 16 U/L Alkaline Phosphatase 62 IU/L WBC 5.1 10 3/uL RBC 4.50 10 6/uL HGB 13.1 g/dL HCT 42.1 % MCV 93.6 fL MCH 29.1 pg MCHC 31.1 g/dL RDW 13.6 % Platelet Count 188 10 3/cmm MPV 10.8 fL Neutrophils 3.06 10 3/uL Lymphocytes 1.4 10 3/uL Monocytes 0.4 10 3/uL Eosinophils 0.1 10 3/uL Basophils 0.0 10 3/uL Neutrophil % 60.0 % Lymphocyte % 28.2 % Monocyte % 8.6 % Eosinophil % 2.4 % Basophils % 0.4 % NRBC % 0 % Impression: 1. 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 T1a N X, MX stage I A1 Advanced is COPD with emphysema on home oxygen 40+ years History of chronic smoking next Right thyroid nodule evaluated by ENT Dr. Umanzor. CT Chest from 07/15/2019. showed Prior postoperative changes resection left upper lobe pulmonary nodule. No evidence of recurrent parenchymal lesion in this location. 2. Noncalcified nodule left lower lobe measuring 7 mm with surrounding fibrosis. This is increased since the prior examination recommend 3-month follow-up. 3. No mediastinal or hilar lymphadenopathy. 4. Advanced chronic emphysematous changes. Follow-up CT scan of chest done on March 24, 2020 showed postoperative changes, resection left upper lobe pulmonary nodule. No recurrence of disease, no mediastinal or hilar lymphadenopathy Noncalcified nodule left lower lobe measuring 5 mm with surrounding fibrosis this is decreased in size and less dense. Advanced chronic emphysematous changes Bone scan done on March 24, 2020 showed no evidence of bone mets Plan: Discussed with patient regarding his CT scan of chest and bone scan finding which showed no evidence of recurrence of disease, patient has chronic right chest wall pain which could be due to old trauma or musculoskeletal in nature as follow-up CT scan of chest done recently showed no abnormality except chronic emphysema and postoperative changes in the left lung and bone scan done recently showed no evidence of bone mets. No further work-up or recommendation from oncology point of view rather continue to observe and he will return to clinic in [address] scan of chest with special attention to left lower lobe lung nodule Patient was advised to follow-up with primary care physician for his routine follow-up and management Signed By: Marisa Mullen M.D. <<Signature on File>>
== END 2020-03-29 05:46 | disposition home or self-care (01) ==
LOC: ONCMED 05:48
PROVIDERS: Visit Provider Internal Medicine Hematology & Oncology
DX: J43.9 Emphysema, unspecified (principal); F17.210 Nicotine dependence, cigarettes, uncomplicated; Z99.81 Dependence on supplemental oxygen
CPT/HCPCS: G0463

== ENCOUNTER 2020-04-29 07:57 | Inpatient (IN) | payer MEDICARE, MEDICAID, SELFPAY ==
[2020-04-29] VITALS (12 sets, daily range): BP systolic 120–184; BP diastolic 69–103; PULSE 70–91; RESP 16–18; TEMP 35.8–36.7; O2SAT 87–100; BMI 19.3
--- NOTE | 2020-04-29 08:01 | ED_ITS ---
HPI - Extremity Injury (Lower) General: Chief Complaint: Extremity Problem,Nontraumatic Stated Complaint: SEVERE LEG PAIN Time Seen by Provider: 04/29/20 07:59 History of Present Illness: HPI Narrative: 64 yo male present to the ER with complaints of radicular R leg pain radiating into the toes of his R foot. Denies any specific trauma. Previously has had back surgery. Patient behaves erratically. He is getting up and down out of the gurney he will crawl off the end of the bed when we try to put the rails up rather than wait for us to put the rail down. He bends over to pick things up from the floor without hesitation he will at times even kneel down on the floor and crawl trying to retrieve objects he is dropped. Clinically he appears to be under the influence of methamphetamines. Review of Systems General: Reports: ROS unobtainable due to mental status [facility] ED PFSH: Medical History Cervical post-laminectomy syndrome COPD (chronic obstructive pulmonary disease) History of lung cancer Lumbar post-laminectomy syndrome Spontaneous pneumothorax Surgical History History of cervical spinal surgery (05/14/12) C3-C4 Dr. Reagan HERRERA History of decompression of median nerve (~1990) 1990 left wrist History of fusion of cervical spine Dr. May Kirk 03/31/2014 C7-T1 ACDFF Dr. May Kirk 05/14/2012 C3-C4 ACDFF Dr. May Kirk 05/18/2009 C4-C5 ACDFF History of lumbar fusion (~02/03/07) Dr. May Kirk 02/03/2007 L4-L5 anterior lumbar interbody fusion/fixation Dr. May Kirk 01/30/2006 Left L4-L5 hemilaminotomy/discectomy/foraminotomy History of lung surgery (~05/2008) Family History Mother Lung cancer Father Lung cancer Stroke Brother Lung cancer Social History Smoking and tobacco status: current every day smoker Alcohol intake: never Household members: spouse Marital status: Current occupational status: disabled History of recent travel: No Physical Exam Const: COMMON NORMALS: no acute distress GENERAL APPEARANCE: cooperative and comfortable HENMT: COMMON NORMALS: normocephalic, atraumatic and hearing grossly normal bilaterally HEAD & SCALP: normocephalic and atraumatic Neck/C-Spine: COMMON NORMALS: no JVD Resp: COMMON NORMALS: normal respiratory effort, No retractions, No use of accessory muscles and clear to auscultation bilaterally AUSCULTATION: clear to auscultation bilaterally Cardio: COMMON NORMALS: no JVD, regular rate, regular rhythm and No murmurs present (Cardio) RATE: regular rate RHYTHM: regular rhythm GI: COMMON NORMALS: Soft to palpation and No hepatosplenomegaly present AUSCULTATION: Yes normoactive bowel sounds PALPATION: Yes Soft to palpation, No Tenderness to palpation present (GI), No Guarding due to palpation present (GI) and Yes No hepatosplenomegaly present Extremity: COMMON NORMALS: normal to inspection, capillary refill normal, no clubbing, cyanosis or edema, no calf tenderness and no pedal edema Skin: COMMON NORMALS: no rashes or lesions noted GENERAL SKIN EXAM: no rashes or lesions noted Course Vital Signs: Vital signs: Vital Signs Temperature 98.0 F 04/29/20 07:58 Pulse Rate 78 04/29/20 13:11 Respiratory Rate 16 04/29/20 13:11 Blood Pressure 184/103 04/29/20 13:11 Pulse Oximetry 100 04/29/20 13:11 MDM - Extremity Injury (Lower) MDM Narrative: Medical decision making narrative: 62-year-old male who presented initially with complaint of back pain as a visit or on became obvious early on he was on of the use of the influence of methamphetamines. He became more more agitated difficult to control his behaviors became erratic and he started vocalizing hallucinations. He actually ripped his IV out and had sprayed blood around the room swinging his arms. When I asked him why he took his IV out he stated that he had seen a colored boy remove it. He also was un sure of the year initially thought he was at a different hospital than what he was at could not tell us the day of the week. He continued to have aggressive behaviors and auditory and visual hallucinations ultimately requiring us to sedate him with Geodon and Ativan. Remainder medical work-up was negative. Given his acute psychotic behavior and potential harm to self and others it was decided to admit the patient to psychiatry. Discussed with Dr. Gutierrez and a 96-hour hold was placed on the patient. Lab Data: Labs: Lab Results 04/29/20 04/29/20 04/29/20 Range/Units 10:08 10:15 10:15 WBC 9.2 (4.0-10.0) 10^3/ uL RBC 4.18 (4.1-5.3) 10^6/u L Hgb 12.2 (11.7-16.6) g/dL Hct 38.6 L (42.0-52.0) % MCV 92.3 (80-94) fL MCH 29.2 (28.0-34.0) pg MCHC 31.6 (30.0-36.0) g/dL RDW 13.7 (12.1-15.1) % Plt Count 233 (130-400) 10^3/c mm MPV 10.2 (7.4-10.4) fL Neut % (Auto) 72.1 % Lymph % (Auto) 19.6 % [place] % (Auto) 7.3 % Eos % (Auto) 0.5 % Baso % (Auto) 0.2 % Neut # (Auto) 6.64 (1.8-7.7) 10^3/u L Lymph # (Auto) 1.8 (0.8-4.8) 10^3/u L [place] # (Auto) 0.7 (0.2-0.9) 10^3/u L Eos # (Auto) 0.1 (0.0-0.8) 10^3/u L Baso # (Auto) 0.0 (0.0-0.1) 10^3/u L Nucleated RBC % (a uto) 0 % Nucleated RBCs # 0.0 /100WBC Specimen Type Arterial Sample Site Brachial, left ABG pH 7.45 (7.35-7.45) ABG pCO2 48.1 H (35-45) mmHg ABG pO2 49.7 L (80.0-100.0) mmH g ABG HCO3 33.3 H (22-26) mmol/L ABG O2 Saturation 87.6 ABG Base Excess 8.0 H (-2.0-2.0) mmol/ L [place] Test Pos A-a O2 Gradient 5.7 (5-10) mmHg Hematocrit 37.3 L (42-52) % Hgb O2 Saturation 83.8 L (95-100) % Carboxyhemoglobin 3.6 (0.4-20.1) %THgb Methemoglobin 0.8 (0.4-1.5) % Total Hemoglobin 12.2 L (14-18) g/dL Sodium 140.0 139 (131-143) mmol/L Potassium 3.3 L 3.6 (3.5-5.0) mmol/L Glucose 107.0 104 (70-115) mg/dL Ionized Calcium 1.2 (1.1-1.4) mmol/L O2 Delivery Device Room air FiO2 21.0 % Marine Engineering Professor ID Cak Chloride 99 (98-107) mmol/L Carbon Dioxide 32 H (22-29) mmol/L Anion Gap 11.6 (5-19) BUN 6 L (8-23) mg/dL Creatinine 0.7 (0.7-1.2) mg/dL GFR Calculation 114.3 (90-130) mL/min Calculated Osmolal ity 286 (285-295) mOsm/k g Calcium 8.9 (8.5-10.5) mg/dL Total Bilirubin 0.3 (0.15-1.2) mg/dL AST 17 (0-40) U/L ALT 18 (0-41) U/L Alkaline Phosphata se 58 (40-130) IU/L Total Protein 6.4 L (6.6-8.7) g/dL Albumin 3.5 (3.5-5.2) g/dL Globulin 2.9 (1.3-4.6) g/dL Urine Color (Yellow) Urine Appearance (CLEAR) Urine pH (5-7) Ur Specific Gravit y (1.005-1.030) Urine Protein (Negative) Urine Glucose (UA) (Normal) Urine Ketones (Negative) Urine Blood (Negative) Urine Nitrate (Negative) Urine Bilirubin (Negative) Urine Urobilinogen (Negative) mg/dL Ur Leukocyte Marilyn ase (Negative) Salicylates 2.3 L (3-10) mg/dL Urine Opiates Scre en (Negative) ng/mL Acetaminophen < 5.0 L (10-30) ug/mL Ur Barbiturates Sc reen (Negative) ng/mL Ur Phencyclidine S crn (Negative) ng/mL Ur Amphetamines Sc reen (Negative) ng/mL U Benzodiazepines Scrn (Negative) ng/mL Urine Cocaine Scre en (Negative) ng/mL U Marijuana (THC) Screen (Negative) ng/mL Ethyl Alcohol < 10 (0-10) mg/dL 04/29/20 04/29/20 Range/Units 11:19 11:19 WBC (4.0-10.0) 10^3/ uL RBC (4.1-5.3) 10^6/u L Hgb (11.7-16.6) g/dL Hct (42.0-52.0) % MCV (80-94) fL MCH (28.0-34.0) pg MCHC (30.0-36.0) g/dL RDW (12.1-15.1) % Plt Count (130-400) 10^3/c mm MPV (7.4-10.4) fL Neut % (Auto) % Lymph % (Auto) % [place] % (Auto) % Eos % (Auto) % Baso % (Auto) % Neut # (Auto) (1.8-7.7) 10^3/u L Lymph # (Auto) (0.8-4.8) 10^3/u L [place] # (Auto) (0.2-0.9) 10^3/u L Eos # (Auto) (0.0-0.8) 10^3/u L Baso # (Auto) (0.0-0.1) 10^3/u L Nucleated RBC % (a uto) % Nucleated RBCs # /100WBC Specimen Type Sample Site ABG pH (7.35-7.45) ABG pCO2 (35-45) mmHg ABG pO2 (80.0-100.0) mmH g ABG HCO3 (22-26) mmol/L ABG O2 Saturation ABG Base Excess (-2.0-2.0) mmol/ L [place] Test A-a O2 Gradient (5-10) mmHg Hematocrit (42-52) % Hgb O2 Saturation (95-100) % Carboxyhemoglobin (0.4-20.1) %THgb Methemoglobin (0.4-1.5) % Total Hemoglobin (14-18) g/dL Sodium (131-143) mmol/L Potassium (3.5-5.0) mmol/L Glucose (70-115) mg/dL Ionized Calcium (1.1-1.4) mmol/L O2 Delivery Device FiO2 % Marine Engineering Professor ID Chloride (98-107) mmol/L Carbon Dioxide (22-29) mmol/L Anion Gap (5-19) BUN (8-23) mg/dL Creatinine (0.7-1.2) mg/dL GFR Calculation (90-130) mL/min Calculated Osmolal ity (285-295) mOsm/k g Calcium (8.5-10.5) mg/dL Total Bilirubin (0.15-1.2) mg/dL AST (0-40) U/L ALT (0-41) U/L Alkaline Phosphata se (40-130) IU/L Total Protein (6.6-8.7) g/dL Albumin (3.5-5.2) g/dL Globulin (1.3-4.6) g/dL Urine Color Yellow (Yellow) Urine Appearance Clear (CLEAR) Urine pH 7 (5-7) Ur Specific Gravit y 1.015 (1.005-1.030) Urine Protein Neg (Negative) Urine Glucose (UA) Norm (Normal) Urine Ketones Negative (Negative) Urine Blood Neg (Negative) Urine Nitrate Negative (Negative) Urine Bilirubin Neg (Negative) Urine Urobilinogen Norm (Negative) mg/dL Ur Leukocyte Marilyn ase Negative (Negative) Salicylates (3-10) mg/dL Urine Opiates Scre en Negative (Negative) ng/mL Acetaminophen (10-30) ug/mL Ur Barbiturates Sc reen Negative (Negative) ng/mL Ur Phencyclidine S crn Negative (Negative) ng/mL Ur Amphetamines Sc reen Positive H (Negative) ng/mL U Benzodiazepines Scrn Negative (Negative) ng/mL Urine Cocaine Scre en Negative (Negative) ng/mL U Marijuana (THC) Screen Positive H (Negative) ng/mL Ethyl Alcohol (0-10) mg/dL Discharge Plan Discharge Patient Disposition: Admitted As Inpatient Admit Provider: Earl Gutierrez Coding Level of Care Code ED Chairman President And Chief Executive Officer for Laci Hidalgo
[2020-04-29] MEDS: LORazepam 2 mg/mL INJ 1 mL 1 MG IVP (08:38)
[2020-04-29] MEDS: orphenadrine 30 mg/mL Inj 2 mL 60 MG IVP (08:40)
[2020-04-29] MEDS: LORazepam 2 mg/mL INJ 1 mL 1 MG IM (09:24)
--- NOTE | 2020-04-29 09:56 | CTR_ITS ---
PROCEDURE INFORMATION: Exam: CT Head Without Contrast Exam date and time: 04/29/2020 10:10 AM Age: 64 years old Clinical indication: Altered mental status/memory loss; Additional info: AMS TECHNIQUE: Imaging protocol: Computed tomography of the head without contrast. Radiation optimization: All CT scans at this facility use at least one of these dose optimization techniques: automated exposure control; mA and/or kV adjustment per patient size (includes targeted exams where dose is matched to clinical indication); or iterative reconstruction. COMPARISON: CT head wo con* [id number] 01/29/2020 4:06 PM RADIATION DOSE METRICS: Total DLP (mGy-cm): 1317.72 FINDINGS: Brain: Symmetric caliber of the cortical sulci. No acute cortical infarct, mass effect, or intracranial hemorrhage. Mild small vessel ischemic change. Dural calcification. Cerebral ventricles: Normal configuration of the ventricles. Bones/joints: No acute calvarial pathology. Paranasal sinuses: No sinus fluid. Mastoid air cells: No mastoid effusion. Soft tissues: Punctate cutaneous calcifications. When correlating with the previous study, no significant interval changes are present. CT/CT head wo con* [id number] IMPRESSION: No acute intracranial pathology. Radiation Dose CTDIVOL = (mGy): DLP = 1317.72 (mGy-cm)
--- NOTE | 2020-04-29 09:56 | XRR_ITS ---
PROCEDURE INFORMATION: Exam: XR Chest Exam date and time: 04/29/2020 10:12 AM Age: 64 years old Clinical indication: Cough and dyspnea; Additional info: Dyspnea/cough TECHNIQUE: Imaging protocol: XR of the chest Views: 1 view. COMPARISON: CT chest w con* [id number] 03/24/2020 8:48 AM FINDINGS: Lungs: COPD and interstitial disease. Postoperative volume loss and scarring in the left lung. Pleural spaces: No significant pleural effusion. Heart/Mediastinum: No cardiomegaly. Bones/joints: Cervical spine fusion. Old rib fractures. Mild scoliosis and degenerative change. Gastrointestinal tract: Bowel dilatation in the visualized left upper abdomen. XR/XR chest 1V portable [id number] IMPRESSION: 1. COPD and interstitial disease. 2. Postoperative volume loss and scarring in the left lung.
--- NOTE | 2020-04-29 09:56 | ECG_ITS ---
[facility] Test Date: 2020-04-29 Pat Name: Gato Lizarraga Department: Room: Gender: Male Sk[place]el Tap: : 1955 Requested By: Clayton Chua Order Number: [id number] Reading MD: MARQUIS JENKINS Measurements Intervals [place] Rate: 102 P: 76 SC: 147 QRS: 64 QRSD: 92 T: 70 QT: 338 QTc: 442 Interpretive Statements SINUS TACHYCARDIA POSSIBLE LEFT ATRIAL ENLARGEMENT [-0.1mV P WAVE IN V1/V2] LEFT VENTRICULAR HYPERTROPHY AND ST-T CHANGE [VOLTAGE CRITERIA PLUS ST/T ABNORMALITY] Compared to ECG 09/24/2019 15:53:18 ST (T wave) deviation now present Sinus rhythm no longer present Electronically Signed On 04-29-2020 18:44:59 CLASSER by MARQUIS JENKINS [id number]
[2020-04-29] MEDS: LORazepam 2 mg/mL INJ 1 mL IM (10:01)
[2020-04-29] MEDS: ziprasidone 20 mg/mL SDV 10 MG IM (10:01)
--- NOTE | 2020-04-29 10:16 | PC.PHAR ---
pt unable to verify medications-MEDICATIONS ENTERED ARE MEDS FROM RECENTLY FILLED MEDS THAT SHOW UP ON EXT MED HISTORY AND MEDICATIONS FROM PREVIOUS ENTERED MED LIST
[2020-04-29 10:19] LABS: ABG PCO2 48.1 mmHg (35-45); ABG PH Result 7.45 (7.35-7.45); Alveolar-Arterial Oxygen Gradi 5.7 mmHg (5-10); Arterial Blood Gas Hematocrit 37.3 % (42-52); Blood Gas Allen Test Pos; Blood Gas Operator Identificat CAK; Blood Gas Sample Site Brachial, left; Blood Gas Sample Type Arterial; Carboxyhemoglobin 3.6 %THgb (0.4-20.1); HCO3 ABG 33.3 mmol/L (22-26); HGB O2 Sat 83.8 % (95-100); Ionized Calcium Level - ABG 1.2 mmol/L (1.1-1.4); Methemoglobin 0.8 % (0.4-1.5); Oxygen Device ROOM AIR; Oxygen Saturation ABG 87.6; PO2 ABG 49.7 mmHg (80.0-100.0); Potassium Level - ABG 3.3 mmol/L (3.5-5.0); Total Hemoglobin 12.2 g/dL (14-18)
[2020-04-29 10:25] LABS: Basophils % 0.2 %; Eosinophils # 0.1 10^3/uL (0.0-0.8); Eosinophils % 0.5 %; Hematocrit 38.6 % (42.0-52.0); Hemoglobin 12.2 g/dL (11.7-16.6); Lymphocytes # 1.8 10^3/uL (0.8-4.8); Lymphocytes % 19.6 %; Mean Corpuscular HGB Conc 31.6 g/dL (30.0-36.0); Mean Corpuscular Hemoglobin 29.2 pg (28.0-34.0); Mean Corpuscular Volume 92.3 fL (80-94); Mean Platelet Volume 10.2 fL (7.4-10.4); Monocytes # 0.7 10^3/uL (0.2-0.9); Monocytes % 7.3 %; Neutrophils # 6.64 10^3/uL (1.8-7.7); Neutrophils % 72.1 %; Nucleated Red Blood Cells % 0 %; Platelet Count 233 10^3/cmm (130-400); Red Blood Count 4.18 10^6/uL (4.1-5.3); Red Cell Distribution Width 13.7 % (12.1-15.1); White Blood Count 9.2 10^3/uL (4.0-10.0)
--- NOTE | 2020-04-29 10:36 | PC.NURSE ---
Patient has physically violent with staff and continues to get out of bed without assistance. Security called to assist staff. Sitter placed on patient.
[2020-04-29 10:47] LABS: Acetaminophen < 5.0 ug/mL (10-30); Alanine Aminotransferase 18 U/L (0-41); Albumin Level 3.5 g/dL (3.5-5.2); Alcohol Level < 10 mg/dL (0-10); Alkaline Phosphatase 58 IU/L (40-130); Anion Gap 11.6 (5-19); Aspartate Amino Transferase 17 U/L (0-40); Blood Urea Nitrogen 6 mg/dL (8-23); Calcium 8.9 mg/dL (8.5-10.5); Carbon Dioxide 32 mmol/L (22-29); Chloride 99 mmol/L (98-107); Globulin 2.9 g/dL (1.3-4.6); Glomerular Filtration Rate 114.3 mL/min (90-130); Glucose 104 mg/dL (65-115); Osmolality Calculated 286 mOsm/kg (285-295); Potassium 3.6 mmol/L (3.5-5.1); Salicylate 2.3 mg/dL (3-10); Sodium 139 mmol/L (136-145); Total Bilirubin 0.3 mg/dL (0.15-1.2); Total Protein 6.4 g/dL (6.6-8.7)
[2020-04-29 12:07] LABS: Add Urine Microscopic? NO
[2020-04-29 12:17] LABS: Bilirubin Urine Neg (Negative); Blood Urine Neg (Negative); Glucose Urine UA Norm (Normal); Ketones Urine Negative (Negative); Leukocyte Esterase Urine Negative (Negative); Nitrate Urine Negative (Negative); Protein Urine Neg (Negative); Specific Gravity, Urine 1.015 (1.005-1.030); Urine Appearance Clear (CLEAR); Urine Color Yellow (Yellow); Urobilinogen Urine Norm (Negative); pH Urine 7 (5-7)
[2020-04-29 12:22] LABS: Amphetamines Screen Urine Positive (Negative); Barbiturates Screen Urine Negative (Negative); Benzodiazepines Screen Urine Negative (Negative); Cocaine Screen Urine Negative (Negative); Opiate Screen Urine Negative (Negative); PCP Screen Urine Negative (Negative); THC Screen Urine Positive (Negative)
--- NOTE | 2020-04-29 12:57 | PC.NURSE ---
Patient asleep in bed. Patients oxygen saturation dropped to 87% and placed on 4 L NC.
--- NOTE | 2020-04-29 17:55 | PC.NURSE ---
HOME MEDICATIONS UNABLE TO VERIFY PATIENT HOME MEDS. PT SEDATED UPON ARRIVAL TO UNIT.
[2020-04-29] MEDS: acetaminophen 325 mg Tablet 650 MG PO (20:49)
[2020-04-29] MEDS: OLANZapine 5 mg ODT PO (20:50)
--- NOTE | 2020-04-29 20:50 | PC.NURSE ---
PATIENT WOKE UP AND WAS ANGRY AND AGITATED c/o LEG PAIN. STARTED YELLING AND THREATNING. tYLENOL 650MG GIVEN FOR LEG PAIN ; ZYPREXA 5MG PO GIVEN FOR AGITATION.
[2020-04-30] MEDS: acetaminophen 325 mg Tablet 650 MG PO ×2 (03:42→11:12)
[2020-04-30] MEDS: OLANZapine 5 mg ODT PO (03:43)
--- NOTE | 2020-04-30 03:43 | PC.NURSE ---
patient woke up yelling, cursing and aggressive, 5mg PO zyprexa given,
[2020-04-30 06:00] VITALS: BP 146/94; PULSE 110; RESP 18; TEMP 36.8; O2SAT 96
[2020-04-30 08:45] VITALS: PULSE 106; RESP 18; O2SAT 98
[2020-04-30] MEDS: albuterol 8 gm MDI 2 PUFF INHALATION (08:45)
[2020-04-30] MEDS: gabapentin 400 mg Capsule 800 MG PO ×3 (09:44→21:09)
[2020-04-30] MEDS: roflumilast 500 mcg Tablet PO (09:44)
[2020-04-30] MEDS: tamsulosin 0.4 mg Capsule PO ×2 (09:45→18:06)
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
[2020-04-30 14:00] VITALS: BP 108/73; PULSE 104; RESP 18; TEMP 37
--- NOTE | 2020-04-30 19:35 | P.CONIM_ITS ---
Providers/Reason For Consult Consulting Physican/Specialty*: Internal Medicine Reason for Consult*: Severe lower back pain as well as Rt leg pain. Attending Physician: Earl Gutierrez MD History of Present Illness History of Present Illness Gato Lizarraga is a 64 year old male COPD,non-small cell carcinoma squamous, status post left upper lobe wedge resection on 11/10/2017,chronic back pain, neck neck pain, he tells me that he has had multiple back surgeries, multiple neck surgeries, he was managed by the pain clinic in the past, currently admitted in NPU for aggressive behaviors and auditory and visual hallucinations. Medicine was consulted for lower back pain as well as right leg pain. Upon examination patient is not allowing to touch the lower back.He is complaining of severe lower back pain as well as right leg pain. Patient denies any loss of control over his bladder and bowel movements. Denies any weakness in both lower extremity, denies any abnormal sensations in both the legs. Review of Systems Const: Denies: fever(s), chills, body aches, change in appetite or diaphoresis Resp: Denies: dyspnea or pain on inspiration GI: Denies: abdominal pain, nausea, vomiting, diarrhea or constipation : Denies: flank pain or difficulty urinating Neuro: Denies: headache(s) Meds/Allergies Home Medications and Allergies Home Medications Medication Instructions Recorded Confirmed Last Taken Type budesonide-formoterol HFA 160 2 puff INHALATION BID 04/09/19 04/29/20 02/04/20 History mcg-4.5 mcg/actuation aerosol inhaler tadalafil 5 mg tablet 5 mg PO .DAILY DIRECTED 04/09/19 04/29/20 02/03/20 History tamsulosin 0.4 mg capsule 0.4 mg PO BID 04/09/19 04/29/20 02/04/20 History tiotropium bromide 1.25 2 puff INHALATION DAILY 04/09/19 04/29/20 02/04/20 History mcg/actuation mist for inhalation Daliresp 500 mcg PO DAILY 09/23/19 04/29/20 02/04/20 History albuterol sulfate [ProAir HFA] 2 puff INHALATION Q6H PRN 09/23/19 04/29/20 09/24/19 History ropinirole 0.25 mg PO BEDTIME 1104/29/20 02/03/20 History ondansetron HCl 4 mg PO Q6H PRN 01/29/20 04/29/20 Unknown History gabapentin 800 mg tablet 800 mg PO TID 30 Days #90 tab 04/25/20 04/29/20 Unknown Rx mecobalamin (vitamin B12) 1,000 1,000 mcg SUBLINGUAL DAILY 04/25/20 04/29/20 Unknown History mcg disintegrating tablet,sublingual nabumetone 750 mg tablet 750 mg PO BID 30 Days #60 tab 04/25/20 04/29/20 Unknown Rx tizanidine 4 mg capsule 4 mg PO BID PRN 30 Days #60 cap 04/25/20 04/29/20 Unknown Rx baclofen 20 mg PO TID PRN 04/29/20 04/29/20 Unknown History naproxen 500 mg PO BID PRN 04/29/20 04/29/20 Unknown History varenicline [Chantix] 1 mg PO . DIRECTED 04/29/20 04/29/20 Unknown History Allergies Allergy/AdvReac Type Severity Reaction Status Date / Time fentanyl Allergy Severe anaphylaxic Verified 04/29/20 08:09 hydroxyzine Allergy Severe ADR-Anxiety Verified 04/29/20 08:09 ibuprofen Allergy swelling Verified 04/29/20 08:09 ketorolac Allergy Unknown Verified 04/29/20 08:09 meloxicam Allergy Unknown Verified 04/29/20 08:09 methadone Allergy anaphlyaxic Verified 04/29/20 08:09 nalbuphine Allergy Unknown Verified 04/29/20 08:09 naproxen Allergy Unknown Verified 04/29/20 08:09 amitriptyline AdvReac mood Verified 04/29/20 08:09 altering cephalexin AdvReac nauseated Verified 04/29/20 08:09 clarithromycin AdvReac nauseated Verified 04/29/20 08:09 doxycycline AdvReac nauseated, Verified 04/29/20 08:09 vomiting tetracycline AdvReac nausea, Verified 04/29/20 08:09 vomiting Current Medications Current Medications Generic Name Dose Route Start Last Admin Trade Name Freq PRN Reason Stop Dose Admin Acetaminophen 650 mg 04/29/20 13:42 04/30/20 11:12 Acetaminophen 325 Mg Tablet PO 650 mg Q4H PRN Administration MILD PAIN Albuterol Sulfate 2 puff 04/30/20 07:58 04/30/20 08:45 Albuterol 8 Gm Mdi INHALATION 2 puff Q6H PRN Administration Shortness Of Breath Gabapentin 800 mg 04/30/20 09:00 04/30/20 16:13 Gabapentin 400 Mg Capsule PO 800 mg TID MOI Administration Olanzapine 5 mg 04/29/20 13:42 04/30/20 03:43 Olanzapine 5 Mg Odt PO 5 mg Q4H PRN Administration Agitation/Psychosis Roflumilast 500 mcg 04/30/20 09:00 04/30/20 09:44 Roflumilast 500 Mcg Tablet PO 500 mcg DAILY MOI Administration Tamsulosin HCl 0.4 mg 04/30/20 09:00 04/30/20 18:06 Tamsulosin 0.4 Mg Capsule PO 0.4 mg BID MOI Administration PFSH Acute PFSH: Medical History Cervical post-laminectomy syndrome COPD (chronic obstructive pulmonary disease) History of lung cancer Lumbar post-laminectomy syndrome Spontaneous pneumothorax Surgical History History of cervical spinal surgery (05/14/12) C3-C4 ACDSHALONDA, Dr. Kirk History of decompression of median nerve (~1990) 1990 left wrist History of fusion of cervical spine Dr. May Kirk 03/31/2014 C7-T1 ACDFF Dr. May Kirk 05/14/2012 C3-C4 ACDFF Dr. May Kirk 05/18/2009 C4-C5 ACDFF History of lumbar fusion (~02/03/07) Dr. May Kirk 02/03/2007 L4-L5 anterior lumbar interbody fusion/fixation Dr. May Kirk 01/30/2006 Left L4-L5 hemilaminotomy/discectomy/foraminotomy History of lung surgery (~05/2008) Family History Mother Lung cancer Father Lung cancer Stroke Brother Lung cancer Social History Smoking and tobacco status: current every day smoker Alcohol intake: never Household members: spouse Marital status: Current occupational status: disabled History of recent travel: No Vitals/I&O/Wt Last Vital Signs Temp 98.6 F 04/30/20 14:00 Pulse 104 H 04/30/20 14:00 Resp 18 04/30/20 14:00 BP 108/73 04/30/20 14:00 Pulse Ox 98 04/30/20 08:45 Weight last 48 hrs Weight 54.431 kg Weight 61.235 kg Physical Exam Const: COMMON NORMALS: patient oriented x3 HENMT: COMMON NORMALS: normocephalic and atraumatic HEAD & SCALP: normocephalic and atraumatic Resp: COMMON NORMALS: clear to auscultation bilaterally EFFORT & INSPECTION: Yes symmetric chest movement AUSCULTATION: clear to auscultation bilaterally Cardio: COMMON NORMALS: regular rate, regular rhythm, S1 normal heart sound present, S2 normal heart sound present, No gallops present (Cardio), No murmurs present (Cardio), No rub (Cardio) and Peripheral pulses 2+ throughout RATE: regular rate RHYTHM: regular rhythm HEART SOUNDS: S1 normal heart sound present and S2 normal heart sound present PERIPHERAL PULSES: Peripheral pulses 2+ throughout GI: COMMON NORMALS: Normal to inspection, nondistended, normoactive bowel sounds present, Soft to palpation, non-tender, No hepatosplenomegaly present and no masses AUSCULTATION: Yes normoactive bowel sounds PALPATION: Yes Soft to palpation and Yes No hepatosplenomegaly present RECTAL EXAM: Yes deferred Back/Pelvis: OTHER: Lower back tenderness Present. Extremity: COMMON NORMALS: no clubbing, cyanosis or edema and no pedal edema Neuro: COMMON NORMALS: patient oriented x3 A&P Assessment and plan (1) Back pain: Chronic Lower back pain. C.T L-Spine Hydromorphone 2 mg po q6 h PRN Daily Low concern for ARIANNA. Consider Spine surgery consult, if C/T L-Spine is suggestive of cord compression or disc Prolapse. No indication for dexamethasone at this time. Status: Acute (2) COPD (chronic obstructive pulmonary disease): Status: Acute Consult Attestations Medical Necessity Statement: Per Primary Team. Other Attestations: Other Attestations: Thanks for your consult.We will follow up the patient. Coding Level of Care Code Acute Manager People for Laci Hidalgo Diagnoses Back pain M54.9 COPD (chronic obstructive pulmonary disease) J44.9
--- NOTE | 2020-04-30 19:35 | CTR_ITS ---
PROCEDURE INFORMATION: Exam: CT Lumbar Spine Without Contrast Exam date and time: 04/30/2020 7:39 PM Age: 64 years old Clinical indication: Low back pain; Prior surgery; Surgery date: 6+ months; Additional info: Severe lowe back pain TECHNIQUE: Imaging protocol: Computed tomography images of the lumbar spine without contrast. Radiation optimization: All CT scans at this facility use at least one of these dose optimization techniques: automated exposure control; mA and/or kV adjustment per patient size (includes targeted exams where dose is matched to clinical indication); or iterative reconstruction. COMPARISON: CT lumbar spine w con [id number] 10/27/2019 9:53 AM RADIATION DOSE METRICS: Total DLP (mGy-cm): 1044.7 FINDINGS: Vertebrae: A bone plate and bone screws transfix the L4 and L5 vertebral bodies anteriorly. Discs/Spinal canal/Neural foramina: No significant disc protrusion. No severe spinal canal stenosis. No significant neural foraminal narrowing. Soft tissues: Unremarkable. CT/CT lumbar spine wo con* [id number] IMPRESSION: There are no acute osseous findings. Radiation Dose CTDIVOL = (mGy): DLP = 1044.7 (mGy-cm)
[2020-04-30 20:49] VITALS: BP 105/69; PULSE 100; RESP 15; TEMP 37.8; O2SAT 95
[2020-04-30 21:09] VITALS: RESP 20
[2020-04-30] MEDS: baclofen 10 mg Tablet 20 MG PO (21:09)
[2020-04-30] MEDS: ropinirole 0.25 mg Tablet PO (21:10)
[2020-04-30] MEDS: trazodone 50 mg Tablet PO (21:10)
[2020-05-01] VITALS (7 sets, daily range): BP systolic 106–140; BP diastolic 76–92; PULSE 77–112; RESP 14–22; TEMP 36.9–38.3; O2SAT 95–98
[2020-05-01] MEDS: tizanidine 4 mg Tablet PO (02:22)
[2020-05-01] MEDS: acetaminophen 325 mg Tablet 650 MG PO (06:25)
[2020-05-01] MEDS: OLANZapine 5 mg ODT PO ×2 (06:25→21:13)
[2020-05-01] MEDS: albuterol 8 gm MDI 2 PUFF INHALATION (08:27)
[2020-05-01] MEDS: roflumilast 500 mcg Tablet PO (08:57)
[2020-05-01] MEDS: tamsulosin 0.4 mg Capsule PO ×2 (08:57→21:14)
[2020-05-01] MEDS: gabapentin 400 mg Capsule 800 MG PO ×3 (08:57→21:14)
--- NOTE | 2020-05-01 11:46 | P.PN_ITS ---
Subjective NPU Subjective: Interval history: The present today continuing to deny that his reason for being here has anything to do with psychiatric concerns. He had a hospitalist consult yesterday with recommendations for some pain management and a CT scan which did not reveal any clear etiology for the child's that he is feeling. He reports that he is not using methamphetamine and that he has not used that for over a year. He reports a couple days before he called the ambulance he was having some pain in his leg and his back. Then he reports that by the time he called them things got bad and by the time he got to the hospital he was feeling like he could really walk. He reports he did get into it with the emergency room doctor but denies being here for any reason other than pain in his back. He denies lethality reporting that it is against his belief system and his alevism and he would never do that. We discussed working with the medical side to see if there would be any way that he could be transferred to them so that there was not a middle man of him being on the neuropsychiatric unit. Mental Status Exam MSE Comments: This is a cachectic white male in hospital scrubs with adequate eye contact and limited grooming. Multiple areas of bruising on his skin reminiscent of someone on blood thinners. No abnormal movements except for mild psychomotor retardation. Mostly cooperative with exam in mild to moderate distress. Speech was decreased volume normal rate. Mood described as this pain is overwhelming, affect congruent. Thought process organized. Thought content: Patient denied suicidal ideation, no delusions reported or noted, he denied any auditory visual hallucinations. Attention and concentration appeared intact and memory was mostly reliable but none were formally tested. He is alert and oriented x3. Insight and judgment are limited and impulse control is limited. Vitals/I&O/Wt Last Vital Signs Temp 99.9 F H 05/01/20 06:00 Pulse 112 H 05/01/20 08:28 Resp 20 H 05/01/20 08:28 BP 137/92 05/01/20 06:00 Pulse Ox 98 05/01/20 08:28 Weight last 48 hrs Weight 54.431 kg Data NPU : 04/29/20 10:15 04/29/20 10:15 A&P Additional A&P Information (1) Back pain: (2) Abscess of skin or subcutaneous tissue: (3) Gluteal abscess: (4) Phobia, unspecified: (5) Perianal abscess: (6) History of lumbar fusion: (7) Cervical post-laminectomy syndrome: (8) Lumbar post-laminectomy syndrome: (9) Spontaneous pneumothorax: (10) History of lung cancer: (11) COPD (chronic obstructive pulmonary disease): (12) History of fusion of cervical spine: (13) Depression: (14) Methamphetamine use: Additional A&P Information This is a 65-year-old white male who presents reporting that his only purpose of being here is to deal with lower back and leg pain but was combative in the emergency room, noted to have a UDS positive for amphetamines who was placed on a 96-hour hold due to concerns for lethality. 1. Continue current medication. We will continue to offer medications for depression or mood dysregulation as indicated. 2. Continue every 15 minute checks for safety. 3. Encourage individual, group and milieu therapies. 4. Encourage sober living treatment after discharge at the highest level of care to which he is willing to commit. 5. Appreciate hospitalist consult and will follow recommendations and try to work with him and figuring out whether he can be transferred to medical. Involuntary Hold Information 96 Hour Hold: 96 Hour Involuntary Admission: Yes 96 Hour Hold Ending Date: 05/05/20 96 Hour Hold Ending Time: 00:01 Attestations NPU Medical Necessity Statement*: Inpatient hospitalization is medically necessary and the clinically appropriate intervention at this time. We will monitor medications and make changes as indicated. Likely length of stay 2-4 days. We will evaluate and determine credible lethality in accordance with a 96-hour hold. We need to figure out whether he is more appropriate here on the medical unit. Coding Level of Care Code Acute Welding Specialist for Laci Hidalgo
--- NOTE | 2020-05-01 15:54 | PC.SOCIAL ---
Dr. Gutierrez and supercharge repair supervisor Radha informed during patient report that we confirmed with [facility] that patient is normally on 2L oxygen continuously at home.
--- NOTE | 2020-05-01 20:10 | PC.RESP ---
Smoking Cessation and Pulmonary Rehab information sent to patient.
[2020-05-01] MEDS: ropinirole 0.25 mg Tablet PO (21:14)
[2020-05-01] MEDS: trazodone 50 mg Tablet PO (21:14)
[2020-05-02] VITALS (9 sets, daily range): BP systolic 98–110; BP diastolic 64–72; PULSE 68–111; RESP 16–20; TEMP 36.3–37.9; O2SAT 93–96
[2020-05-02] MEDS: albuterol 8 gm MDI 2 PUFF INHALATION (07:56)
[2020-05-02] MEDS: tamsulosin 0.4 mg Capsule PO ×2 (08:52→20:40)
[2020-05-02] MEDS: gabapentin 400 mg Capsule 800 MG PO ×3 (08:52→20:40)
[2020-05-02] MEDS: roflumilast 500 mcg Tablet PO (08:53)
--- NOTE | 2020-05-02 13:44 | PC.SOCIAL ---
*IMM* Patient received Page two of IMM. Placed copy in chart and initialled.
--- NOTE | 2020-05-02 15:34 | P.CONIM_ITS ---
Providers/Reason For Consult Consulting Physican/Specialty*: Hospitalist service Reason for Consult*: Back pain, ataxia Attending Physician: Earl Gutierrez MD History of Present Illness History of Present Illness Gato Lizarraga is a 64 year old male who was admitted to neuropsychiatric unit after aggressive behavior that was shown in the ER. Patient is stating that he came to the hospital with chief complaint of back pain. In route to the hospital he was given Ativan which change his behavior. He is not able to recall events after getting Ativan in the ambulance. He was very aggressive in the ER hence directed to neuropsychiatric unit. He is endorsing history of lung cancer status post lobectomy, he has been in remission for last 3 years, smokes on and off, has had multiple surgery of his back in the past by Dr. Kirk. At home he does not use any opioids, he stating that he does not like to be on opioids for any reason but uses on as-needed basis. He is endorsing problems of C7-T1 and L1-L2 which is chronic for him. He has been experiencing back pain and recently he has been bending forward to relieve his back pain yesterday he was not able to walk and put pressure on his right leg. But today he is endorsing feeling better he is able to walk while holding onto the wheelchair. He is denying urinary/bowel incontinence. Hospitalist service was requested to evaluate for his gait ataxia and back pain. Review of Systems Const: Denies: fever(s) or chills Eyes: Denies: change in vision ENMT: Denies: throat pain Card: Denies: chest pain Resp: Denies: dyspnea GI: Denies: abdominal pain : Denies: flank pain Musc: Reports: back pain, extremity pain, limited range of motion, muscle cramps and deformity; Denies: neck pain Skin/Breast: Reports: lesions Neuro: Reports: difficulty walking Psych: Reports: anxiety Endo: Denies: polyuria Jose/Lymph: Denies: easy bruising All/Imm: Denies: urticaria Meds/Allergies Home Medications and Allergies Home Medications Medication Instructions Recorded Confirmed Last Taken Type budesonide-formoterol HFA 160 2 puff INHALATION BID 04/09/19 04/29/20 02/04/20 History mcg-4.5 mcg/actuation aerosol inhaler tadalafil 5 mg tablet 5 mg PO .DAILY DIRECTED 04/09/19 04/29/20 02/03/20 History tamsulosin 0.4 mg capsule 0.4 mg PO BID 04/09/19 04/29/20 02/04/20 History tiotropium bromide 1.25 2 puff INHALATION DAILY 04/09/19 04/29/20 02/04/20 History mcg/actuation mist for inhalation Daliresp 500 mcg PO DAILY 09/23/19 04/29/20 02/04/20 History albuterol sulfate [ProAir HFA] 2 puff INHALATION Q6H PRN 09/23/19 04/29/20 09/24/19 History ropinirole 0.25 mg PO BEDTIME 01/23/20 04/29/20 02/03/20 History ondansetron HCl 4 mg PO Q6H PRN 01/29/20 04/29/20 Unknown History gabapentin 800 mg tablet 800 mg PO TID 30 Days #90 tab 04/25/20 04/29/20 Unknown Rx mecobalamin (vitamin B12) 1,000 1,000 mcg SUBLINGUAL DAILY 04/25/20 04/29/20 Unknown History mcg disintegrating tablet,sublingual nabumetone 750 mg tablet 750 mg PO BID 30 Days #60 tab 04/25/20 04/29/20 Unknown Rx tizanidine 4 mg capsule 4 mg PO BID PRN 30 Days #60 cap 04/25/20 04/29/20 Unknown Rx baclofen 20 mg PO TID PRN 04/29/20 04/29/20 Unknown History naproxen 500 mg PO BID PRN 04/29/20 04/29/20 Unknown History varenicline [Chantix] 1 mg PO . DIRECTED 04/29/20 04/29/20 Unknown History Allergies Allergy/AdvReac Type Severity Reaction Status Date / Time fentanyl Allergy Severe anaphylaxic Verified 04/29/20 08:09 hydroxyzine Allergy Severe ADR-Anxiety Verified 04/29/20 08:09 ibuprofen Allergy swelling Verified 04/29/20 08:09 ketorolac Allergy Unknown Verified 04/29/20 08:09 meloxicam Allergy Unknown Verified 04/29/20 08:09 methadone Allergy anaphlyaxic Verified 04/29/20 08:09 nalbuphine Allergy Unknown Verified 04/29/20 08:09 naproxen Allergy Unknown Verified 04/29/20 08:09 amitriptyline AdvReac mood Verified 04/29/20 08:09 altering cephalexin AdvReac nauseated Verified 04/29/20 08:09 clarithromycin AdvReac nauseated Verified 04/29/20 08:09 doxycycline AdvReac nauseated, Verified 04/29/20 08:09 vomiting tetracycline AdvReac nausea, Verified 04/29/20 08:09 vomiting Current Medications Current Medications Generic Name Dose Route Start Last Admin Trade Name Fre PRN Reason Stop Dose Admin Acetaminophen 650 mg 04/29/20 13:42 05/01/20 06:25 Acetaminophen 325 Mg Tablet PO 650 mg Q4H PRN Administration MILD PAIN Albuterol Sulfate 2 puff 04/30/20 07:58 05/02/20 07:56 Albuterol 8 Gm Mdi INHALATION 2 puff Q6H PRN Administration Shortness Of Breath Baclofen 20 mg 04/30/20 08:25 04/30/20 21:09 Baclofen 10 Mg Tablet PO 20 mg TID PRN Administration Muscle Spasm Gabapentin 800 mg 04/30/20 09:00 05/02/20 14:26 Gabapentin 400 Mg Capsule PO 800 mg TID MOI Administration Hydromorphone HCl 2 mg 04/30/20 19:35 05/02/20 15:12 Hydromorphone 4 Mg Tablet PO 2 mg Q6H PRN Administration PAIN Olanzapine 5 mg 04/29/20 13:42 05/01/20 21:13 Olanzapine 5 Mg Odt PO 5 mg Q4H PRN Administration Agitation/Psychosis Roflumilast 500 mcg 04/30/20 09:00 05/02/20 08:53 Roflumilast 500 Mcg Tablet PO 500 mcg DAILY MOI Administration Ropinirole HCl 0.25 mg 04/30/20 21:00 05/01/20 21:14 Ropinirole 0.25 Mg Tablet PO 0.25 mg BEDTIME MOI Administration Tamsulosin HCl 0.4 mg 05/01/20 21:00 05/02/20 08:52 Tamsulosin 0.4 Mg Capsule PO 0.4 mg 0900,2100 MOI Administration Tizanidine HCl 4 mg 04/30/20 08:31 05/01/20 02:22 Tizanidine 4 Mg Tablet PO 4 mg BID PRN Administration muscle spasticity PFSH Acute PFSH: Medical History Cervical post-laminectomy syndrome COPD (chronic obstructive pulmonary disease) History of lung cancer Lumbar post-laminectomy syndrome Spontaneous pneumothorax Surgical History History of cervical spinal surgery (05/14/12) C3-C4 ACDFF, Dr. Kirk History of decompression of median nerve (~1990) 1990 left wrist History of fusion of cervical spine Dr. May Kirk 03/31/2014 C7-T1 ACDFF Dr. May Kirk 05/14/2012 C3-C4 ACDFF Dr. May Kirk 05/18/2009 C4-C5 ACDFF History of lumbar fusion (~02/03/07) Dr. May Kirk 02/03/2007 L4-L5 anterior lumbar interbody fusion/fixation Dr. May Kirk 01/30/2006 Left L4-L5 hemilaminotomy/discectomy/foraminotomy History of lung surgery (~05/2008) Family History Mother Lung cancer Father Lung cancer Stroke Brother Lung cancer Social History Smoking and tobacco status: current every day smoker Alcohol intake: never Household members: spouse Marital status: Current occupational status: disabled History of recent travel: No Vitals/I&O/Wt Last Vital Signs Temp 97.3 F L 05/02/20 14:00 Pulse 102 H 05/02/20 14:00 Resp 16 05/02/20 15:12 BP 98/67 05/02/20 14:00 Pulse Ox 96 05/02/20 14:00 Physical Exam Narrative: EXAM NARRATIVE: Thin frail middle-age male Cachectic malnourished Was laying in his bed when I entered the room, he was able to stand on his feet and walk while after holding onto the wheelchair, he was leaning forward to relieve back pain but was able to walk He has good lower extremity strength, good dorsiflexion and plantarflexion hip extension, no signs of stroke He has good sensations of medial side of his thighs, No active chest pain shortness of breath No active neurological deficit No acute respiratory distress EOMI, PERRLA Awake alert oriented x3 with good insight and able to mention above HPI A&P Assessment and plan (1) Back pain: Patient has history of severe degenerative joint disease, status post laminectomy and cervical spine fusion by Dr. Kirk No active signs of spinal cord compression clinically Considering IV drug abuse I would request MRI of lumbar and thoracic region to rule out epidural abscess or worsening of underlying degenerative joint disease Continue p.o. Dilaudid, will add bowel regimen to avoid constipation If MRI results are concerning we will update Dr. Granger orthopedic surgeon otherwise would recommend outpatient follow-up, patient is adamant that he would not like to be on opioids but if needed can be given 1 week supply on discharge if deemed stable by neuropsychiatrist. Status: Acute Consult Attestations Medical Necessity Statement: As per neuropsychiatrist Time Spent in Patient Care: 30mins Coding Level of Care Code Acute Pocketed Spring Assembler for Laci Hidalgo Diagnoses Back pain M54.9
--- NOTE | 2020-05-02 18:00 | P.PN_ITS ---
Subjective NPU Subjective: Interval history: Gato presents today continuing to report struggles with pain. Still denying any clear psychiatric complaint he would like us to address. Reporting that he will continue to manage his depression, not wanting to try antidepressants. And endorsing when he has fleeting suicidal thoughts or passive wish that he will manage it and not proceed secondary to his anabaptism beliefs. Working with hospitalist, we discussed the plan to get an MRI and use the basis of the MRI to transfer him to the medical unit versus sign off. We agreed we would await the MRI and consider transfer or discharge tomorrow. Mental Status Exam MSE Comments: This is a cachectic white male in hospital scrubs with adequate eye contact and limited grooming. Multiple areas of bruising on his skin reminiscent of someone on blood thinners. No abnormal movements except for mild psychomotor retardation. Mostly cooperative with exam in mild to moderate distress. Speech was decreased volume normal rate. Mood described as basically the same, affect congruent. Thought process organized. Thought content: Patient denied suicidal ideation, no delusions reported or noted, he denied any auditory visual hallucinations. Attention and concentration appeared intact and memory was mostly reliable but none were formally tested. He is alert and oriented x3. Insight and judgment are limited and impulse control is limited. Vitals/I&O/Wt Last Vital Signs Temp 100.3 F H 05/02/20 20:10 Pulse 68 05/02/20 20:10 Resp 19 05/02/20 20:10 BP 103/64 05/02/20 20:10 Pulse Ox 93 05/02/20 20:10 Data NPU : 04/29/20 10:15 04/29/20 10:15 A&P Additional A&P Information (1) Back pain: (2) Abscess of skin or subcutaneous tissue: (3) Gluteal abscess: (4) Phobia, unspecified: (5) Perianal abscess: (6) History of lumbar fusion: (7) Cervical post-laminectomy syndrome: (8) Lumbar post-laminectomy syndrome: (9) Spontaneous pneumothorax: (10) History of lung cancer: (11) COPD (chronic obstructive pulmonary disease): (12) History of fusion of cervical spine: (13) Depression: (14) Methamphetamine use: Additional A&P Information This is a 65-year-old white male who presents reporting that his only purpose of being here is to deal with lower back and leg pain but was combative in the emergency room, noted to have a UDS positive for amphetamines who was placed on a 96-hour hold due to concerns for lethality. 1. Continue current medication. We will continue to offer medications for depression or mood dysregulation as indicated. 2. Continue every 15 minute checks for safety. 3. Encourage individual, group and milieu therapies. 4. Encourage sober living treatment after discharge at the highest level of care to which he is willing to commit. 5. Await MRI to determine disposition tomorrow. Involuntary Hold Information 96 Hour Hold: 96 Hour Involuntary Admission: Yes 96 Hour Hold Ending Date: 05/05/20 96 Hour Hold Ending Time: 00:01 Attestations NPU Medical Necessity Statement*: Inpatient hospitalization is medically necessary and the clinically appropriate intervention at this time. We will monitor medications and make changes as indicated. Likely length of stay 1-3 days. Coding Level of Care Code Acute Housekeeping Room Attendant for Laci Hidalgo
[2020-05-02] MEDS: ropinirole 0.25 mg Tablet PO (20:40)
[2020-05-02] MEDS: tizanidine 4 mg Tablet PO (20:41)
[2020-05-03] VITALS (8 sets, daily range): BP systolic 118–149; BP diastolic 69–94; PULSE 81–86; RESP 16–19; TEMP 36.2–36.9; O2SAT 95–96
[2020-05-03] MEDS: acetaminophen 325 mg Tablet 650 MG PO (01:30)
[2020-05-03] MEDS: baclofen 10 mg Tablet 20 MG PO (01:31)
--- NOTE | 2020-05-03 01:31 | PC.NURSE ---
patient C/O muscle spasms / pain Baclofen 20mg PO given.
[2020-05-03] MEDS: gabapentin 400 mg Capsule 800 MG PO ×3 (07:58→20:45)
[2020-05-03] MEDS: sennosides-docusate Tablet 1 TAB PO (07:58)
[2020-05-03] MEDS: roflumilast 500 mcg Tablet PO (07:59)
[2020-05-03] MEDS: tamsulosin 0.4 mg Capsule PO ×2 (08:00→20:45)
--- NOTE | 2020-05-03 12:00 | MR_ITS ---
WS: [id number] MRI LUMBAR SPINE WITH CONTRAST TECHNIQUE: Sagittal T1, T2 and STIR imaging. Axial T1 and T2 imaging. Post gadolinium imaging was obt ained. CLINICAL INFORMATION: spinal stenosis, COMPARISON: MRI 4 and myelogram October 2019 FINDINGS: Mild lumbar curve. No acute compression. No high-grade central canal stenosis. Prior pedicle screw fi xation L4-5 with interbody fusion graft. Alignment is unchanged from previous. Prior postoperative ch anges fusion in the cervical spine and upper thoracic spine on the weed burner imaging. Small syrinx in the mid thoracic cord seen on the weed burner imaging. This can be further evaluated with thoracic spine MRI. L1-L2: Mild disc bulging with slight narrowing of the subarticular recess bilaterally. Mild facet art hropathy. Mild left foraminal narrowing with a small left foraminal protrusion. Mild facet arthropath y. L2-L3: Mild disc bulging with slight effacement of ventral thecal sac. Impingement traversing left L3 nerve root. Mild left foraminal narrowing. Small right foraminal protrusion with mild right foramina l narrowing. Mild facet arthropathy. L3-L4: Mild annular bulging with narrowing of the subarticular recess bilaterally. Slight impingement traversing L4 nerve roots. Moderate right and mild left foraminal narrowing with small bilateral for aminal protrusions. Mild central canal stenosis. L4-L5: Pedicle screw fixation. Moderate facet arthropathy. Spinal canal and foramen are patent. L5-S1: Pedicle screw fixation. Spinal canal and foramen are patent. Mild facet arthropathy. Visualized pelvic bony structures: Normal. Paravertebral soft tissues: Normal. MR/MR lumbar spine wo/w con [id number] IMPRESSION: 1. Mild lumbar curve. No acute compression. No high-grade central canal stenos is. 2. Pedicle screw fixation L4-5 with interbody fusion graft. 3. Mild central canal stenosis L3-4 with slight impingement subarticular reces s bilaterally. 4. Bilateral foraminal protrusions L3-4 right greater than left with impingeme nt on the exiting right greater than left L3 nerve roots. 5. Small right foraminal protrusion L2-3 contacts the exiting right L2 nerve r oot. 6. Small left foraminal protrusion L1-2 with mild left foraminal narrowing. 7. Spinal canal and foramen are patent at the fusion levels. 8. Small syrinx visualized in the lower thoracic cord on the weed burner imaging. Th is can be further evaluated with thoracic spine MRI.
[2020-05-03] MEDS: diazePAM 5 mg Tablet PO (14:07)
--- NOTE | 2020-05-03 14:19 | PC.NURSE ---
Addendum entered by [place] LPN 05/03/20 15:37: return to unit from MRI Original Note: MRI/Off unit Patient taken off unit at this time for his MRI
--- NOTE | 2020-05-03 15:20 | P.PN_ITS ---
Subjective Subjective: Interval history: Patient was seen today, no overnight events patient is endorsing feeling pretty much same as yesterday he still waiting forward for ambulation while holding onto the wheelchair Is denying rectal, urinary incontinence He stating that he wants to go home and follow-up with his surgeon at [facility] Vitals/I&O/Wt Last Vital Signs Temp 98.2 F 05/03/20 06:00 Pulse 84 05/03/20 06:00 Resp 18 05/03/20 10:05 BP 118/69 05/03/20 06:00 Pulse Ox 96 05/03/20 06:00 Physical Exam Narrative: EXAM NARRATIVE: Patient was laying in his bed comfortably when I entered the room No active neurological deficit noted No active chest pain No acute respiratory distress No new neurological deficits Cachectic malnourished appearance thin extremities without edema gangrene or ulcer No abdominal tenderness Irritable mood Data : 04/29/20 10:15 04/29/20 10:15 A&P Assessment and plan (1) Back pain: Status post lumbar MRI with contrast No signs of spinal cord compression clinically or on MRI Syrinx visualized in lower thoracic region Bilateral foraminal protrusion and narrowing right greater than left L3-L4, that would correlate with his right lower extremity symptoms I have asked Dr. Gutierrez to have Dr. Walker weigh in on MRI results whether acute intervention is needed versus outpatient follow-up If outpatient follow-up as needed Mr. Lizarraga would like to follow-up with his surgeon at [facility] and can be discharged today with opioids Medical team will sign off Please do not hesitate to call for any questions you might have. Thank you for letting us participate in care of Mr. Lizarraga Status: Acute Attestations Medical Necessity Statement*: As per psychiatrist Time Spent in Patient Care: 20mins Coding Level of Care Code Acute Digital Marketing Apprentice for benny Hidalgo Diagnoses Back pain M54.9
[2020-05-03] MEDS: gadobenate dimeglumine 20 mL vial IV (15:29)
[2020-05-03] MEDS: ropinirole 0.25 mg Tablet PO (20:45)
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
== END 2020-05-03 21:24 | disposition home or self-care (01) | DRG 552 ==
LOC: ER 13:06 → NP 13:08
PROVIDERS: Admitting Provider Psychiatry & Neurology Psychiatry; Emergency Provider Family Medicine; Visit Provider Psychiatry & Neurology Psychiatry
DX: M51.26 Other intervertebral disc displacement, lumbar region (principal); R64 Cachexia; Z68.1 Body mass index [BMI] 19.9 or less, adult; M79.604 Pain in right leg; F15.90 Other stimulant use, unspecified, uncomplicated; F32.9 Major depressive disorder, single episode, unspecified; J43.9 Emphysema, unspecified; M96.1 Postlaminectomy syndrome, not elsewhere classified; Z85.118 Personal history of other malignant neoplasm of bronchus and lung; Z98.1 Arthrodesis status; F17.210 Nicotine dependence, cigarettes, uncomplicated; Z79.51 Long term (current) use of inhaled steroids; Z90.2 Acquired absence of lung [part of]
CPT/HCPCS: 36600; 51701; 70450; 71045; 72131; 72158; 80051; 80053; 80306; 80307; 81003; 82330; 82805; 85025; 93005; 94640; 96372; 96374; 96375; 99285; A9577; J0131; J2060; J2360; J3486; J3535

== ENCOUNTER → 2020-05-05 11:12 | Outpatient (BNVA) | payer MEDICARE, MEDICAID, SELFPAY | PROVIDERS: Visit Provider Orthopaedic Surgery | DX: Z98.1 Arthrodesis status (principal) | CPT/HCPCS: 72110 ==

== ENCOUNTER → 2020-05-08 08:44 | Outpatient (BNVA) | payer MEDICARE, MEDICAID, SELFPAY | PROVIDERS: Visit Provider Specialist | DX: M96.1 Postlaminectomy syndrome, not elsewhere classified (principal) | CPT/HCPCS: G0463 ==

== ENCOUNTER → 2020-05-29 10:05 | Outpatient (BNVA) | payer MEDICARE, MEDICAID, SELFPAY | PROVIDERS: PCP Family Medicine; Referring Provider Orthopaedic Surgery; Visit Provider Anesthesiology Pain Medicine | DX: M54.41 Lumbago with sciatica, right side (principal); M54.42 Lumbago with sciatica, left side; M54.9 Dorsalgia, unspecified; M48.062 Spinal stenosis, lumbar region with neurogenic claudication; M96.1 Postlaminectomy syndrome, not elsewhere classified; F17.210 Nicotine dependence, cigarettes, uncomplicated; Z98.1 Arthrodesis status; Z79.891 Long term (current) use of opiate analgesic | CPT/HCPCS: 99205 ==

== ENCOUNTER → 2020-08-29 13:22 | Outpatient (BNVA) | payer MEDICARE, MEDICAID, SELFPAY | PROVIDERS: PCP Family Medicine; Visit Provider Nurse Practitioner | DX: S99.912A Unspecified injury of left ankle, initial encounter (principal); W19.XXXA Unspecified fall, initial encounter | CPT/HCPCS: 73610 ==

== ENCOUNTER 2020-09-19 10:43 | Outpatient (CLI) | payer MEDICARE, MEDICAID, SELFPAY ==
--- NOTE | 2020-09-19 11:00 | CT_ITS ---
WS: [id number] Exam: CT chest w con* [id number] Date/Time of Exam: 09/19/2020 11:00 AM Reason For Exam: LUNG CANCER DLP: 630.[address] scans at [facility] use at least one of these dose optimization techniques: automat ed exposure control; mA and/or kV adjustment per patient size (includes targeted exams where dose is matched to clinical indication); or iterative reconstruction. Comparison 03/24/2020. No suspicious new pulmonary mass or nodule identified. No hilar or mediastinal lymphadenopathy. No ax illary lymphadenopathy. The thoracic aorta is normal in caliber. The central pulmonary arteries are c lear. The airway is patent. Advanced emphysematous changes and fibrous scarring in both lungs. Postop erative changes in the left upper lobe and signs of left thoracotomy. No pleural or pericardial effus ion noted. No destructive bone lesions are seen. There is hardware in the lower cervical spine second gisselle to fusion. CT/CT chest w con* [id number] IMPRESSION: 1. No new pulmonary mass or lymphadenopathy in the chest. 2. Stable appearing small nodular infiltrate in the left lower lobe since previ ous study. 3. Advanced emphysematous changes. Postoperative and chronic fibrotic changes w hich are stable.
[2020-09-19 11:22] LABS: Blood Urea Nitrogen 9 mg/dL (8-23); Glomerular Filtration Rate 113.9 mL/min (90-130)
[2020-09-19] MEDS: iohexol 300 mg/mL 100 mL Btl IV (11:31)
== END 2020-09-19 10:44 | disposition home or self-care (01) ==
PROVIDERS: Visit Provider Internal Medicine Hematology & Oncology
DX: C34.12 Malignant neoplasm of upper lobe, left bronchus or lung (principal); R91.1 Solitary pulmonary nodule
CPT/HCPCS: 71260; 82565; 84520; Q9967

== ENCOUNTER 2020-10-06 10:24 | Outpatient (CLI) | payer MEDICARE, MEDICAID, SELFPAY ==
[2020-10-06 10:52] LABS: Basophils % 0.3 %; Eosinophils # 0.2 10^3/uL (0.0-0.8); Eosinophils % 2.3 %; Hematocrit 41.5 % (42.0-52.0); Lymphocytes # 2.8 10^3/uL (0.8-4.8); Lymphocytes % 42.7 %; Mean Corpuscular HGB Conc 31.3 g/dL (30.0-36.0); Mean Corpuscular Volume 92.4 fl (80-94); Mean Platelet Volume 10.5 fL (7.4-10.4); Monocytes # 0.4 10^3/uL (0.2-0.9); Monocytes % 6.1 %; Neutrophils # 3.17 10^3/uL (1.8-7.7); Neutrophils % 48.4 %; Nucleated Red Blood Cells % 0 %; Platelet Count 222 10^3/cmm (130-400); Red Blood Count 4.49 10^6/uL (4.1-5.3); Red Cell Distribution Width 13.4 % (12.1-15.1); White Blood Count 6.5 10^3/uL (4.0-10.0)
[2020-10-06 11:15] LABS: Alanine Aminotransferase 15 U/L (0-41); Albumin Level 3.9 g/dL (3.5-5.2); Alkaline Phosphatase 60 IU/L (40-130); Anion Gap 12.5 (5-19); Aspartate Amino Transferase 18 U/L (0-40); Blood Urea Nitrogen 5 mg/dL (8-23); Calcium 8.8 mg/dL (8.5-10.5); Carbon Dioxide 30 mmol/L (22-29); Chloride 100 mmol/L (98-107); Globulin 2.7 g/dL (1.3-4.6); Glomerular Filtration Rate 136.1 mL/min (90-130); Glucose 108 mg/dL (65-115); Osmolality Calculated 286 mOsm/kg (285-295); Potassium 3.5 mmol/L (3.5-5.1); Sodium 139 mmol/L (136-145); Total Bilirubin 0.3 mg/dL (0.15-1.2); Total Protein 6.6 g/dL (6.6-8.7)
--- NOTE | 2020-10-06 13:46 | ONC FU_ITS ---
Dr. Mullen follow up note Patient: Gato Lizarraga Unit #: [id number]: 1955 Dicatated By: Marisa Mullen M.D.Date of Visit:Oct 06, 2020 Onc Med Follow-up/Prog Note History of Present Illness: Mr. Lizarraga is a 64-year-old gentleman with history of small left upper lobe pulmonary nodule first seen on CT scan of chest done in February 2017. A follow-up CT scan done on 10/02/2017 showed small increase in size. CT PET scan was done on 10/09/2017 showed increased activity in this suspicious lesion and also in right thyroid lobe nodule. Mr Lizarraga has history of COPD/emphysema bilaterally and is dependent on home oxygen. Mr Lizarraga underwent left upper lobe wedge resection on 11/10/2017. 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 An additional nodule in left upper lung apex was a hematoma as per discussion with Dr. Cummings pathologist. Patient tolerated procedure well PMH: history of melanoma excision from his head ???2 in the past. 40+ year history of chronic smoking CT Chest from 07/15/2019. .showed Prior postoperative changes resection left upper lobe pulmonary nodule. No evidence of recurrent parenchymal lesion in this location. 2. Noncalcified nodule left lower lobe measuring 7 mm with surrounding fibrosis. This is increased since the prior examination recommend 3-month follow-up. 3. No mediastinal or hilar lymphadenopathy. 4. Advanced chronic emphysematous changes. Came for follow-up, denies any specific complaint except dyspnea on exertion, using home oxygen for chronic emphysema and still smoking. Denies any hemoptysis or hematemesis complaining of generalized musculoskeletal pain, with recently worsening and also underwent extensive C-spine work-up which include CT scan of C-spine CT cervical myelogram done in October 2019 for neck pain showed multilevel moderate to severe bony foraminal narrowing worse at left C5-C6 and bilateral C6-7 and anterior cervical fusion at C3-4 and C4 and 5 and small central disc protrusion at T1-2 with slight contact of thoracic cord Patient also had CT scan of chest abdomen done on September 24, 2019 which showed moderate to severe paraseptal emphysema bilaterally and no mention of left lower lobe nodule which was seen in CT scan of the chest done in June 2019. CT scan of her abdomen shows mild rectal wall thickening, as per patient he has history of rectal abscess in the past which was drained couple of times. And last colonoscopy was done about 7-8 years ago. Follow-up CT scan of chest done on March 24, 2020 showed postoperative changes resection left upper lobe pulmonary nodule. No evidence of recurrent disease. Noncalcified nodule left lower lobe measuring 5 mm with surrounding fibrosis. This has decreased in size and less dense. No mediastinal lymphadenopathy. Advanced chronic emphysematous changes Bone scan done on March 24, 2020 shows no evidence of bone mets Follow-up CT scan of chest done on September 19, 2020 shows no new pulmonary mass or lymphadenopathy. Stable appearing small nodular infiltrate in the left lower lobe since previous study done on March 24 2020 Came for follow-up, denies any specific complaints, no fever chills, no nausea or vomiting, no diarrhea or constipation, no hemoptysis or hematemesis, no new bony pains Medications: Albuterol Sulfate 1 ((2.5 mg/3ml) 0.083%) Nebulization solution Inhalation PRN, ARIPiprazole 1 Tablet (of 20 mg) Oral daily, Baclofen 1 Tablet (of 20 mg) Oral b.i.d., Cialis 1 Tablet (of 5 mg) Oral daily, FLUoxetine HCl 1 Capsule (of 20 mg) Oral daily, Gabapentin 1 Tablet (of 600 mg) Oral t.i.d., Keflex 1 Tablet (of 500 mg) Capsule Oral four times a day, Multiple Vitamins-Minerals 1 Tablet Oral daily, predniSONE 1 Tablet (of 20 mg) Oral daily for 30 days, Spiriva Respimat 1 Puff(s) (of 1.25 mcg/act) Aerosol, solution Inhalation b.i.d., Symbicort 2 puff(s) (of 160-4.5 mcg/act) Aerosol Inhalation b.i.d., Tamsulosin HCl 2 Capsule (of 0.4 mg) Oral daily Allergies: Ambien, Aminophylline, Amitriptyline HCl, Biaxin, Cymbalta, Doxycycline, FentaNYL, fentaNYL Citrate, Ibuprofen, Ketorolac Tromethamine, Methadone HCl, Nubain, and Tetracycline HCl. Review of Systems: Review of Systems is not available for this patient. Vital Signs: Performed on Oct 06, 2020 11:10 Height - 70.50 in Weight - 134.6 lbs (HIGH) BSA - 1.77 sq.m BMI - 19.04 Temperature - 98.3 F (LOW) Pulse - 84 /min Respiration - 18 /min BP - 125/69 mm(hg) O2 Sat - 99 % Pain - 8 Fatigue - 7 Performance Status: 0 - Fully active, able to carry on all predisease activities without restrictions. (ECOG) Physical Examination: ENMT - No mouth sores, no thrush, no jaundice, Respiratory - Lungs are clear to auscultation, Cardiovascular - Regular rate and rhythm of heart, Abdomen - Soft, bowel sounds present, Extremities - No visible edema. Lab/Imaging: Test performed on Sep 19, 2020 14:41 BUN 9 mg/dL Creatinine 0.7 mg/dL Cr Clearance (Est) 90.37 mL/min eGFR 113.9 mL/min Impression: 1. 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 T1a N X, MX stage I A1 Advanced is COPD with emphysema on home oxygen 40+ years History of chronic smoking next Right thyroid nodule evaluated by ENT Dr. Umanzor. CT Chest from 07/15/2019. showed Prior postoperative changes resection left upper lobe pulmonary nodule. No evidence of recurrent parenchymal lesion in this location. 2. Noncalcified nodule left lower lobe measuring 7 mm with surrounding fibrosis. This is increased since the prior examination recommend 3-month follow-up. 3. No mediastinal or hilar lymphadenopathy. 4. Advanced chronic emphysematous changes. Follow-up CT scan of chest done on March 24, 2020 showed postoperative changes, resection left upper lobe pulmonary nodule. No recurrence of disease, no mediastinal or hilar lymphadenopathy Noncalcified nodule left lower lobe measuring 5 mm with surrounding fibrosis this is decreased in size and less dense. Advanced chronic emphysematous changes Bone scan done on March 24, 2020 showed no evidence of bone mets Plan: Discussed with patient regarding his labs white blood count 6.5 hemoglobin 13 hematocrit 41.5 platelets 222,000 CMP within normal limits and CT scan of chest done on September 19, 2020 shows stable appearing small nodular infiltrate in the left lower lobe when compared with CT scan done in February 2020. Advanced emphysematous changes. Postop and chronic fibrotic changes in the left upper lobe. No new pulmonary mass or lymphadenopathy noted Clinically, patient doing well with no new signs symptoms history of recurrence of disease his lab work-up is within normal range his follow-up CT scan shows stable left lower lobe nodular infiltrate. We will continue to monitor and he will return to clinic in 6 months with CBC CMP Signed By: Marisa Mullen M.D. <<Signature on File>>
== END 2020-10-06 10:25 | disposition home or self-care (01) ==
PROVIDERS: Visit Provider Internal Medicine Hematology & Oncology
DX: Z08 Encounter for follow-up examination after completed treatment for malignant neoplasm (principal); Z85.118 Personal history of other malignant neoplasm of bronchus and lung; J43.9 Emphysema, unspecified; Z99.81 Dependence on supplemental oxygen; F17.210 Nicotine dependence, cigarettes, uncomplicated; E04.1 Nontoxic single thyroid nodule; Z79.899 Other long term (current) drug therapy; Z92.21 Personal history of antineoplastic chemotherapy
CPT/HCPCS: 80053; 85025; 99214

== ENCOUNTER 2020-10-10 14:38 | Emergency (ER) | payer MEDICARE, MEDICAID, SELFPAY ==
[2020-10-10 14:49] VITALS: BP 119/74; PULSE 100; RESP 20; TEMP 37.3; O2SAT 97; BMI 19.1
[2020-10-10 14:54] VITALS: BP 115/67; PULSE 89; RESP 21; O2SAT 97
--- NOTE | 2020-10-10 15:00 | W.ED.SOB ---
HPI - SOB/Dyspnea General: Chief Complaint: Shortness of Breath/Dyspnea Stated Complaint: Low o2, High HR Time Seen by Provider: 10/10/20 15:00 History of Present Illness: HPI Narrative: Mr. Lizarraga is a 65-year-old gentleman with significant past medical history of polysubstance abuse, tobaccoism, COPD, lung cancer status post lobectomy and completion of therapy who presents to the emergency department due to shortness of breath and hypoxemia. He has noticed for approximately 1 week that intermittently his heart rate varies and he checks his oxygen saturation and it is below 60. He is associated shortness of breath and lightheadedness with it. He does endorse an episode of unconsciousness of unclear etiology or significance. This was associated with his prodromal symptoms. Overall the course of symptoms has persisted and varies. His symptoms are worse with exertion but do not occur with rest. He denies frequent episodes of the symptoms in the past. No other specific changes in health, exacerbating, or relieving factors. He has cut down on his tobacco use and smokes approximately half a pack per day. He reports compliance with his medication regimen. Review of Systems General: Reports: 10 or more systems reviewed and unremarkable except in HPI and below Narrative: CONSTITUTIONAL: denies fever, fatigue, weakness EYES - denies pain, denies loss of vision EARS - denies ear issues. NOSE - denies congestion or rhinorrhea. THROAT - denies sore throat or difficulty swallowing. CARDIOVASCULAR -see HPI RESPIRATORY -see HPI GASTROINTESTINAL - denies abdominal pain, no nausea vomiting, no changes in bowel habits GENITOURINARY - denies dysuria or urinary frequency MUSCULOSKELETAL- denies deformity or pain SKIN - denies rashes or new changed skin lesions NEUROLOGIC - denies focal weakness or sensory changes. Syncope as noted in HPI. HEMATOLOGIC/LYMPHATIC - denies easy bruising or lymphadenopathy. PFSH ED PFSH: Medical History (Updated 10/11/20 @ 13:35 by Bob Hernandez MD) Cervical post-laminectomy syndrome COPD (chronic obstructive pulmonary disease) Depression History of lung cancer Non-small cell lung cancer, squamous type, treated with resection History of melanoma Lumbar post-laminectomy syndrome Marijuana use, continuous Spontaneous pneumothorax Thyroid nodule Tobacco dependency Surgical History (Updated 10/11/20 @ 13:18 by Bob Hernandez MD) History of appendectomy History of cervical spinal surgery (05/14/12) C3-C4 ACDFF, Dr. Kirk History of decompression of median nerve (~1990) 1990 left wrist History of fusion of cervical spine Dr. May Kirk 03/31/2014 C7-T1 ACDFF Dr. May Kirk 05/14/2012 C3-C4 ACDFF Dr. May Kirk 05/18/2009 C4-C5 ACDFF History of lumbar fusion (~02/03/07) Dr. May Kirk 02/03/2007 L4-L5 anterior lumbar interbody fusion/fixation Dr. May Kirk 01/30/2006 Left L4-L5 hemilaminotomy/discectomy/foraminotomy History of lung surgery (~05/2008) Family History Mother Lung cancer Father Lung cancer Stroke Brother Lung cancer Social History Smoking and tobacco status: current every day smoker Alcohol intake: never Household members: spouse Marital status: Current occupational status: disabled History of recent travel: No Physical Exam Narrative: EXAM NARRATIVE: GENERAL/CONSTITUTIONAL -chronically ill-appearing. No acute distress. Eyes - PERRL, no conjunctival injection ENMT - Atraumatic external nose and ears. Moist mucous membranes NECK - supple. trachea midline CARDIOVASCULAR - regular rate and rhythm. RESPIRATORY -diminished and coarse breath sounds throughout. No retractions or accessory muscle use. ABDOMEN/GI - Nontender/Nondistended. No tenderness to percussion or evidence of peritonitis MSK - Extremities without obvious deformity or tenderness to palpation SKIN - Warm, Dry NEURO - alert and appropriately oriented. No focal neurologic deficits appreciated. Moves all extremities equally. PSYCH - Appropriate mood and affect Course ED course: - Patient was seen and evaluated by me at bedside - Patient placed on cardiac monitors, IV access obtained - Initial evaluation notable for chronic ill appearance, no acute distress. Otherwise as noted in physical exam. -Symptom treatment ordered - Labs notable for no acute abnormality explaining the patient's symptoms - Imaging notable for no evidence of intracranial hemorrhage or recent stroke. CTA negative for pulmonary embolism though he may have pulmonary infiltrates concerning for pneumonia - Upon serial reexamination after treatment the patient was mildly improved - Based on patient history, evaluation, labs, and imaging as interpreted the most likely cause of the patient's condition is unclear though the patient is not low risk regarding syncope decision-making tools. Based on this he requires further inpatient evaluation. -Initially the patient was agreeable to admission however after being told by staff registered nurse that he was not allowed to go outside and smoke and come back he became markedly agitated and demanded to leave. I explained to the patient that the decision to leave may lead to or worse. He verbalized understanding. -The patient left AGAINST MEDICAL ADVICE. Vital Signs: Vital signs: Vital Signs Temperature 99.1 F 10/10/20 14:49 Pulse Rate 68 10/10/20 16:46 Respiratory Rate 21 H 10/10/20 14:54 Blood Pressure 103/69 10/10/20 16:41 Pulse Oximetry 97 10/10/20 16:41 MDM - SOB/Dyspnea Medical Records: Attestation: I reviewed the patient's medical records. Lab Data: Attestation: I reviewed the patient's lab results. Labs: Lab Results 10/10/20 10/10/20 10/10/20 Range/Units 15:46 15:46 15:46 WBC 5.4 (4.0-10.0) 10^3/ uL RBC 4.08 L (4.1-5.3) 10^6/u L Hgb 11.8 (11.7-16.6) g/dL Hct 37.7 L (42.0-52.0) % MCV 92.4 (80-94) fl MCH 28.9 (28.0-34.0) pg MCHC 31.3 (30.0-36.0) g/dL RDW 13.4 (12.1-15.1) % Plt Count 179 (130-400) 10^3/c mm MPV 11.2 H (7.4-10.4) fL Neut % (Auto) 47.6 % Lymph % (Auto) 37.2 % [place] % (Auto) 11.4 % Eos % (Auto) 3.0 % Baso % (Auto) 0.6 % Neut # (Auto) 2.55 (1.8-7.7) 10^3/u L Lymph # (Auto) 2.0 (0.8-4.8) 10^3/u L [place] # (Auto) 0.6 (0.2-0.9) 10^3/u L Eos # (Auto) 0.2 (0.0-0.8) 10^3/u L Baso # (Auto) 0.0 (0.0-0.1) 10^3/u L Nucleated RBC % (a uto) 0 % Nucleated RBCs # 0.0 /100WBC PT 11.90 L (12.1-14.9) SECO NDS INR 0.85 (0.8-1.2) Sodium 141 (136-145) mmol/L Potassium 4.0 (3.5-5.1) mmol/L Chloride 103 (98-107) mmol/L Carbon Dioxide 32 H (22-29) mmol/L Anion Gap 10.0 (5-19) BUN 12 (8-23) mg/dL Creatinine 0.6 L (0.7-1.2) mg/dL GFR Calculation 136.1 H (90-130) mL/min Glucose 76 (65-115) mg/dL Calculated Osmolal ity 291 (285-295) mOsm/k g Calcium 8.3 L (8.5-10.5) mg/dL Magnesium 1.9 (1.7-2.3) mg/dL Total Bilirubin 0.2 (0.15-1.2) mg/dL AST 11 (0-40) U/L ALT 9 (0-41) U/L Alkaline Phosphata se 57 (40-130) IU/L Troponin T Baselin e (0-15) ng/L Troponin T 120 Min [place] (0-15) ng/L Delta Troponin T (0-10) ABS# C-Reactive Protein (0.0-4.9) mg/L NT-Pro-B Natriuret Pep 18 (0-125) pg/mL Total Protein 5.7 L (6.6-8.7) g/dL Albumin 3.6 (3.5-5.2) g/dL Globulin 2.1 (1.3-4.6) g/dL Procalcitonin (0-0.5) ng/mL 10/10/20 10/10/20 10/10/20 Range/Units 15:46 15:46 18:20 WBC (4.0-10.0) 10^3/ uL RBC (4.1-5.3) 10^6/u L Hgb (11.7-16.6) g/dL Hct (42.0-52.0) % MCV (80-94) fl MCH (28.0-34.0) pg MCHC (30.0-36.0) g/dL RDW (12.1-15.1) % Plt Count (130-400) 10^3/c mm MPV (7.4-10.4) fL Neut % (Auto) % Lymph % (Auto) % [place] % (Auto) % Eos % (Auto) % Baso % (Auto) % Neut # (Auto) (1.8-7.7) 10^3/u L Lymph # (Auto) (0.8-4.8) 10^3/u L [place] # (Auto) (0.2-0.9) 10^3/u L Eos # (Auto) (0.0-0.8) 10^3/u L Baso # (Auto) (0.0-0.1) 10^3/u L Nucleated RBC % (a uto) % Nucleated RBCs # /100WBC PT (12.1-14.9) SECO NDS INR (0.8-1.2) Sodium (136-145) mmol/L Potassium (3.5-5.1) mmol/L Chloride (98-107) mmol/L Carbon Dioxide (22-29) mmol/L Anion Gap (5-19) BUN (8-23) mg/dL Creatinine (0.7-1.2) mg/dL GFR Calculation (90-130) mL/min Glucose (65-115) mg/dL Calculated Osmolal ity (285-295) mOsm/k g Calcium (8.5-10.5) mg/dL Magnesium (1.7-2.3) mg/dL Total Bilirubin (0.15-1.2) mg/dL AST (0-40) U/L ALT (0-41) U/L Alkaline Phosphata se (40-130) IU/L Troponin T Baselin e 7 (0-15) ng/L Troponin T 120 Min [place] 13.07 (0-15) ng/L Delta Troponin T 6.07 (0-10) ABS# C-Reactive Protein 31.5 H (0.0-4.9) mg/L NT-Pro-B Natriuret Pep (0-125) pg/mL Total Protein (6.6-8.7) g/dL Albumin (3.5-5.2) g/dL Globulin (1.3-4.6) g/dL Procalcitonin 0.44 (0-0.5) ng/mL EKG Data^: EKG 1: Attestation: I personally reviewed and interpreted this EKG as follows: EKG Interpretation Date: 10/10/20 EKG interpretation time: 15:10 Prior EKG tracings: not available for review Interpretation: Twelve-lead EKG shows a regular sinus rhythm at a rate of 80. WI interval 144, QRS duration 81, QTc 423. Normal axis. Interpretation: Sinus rhythm EKG 2: Attestation: I personally reviewed and interpreted this EKG as follows: EKG Interpretation Date: 10/10/20 EKG interpretation time: 17:06 Prior EKG tracings: available for review Interpretation: Twelve-lead EKG shows a regular sinus rhythm at a rate of 68. WI interval 152, QRS duration 84, QTc 411. Normal axis. Interpretation: Sinus rhythm. Discharge Plan Discharge Patient Disposition: Left Against Medical Advice Condition: Stable Prescriptions: No Action tamsulosin 0.4 mg capsule 0.4 mg PO BID RF: 0 Symbicort 160-4.5 mcg/actuation HFA aerosol inhaler 2 puff INHALATION BID RF: 0 Spiriva Respimat 1.25 mcg/actuation mist 2 puff INHALATION DAILY RF: 0 albuterol sulfate [ProAir HFA] 90 mcg/actuation Hfa Aerosol Inhaler 2 puff INHALATION Q6H PRN (Reason: Shortness Of Breath) RF: 0 baclofen 20 mg tablet 20 mg PO TID PRN (Reason: Muscle Spasm) RF: 0 naproxen 500 mg tablet 500 mg PO BID PRN (Reason: Pain) RF: 0 Chantix 1 mg tablet See Rx Instructions .ROUTE .COMPLEX RF: 0 gabapentin 600 mg tablet 600 mg PO TID RF: 0 cyanocobalamin (vitamin B-12) [Vitamin B-12] 1,000 mcg Tablet 1,000 mcg PO DAILY RF: 0 tadalafil [Cialis] 5 mg tablet 5 mg PO BEDTIME RF: 0 ropinirole 0.25 mg Tablet 0.25 mg PO BEDTIME RF: 0 ondansetron HCl 4 mg tablet 4 mg PO Q6H PRN (Reason: nausea/vomiting) RF: 0 Daliresp 500 mcg tablet 500 mcg PO DAILY MDD SEE PHARMACY COMMENT RF: 0 Coding Level of Care Code ED Data Security Coordinator for Laci Hidalgo
--- NOTE | 2020-10-10 15:09 | XRR_ITS ---
PROCEDURE INFORMATION: Exam: XR Chest Exam date and time: 10/10/2020 3:09 PM Age: 65 years old Clinical indication: Shortness of breath. Hypoxia. History of lung cancer. TECHNIQUE: Imaging protocol: XR of the chest. Views: 1 view. COMPARISON: CT chest w con* [id number] 09/19/2020 11:25 AM FINDINGS: Lungs: Possible cavitary lesion in the lower right chest measuring 1.5 cm. Scarring and/or suture material in the mid left chest. Mild left basilar atelectasis. There is questionable patchy hazy opacity at the right base. Scarring is again noted in the lung apices with suture material in the left apex. Volume loss is again noted in the left hemithorax with elevation of the left hemidiaphragm. Pleural spaces: No pleural effusion.; No pneumothorax. Heart/Mediastinum: Cardiac silhouette is approximately unchanged. No gross evidence of pneumomediastinum. Bones/joints: Multiple old left rib fractures are again seen. XR/XR chest 1V portable [id number] IMPRESSION: 1. Possible cavitary lesion in the lower right chest. 2. Questionable patchy hazy opacity at the right base. 3. Recommend CT chest with contrast to further assess.
--- NOTE | 2020-10-10 15:09 | CT_ITS ---
WS: [id number] CT HEAD NONCONTRAST HISTORY: syncope TECHNIQUE: Contiguous axial imaging performed through the brain in 2.5 mm imaging. Bone and soft tiss ue windows. Sagittal and coronal reformats reviewed. All CT scans at [facility] use at le ast one of these dose optimization techniques: automated exposure control; mA and/or kV adjustment pe r patient size (includes targeted exams where dose is matched to clinical indication); or iterative r econstruction. DLP: 805.76 mGy.cm COMPARISON: 04/29/2020 No acute intracranial hemorrhage, midline shift or mass effect. No atrophy or prior infarcts or herniation. There are mild chronic microvascular ischemic disease. Ventricles: Normal size with no hydrocephalus. Paranasal sinuses: As visualized are clear. Mastoid air cells: Well pneumatized. Calvarium and scalp: Skull is intact with no soft tissue edema or swelling. CT/CT head wo con* [id number] IMPRESSION: 1. No acute intracranial hemorrhage or edema. 2. Mild chronic microvascular ischemic disease.
--- NOTE | 2020-10-10 15:10 | ECG_ITS ---
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 Measurements Intervals [place] Rate: 88 P: 72 RI: 144 QRS: 66 QRSD: 81 T: 75 QT: 349 QTc: 423 Interpretive Statements SINUS RHYTHM POSSIBLE LEFT ATRIAL ENLARGEMENT [-0.1mV P-WAVE IN V1/V2] POSSIBLE LEFT VENTRICULAR HYPERTROPHY [VOLTAGE CRITERIA PLUS LAE OR QRS WIDENING] Compared to ECG 04/29/2020 11:12:25 Sinus tachycardia no longer present ST (T wave) deviation no longer present Electronically Signed On 10-10-2020 16:09:52 CDT by Chloe Chow M.D. [email or web address] Detectionchoctaw health centerCreative Circle Advertising Solutionsmercy health allen hospital.E[employer]/store/NU/[id number] f
[2020-10-10 15:31] VITALS: BP 97/72; PULSE 84; O2SAT 98
[2020-10-10 15:45] VITALS: BP 108/70; PULSE 76; O2SAT 99
[2020-10-10] MEDS: sodium chloride 0.9% 500 ML 999 ML IV (15:50)
[2020-10-10 16:15] LABS: Basophils % 0.6 %; Eosinophils # 0.2 10^3/uL (0.0-0.8); Hematocrit 37.7 % (42.0-52.0); Hemoglobin 11.8 g/dL (11.7-16.6); Lymphocytes % 37.2 %; Mean Corpuscular HGB Conc 31.3 g/dL (30.0-36.0); Mean Corpuscular Hemoglobin 28.9 pg (28.0-34.0); Mean Corpuscular Volume 92.4 fl (80-94); Mean Platelet Volume 11.2 fL (7.4-10.4); Monocytes # 0.6 10^3/uL (0.2-0.9); Monocytes % 11.4 %; Neutrophils # 2.55 10^3/uL (1.8-7.7); Neutrophils % 47.6 %; Nucleated Red Blood Cells % 0 %; Platelet Count 179 10^3/cmm (130-400); Red Blood Count 4.08 10^6/uL (4.1-5.3); Red Cell Distribution Width 13.4 % (12.1-15.1); White Blood Count 5.4 10^3/uL (4.0-10.0)
[2020-10-10 16:41] VITALS: BP 103/69; PULSE 72; O2SAT 97
[2020-10-10 16:46] VITALS: PULSE 68
[2020-10-10 16:48] LABS: Alanine Aminotransferase 9 U/L (0-41); Albumin Level 3.6 g/dL (3.5-5.2); Alkaline Phosphatase 57 IU/L (40-130); Aspartate Amino Transferase 11 U/L (0-40); Blood Urea Nitrogen 12 mg/dL (8-23); Calcium 8.3 mg/dL (8.5-10.5); Carbon Dioxide 32 mmol/L (22-29); Chloride 103 mmol/L (98-107); Globulin 2.1 g/dL (1.3-4.6); Glomerular Filtration Rate 136.1 mL/min (90-130); Glucose 76 mg/dL (65-115); Magnesium 1.9 mg/dL (1.7-2.3); NT Pro B Type Natriuretic Pept 18 pg/mL (0-125); Osmolality Calculated 291 mOsm/kg (285-295); Sodium 141 mmol/L (136-145); Total Bilirubin 0.2 mg/dL (0.15-1.2); Total Protein 5.7 g/dL (6.6-8.7)
--- NOTE | 2020-10-10 16:48 | CTR_ITS ---
PROCEDURE INFORMATION: Exam: CTA Chest With Contrast Exam date and time: 10/10/2020 4:48 PM Age: 65 years old Clinical indication: Abnormal findings; Abnormal radiologic exam of lung or chest; Additional info: Abnormal cxr. Syncope TECHNIQUE: Imaging protocol: Computed tomographic angiography of the chest with contrast. 3D rendering (Not supervised by radiologist): MIP and/or 3D reconstructed images were created by the technologist. Radiation optimization: All CT scans at this facility use at least one of these dose optimization techniques: automated exposure control; mA and/or kV adjustment per patient size (includes targeted exams where dose is matched to clinical indication); or iterative reconstruction. Contrast material: OMNI 350; Contrast volume: 95 ml; Contrast route: INTRAVENOUS (IV); COMPARISON: CT angio chest PE protcl [id number] 09/23/2019 9:46 PM RADIATION DOSE METRICS: Total DLP (mGy-cm): 542.33 FINDINGS: Pulmonary arteries: No pulmonary embolus. Aorta: No thoracic aortic aneurysm. Lungs: There is severe centrilobular and paraseptal emphysema. Scarring and suture material are noted in the left mid chest and left upper lobe. There are bullae in the lung apices with scarring. There is patchy opacity in the right middle lobe concerning for developing pneumonia. No pulmonary mass.; Calcified granuloma in the right lower lobe. Pleural spaces: No pleural effusion.; No pneumothorax. Heart: No pericardial effusion. Mediastinal space: No hiatal hernia. Lymph nodes: Worsening right hilar lymphadenopathy. A right hilar lymph node measures 2.2 x 3.4 cm; previously 1.5 x 3.0 cm. An AP window lymph node appears slightly larger than on the prior examination measuring 1.3 x 2.1 cm; previously 1.2 x 2.0 cm. An enlarging prevascular lymph node measures 1.1 x 1.7 cm. A worsening hilar lymph node measures 1.1 x 1.3 cm. Liver: Small simple hepatic cysts measure up to 0.4 cm. Mild prominence of the gastric wall may reflect a mild gastritis. Mild prominence of the left renal collecting system in the inferior pole. Bones/joints: Multiple old left rib fractures are noted. No acute fracture is identified. Cervical hardware is noted. CT/CT angio chest PE protcl [id number] IMPRESSION: 1. No pulmonary embolus. 2. Patchy opacity in the right middle lobe concerning for developing pneumonia. 3. Worsening mediastinal and bilateral hilar lymphadenopathy. Metastatic disease is not excluded. Consider PET-CT. 4. Severe emphysema. 5. Mild prominence of the gastric wall may reflect a mild gastritis. 6. Mild prominence of the left renal collecting system in the inferior pole. Radiation Dose CTDIVOL = (mGy): DLP = 542.33 (mGy-cm)
[2020-10-10 17:07] LABS: Troponin(5th) Baseline 7 ng/L (0-15)
--- NOTE | 2020-10-10 17:10 | ECG_ITS ---
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 Measurements Intervals [place] Rate: 68 P: 73 FL: 152 QRS: 71 QRSD: 84 T: 75 QT: 384 QTc: 411 Interpretive Statements SINUS RHYTHM MODERATE VOLTAGE CRITERIA FOR LVH, CONSIDER NORMAL VARIANT [MEETS CRITERIA IN ONE OF: R(aVL), S(V1), R(V5), R(V5/V6)+S(V1)] WARNING: DATA QUALITY MAY AFFECT INTERPRETATION Compared to ECG 10/10/2020 15:04:04 No significant changes Electronically Signed On 10-13-2020 18:30:47 CDT by Chloe Chow M.D. [email or web address] health system.[employer]/store/OM/[id number]
[2020-10-10] MEDS: iohexol 350 mg/mL 100 mL Btl IV (17:18)
[2020-10-10 17:24] LABS: INR 0.85 (0.8-1.2)
--- NOTE | 2020-10-10 18:17 | PC.NURSE ---
Please note that versed 6ml was pull from Pyxis on this patient but was NOT administered to him. Nursing staff and charge nurse notified.
--- NOTE | 2020-10-10 19:00 | PC.NURSE ---
Pt became upset when RN tried to obtain COVID swab pt asked to leave. Pt asked to leave to go smoke a cigarette. Nursed explained that it was aginst hospital policy and the pt became more irrate. Dr spoke with pt and was told the risks of leaving AMA - pt verbalized understanding. After the Dr left the room, pt tried to leave with intact IV. Pt returned to the room, IV removed, and AMA form was signed.
[2020-10-10 19:11] LABS: Troponin 5 2HR 13.07 ng/L (0-15); Troponin 5 2HR Delta 6.07 ABS# (0-10)
[2020-10-10 19:29] LABS: C Reactive Protein 31.5 mg/L (0.0-4.9)
[2020-10-10 19:30] LABS: Procalcitonin 0.44 ng/mL (0-0.5)
== END 2020-10-10 19:00 | disposition left against medical advice (07) ==
PROVIDERS: Emergency Provider Emergency Medicine
DX: R06.02 Shortness of breath (principal); Z53.21 Procedure and treatment not carried out due to patient leaving prior to being seen by health care provider; J44.9 Chronic obstructive pulmonary disease, unspecified; Z85.118 Personal history of other malignant neoplasm of bronchus and lung; F17.210 Nicotine dependence, cigarettes, uncomplicated
CPT/HCPCS: 70450; 71045; 71275; 80053; 83735; 83880; 84145; 84484; 85025; 85610; 86140; 93005; J7040; Q9967

== ENCOUNTER 2020-10-11 08:46 | Observation (INO) | payer MEDICARE, MEDICAID, SELFPAY ==
[2020-10-11] VITALS (14 sets, daily range): BP systolic 93–135; BP diastolic 57–85; PULSE 69–91; RESP 17–20; TEMP 36.8–36.9; O2SAT 88–100; BMI 19.3
--- NOTE | 2020-10-11 09:23 | ECG_ITS ---
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 Measurements Intervals [place] Rate: 69 P: 76 VT: 153 QRS: 65 QRSD: 89 T: 76 QT: 372 QTc: 400 Interpretive Statements SINUS RHYTHM MODERATE VOLTAGE CRITERIA FOR LVH, CONSIDER NORMAL VARIANT [MEETS CRITERIA IN ONE OF: R(aVL), S(V1), R(V5), R(V5/V6)+S(V1)] Compared to ECG 10/10/2020 17:04:51 No significant changes Electronically Signed On 10-13-2020 18:21:27 CDT by Chloe Chow M.D. [email or web address]alla[facility] hospitalChinese Onlinemercy health west hospital.[employer]/store/OM/[id number]
--- NOTE | 2020-10-11 09:36 | W.ED.SOB ---
HPI - SOB/Dyspnea General: Chief Complaint: Shortness of Breath/Dyspnea Stated Complaint: Low 02 Time Seen by Provider: 10/11/20 08:47 History of Present Illness: HPI Narrative: 65-year-old male presents emergency room advised to be admitted yesterday when he was seen with shortness of breath and a syncopal episode of unexplained etiology that it occurred previously. He is Dsatting at times down he reports down to the fifties and sixties. He usually wears 2 L by nasal cannula but only wears that at night. These episodes are happening during the day when he is not wearing oxygen and he will notice oxygen saturation drop. He did get labs and the CT done yesterday there is no PE but he had a positive delta troponin. Patient still does smoke. He has had pneumonectomy secondary to trauma and evidently a mass was removed. He denies any history of heart disease. MD elicited complaint: shortness of breath and cough Associated symptoms: Deny abdominal pain, chest pain, fever(s), nausea, orthopnea or vomiting Review of Systems Const: Reports: fatigue and malaise; Denies: fever(s), chills, body aches or change in appetite ENMT: Denies: throat pain, ear or mastoid pain, nasal discharge or nasal congestion Card: Reports: pre-syncope and dyspnea on exertion; Denies: chest pain, edema or orthopnea Resp: Reports: dyspnea and non-productive cough; Denies: productive cough GI: Denies: abdominal pain, nausea, vomiting, hematemesis, coffee ground emesis, diarrhea, constipation, bloating, hematochezia or melena : Denies: flank pain, dysuria, urinary frequency or urinary urgency Skin/Breast: Denies: rash or pruritus PFSH ED PFSH: Medical History Cervical post-laminectomy syndrome COPD (chronic obstructive pulmonary disease) History of lung cancer Lumbar post-laminectomy syndrome Spontaneous pneumothorax Surgical History History of cervical spinal surgery (05/14/12) C3-C4 JAVIER, Dr. Kirk History of decompression of median nerve (~1990) 1990 left wrist History of fusion of cervical spine Dr. May Kirk 03/31/2014 C7-T1 ACDFF Dr. May Kirk 05/14/2012 C3-C4 ACDFF Dr. May Kirk 05/18/2009 C4-C5 ACDFF History of lumbar fusion (~02/03/07) Dr. May Kirk 02/03/2007 L4-L5 anterior lumbar interbody fusion/fixation Dr. May Kirk 01/30/2006 Left L4-L5 hemilaminotomy/discectomy/foraminotomy History of lung surgery (~05/2008) Family History Mother Lung cancer Father Lung cancer Stroke Brother Lung cancer Social History Smoking and tobacco status: current every day smoker Alcohol intake: never Household members: spouse Marital status: Current occupational status: disabled History of recent travel: No Physical Exam Const: COMMON NORMALS: no acute distress GENERAL APPEARANCE: cooperative and comfortable ORIENTATION/CONSCIOUSNESS: Yes awake, Yes oriented to person, Yes oriented to place and Yes oriented to time HENMT: COMMON NORMALS: normocephalic, atraumatic and hearing grossly normal bilaterally HEAD & SCALP: normocephalic and atraumatic Neck/C-Spine: COMMON NORMALS: no JVD Resp: AUSCULTATION: rhonchi and wheezes Cardio: COMMON NORMALS: no JVD, regular rate, regular rhythm and No murmurs present (Cardio) RATE: regular rate RHYTHM: regular rhythm GI: COMMON NORMALS: Soft to palpation and No hepatosplenomegaly present AUSCULTATION: Yes normoactive bowel sounds PALPATION: Yes Soft to palpation, No Tenderness to palpation present (GI), No Guarding due to palpation present (GI) and Yes No hepatosplenomegaly present Extremity: COMMON NORMALS: normal to inspection, capillary refill normal, no clubbing, cyanosis or edema, no calf tenderness and no pedal edema Neuro: SENSORIUM/ORIENTATION: Yes oriented to person, Yes oriented to place and Yes oriented to time Skin: COMMON NORMALS: no rashes or lesions noted GENERAL SKIN EXAM: no rashes or lesions noted Course Vital Signs: Vital signs: Vital Signs Temperature 98.5 F 10/11/20 08:58 Pulse Rate 69 10/11/20 10:32 Respiratory Rate 18 08/18/21 10:32 Blood Pressure 124/77 08/18/21 10:32 Pulse Oximetry 98 10/11/20 11:35 MDM - SOB/Dyspnea MDM Narrative: Medical decision making narrative: Reviewed labs and imaging done at the most recent visit and this present visit. CT shows questionable right-sided opacity Covid swabs are being done. He was satting good as long as he stayed at rest. We did ambulatory oxygenation evaluation he desats and requires 3 L with activity but also in that same timeframe he became significantly bradycardic into the 40s and was symptomatic. Earlier in is here he had a bump in his troponin of 6 points. Its resolved back to normal at this point. Wearing [place] recommend that he be placed in observation and further evaluate for cardiac causes of this. That he will need continuous oxygen will also concerned with bradycardia with exertion being indication of underlying coronary disease he certainly has multiple risk factors. Patient has a heart score of 7-8. Lab Data: Labs: Lab Results 10/11/20 10/11/20 Range/Units 10:00 10:50 Specimen Type Arterial Sample Site Radial, left ABG pH 7.41 (7.35-7.45) ABG pCO2 51.6 H (35-45) mmHg ABG pO2 93.2 (80.0-100.0) mmH g ABG HCO3 32.5 H (22-26) mmol/L ABG O2 Saturation 98.2 ABG Base Excess 6.5 H (-2.0-2.0) mmol/ L Torey Test Pos A-a O2 Gradient 5.7 (5-10) mmHg Hematocrit 38.5 L (42-52) % Hgb O2 Saturation 95.5 (95-100) % Carboxyhemoglobin 2.3 (0.4-20.1) %THgb Methemoglobin 0.5 (0.4-1.5) % Total Hemoglobin 12.6 L (14-18) g/dL Sodium 141.0 (131-143) mmol/L Potassium 4.0 (3.5-5.0) mmol/L Glucose 94.0 (70-115) mg/dL Ionized Calcium 1.2 (1.1-1.4) mmol/L O2 Delivery Device Nc O2 Liters/Min 2.0 % FiO2 28.0 % Restrooms Or Lounges Maid ID Mt Troponin T Baselin e 7 (0-15) ng/L Discharge Plan Discharge Patient Disposition: Placed in Observation Clinical Impression: COPD exacerbation, Pneumonia, Bradycardia Coding Level of Care Code ED General Engineering Teacher for Chg Fwd Exam Comprehensive
[2020-10-11 10:33] LABS: Troponin(5th) Baseline 7 ng/L (0-15)
[2020-10-11 11:17] LABS: ABG PCO2 51.6 mmHg (35-45); ABG PH Result 7.41 (7.35-7.45); Alveolar-Arterial Oxygen Gradi 5.7 mmHg (5-10); Arterial Blood Gas Hematocrit 38.5 % (42-52); Base Excess ABG 6.5 mmol/L (-2.0-2.0); Blood Gas Allen Test Pos; Blood Gas Operator Identificat MT; Blood Gas Sample Site Radial, left; Blood Gas Sample Type Arterial; Carboxyhemoglobin 2.3 %THgb (0.4-20.1); HCO3 ABG 32.5 mmol/L (22-26); HGB O2 Sat 95.5 % (95-100); Ionized Calcium Level - ABG 1.2 mmol/L (1.1-1.4); Methemoglobin 0.5 % (0.4-1.5); Oxygen Device NC; Oxygen Saturation ABG 98.2; PO2 ABG 93.2 mmHg (80.0-100.0); Total Hemoglobin 12.6 g/dL (14-18)
[2020-10-11] MEDS: nicotine 21 mg Patch 1 PATCH TRANSDERMA (11:36)
--- NOTE | 2020-10-11 11:58 | PC.NURSE ---
Patient refuses to have covid swab done at this time. Physician notified.
[2020-10-11] MEDS: LORazepam 1 mg Tablet PO (12:47)
--- NOTE | 2020-10-11 13:10 | P.HP_ITS ---
Providers/Chief Complaint Chief Complaint: Low 02 History of Present Illness Gato Lizarraga is a 65 year old male who presents to the emergency department reporting episodes where he feels like he is going to pass out, or does pass out as well as some chest discomfort. He reports the episodes of passing out can occur once a week or so. He states he is usually exertional, starts seeing some spots, sits down or lays down and then feels like he is out for several hours. No seizure-like activity has ever been seen. He reports he has occasional chest discomfort, pressure on the left side of his chest discomfort that does not radiate, but also occurs with exertion. It does not a lways occur when the episodes of weakness and feeling like he is going to pass out occurs. This has been going on several weeks. He denies any prior history of heart disease. He has had no fever, significant cough, exposure to Covid, vaccination for Covid, or prior history of Covid. He has no nausea, vomiting, diaphoresis. He does have shortness of breath with exertion, which he relates to his emphysema. He has been told that he needed 2 to 3 L of oxygen at night only but he relates he might not feel like he is going to pass out if he wore the oxygen all the time. He is worried about wearing oxygen all the time. He has noted recently that his oxygen level goes down during the day when he is checking it. He believes his saturation level can be in the 70s and 80s at times. Usually this is when he does not have oxygen on. I have been told by the emergency department physician he gets somewhat bradycardic with exertion, into the 40s or 50s. No blocks were noted, with him remaining in sinus rhythm. He was seen yesterday in the emergency department as well, the emergency department at that time recommended he be admitted and patient decided to go home. Review of Systems General: Reports: 10 or more systems reviewed and unremarkable except in HPI and below Const: Denies: fever(s) or chills Eyes: Denies: change in vision ENMT: Denies: throat pain Card: Reports: chest pain, lightheadedness and syncope Resp: Reports: dyspnea; Denies: productive cough or non-productive cough GI: Denies: abdominal pain, nausea or vomiting : Denies: flank pain Musc: Denies: neck pain Skin/Breast: Denies: rash Neuro: Denies: headache(s) Psych: Reports: anxiety Endo: Denies: polyuria Jose/Lymph: Denies: easy bruising All/Imm: Denies: urticaria Medications/Allergies Home Medications Medication Instructions Recorded Confirmed Last Taken Type budesonide-formoterol HFA 160 2 puff INHALATION BID 04/09/19 10/11/20 10/10/20 History mcg-4.5 mcg/actuation aerosol inhaler tamsulosin 0.4 mg capsule 0.4 mg PO BID 04/09/19 10/11/20 10/10/20 History tiotropium bromide 1.25 2 puff INHALATION DAILY 04/09/19 10/11/20 02/04/20 History mcg/actuation mist for inhalation albuterol sulfate [ProAir HFA] 2 puff INHALATION Q6H PRN 09/23/19 10/11/20 09/24/19 History ropinirole 0.25 mg PO BEDTIME 01/23/20 10/11/20 10/10/20 History ondansetron HCl 4 mg PO Q6H PRN 01/29/20 10/11/20 Unknown History Chantix See Rx Instructions .ROUTE .COMPLEX 04/29/20 10/11/20 Unknown History baclofen 20 mg PO TID PRN 04/29/20 10/11/20 10/10/20 History naproxen 500 mg PO BID PRN 04/29/20 10/11/20 Unknown History cyanocobalamin (vitamin B-12) 1,000 mcg PO DAILY 10/10/20 10/11/20 10/10/20 History [Vitamin B-12] gabapentin 600 mg PO TID 10/10/20 10/11/20 10/10/20 History tadalafil [Cialis] 5 mg PO BEDTIME 10/10/20 10/11/20 Unknown History roflumilast [Daliresp] 500 mcg PO DAILY MDD SEE PHARMACY 10/11/20 10/11/20 Unknown History COMMENT Allergies Allergy/AdvReac Type Severity Reaction Status Date / Time fentanyl Allergy ADR-Hyperte Verified 08/29/20 13:00 nsion naproxen Allergy Unknown Verified 05/05/20 10:47 amitriptyline AdvReac mood Verified 05/29/20 11:11 altering cephalexin AdvReac nauseated Verified 05/29/20 11:11 clarithromycin AdvReac nauseated Verified 05/29/20 11:11 doxycycline AdvReac nauseated, Verified 05/29/20 11:11 vomiting tetracycline AdvReac nausea, Verified 05/29/20 11:11 vomiting PFSH Acute PFSH: Medical History (Updated 10/11/20 @ 13:35 by Bob Hernandez MD) Cervical post-laminectomy syndrome COPD (chronic obstructive pulmonary disease) Depression History of lung cancer Non-small cell lung cancer, squamous type, treated with resection History of melanoma Lumbar post-laminectomy syndrome Marijuana use, continuous Spontaneous pneumothorax Thyroid nodule Tobacco dependency Surgical History (Updated 10/11/20 @ 13:18 by Bob Hernandez MD) History of appendectomy History of cervical spinal surgery (05/14/12) C3-C4 ACDFF, Dr. Kirk History of decompression of median nerve (~1990) 1990 left wrist History of fusion of cervical spine Dr. May Kirk 03/31/2014 C7-T1 ACDFF Dr. May Kirk 05/14/2012 C3-C4 ACDFF Dr. May Kirk 05/18/2009 C4-C5 ACDFF History of lumbar fusion (~02/03/07) Dr. May Kirk 02/03/2007 L4-L5 anterior lumbar interbody fusion/fixation Dr. May Kirk 01/30/2006 Left L4-L5 hemilaminotomy/discectomy/foraminotomy History of lung surgery (~05/2008) Family History Mother Lung cancer Father Lung cancer Stroke Brother Lung cancer Social History Smoking and tobacco status: current every day smoker Alcohol intake: never Household members: spouse Marital status: Current occupational status: disabled History of recent travel: No Vitals/I&O/Wt Last Vital Signs Temp 98.5 F 10/11/20 08:58 Pulse 69 10/11/20 10:32 Resp 18 10/11/20 10:32 BP 124/77 10/11/20 10:32 Pulse Ox 98 10/11/20 11:35 Weight last 48 hrs Weight 61.235 kg Physical Exam Narrative: EXAM NARRATIVE: General exam is a thin appearing white male, no distress HEENT: Atraumatic normocephalic. Oropharynx clear. Neck is supple no lymphadenopathy or thyromegaly Cardiovascular regular rate and rhythm without murmur, no S3 or S4 Lungs diminished breath sounds bilaterally but clear Abdomen is soft with positive bowel sounds. No obvious organomegaly exam is deferred Extremities no cyanosis clubbing or edema, cap refill brisk Skin no rash Neuro: No obvious focal deficits Data Other data: EKG demonstrates sinus rhythm, normal axis, no acute changes. ABG demonstrates a pH of 7.41, PCO2 of 52, PO2 of 93. CBC done the day before demonstrates a white blood cell count of 5.4, hemoglobin of 11.8, platelet count of 179 CMP done the day before demonstrates sodium 141, potassium 4.0, chloride 103, bicarb 32, BUN 12, creatinine 0.6, calcium 8.3, magnesium 1.9, LFTs within normal limits. Baseline troponin was 7, with repeat of 13 yesterday. It is rechecked today and 7. CRP is 31.5 BNP 18 Procalcitonin 0.44 Chest CTA yesterday demonstrated no pulmonary embolism, question for developing pneumonia, bilateral hilar lymphadenopathy, severe emphysema, prominent gastric wall. Head CT done yesterday demonstrated no acute change. A&P Assessment and plan (1) Chest discomfort: Symptoms are exertional. Certainly has risk factors for coronary disease. Troponin is not elevated, nor was there a significant delta considering the low value With the troponin being normal that does not exclude chest discomfort and he did not have chest discomfort on presentation to the hospital this time. He was more worried about presyncope/syncope episodes. Aspirin 81 mg daily Echocardiogram Nuclear stress test Check TSH Status: Acute (2) Syncope: Patient has had episodes in which he has felt very tired, and essentially feeling like he was going to blackout. relates during these episodes he will lay down and it is hard to wake him up although it can be done. It may last for several hours. Patient and relates his oxygen level has been lower than usual with exertion. Typically he only uses 2 to 3 L at night when he sleeps but oxygen levels have been low during the day and with exertion. I think it is likely that his episodes are related to hypoxia, but could not exclude orthostatic hypotension or arrhythmia. Monitor on telemetry Echocardiogram as above Orthostatic blood pressures Discontinue ropinirole Reduce Flomax to 0.4 mg once daily Continue same doses of baclofen and Neurontin currently but these may need to be adjusted as well. Status: Acute (3) COPD (chronic obstructive pulmonary disease): No evidence of exertion Will need home O2 evaluation prior to discharge Considering no history of fever cough, normal white blood cell count, normal procalcitonin pneumonia is less likely and will hold off on any antibiotics. Status: Acute (4) Bradycardia: From what I understand the patient has had some bradycardia with exertion For now we will order telemetry When home O2 evaluation is done we will leave telemetry on to see if any arrhythmias occur. Status: Acute Additional A&P Information Tobacco tendency. Encourage abstinence History of lung cancer. Has some lymphadenopathy on CT chest. To follow-up with oncology as outpatient. Multiple other medical problems Discussed with patient in detail CODE STATUS. He wishes to be allow natural , but otherwise wants aggressive care. Lovenox for DVT prophylaxis Repeat CBC, CMP in the morning Covid testing in case surgical procedure is needed. Attestations Medical Necessity Statement*: Will need less than 2 midnight stay for evaluation of syncope and chest discomfort. Time Spent in Patient Care: Greater than 35 minutes Coding Level of Care Code Acute Tile Layer Drainage for [facility] Gwen Diagnoses Chest discomfort R07.89 Syncope R55 COPD (chronic obstructive pulmonary disease) J44.9 Bradycardia R00.1
[2020-10-11 14:08] LABS: SARS Covid-2 Antigen Negative (Negative)
[2020-10-11 14:13] LABS: Thyroid Stimulating Hormone 0.21 uIU/mL (0.27-4.20)
[2020-10-11 16:28] LABS: Free T4 Free Thyroxine 1.13 ng/dL (0.82-1.77); T3 Free 2.7 PG/ML (2.0-4.4)
[2020-10-11 17:16] LABS: Urine Appearance Clear (CLEAR); Urine Color Yellow (Yellow); pH Urine 8 (5-7)
[2020-10-11 17:17] LABS: Bilirubin Urine Neg (Negative); Blood Urine Neg (Negative); Glucose Urine UA Norm (Normal); Ketones Urine Negative (Negative); Leukocyte Esterase Urine Negative (Negative); Nitrate Urine Negative (Negative); Protein Urine Neg (Negative); Sulfosalicylic Acid Urine Negative (Negative); Urobilinogen Urine Neg (Negative)
[2020-10-11] MEDS: baclofen 10 mg Tablet 20 MG PO (17:54)
[2020-10-11] MEDS: enoxaparin 40 mg/0.4 mL Syringe SUBCUT (17:54)
[2020-10-11] MEDS: tamsulosin 0.4 mg Capsule PO (22:34)
[2020-10-11] MEDS: gabapentin 300 mg Capsule 600 MG PO (22:34)
[2020-10-12] VITALS: BP 111/66; PULSE 70; RESP 16; TEMP 36.6; O2SAT 100
[2020-10-12] MEDS: LORazepam 1 mg Tablet PO (03:52)
--- NOTE | 2020-10-12 05:35 | PC.NURSE ---
Patient left AMA Patient was agitated and anxious. Physician notified with order for ativan. Medication was administered per doctor's order. Patient was educated on up coming tests and the importance of those tests. Patient stated that he would rather have tests completed as outpatient. Patient was encourage to go see his primary physician as soon as possible. IV and telemetry removed. AMA form signed. Patient ambulated to ER exit with security. Physician notified.
--- NOTE | 2020-10-12 07:10 | PM.EVENT ---
Event Note Event Note: Patient left AMA early this morning prior to my evaluation. See nurses notes.
[2020-10-12 14:32] LABS: Coronavirus Test Green County Not Detected
--- NOTE | 2020-10-13 16:30 | PC.RESP ---
SMOKING CESSATION AND PULMONARY REHAB INFORMATION SENT TO PATIENT.
== END 2020-10-12 04:30 | disposition home or self-care (01) ==
LOC: ER 12:57 → MEDSURG 14:18
PROVIDERS: Admitting Provider Internal Medicine; Emergency Provider Family Medicine; Visit Provider Internal Medicine
DX: R07.89 Other chest pain (principal); R55 Syncope and collapse; Z53.29 Procedure and treatment not carried out because of patient's decision for other reasons; J44.9 Chronic obstructive pulmonary disease, unspecified; R00.1 Bradycardia, unspecified; F32.9 Major depressive disorder, single episode, unspecified; Z85.118 Personal history of other malignant neoplasm of bronchus and lung; F17.210 Nicotine dependence, cigarettes, uncomplicated; Z98.1 Arthrodesis status
CPT/HCPCS: 36600; 80051; 81001; 82330; 82805; 84439; 84443; 84481; 84484; 87426; 87635; 93005; 94640; 96372; 99285; G0378; J1650

== ENCOUNTER 2020-10-23 05:49 | Emergency (ER) | payer MEDICARE, MEDICAID, SELFPAY ==
[2020-10-23] VITALS (8 sets, daily range): BP systolic 116–140; BP diastolic 74–85; PULSE 65–87; RESP 14–38; TEMP 36.6; O2SAT 93–100; BMI 18.6
--- NOTE | 2020-10-23 06:43 | XRR_ITS ---
PROCEDURE INFORMATION: Exam: XR Chest Exam date and time: 10/23/2020 6:43 AM Age: 65 years old Clinical indication: Dyspnea; Prior surgery; Surgery date: 6+ months; Surgery type: Lt upper lobe left lung; Patient HX: SOB, coughing x 2 weeks; Additional info: Cp TECHNIQUE: Imaging protocol: XR of the chest. Views: 1 view. COMPARISON: CR XR chest 1V portable [id number] 10/10/2020 3:58 PM FINDINGS: Lungs: The lungs are hyperinflated, consistent with emphysema. Mild patchy airspace opacities (atelectasis and/or consolidation) at bilateral lung bases, similar to prior study. Pulmonary vasculature within normal limits. Pleural spaces: No visible pneumothorax or pleural effusion. Heart/Mediastinum: Heart size within normal limits. Bones/joints: Healed left rib fractures as previously. Other findings: Elevation of the left hemidiaphragm as previously. XR/XR chest 1V portable [id number] IMPRESSION: 1. Mild patchy airspace opacities (atelectasis and/or consolidation) at bilateral lung bases, similar to prior study.
--- NOTE | 2020-10-23 06:43 | ECG_ITS ---
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 Measurements Intervals [place] Rate: 90 P: 80 [place]: 142 QRS: 61 QRSD: 89 T: 81 QT: 351 QTc: 430 Interpretive Statements SINUS RHYTHM WITH OCCASIONAL VENTRICULAR PREMATURE COMPLEXES MODERATE VOLTAGE CRITERIA FOR LVH, CONSIDER NORMAL VARIANT [MEETS CRITERIA IN ONE OF: R(aVL), S(V1), R(V5), R(V5/V6)+S(V1)] Compared to ECG 10/11/2020 09:29:22 Ventricular premature complex(es) now present Electronically Signed On 10-23-2020 19:29:54 CDT by Tito Vickers M.D. [id number]
[2020-10-23 06:53] LABS: Basophils % 0.3 %; Eosinophils # 0.2 10^3/uL (0.0-0.8); Eosinophils % 2.6 %; Hematocrit 40.9 % (42.0-52.0); Hemoglobin 12.7 g/dL (11.7-16.6); Lymphocytes # 2.3 10^3/uL (0.8-4.8); Mean Corpuscular HGB Conc 31.1 g/dL (30.0-36.0); Mean Corpuscular Hemoglobin 28.5 pg (28.0-34.0); Mean Corpuscular Volume 91.7 fl (80-94); Monocytes # 0.4 10^3/uL (0.2-0.9); Monocytes % 6.6 %; Neutrophils % 50.3 %; Nucleated Red Blood Cells % 0 %; Platelet Count 220 10^3/cmm (130-400); Red Blood Count 4.46 10^6/uL (4.1-5.3); White Blood Count 5.8 10^3/uL (4.0-10.0)
[2020-10-23 07:07] LABS: Troponin(5th) Baseline 8 ng/L (0-15)
--- NOTE | 2020-10-23 07:11 | W.ED.CHESTPA ---
HPI - Chest Pain General: Chief Complaint: Chest Pain Stated Complaint: CHEST PAIN/SOB Time Seen by Provider: 10/23/20 05:56 History of Present Illness: HPI narrative: 65-year-old male presents emergency room with complaint of chest discomfort.. Patient has had this intermittently for the last couple of weeks. We have previously seen him and admitted him for elevated troponin. He left AMA at that time he has follow-up with Dr. Couch scheduled he also has a set Lexiscan sestamibi stress test scheduled he has been having a cough with minimally productive sputum and some shortness of breath and low-grade subjective fever. He denies any vomiting or diarrhea.He does have COPD he is continue to use his usual medications he was on a course of antibiotics over a week ago that did not seem to have helped. MD complaint: chest pain Pertinent past history: coronary artery disease Onset (ago): week(s) Timing of current episode: episodic Prior episodes: Yes Onset: during rest and during exertion Pain location: left chest Pain radiation: left shoulder Severity: moderate Quality: aching and heaviness Relieving factors: nothing Exacerbating factors: exertion Associated symptoms: Reports dyspnea and sense of impending doom; Deny abdominal pain, diaphoresis, fever(s), leg edema, nausea, palpitations, syncope or vomiting Treatment prior to arrival: none Review of Systems Const: Denies: fever(s) or diaphoresis ENMT: Denies: throat pain, ear or mastoid pain, nasal discharge or nasal congestion Card: Denies: palpitations or syncope Resp: Reports: dyspnea GI: Denies: abdominal pain, nausea or vomiting : Denies: flank pain, dysuria, urinary frequency or urinary urgency Skin/Breast: Denies: rash or pruritus PFSH ED PFSH: Medical History Cervical post-laminectomy syndrome COPD (chronic obstructive pulmonary disease) Depression History of lung cancer Non-small cell lung cancer, squamous type, treated with resection History of melanoma Lumbar post-laminectomy syndrome Marijuana use, continuous Spontaneous pneumothorax Thyroid nodule Tobacco dependency Surgical History History of appendectomy History of cervical spinal surgery (05/14/12) C3-C4 ACDFF, Dr. Kirk History of decompression of median nerve (~1990) 1990 left wrist History of fusion of cervical spine Dr. May Kirk 03/31/2014 C7-T1 ACDFF Dr. May Kirk 05/14/2012 C3-C4 ACDFF Dr. May Kirk 05/18/2009 C4-C5 ACDFF History of lumbar fusion (~02/03/07) Dr. May Kirk 02/03/2007 L4-L5 anterior lumbar interbody fusion/fixation Dr. May Kirk 01/30/2006 Left L4-L5 hemilaminotomy/discectomy/foraminotomy History of lung surgery (~05/2008) Family History Mother Lung cancer Father Lung cancer Stroke Brother Lung cancer Social History Smoking and tobacco status: current every day smoker Alcohol intake: never Household members: spouse Marital status: Current occupational status: disabled History of recent travel: No Physical Exam Const: COMMON NORMALS: no acute distress GENERAL APPEARANCE: cooperative and comfortable ORIENTATION/CONSCIOUSNESS: Yes awake, Yes oriented to person, Yes oriented to place and Yes oriented to time HENMT: COMMON NORMALS: normocephalic, atraumatic and hearing grossly normal bilaterally HEAD & SCALP: normocephalic and atraumatic Neck/C-Spine: COMMON NORMALS: no JVD Resp: COMMON NORMALS: normal respiratory effort, No retractions and No use of accessory muscles AUSCULTATION: wheezes Cardio: COMMON NORMALS: no JVD, regular rate, regular rhythm and No murmurs present (Cardio) RATE: regular rate RHYTHM: regular rhythm GI: COMMON NORMALS: Soft to palpation and No hepatosplenomegaly present AUSCULTATION: Yes normoactive bowel sounds PALPATION: Yes Soft to palpation, No Tenderness to palpation present (GI), No Guarding due to palpation present (GI) and Yes No hepatosplenomegaly present Extremity: COMMON NORMALS: normal to inspection, capillary refill normal, no clubbing, cyanosis or edema, no calf tenderness and no pedal edema Neuro: SENSORIUM/ORIENTATION: Yes oriented to person, Yes oriented to place and Yes oriented to time Skin: COMMON NORMALS: no rashes or lesions noted GENERAL SKIN EXAM: no rashes or lesions noted Course Vital Signs: Vital signs: Vital Signs Temperature 97.8 F 10/23/20 05:54 Pulse Rate 80 10/23/20 10:01 Respiratory Rate 19 H 10/23/20 10:01 Blood Pressure 140/83 10/23/20 10:01 Pulse Oximetry 93 10/23/20 10:01 MDM - Chest Pain MDM Narrative: Medical decision making narrative: Troponins negative. Will start on antibiotics steroids albuterol inhaler if not improving recheck. Lab Data: Labs: Lab Results 10/23/20 10/23/20 10/23/20 Range/Units 06:05 06:05 06:05 WBC 5.8 (4.0-10.0) 10^3/ uL RBC 4.46 (4.1-5.3) 10^6/u L Hgb 12.7 (11.7-16.6) g/dL Hct 40.9 L (42.0-52.0) % MCV 91.7 (80-94) fl MCH 28.5 (28.0-34.0) pg MCHC 31.1 (30.0-36.0) g/dL RDW 13.0 (12.1-15.1) % Plt Count 220 (130-400) 10^3/c mm MPV 11.0 H (7.4-10.4) fL Neut % (Auto) 50.3 % Lymph % (Auto) 40.0 % [place] % (Auto) 6.6 % Eos % (Auto) 2.6 % Baso % (Auto) 0.3 % Neut # (Auto) 2.90 (1.8-7.7) 10^3/u L Lymph # (Auto) 2.3 (0.8-4.8) 10^3/u L [place] # (Auto) 0.4 (0.2-0.9) 10^3/u L Eos # (Auto) 0.2 (0.0-0.8) 10^3/u L Baso # (Auto) 0.0 (0.0-0.1) 10^3/u L Nucleated RBC % (a uto) 0 % Nucleated RBCs # 0.0 /100WBC D-Dimer 0.75 H (0-0.59) ug/mIFE U Sodium 139 (136-145) mmol/L Potassium 4.3 (3.5-5.1) mmol/L Chloride 101 (98-107) mmol/L Carbon Dioxide 33 H (22-29) mmol/L Anion Gap 9.3 (5-19) BUN 8 (8-23) mg/dL Creatinine 0.6 L (0.7-1.2) mg/dL GFR Calculation 136.1 H (90-130) mL/min Glucose 104 (65-115) mg/dL Calculated Osmolal ity 287 (285-295) mOsm/k g Calcium 9.1 (8.5-10.5) mg/dL Total Bilirubin 0.2 (0.15-1.2) mg/dL AST 14 (0-40) U/L ALT 10 (0-41) U/L Alkaline Phosphata se 59 (40-130) IU/L Troponin T Baselin e (0-15) ng/L Troponin T 120 Min vitaliy (0-15) ng/L Delta Troponin T (0-10) ABS# NT-Pro-B Natriuret Pep 71 (0-125) pg/mL Total Protein 6.9 (6.6-8.7) g/dL Albumin 3.7 (3.5-5.2) g/dL Globulin 3.2 (1.3-4.6) g/dL 10/23/20 10/23/20 Range/Units 06:05 08:12 WBC (4.0-10.0) 10^3/ uL RBC (4.1-5.3) 10^6/u L Hgb (11.7-16.6) g/dL Hct (42.0-52.0) % MCV (80-94) fl MCH (28.0-34.0) pg MCHC (30.0-36.0) g/dL RDW (12.1-15.1) % Plt Count (130-400) 10^3/c mm MPV (7.4-10.4) fL Neut % (Auto) % Lymph % (Auto) % [place] % (Auto) % Eos % (Auto) % Baso % (Auto) % Neut # (Auto) (1.8-7.7) 10^3/u L Lymph # (Auto) (0.8-4.8) 10^3/u L [place] # (Auto) (0.2-0.9) 10^3/u L Eos # (Auto) (0.0-0.8) 10^3/u L Baso # (Auto) (0.0-0.1) 10^3/u L Nucleated RBC % (a uto) % Nucleated RBCs # /100WBC D-Dimer (0-0.59) ug/mIFE U Sodium (136-145) mmol/L Potassium (3.5-5.1) mmol/L Chloride (98-107) mmol/L Carbon Dioxide (22-29) mmol/L Anion Gap (5-19) BUN (8-23) mg/dL Creatinine (0.7-1.2) mg/dL GFR Calculation (90-130) mL/min Glucose (65-115) mg/dL Calculated Osmolal ity (285-295) mOsm/k g Calcium (8.5-10.5) mg/dL Total Bilirubin (0.15-1.2) mg/dL AST (0-40) U/L ALT (0-41) U/L Alkaline Phosphata se (40-130) IU/L Troponin T Baselin e 8 (0-15) ng/L Troponin T 120 Min vitaliy 7.17 (0-15) ng/L Delta Troponin T -0.83 L (0-10) ABS# NT-Pro-B Natriuret Pep (0-125) pg/mL Total Protein (6.6-8.7) g/dL Albumin (3.5-5.2) g/dL Globulin (1.3-4.6) g/dL Discharge Plan Discharge Patient Disposition: Home Clinical Impression: Pneumonia, Atypical chest pain Condition: Stable Prescriptions: New albuterol sulfate 90 mcg/actuation HFA aerosol inhaler 2 inh INHALATION Q4H PRN (Reason: shortness of breath or wheezing) Qty: 18 RF: 0 levofloxacin 750 mg tablet 750 mg PO DAILY 10 Days RF: 0 No Action tamsulosin 0.4 mg capsule 0.4 mg PO BID RF: 0 Symbicort 160-4.5 mcg/actuation HFA aerosol inhaler 2 puff INHALATION BID RF: 0 Spiriva Respimat 1.25 mcg/actuation mist 2 puff INHALATION QAM RF: 0 prednisone 5 mg tablet 5 - 10 mg PO BID PRN (Reason: lungs) RF: 0 albuterol sulfate [ProAir HFA] 90 mcg/actuation Hfa Aerosol Inhaler 2 puff INHALATION Q6H PRN (Reason: Shortness Of Breath) RF: 0 baclofen 20 mg tablet 20 mg PO TID PRN (Reason: Muscle Spasm) RF: 0 naproxen 500 mg tablet 500 mg PO BID PRN (Reason: Pain) RF: 0 gabapentin 600 mg tablet 600 mg PO TID RF: 0 tadalafil [Cialis] 5 mg tablet 5 mg PO BEDTIME RF: 0 multivitamin Tablet 1 tab PO QAM RF: 0 Vitamin B-12 2,500 mcg Tablet, Sublingual 2,500 mcg SUBLINGUAL QAM RF: 0 Vitamin D3 1 cap PO QAM RF: 0 ropinirole 0.25 mg Tablet 0.25 mg PO BEDTIME RF: 0 ondansetron HCl 4 mg tablet 4 mg PO Q6H PRN (Reason: nausea/vomiting) RF: 0 Daliresp 500 mcg tablet 500 mcg PO QAM RF: 0 Discharge Orders: Discharge ED (Routine); Ordered 10/23/20 Ordered By: Clayton Cortes Discharge Diet: Usual diet Discharge Activity: Limit activity as instructed Patient Instructions: Opioid Safety Coding Level of Care Code ED Professor Of Family Medicine for Laci Fwd Exam Comprehensive
[2020-10-23 07:13] LABS: D Dimer 0.75 ug/mIFEU (0-0.59)
[2020-10-23 07:16] LABS: Alanine Aminotransferase 10 U/L (0-41); Albumin Level 3.7 g/dL (3.5-5.2); Alkaline Phosphatase 59 IU/L (40-130); Anion Gap 9.3 (5-19); Aspartate Amino Transferase 14 U/L (0-40); Blood Urea Nitrogen 8 mg/dL (8-23); Calcium 9.1 mg/dL (8.5-10.5); Carbon Dioxide 33 mmol/L (22-29); Chloride 101 mmol/L (98-107); Globulin 3.2 g/dL (1.3-4.6); Glomerular Filtration Rate 136.1 mL/min (90-130); Glucose 104 mg/dL (65-115); NT Pro B Type Natriuretic Pept 71 pg/mL (0-125); Osmolality Calculated 287 mOsm/kg (285-295); Potassium 4.3 mmol/L (3.5-5.1); Sodium 139 mmol/L (136-145); Total Bilirubin 0.2 mg/dL (0.15-1.2); Total Protein 6.9 g/dL (6.6-8.7)
[2020-10-23 07:18] LABS: Creatinine Clr Calc Pharmacy 105.1032
[2020-10-23] MEDS: LORazepam 1 mg Tablet PO (07:19)
--- NOTE | 2020-10-23 07:24 | CT_ITS ---
WS: [id number] CT CHEST ANGIOGRAPHY WITH REFORMATS HISTORY: chest pain, dyspnea, elevated d dimer TECHNIQUE: Contiguous axial images are obtained through the chest during arterial injection of intrav enous contrast. Images are reconstructed to evaluate the pulmonary arteries. MIP imaging also reviewe d. All CT scans at [facility] use at least one of these dose optimization techniques: aut omated exposure control; mA and/or kV adjustment per patient size (includes targeted exams where dose is matched to clinical indication); or iterative reconstruction. CONTRAST: Omnipaque 350; 95 mL IV. DLP: 509.27 mGy.cm COMPARISON: 10/10/2020 Good opacification of the pulmonary arteries. No pulmonary embolism is identified. Pulmonary artery s ize is enlarged and equal to the aorta. Mild atherosclerotic changes within the aorta. Heart is thor l size with no RIGHT heart strain. No pericardial or pleural effusions. Severe emphysema. Mild elevation of the LEFT hemidiaphragm is chronic. Extensive bullous and bleb dis ease bilaterally. Mild improvement in the previously described opacification in the RIGHT middle lobe along the fissure. There is a new nodule measuring 10 mm within the more superior portion of the RIG HT middle lobe anteriorly. This is probably an area of atelectasis or fluid. Developed since 1. Enlarged lymph nodes greatest on the RIGHT. RIGHT hilar lymph node measures 1.7 cm which is similar t o the prior study. RIGHT interlobar lymph nodes are enlarged with the largest measuring 10 mm. Smalle r lymph nodes on the LEFT. AP window lymph node measures 9 mm. These all may be reactive lymph nodes. Cannot exclude occult neoplasm. No adrenal mass. Prior fusion hardware in the cervical spine. No osteoblastic or osteolytic bone disease. Extensive ri b deformity in the LEFT thorax from prior fractures with healing. CT/CT angio chest PE protcl [id number] IMPRESSION: 1. No pulmonary embolism. 2. Severe emphysema. 3. Mild improvement of the recently described RIGHT middle lobe pneumonia. The re is a new nodule measuring 10 mm in the RIGHT middle lobe. Due to its acute o nset this is probably an area of atelectasis or fluid or pneumonitis. 4. Mediastinal and hilar adenopathy is unchanged. This may all be reactive lym phadenopathy. Occult neoplasm cannot be completely excluded. These lymph nodes have slightly increased in size over the last year.
[2020-10-23] MEDS: iohexol 350 mg/mL 100 mL Btl IV (07:58)
[2020-10-23 08:43] LABS: Troponin 5 2HR 7.17 ng/L (0-15)
--- NOTE | 2020-10-23 08:43 | ECG_ITS ---
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 Measurements Intervals [place] Rate: 63 P: 69 OR: 157 QRS: 65 QRSD: 90 T: 73 QT: 392 QTc: 404 Interpretive Statements SINUS RHYTHM MODERATE VOLTAGE CRITERIA FOR LVH, CONSIDER NORMAL VARIANT [MEETS CRITERIA IN ONE OF: R(aVL), S(V1), R(V5), R(V5/V6)+S(V1)] Compared to ECG 10/11/2020 09:29:22 No significant changes Electronically Signed On 10-23-2020 19:31:07 CDT by Tito Vickers M.D. [id number]
[2020-10-23 08:44] LABS: Troponin 5 2HR Delta -0.83 ABS# (0-10)
--- NOTE | 2020-10-23 09:28 | PC.PHAR ---
pts verified pts medications states she makes his neighborhood planner up for him
== END 2020-10-23 10:01 | disposition home or self-care (01) ==
PROVIDERS: Emergency Provider Family Medicine
DX: J18.9 Pneumonia, unspecified organism (principal); R07.89 Other chest pain; J44.9 Chronic obstructive pulmonary disease, unspecified; I25.10 Atherosclerotic heart disease of native coronary artery without angina pectoris; F17.200 Nicotine dependence, unspecified, uncomplicated
CPT/HCPCS: 36415; 71045; 71275; 80053; 83880; 84484; 85025; 85378; 93005; 99284; Q9967

== ENCOUNTER 2020-10-26 08:23 | Outpatient (CLI) | payer MEDICARE, MEDICAID, SELFPAY ==
--- NOTE | 2020-10-26 15:58 | ONC FU_ITS ---
Dr. Mullen follow up note Patient: Gato Lizarraga Unit #: [id number]: 1955 Dicatated By: Marisa Mullen M.D.Date of Visit:Oct 26, 2020 Onc Med Follow-up/Prog Note History of Present Illness: Mr. Lizarraga is a 64-year-old gentleman with history of small left upper lobe pulmonary nodule first seen on CT scan of chest done in February 2017. A follow-up CT scan done on 10/02/2017 showed small increase in size. CT PET scan was done on 10/09/2017 showed increased activity in this suspicious lesion and also in right thyroid lobe nodule. Mr Lizarraga has history of COPD/emphysema bilaterally and is dependent on home oxygen. Mr Lizarraga underwent left upper lobe wedge resection on 11/10/2017. 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 An additional nodule in left upper lung apex was a hematoma as per discussion with Dr. Cummings pathologist. Patient tolerated procedure well PMH: history of melanoma excision from his head ???2 in the past. 40+ year history of chronic smoking CT Chest from 07/15/2019. .showed Prior postoperative changes resection left upper lobe pulmonary nodule. No evidence of recurrent parenchymal lesion in this location. 2. Noncalcified nodule left lower lobe measuring 7 mm with surrounding fibrosis. This is increased since the prior examination recommend 3-month follow-up. 3. No mediastinal or hilar lymphadenopathy. 4. Advanced chronic emphysematous changes. Came for follow-up, denies any specific complaint except dyspnea on exertion, using home oxygen for chronic emphysema and still smoking. Denies any hemoptysis or hematemesis complaining of generalized musculoskeletal pain, with recently worsening and also underwent extensive C-spine work-up which include CT scan of C-spine CT cervical myelogram done in October 2019 for neck pain showed multilevel moderate to severe bony foraminal narrowing worse at left C5-C6 and bilateral C6-7 and anterior cervical fusion at C3-4 and C4 and 5 and small central disc protrusion at T1-2 with slight contact of thoracic cord Patient also had CT scan of chest abdomen done on September 24, 2019 which showed moderate to severe paraseptal emphysema bilaterally and no mention of left lower lobe nodule which was seen in CT scan of the chest done in June 2019. CT scan of her abdomen shows mild rectal wall thickening, as per patient he has history of rectal abscess in the past which was drained couple of times. And last colonoscopy was done about 7-8 years ago. Follow-up CT scan of chest done on March 24, 2020 showed postoperative changes resection left upper lobe pulmonary nodule. No evidence of recurrent disease. Noncalcified nodule left lower lobe measuring 5 mm with surrounding fibrosis. This has decreased in size and less dense. No mediastinal lymphadenopathy. Advanced chronic emphysematous changes Bone scan done on March 24, 2020 shows no evidence of bone mets Follow-up CT scan of chest done on September 19, 2020 shows no new pulmonary mass or lymphadenopathy. Stable appearing small nodular infiltrate in the left lower lobe since previous study done on March 24 2020 Came for follow-up, denies any specific complaints except generalized weakness and fatigue and chronic pains and anxiety for which she is being managed by his primary care physician, as per patient recently he went to hospital with chest pain and dyspnea and his lab work-up showed increased D-dimer so on October 23, 2020 he underwent CTA chest which showed no pulmonary embolism, severe emphysema, mild improvement in recently described right middle lobe pneumonia., Now a new nodule measuring 10 mm in the right middle lobe. Due to its acute onset could be atelectasis or fluid or pneumonitis. Mediastinal and hilar adenopathy is unchanged. Could be reactive, these lymph nodes are slightly increased in size over the last year now measuring 18 mm compared to [address] scan of chest done on September 19, 2020 showed no lymphadenopathy but when Dr. Hdez, Radiologist reviewed that scan too and she did notice 10 to 12 mm lymph nodes but they were stable when compared with scan done this year ago.Patient denies any hemoptysis or hematemesis denies any fever or chills denies any nausea or vomiting denies any diarrhea or constipation denies any dysphagia denies any new bony pains Medications: Albuterol Sulfate 1 ((2.5 mg/3ml) 0.083%) Nebulization solution Inhalation PRN, ARIPiprazole 1 Tablet (of 20 mg) Oral daily, Baclofen 1 Tablet (of 20 mg) Oral b.i.d., Cialis 1 Tablet (of 5 mg) Oral daily, FLUoxetine HCl 1 Capsule (of 20 mg) Oral daily, Gabapentin 1 Tablet (of 600 mg) Oral t.i.d., Keflex 1 Tablet (of 500 mg) Capsule Oral four times a day, Multiple Vitamins-Minerals 1 Tablet Oral daily, predniSONE 1 Tablet (of 20 mg) Oral daily for 30 days, Spiriva Respimat 1 Puff(s) (of 1.25 mcg/act) Aerosol, solution Inhalation b.i.d., Symbicort 2 puff(s) (of 160-4.5 mcg/act) Aerosol Inhalation b.i.d., Tamsulosin HCl 2 Capsule (of 0.4 mg) Oral daily Allergies: Ambien, Aminophylline, Amitriptyline HCl, Biaxin, Cymbalta, Doxycycline, FentaNYL, fentaNYL Citrate, Ibuprofen, Ketorolac Tromethamine, Methadone HCl, Nubain, and Tetracycline HCl. Review of Systems: Review of Systems is not available for this patient. Vital Signs: Performed on Oct 26, 2020 09:07 Height - 70.50 in Weight - 137.4 lbs (HIGH) BSA - 1.79 sq.m BMI - 19.44 Temperature - 98.9 F (HIGH) Pulse - 132 /min (HIGH) Respiration - 20 /min BP - 100/69 mm(hg) O2 Sat - 94 % (LOW) Pain - 7 Fatigue - 10 Performance Status: 0 - Fully active, able to carry on all predisease activities without restrictions. (ECOG) Physical Examination: ENMT - Poor oral hygiene, no thrush or jaundice, Respiratory - Poor air entry otherwise clear, Cardiovascular - Regular rate and rhythm of heart, Abdomen - Soft, bowel sounds present, Extremities - No visible edema. Lab/Imaging: Test performed on Sep 19, 2020 14:41 BUN 9 mg/dL Creatinine 0.7 mg/dL Cr Clearance (Est) 90.37 mL/min eGFR 113.9 mL/min Impression: 1. 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 T1a N X, MX stage I A1 Advanced is COPD with emphysema on home oxygen 40+ years History of chronic smoking next Right thyroid nodule evaluated by ENT Dr. Umanzor. CT Chest from 07/15/2019. showed Prior postoperative changes resection left upper lobe pulmonary nodule. No evidence of recurrent parenchymal lesion in this location. 2. Noncalcified nodule left lower lobe measuring 7 mm with surrounding fibrosis. This is increased since the prior examination recommend 3-month follow-up. 3. No mediastinal or hilar lymphadenopathy. 4. Advanced chronic emphysematous changes. Follow-up CT scan of chest done on March 24, 2020 showed postoperative changes, resection left upper lobe pulmonary nodule. No recurrence of disease, no mediastinal or hilar lymphadenopathy Noncalcified nodule left lower lobe measuring 5 mm with surrounding fibrosis this is decreased in size and less dense. Advanced chronic emphysematous changes Bone scan done on March 24, 2020 showed no evidence of bone mets Plan: Discussed with patient regarding his recently done CTA chest angiography study which showed mediastinal and hilar adenopathy which is unchanged, may be all reactive. Occult neoplasm cannot be completely excluded. These lymph nodes have slight increase in size over the last year, as per discussion with Dr. Hdez, radiologist, there is a slightly increased in size compared to 12 mm last year versus 16 to 18 mm this year, could be reactive, as per patient he was treated for pneumonia recently. Otherwise no new lesions except 10 mm right lobe nodule which could be due to atelectasis or fluid or pneumonitis or inflammatory. At this point, will consider repeating CT scan of chest in 2 months and then compare if there is a evidence of progressive lymphadenopathy, will consider CT PET scan Patient return to clinic in 2 months with CBC CMP and follow-up CT scan of chest Signed By: Marisa Mullen M.D. <<Signature on File>>
== END 2020-10-26 08:24 | disposition home or self-care (01) ==
LOC: ONCMED 08:26
PROVIDERS: PCP Family Medicine; Visit Provider Internal Medicine Hematology & Oncology
DX: C34.12 Malignant neoplasm of upper lobe, left bronchus or lung (principal); Z79.899 Other long term (current) drug therapy
CPT/HCPCS: 99214

== ENCOUNTER 2020-11-03 12:54 | Outpatient (CLI) | payer MEDICARE, MEDICAID, SELFPAY ==
--- NOTE | 2020-11-03 13:00 | XR_ITS ---
WS: [id number] Left ankle, 2 views, 11/03/2020 Clinical Data: ankle swelling Comparison: Left ankle, 08/29/2020. Findings: No fractures or dislocations are seen. The ankle mortise is normal. The talus and calcaneus are unrem arkable. There is soft tissue swelling over the lateral malleolus. XR/XR ankle LT 2V 40910 Impression: 1. Negative for fracture of the left ankle. 2. Soft tissue swelling over lateral malleolus.
== END 2020-11-03 12:55 | disposition home or self-care (01) ==
LOC: RAD 12:58
PROVIDERS: PCP Family Medicine; Visit Provider Internal Medicine Pulmonary Disease
DX: M79.89 Other specified soft tissue disorders (principal)
CPT/HCPCS: 73600

== ENCOUNTER 2020-12-22 09:21 | Outpatient (CLI) | payer MEDICARE, MEDICAID, SELFPAY ==
--- NOTE | 2020-12-22 | CT_ITS ---
WS: [id number] CT CHEST AND ABDOMEN WITH CONTRAST HISTORY: LUNG CA RESTAGE TECHNIQUE: Axial imaging is performed through the chest and abdomen with IV and oral contrast.. Sagit gualberto and coronal reformats. All CT scans at [facility] use at least one of these dose optimiza tion techniques: automated exposure control; mA and/or kV adjustment per patient size (includes targe andi exams where dose is matched to clinical indication); or iterative reconstruction. CONTRAST: Omnipaque 300; 95 mL IV. DLP: 310.39 mGy-cm. COMPARISON: 10/23/2020, 10/10/2020 and 01/23/[address]: Severe bullous emphysema. Fibrotic changes at the lung apices. Recently described ovoid nodule in the RIGHT middle lobe has resolved. There is now mild reticulation and nodules consistent with endobronc hial pneumonia. No new pneumonia. Focal areas of scarring and atelectasis at the lung bases. Again no andi are the prominent lymph nodes at the RIGHT hilum. The entire cluster measures 19 x 17 mm. Lymph n odes in this distribution have been prominent over several prior examinations. Atherosclerosis aorta. Normal size pulmonary artery. Deformity in the posterior LEFT thorax probably from prior trauma with healing fractures. No osteoblastic or osteolytic bone disease. Abdomen CT: Too small to characterize hypodensity in the LEFT lobe of the liver has been present on prior studies . No evidence for metastatic disease. Gallbladder is normal. Spleen is normal size. Pancreas and adre nal glands are very difficult to visualize as there is very little mesenteric fat. Patient has known bilateral extrarenal pelves. Mild atherosclerosis aorta. No ascites identified. No lymph nodes are se en but may be difficult to visualize. Visualized colon demonstrates constipation. Anterior lumbar fusion at L4-5. No osteoblastic or osteolytic bone disease. CT/CT chest abdomen w con* IMPRESSION: 1. Resolved RIGHT middle lobe nodule since 10/23/2020. Favor this is probably a jonny of atelectasis or localized fluid. 2. There is now mild pneumonitis in the RIGHT middle lobe. 3. Severe emphysema. No evidence for metastatic disease within the lungs or re current neoplasm. 4. Continued mild enlarged RIGHT hilar lymph nodes. Probably reactive. Similar lymph nodes have been noted on prior examinations. 5. Limited evaluation of the abdominal organs due to lack of fat. There is no evidence for metastatic disease to the liver.
[2020-12-22 09:54] LABS: Basophils % 0.7 %; Eosinophils # 0.1 10^3/uL (0.0-0.8); Eosinophils % 1.3 %; Hematocrit 37.5 % (42.0-52.0); Hemoglobin 11.7 g/dL (11.7-16.6); Lymphocytes # 1.5 10^3/uL (0.8-4.8); Lymphocytes % 28.7 %; Mean Corpuscular HGB Conc 31.2 g/dL (30.0-36.0); Mean Corpuscular Hemoglobin 27.9 pg (28.0-34.0); Mean Corpuscular Volume 89.5 fl (80-94); Mean Platelet Volume 10.4 fL (7.4-10.4); Monocytes # 0.4 10^3/uL (0.2-0.9); Monocytes % 7.7 %; Neutrophils # 3.29 10^3/uL (1.8-7.7); Neutrophils % 61.6 %; Nucleated Red Blood Cells % 0 %; Platelet Count 234 10^3/cmm (130-400); Red Blood Count 4.19 10^6/uL (4.1-5.3); Red Cell Distribution Width 13.2 % (12.1-15.1); White Blood Count 5.3 10^3/uL (4.0-10.0)
[2020-12-22 10:10] LABS: Alanine Aminotransferase 6 U/L (0-41); Albumin Level 3.5 g/dL (3.5-5.2); Alkaline Phosphatase 62 IU/L (40-130); Anion Gap 8.9 (5-19); Aspartate Amino Transferase 19 U/L (0-40); Blood Urea Nitrogen 10 mg/dL (8-23); Calcium 8.9 mg/dL (8.5-10.5); Carbon Dioxide 33 mmol/L (22-29); Chloride 101 mmol/L (98-107); Globulin 2.8 g/dL (1.3-4.6); Glomerular Filtration Rate 136.1 mL/min (90-130); Glucose 98 mg/dL (65-115); Osmolality Calculated 287 mOsm/kg (285-295); Potassium 3.9 mmol/L (3.5-5.1); Sodium 139 mmol/L (136-145); Total Bilirubin 0.2 mg/dL (0.15-1.2); Total Protein 6.3 g/dL (6.6-8.7)
[2020-12-22] MEDS: iohexol 300 mg/mL 50 mL Btl PO (12:04)
[2020-12-22] MEDS: iohexol 300 mg/mL 100 mL Btl IV (12:05)
== END 2020-12-22 09:22 | disposition home or self-care (01) ==
PROVIDERS: PCP Family Medicine; Visit Provider Internal Medicine Hematology & Oncology
DX: C34.12 Malignant neoplasm of upper lobe, left bronchus or lung (principal); J43.9 Emphysema, unspecified; J98.11 Atelectasis; J18.9 Pneumonia, unspecified organism; R59.0 Localized enlarged lymph nodes
CPT/HCPCS: 36415; 71260; 74160; 80053; 85025; Q9967

== ENCOUNTER 2021-02-23 15:07 | Emergency (ER) | payer MEDICARE, MEDICAID, SELFPAY ==
--- NOTE | 2021-02-23 15:15 | XRR_ITS ---
PROCEDURE INFORMATION: Exam: XR Chest Exam date and time: 02/23/2021 3:15 PM Age: 65 years old Clinical indication: Pain; Angina pectoris; Additional info: Chest pain TECHNIQUE: Imaging protocol: XR of the chest. Views: 1 view. COMPARISON: CT chest abdomen w con* 12/22/2020 10:57 AM FINDINGS: Lungs: Hyperinflated lungs with scattered scarring and coarsening of the lung parenchyma. No consolidation. Pleural spaces: Unremarkable. No pleural effusion. No pneumothorax. Heart/Mediastinum: Unremarkable. No cardiomegaly. Diaphragm: Mild elevation of the left hemidiaphragm. Bones/joints: Sequela of ACDF in the lower cervical spine. Visualized osseous structures are intact. XR/XR chest 1V portable [id number] IMPRESSION: No acute findings.
--- NOTE | 2021-02-23 15:15 | ECG_ITS ---
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 Measurements Intervals [place] Rate: 87 P: 75 DE: 145 QRS: 67 QRSD: 86 T: 75 QT: 360 QTc: 433 Interpretive Statements SINUS RHYTHM MODERATE VOLTAGE CRITERIA FOR LVH, CONSIDER NORMAL VARIANT [MEETS CRITERIA IN ONE OF: R(aVL), S(V1), R(V5), R(V5/V6)+S(V1)] Compared to ECG 10/23/2020 08:50:09 No significant changes Electronically Signed On 02-24-2021 4:47:49 SKIP PIT WORKER by Tito Vickers M.D. [id number] f
--- NOTE | 2021-02-23 15:34 | CTR_ITS ---
PROCEDURE INFORMATION: Exam: CTA Chest With Contrast Exam date and time: 02/23/2021 3:34 PM Age: 65 years old Clinical indication: Patient HX: Dyspnea, HX of lung cancer TECHNIQUE: Imaging protocol: Computed tomographic angiography of the chest with contrast. 3D rendering (Not supervised by radiologist): MIP and/or 3D reconstructed images were created by the technologist. Radiation optimization: All CT scans at this facility use at least one of these dose optimization techniques: automated exposure control; mA and/or kV adjustment per patient size (includes targeted exams where dose is matched to clinical indication); or iterative reconstruction. Contrast material: OMNI 350; Contrast volume: 73 ml; Contrast route: INTRAVENOUS (IV); COMPARISON: CT angio chest PE protcl [id number] 10/23/2020 7:48 AM RADIATION DOSE METRICS: Total DLP (mGy-cm): 483.44 FINDINGS: Pulmonary arteries: Pulmonary arteries are normal in caliber. No filling defects are demonstrated. No evidence of pulmonary embolism. Aorta: Mild atherosclerosis of the thoracic aorta. Suboptimal opacification of the aorta noted. No aortic aneurysm or aortic dissection, within the technical limits of the examination. Lungs: Changes of centrilobular emphysema demonstrated. Fibrosis noted at the lung apices. Atelectasis versus fibrosis versus mild infiltrate in the inferior right middle lobe. Pleural spaces: No pleural effusion or pneumothorax noted. Heart: No cardiomegaly. No pericardial effusion. Lymph nodes: Unremarkable. No enlarged lymph nodes. Bones/joints: Degenerative spine changes are noted.No pleural effusion or pneumothorax noted. Postop changes of the cervical spine are noted. Degenerative changes of the thoracic spine are present. Old healed rib fractures are noted. No acute osseous abnormality. Soft tissues: The soft tissues appear unremarkable. CT/CT angio chest PE protcl [id number] IMPRESSION: 1. No evidence of pulmonary embolism. 2. No aortic aneurysm or aortic dissection, within the technical limits of the examination. 3. Changes of centrilobular emphysema demonstrated. Fibrosis noted at the lung apices. 4. Atelectasis versus fibrosis versus mild infiltrate in the inferior right middle lobe. This is new/worsened when compared to 10/23/2020.
[2021-02-23 15:40] VITALS: BP 114/73; PULSE 78; RESP 22; TEMP 36.9; O2SAT 99
[2021-02-23 15:46] VITALS: BP 114/73; PULSE 77; RESP 22; TEMP 36.9; O2SAT 99
[2021-02-23 15:47] LABS: Basophils % 0.5 %; Eosinophils # 0.2 10^3/uL (0.0-0.8); Eosinophils % 3.3 %; Hematocrit 41.8 % (42.0-52.0); Hemoglobin 12.9 g/dL (11.7-16.6); Lymphocytes # 1.7 10^3/uL (0.8-4.8); Lymphocytes % 29.6 %; Mean Corpuscular HGB Conc 30.9 g/dL (30.0-36.0); Mean Corpuscular Hemoglobin 28.6 pg (28.0-34.0); Mean Corpuscular Volume 92.7 fl (80-94); Mean Platelet Volume 11.1 fL (7.4-10.4); Monocytes # 0.4 10^3/uL (0.2-0.9); Monocytes % 7.5 %; Neutrophils # 3.38 10^3/uL (1.8-7.7); Neutrophils % 58.9 %; Nucleated Red Blood Cells % 0 %; Platelet Count 232 10^3/cmm (130-400); Red Blood Count 4.51 10^6/uL (4.1-5.3); Red Cell Distribution Width 14.2 % (12.1-15.1); White Blood Count 5.7 10^3/uL (4.0-10.0)
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
[2021-02-23] MEDS: ipratropium-albuterol 3 mL Neb INHALATION (16:03)
[2021-02-23 16:15] LABS: Troponin(5th) Baseline 7 ng/L (0-15)
[2021-02-23 16:18] VITALS: RESP 21; O2SAT 100
[2021-02-23] MEDS: morphine 4 mg/mL SDV 1 mL 2 MG IVP (16:18)
[2021-02-23] MEDS: aspirin 325 mg Tablet PO (16:20)
[2021-02-23 16:24] LABS: Blood Urea Nitrogen 12 mg/dL (8-23); Calcium 8.2 mg/dL (8.5-10.5); Carbon Dioxide 28 mmol/L (22-29); Chloride 102 mmol/L (98-107); Glomerular Filtration Rate 167.9 mL/min (90-130); Glucose 85 mg/dL (65-115); NT Pro B Type Natriuretic Pept 28 pg/mL (0-125); Osmolality Calculated 291 mOsm/kg (285-295); Sodium 141 mmol/L (136-145)
[2021-02-23 16:34] LABS: Anion Gap 15.4 (5-19); Potassium 4.4 mmol/L (3.5-5.1)
[2021-02-23] MEDS: iohexol 350 mg/mL 100 mL Btl IV (17:14)
--- NOTE | 2021-02-26 14:06 | DCPLANNER ---
Addendum entered by Felecia Bacon 03/23/21 15:37: Patient had a follow up appointment scheduled with [facility] 02[facility]28[facility] Couch - patient did attend appointment. Original Note: senior sourcing manager had message to schedule a follow up appointment for patient with [facility]. senior sourcing manager called [facility], spoke with Eleanor Pineda, gave clinic patients information. A follow up appointment was scheduled for February 282021 at 3;[address] Couch. senior sourcing manager called patient and gave him the appointment information.
== END 2021-02-23 18:56 | disposition home or self-care (01) ==
PROVIDERS: Emergency Provider Emergency Medicine; PCP Family Medicine
DX: R07.9 Chest pain, unspecified (principal); R06.00 Dyspnea, unspecified; J44.9 Chronic obstructive pulmonary disease, unspecified; I25.10 Atherosclerotic heart disease of native coronary artery without angina pectoris; Z86.19 Personal history of other infectious and parasitic diseases; Z85.118 Personal history of other malignant neoplasm of bronchus and lung; Z99.81 Dependence on supplemental oxygen; Z90.2 Acquired absence of lung [part of]
CPT/HCPCS: 36415; 71045; 71275; 80048; 83880; 84484; 85025; 93005; 96374; 99284; 99291; J2270; Q9967

== ENCOUNTER 2021-02-26 17:01 | Emergency (ER) | payer MEDICARE, MEDICAID, SELFPAY ==
[2021-02-26] VITALS (7 sets, daily range): BP systolic 112–137; BP diastolic 80–91; PULSE 69–94; RESP 16–22; TEMP 37.1; O2SAT 94–100
--- NOTE | 2021-02-26 17:03 | ECG_ITS ---
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 Measurements Intervals [place] Rate: 84 P: 75 TX: 137 QRS: 66 QRSD: 86 T: 76 QT: 348 QTc: 412 Interpretive Statements SINUS RHYTHM WITH OCCASIONAL SUPRAVENTRICULAR PREMATURE COMPLEXES POSSIBLE RIGHT VENTRICULAR CONDUCTION DELAY [RSR (QR) IN V1/V2] VOLTAGE CRITERIA FOR LVH [MEETS CRITERIA IN ONE OF: R(aVL), S(V1), R(V5), R(V5/V6)+S(V1)] Compared to ECG 02/23/2021 15:19:15 No significant changes Electronically Signed On 02-26-2021 20:53:53 FUNERAL SERVICE PRACTITIONER/EMBALMER by Denita Couch M.D. [id number]
--- NOTE | 2021-02-26 17:03 | XRR_ITS ---
PROCEDURE INFORMATION: Exam: XR Chest Exam date and time: 02/26/2021 5:03 PM Age: 65 years old Clinical indication: Pain; Angina pectoris; Additional info: Chest pain, no appetite TECHNIQUE: Imaging protocol: XR of the chest. Views: 1 view. COMPARISON: CR XR chest 1V portable [id number] 02/23/2021 3:28 PM FINDINGS: Lungs: Extensive changes of pulmonary emphysema again identified. Mild infiltrate in the right middle lobe is partly cleared compared with 02/23/2021. Postsurgical changes in the left lung are stable. No new infiltrate is identified. Pleural spaces: Unremarkable. No pleural effusion. No pneumothorax. Heart/Mediastinum: Heart is within normal limits of size. Bones/joints: There are stable degenerative changes in the thoracic spine and postoperative findings in the cervical spine. XR/XR chest 1V portable [id number] IMPRESSION: 1. Improving right middle lobe infiltrate. 2. No new infiltrate.
[2021-02-26 17:55] LABS: Basophils % 0.4 %; Eosinophils # 0.2 10^3/uL (0.0-0.8); Eosinophils % 1.8 %; Hematocrit 44.9 % (42.0-52.0); Hemoglobin 13.7 g/dL (11.7-16.6); Lymphocytes # 2.3 10^3/uL (0.8-4.8); Lymphocytes % 23.6 %; Mean Corpuscular HGB Conc 30.5 g/dL (30.0-36.0); Mean Corpuscular Hemoglobin 28.3 pg (28.0-34.0); Mean Corpuscular Volume 92.8 fl (80-94); Mean Platelet Volume 11.3 fL (7.4-10.4); Monocytes # 0.7 10^3/uL (0.2-0.9); Monocytes % 7.6 %; Neutrophils # 6.32 10^3/uL (1.8-7.7); Neutrophils % 66.3 %; Nucleated Red Blood Cells % 0 %; Platelet Count 294 10^3/cmm (130-400); Red Blood Count 4.84 10^6/uL (4.1-5.3); White Blood Count 9.5 10^3/uL (4.0-10.0)
--- NOTE | 2021-02-26 18:13 | W.ED.CHESTPA ---
HPI - Chest Pain General: Chief Complaint: Chest Pain Stated Complaint: CHEST PAIN Time Seen by Provider: 02/26/21 18:11 History of Present Illness: HPI narrative: Mr. Lizarraga is a 65-year-old gentleman with history of hypertension, hyperlipidemia, COPD with chronic hypoxic respiratory failure at 2 L at baseline, history of lung cancer status post completion of therapy who presents to the emergency department due to chest pain. Symptom onset was February 15. He does not recall specific inciting event or traumatic injury. Since that time he has had discomfort associated with shortness of breath. Pain is mostly mid chest and aching. There is not an exertional component. Mild associated radiation intermittently. No other typical cardiac features. Cough is intermittent and productive with nugent sputum overall the course of symptoms has been worsening. Intensity is moderate to severe. No other significant changes in health, exacerbating, or relieving factors identified. Review of Systems General: Reports: 10 or more systems reviewed and unremarkable except in HPI and below PFSH ED PFSH: Medical History (Updated 02/28/21 @ 17:24 by Denita Couch MD) ADD (attention deficit disorder) Cardiac enzymes elevated Cervical post-laminectomy syndrome Colon polyps COPD (chronic obstructive pulmonary disease) COPD (chronic obstructive pulmonary disease) Coronary artery disease DDD (degenerative disc disease) Depression Hepatitis B Hepatitis C History of lung cancer Non-small cell lung cancer, squamous type, treated with resection History of melanoma Hx of malignant melanoma of skin Lumbar post-laminectomy syndrome Marijuana use, continuous Migraine Neuropathy Shortness of Breath Spontaneous pneumothorax Supplemental oxygen dependent Thyroid nodule Tobacco dependency Surgical History History of appendectomy History of cervical spinal surgery (05/14/12) C3-C4 Dr. Reagan HERRERA History of decompression of median nerve (~1990) 1990 left wrist History of fusion of cervical spine Dr. May Kirk 03/31/2014 C7-T1 ACDFF Dr. May Kirk 05/14/2012 C3-C4 ACDFF Dr. aMy Kirk 05/18/2009 C4-C5 ACDFF History of lobectomy of lung History of lumbar fusion (~02/03/07) Dr. May Kirk 02/03/2007 L4-L5 anterior lumbar interbody fusion/fixation Dr. May Kirk 01/30/2006 Left L4-L5 hemilaminotomy/discectomy/foraminotomy History of lung surgery (~05/2008) Family History (Updated 02/28/21 @ 15:10 by Rachana Gutierrez RN) Mother Lung cancer CAD (coronary artery disease), Onset Age: 40 Cancer Father Lung cancer Stroke CAD (coronary artery disease), Onset Age: 59 Cancer Brother Lung cancer Cancer Family/Other Diabetes Other Lung disease Denies family history of Clotting disorder Dementia Chronic kidney disease (CKD) Suicide Anesthesia complication Bleeding disorder Social History (Updated 02/28/21 @ 15:11 by Rachana Gutierrez RN) Smoking and tobacco status: current every day smoker cigarettes Packs smoked per day: 2 Years cigarettes smoked: 50 Alcohol intake: current Household members: spouse Marital status: Current occupational status: disabled History of recent travel: No Physical Exam Narrative: EXAM NARRATIVE: GENERAL/CONSTITUTIONAL -chronically ill-appearing. Eyes -no scleral icterus, no conjunctival injection ENMT - Atraumatic external nose and ears. NECK - supple. trachea midline CARDIOVASCULAR - regular rate and rhythm. No peripheral edema RESPIRATORY -diminished to auscultation bilaterally. Mildly increased work of breathing ABDOMEN/GI - Nontender/Nondistended. MSK - Extremities without obvious deformity or tenderness to palpation SKIN - Warm, Dry NEURO - alert and appropriately oriented. Moves all extremities equally. Course ED course: - Patient was seen and evaluated by me at bedside - Patient placed on cardiac monitors, IV access obtained - Initial evaluation notable for exam as above - Labs notable for no leukocytosis. Metabolic panel without acute derangement to explain the patient's symptoms. Delta troponin negative. - Imaging notable for improving right middle lobe infiltrate, no new findings. Recent CTA reviewed, I do not believe that repeat is clinically warranted at this time. - Upon serial reexamination after treatment the patient was similar. - Based on patient history, evaluation, labs, and imaging as interpreted the most likely cause of the patient's condition is chest plain of unclear etiology and likely COPD exacerbation - The results of ED evaluation were discussed with the patient including prescriptions and/or symptomatic cares (if applicable) including appropriate and responsible use, followup plan, and return precautions. The patient verbalized understanding and felt safe for discharge. - Patient discharged in satisfactory condition. Vital Signs: Vital signs: Vital Signs Temperature 98.7 F 02/26/21 17:35 Pulse Rate 69 02/26/21 22:25 Respiratory Rate 20 H 01/03/22 22:25 Blood Pressure 137/86 01/03/22 22:25 Pulse Oximetry 100 02/26/21 22:25 MDM - Chest Pain MDM Narrative: Medical decision making narrative: 65-year-old gentleman with complex history presenting with chest pain. Negative delta troponin. Improving prior infiltrate. Likely multifactorial given additional symptoms. Does require further cardiac evaluation given heart score however for electing for outpatient follow-up. Will treat for COPD exacerbation, antibiotic choice secondary to reported allergies. Medical Records: Attestation: I reviewed the patient's medical records. Lab Data: Attestation: I reviewed the patient's lab results. Labs: Lab Results 02/26/21 02/26/21 02/26/21 17:44 17:44 17:44 WBC 9.5 10^3/uL 10^3/ uL (4.0-10.0) RBC 4.84 10^6/uL 10^6 /uL (4.1-5.3) Hgb 13.7 g/dL g/dL (11.7-16.6) Hct 44.9 % % (42.0-52.0) MCV 92.8 fl fl (80-94) MCH 28.3 pg pg (28.0-34.0) MCHC 30.5 g/dL g/dL (30.0-36.0) RDW 14.0 % % (12.1-15.1) Plt Count 294 10^3/cmm 10^3 /cmm (130-400) MPV 11.3 fL H fL (7.4-10.4) Neut % (Auto) 66.3 % % Lymph % (Auto) 23.6 % % [place] % (Auto) 7.6 % % Eos % (Auto) 1.8 % % Baso % (Auto) 0.4 % % Neut # (Auto) 6.32 10^3/uL 10^3 /uL (1.8-7.7) Lymph # (Auto) 2.3 10^3/uL 10^3/ uL (0.8-4.8) [place] # (Auto) 0.7 10^3/uL 10^3/ uL (0.2-0.9) Eos # (Auto) 0.2 10^3/uL 10^3/ uL (0.0-0.8) Baso # (Auto) 0.0 10^3/uL 10^3/ uL (0.0-0.1) Nucleated RBC % (a uto) 0 % % Nucleated RBCs # 0.0 /100WBC /100W BC Sodium 141 mmol/L mmol/L (136-145) Potassium 4.5 mmol/L mmol/L (3.5-5.1) Chloride 99 mmol/L mmol/L (98-107) Carbon Dioxide 29 mmol/L mmol/L (22-29) Anion Gap 17.5 (5-19) BUN 16 mg/dL mg/dL (8-23) Creatinine 0.7 mg/dL mg/dL (0.7-1.2) GFR Calculation 113.9 mL/min mL/m in (90-130) Glucose 104 mg/dL mg/dL (65-115) Calculated Osmolal ity 293 mOsm/kg mOsm/ kg (285-295) Calcium 9.0 mg/dL mg/dL (8.5-10.5) Troponin T Baselin e 7 ng/L ng/L (0-15) Troponin T 120 Min [place] Troponin T Lipase 02/26/21 02/26/21 18:10 19:36 WBC RBC Hgb Hct MCV MCH MCHC RDW Plt Count MPV Neut % (Auto) Lymph % (Auto) [place] % (Auto) Eos % (Auto) Baso % (Auto) Neut # (Auto) Lymph # (Auto) [place] # (Auto) Eos # (Auto) Baso # (Auto) Nucleated RBC % (a uto) Nucleated RBCs # Sodium Potassium Chloride Carbon Dioxide Anion Gap BUN Creatinine GFR Calculation Glucose Calculated Osmolal ity Calcium Troponin T Baselin e Troponin T 120 Min [place] 6.00 ng/L ng/L (0-15) [place] Troponin T -1.00 ABS# L ABS# (0-10) Lipase 36 U/L U/L (13-60) EKG Data^: EKG 1: Attestation: I personally reviewed and interpreted this EKG as follows: EKG interpretation date: 02/27/20 EKG interpretation time: 19:07 Interpretation: Twelve-lead EKG shows a regular rhythm at a rate of 75. MO interval 135, QRS duration 88, QTc 397. Normal axis. Interpretation: Sinus rhythm. Discharge Plan Discharge Patient Disposition: Home Clinical Impression: COPD exacerbation, Chest pain Condition: Stable Prescriptions: New Augmentin 875-125 mg tablet 1 tab PO BID Qty: 14 RF: 0 prednisone 50 mg tablet 50 mg PO DAILY 5 Days Qty: 5 RF: 0 oxycodone 5 mg tablet 5 mg PO Q4H PRN (Reason: pain) Qty: 10 RF: 0 No Action prednisone 20 mg tablet 20 mg PO DAILY 7 Days Qty: 7 RF: 0 levalbuterol HCl [Xopenex] 1.25 mg/3 mL solution for nebulization 1.25 mg inhalation Q6H PRN (Reason: shortness of breath or wheezing) Qty: 90 RF: 3 tamsulosin 0.4 mg capsule 0.4 mg PO BID RF: 0 prednisone 5 mg tablet 5 - 10 mg PO BID PRN (Reason: lungs) RF: 0 Spiriva Respimat 1.25 mcg/actuation mist See Rx Instructions .ROUTE .COMPLEX Qty: 4 RF: 0 budesonide-formoterol 160-4.5 mcg/actuation HFA aerosol inhaler See Rx Instructions .ROUTE .COMPLEX Qty: 10.2 RF: 0 albuterol sulfate [ProAir HFA] 90 mcg/actuation HFA aerosol inhaler 2 puff INHALATION Q6H PRN (Reason: Shortness Of Breath) Qty: 8.5 RF: 3 Daliresp 500 mcg tablet 500 mcg PO QAM Qty: 30 RF: 3 ondansetron HCl 4 mg tablet See Rx Instructions .ROUTE .COMPLEX Qty: 30 RF: 0 naproxen 500 mg tablet See Rx Instructions .ROUTE .COMPLEX Qty: 60 RF: 0 baclofen 20 mg tablet 20 mg PO TID PRN (Reason: Muscle Spasm) RF: 0 gabapentin 600 mg tablet 600 mg PO TID RF: 0 tadalafil [Cialis] 5 mg tablet 5 mg PO BEDTIME RF: 0 multivitamin Tablet 1 tab PO QAM RF: 0 Vitamin B-12 2,500 mcg Tablet, Sublingual 2,500 mcg SUBLINGUAL QAM RF: 0 Vitamin D3 1 cap PO QAM RF: 0 albuterol sulfate 90 mcg/actuation HFA aerosol inhaler 2 inh INHALATION Q4H PRN (Reason: shortness of breath or wheezing) Qty: 18 RF: 0 ropinirole 0.25 mg Tablet 0.25 mg PO BEDTIME RF: 0 Discharge Orders: Discharge ED (Routine); Ordered 02/26/21 Ordered By: Jon Wise Referrals: Josette Smith MD [Primary Care Provider] - Discharge Diet: Usual diet Discharge Activity: Resume usual activity Patient Instructions: Chest Pain (ED), COPD (Chronic Obstructive Pulmonary Disease) (ED), Opioid Safety Activity Restrictions/Additional Instructions: Thank you for visiting the emergency department. You were seen and evaluated for chest pain. The exact cause of your symptoms is unclear. As discussed, this requires evaluation which you are electing to do in the outpatient setting as you are moderate risk for chest pain by HEART score. I will message our correctional casework specialist to assist with scheduling that. Some of your symptoms may be related to exacerbation of your underlying lung disease. You were given prescriptions for this. Please follow-up with your primary care provider. Establish with a primary care provider if you do not have one. Return to the emergency department for worsening symptoms or anything else that you are concerned about and feel needs emergency department evaluation. Coding Level of Care Code ED Dimension Warehouse Supervisor for Laci Hidalgo
[2021-02-26 18:28] LABS: Troponin(5th) Baseline 7 ng/L (0-15)
[2021-02-26 18:29] LABS: Anion Gap 17.5 (5-19); Blood Urea Nitrogen 16 mg/dL (8-23); Carbon Dioxide 29 mmol/L (22-29); Chloride 99 mmol/L (98-107); Glomerular Filtration Rate 113.9 mL/min (90-130); Glucose 104 mg/dL (65-115); Osmolality Calculated 293 mOsm/kg (285-295); Potassium 4.5 mmol/L (3.5-5.1); Sodium 141 mmol/L (136-145)
[2021-02-26 18:48] LABS: Lipase 36 U/L (13-60)
--- NOTE | 2021-02-26 19:03 | ECG_ITS ---
[facility] Test Date: 2021-02-26 Pat Name: Gato Lizarraga Department: Room: Gender: Male Radiation Officer: : 1955 Requested By: Hoda Hinojosa Order Number: [id number] [place] MD: Denita Couch M.D. Measurements Intervals [place] Rate: 75 P: 82 ME: 135 QRS: 75 QRSD: 88 T: 79 QT: 368 QTc: 412 Interpretive Statements SINUS RHYTHM POSSIBLE RIGHT VENTRICULAR CONDUCTION DELAY [RSR (QR) IN V1/V2] MODERATE VOLTAGE CRITERIA FOR LVH, CONSIDER NORMAL VARIANT [MEETS CRITERIA IN ONE OF: R(aVL), S(V1), R(V5), R(V5/V6)+S(V1)] Compared to ECG 02/26/2021 17:45:25 No significant changes Electronically Signed On 02-26-2021 20:58:39 DOUGH PANNER by Denita Couch M.D. [email or web address]
[2021-02-26] MEDS: morphine 4 mg/mL SDV 1 mL IVP (19:08)
[2021-02-26] MEDS: oxyCODONE 5 mg IR Tab/Cap PO (22:02)
[2021-02-26] MEDS: amoxicillin-clav 875-125 mg Tablet 1 TAB PO (22:02)
--- NOTE | 2021-02-27 11:53 | DCPLANNER ---
integrated logistics support manager had message to speak with patient about services at [facility]. Patient stated that he can not use [facility] at this time. Patient stated that his primary care physician is referring him to a provider in [place]. integrated logistics support manager also spoke to patient about ordering a stress test and an echo. Patient stated that he sees Dr. Couch tomorrow, 02.28.21, and wants to wait until he sees him before ordering any tests. integrated logistics support manager informed patient that if Dr. Couch wants to schedule the stress test and echo that he can. No case management services needed at this time.
== END 2021-02-26 22:20 | disposition home or self-care (01) ==
PROVIDERS: Emergency Medicine; Emergency Provider Emergency Medicine; PCP Family Medicine
DX: R07.9 Chest pain, unspecified (principal); J44.1 Chronic obstructive pulmonary disease with (acute) exacerbation; I25.10 Atherosclerotic heart disease of native coronary artery without angina pectoris; Z86.19 Personal history of other infectious and parasitic diseases; Z85.118 Personal history of other malignant neoplasm of bronchus and lung; Z99.81 Dependence on supplemental oxygen; Z90.2 Acquired absence of lung [part of]; F17.210 Nicotine dependence, cigarettes, uncomplicated
CPT/HCPCS: 71045; 80048; 83690; 84484; 85025; 93005; 96374; 96375; 99284; J2270; J2930

== ENCOUNTER 2021-03-12 12:50 | Outpatient (CLI) | payer MEDICARE, MEDICAID, SELFPAY ==
[2021-03-12 13:40] LABS: Basophils % 0.3 %; Eosinophils # 0.3 10^3/uL (0.0-0.8); Eosinophils % 3.3 %; Hematocrit 36.8 % (42.0-52.0); Hemoglobin 11.4 g/dL (11.7-16.6); Lymphocytes # 1.6 10^3/uL (0.8-4.8); Lymphocytes % 20.6 %; Mean Corpuscular Hemoglobin 28.6 pg (28.0-34.0); Mean Corpuscular Volume 92.5 fl (80-94); Mean Platelet Volume 10.5 fL (7.4-10.4); Monocytes # 0.5 10^3/uL (0.2-0.9); Monocytes % 6.9 %; Neutrophils # 5.18 10^3/uL (1.8-7.7); Neutrophils % 68.4 %; Nucleated Red Blood Cells % 0 %; Platelet Count 232 10^3/cmm (130-400); Red Blood Count 3.98 10^6/uL (4.1-5.3); Red Cell Distribution Width 14.9 % (12.1-15.1); White Blood Count 7.6 10^3/uL (4.0-10.0)
[2021-03-12 13:53] LABS: Alanine Aminotransferase 21 U/L (0-41); Albumin Level 3.3 g/dL (3.5-5.2); Alkaline Phosphatase 66 IU/L (40-130); Anion Gap 12.8 (5-19); Aspartate Amino Transferase 24 U/L (0-40); Blood Urea Nitrogen 7 mg/dL (8-23); Calcium 8.1 mg/dL (8.5-10.5); Carbon Dioxide 29 mmol/L (22-29); Chloride 100 mmol/L (98-107); Globulin 2.7 g/dL (1.3-4.6); Glomerular Filtration Rate 113.9 mL/min (90-130); Glucose 119 mg/dL (65-115); Osmolality Calculated 285 mOsm/kg (285-295); Potassium 3.8 mmol/L (3.5-5.1); Sodium 138 mmol/L (136-145); Total Bilirubin 0.2 mg/dL (0.15-1.2)
--- NOTE | 2021-03-12 17:06 | ONC FU_ITS ---
Dr. Mullen follow up note Patient: Gato Lizarraga Unit #: [id number]: 1955 Dicatated By: Marisa Mullen M.D.Date of Visit:Mar 12, 2021 Onc Med Follow-up/Prog Note History of Present Illness: Mr. Lizarraga is a 65-year-old gentleman with history of small left upper lobe pulmonary nodule first seen on CT scan of chest done in February 2017. A follow-up CT scan done on 10/02/2017 showed small increase in size. CT PET scan was done on 10/09/2017 showed increased activity in this suspicious lesion and also in right thyroid lobe nodule. Mr Lizarraga has history of COPD/emphysema bilaterally and is dependent on home oxygen. Mr Lizarraga underwent left upper lobe wedge resection on 11/10/2017. 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 An additional nodule in left upper lung apex was a hematoma as per discussion with Dr. Cummings pathologist. Patient tolerated procedure well PMH: history of melanoma excision from his head ???2 in the past. 40+ year history of chronic smoking CT Chest from 07/15/2019. .showed Prior postoperative changes resection left upper lobe pulmonary nodule. No evidence of recurrent parenchymal lesion in this location. 2. Noncalcified nodule left lower lobe measuring 7 mm with surrounding fibrosis. This is increased since the prior examination recommend 3-month follow-up. 3. No mediastinal or hilar lymphadenopathy. 4. Advanced chronic emphysematous changes. h/o generalized musculoskeletal pain, with recently worsening and underwent extensive C-spine work-up which include CT scan of C-spine CT cervical myelogram done in October 2019 for neck pain showed multilevel moderate to severe bony foraminal narrowing worse at left C5-C6 and bilateral C6-7 and anterior cervical fusion at C3-4 and C4 and 5 and small central disc protrusion at T1-2 with slight contact of thoracic cord Patient also had CT scan of chest abdomen done on September 24, 2019 which showed moderate to severe paraseptal emphysema bilaterally and no mention of left lower lobe nodule which was seen in CT scan of the chest done in June 2019. CT scan of her abdomen shows mild rectal wall thickening, as per patient he has history of rectal abscess in the past which was drained couple of times. And last colonoscopy was done about 7-8 years ago. Follow-up CT scan of chest done on March 24, 2020 showed postoperative changes resection left upper lobe pulmonary nodule. No evidence of recurrent disease. Noncalcified nodule left lower lobe measuring 5 mm with surrounding fibrosis. This has decreased in size and less dense. No mediastinal lymphadenopathy. Advanced chronic emphysematous changes Bone scan done on March 24, 2020 shows no evidence of bone mets Follow-up CT scan of chest done on September 19, 2020 shows no new pulmonary mass or lymphadenopathy. Stable appearing small nodular infiltrate in the left lower lobe since previous study done on March 24 2020 went to hospital with chest pain and dyspnea and his lab work-up showed increased D-dimer so on October 23, 2020 he underwent CTA chest which showed no pulmonary embolism, severe emphysema, mild improvement in recently described right middle lobe pneumonia., Now a new nodule measuring 10 mm in the right middle lobe. Due to its acute onset could be atelectasis or fluid or pneumonitis. Mediastinal and hilar adenopathy is unchanged. Could be reactive, these lymph nodes are slightly increased in size over the last year now measuring 18 mm compared to [address] scan of chest done on September 19, 2020 showed no lymphadenopathy but when Dr. Hdez, Radiologist reviewed that scan too and she did notice 10 to 12 mm lymph nodes but they were stable when compared with scan done this year ago. Follow-up CT scan of chest done on December 22, 2020 showed resolved right middle lobe nodule since October 23, 2020. Severe emphysema, continued mild enlarged right hilar lymph nodes, probably reactive, no change from previous exams. No evidence of liver mets. Came for follow-up, denies any specific complaints except generalized weakness and fatigue, still smoke about a pack a day, he is on home oxygen, patient has underlying severe emphysema. Denies any hemoptysis or hematemesis, denies any new bony pains, denies any headaches blurred or double vision. Patient also noticed some skin lesion on the forearms, denies any insect bite or using any new soap or shampoo. Patient said he has follow-up appointment with dermatology.Patient was supposed to come back after his follow-up CT scan of chest done on December 22, 2020 but lost follow-up until today Medications: Albuterol Sulfate 1 ((2.5 mg/3ml) 0.083%) Nebulization solution Inhalation PRN, ARIPiprazole 1 Tablet (of 20 mg) Oral daily, Baclofen 1 Tablet (of 20 mg) Oral b.i.d., Cialis 1 Tablet (of 5 mg) Oral daily, FLUoxetine HCl 1 Capsule (of 20 mg) Oral daily, Gabapentin 1 Tablet (of 600 mg) Oral t.i.d., Keflex 1 Tablet (of 500 mg) Capsule Oral four times a day, Multiple Vitamins-Minerals 1 Tablet Oral daily, Spiriva Respimat 1 Puff(s) (of 1.25 mcg/act) Aerosol, solution Inhalation b.i.d., Symbicort 2 puff(s) (of 160-4.5 mcg/act) Aerosol Inhalation b.i.d., Tamsulosin HCl 2 Capsule (of 0.4 mg) Oral daily Allergies: Ambien, Aminophylline, Amitriptyline HCl, Biaxin, Cymbalta, Doxycycline, FentaNYL, fentaNYL Citrate, Ibuprofen, Ketorolac Tromethamine, Methadone HCl, Nubain, and Tetracycline HCl. Review of Systems: Review of Systems is not available for this patient. Vital Signs: Performed on Mar 12, 2021 15:50 Height - 70.50 in Weight - 131.6 lbs (LOW) BSA - 1.76 sq.m BMI - 18.62 Temperature - 99.1 F (HIGH) Pulse - 103 /min (HIGH) Respiration - 18 /min BP - 136/73 mm(hg) O2 Sat - 92 % (LOW) Pain - 9 Fatigue - 10 Performance Status: 1 - No physically strenuous activity, but ambulatory and able to carry out light or sedentary work (e.g. office work, light house work). (ECOG) Physical Examination: ENMT - No mouth sores, no thrush, no jaundice, no cervical lymphadenopathy, Respiratory - Poor air entry, mild wheezing otherwise clear, Cardiovascular - Regular rate and rhythm of heart, Abdomen - Soft, bowel sounds present, Extremities - No visible edema. Lab/Imaging: Test performed on Sep 19, 2020 14:41 BUN 9 mg/dL Creatinine 0.7 mg/dL Cr Clearance (Est) 90.37 mL/min eGFR 113.9 mL/min Impression: 1. 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 T1a N X, MX stage I A1 Advanced is COPD with emphysema on home oxygen 40+ years History of chronic smoking next Right thyroid nodule evaluated by ENT Dr. Umanzor. CT Chest from 07/15/2019. showed Prior postoperative changes resection left upper lobe pulmonary nodule. No evidence of recurrent parenchymal lesion in this location. 2. Noncalcified nodule left lower lobe measuring 7 mm with surrounding fibrosis. This is increased since the prior examination recommend 3-month follow-up. 3. No mediastinal or hilar lymphadenopathy. 4. Advanced chronic emphysematous changes. Follow-up CT scan of chest done on March 24, 2020 showed postoperative changes, resection left upper lobe pulmonary nodule. No recurrence of disease, no mediastinal or hilar lymphadenopathy Noncalcified nodule left lower lobe measuring 5 mm with surrounding fibrosis this is decreased in size and less dense. Advanced chronic emphysematous changes Bone scan done on March 24, 2020 showed no evidence of bone mets Plan: Discussed with patient regarding his labs white blood count 7.6 hemoglobin 11.4 hematocrit 36.8 platelets 232,000 CMP within normal limits and follow-up CT scan of chest done on December 22, 2020 showed no evidence of disease progression or new lesion Clinically, patient doing well with no new signs symptoms history of recurrence of disease, as for generalized weakness and fatigue is concerned probably multifactorial including underlying severe emphysema, patient on home oxygen and still smoking about pack a day, patient was advised to quit smoking and was offered any assistance he may need His follow-up CT scan of chest was done which showed no evidence of disease progression., We will continue to monitor he will return to clinic in 6 months with CBC , CMP and follow-up chest CT scan. Signed By: Marisa Mullen M.D. <<Signature on File>>
== END 2021-03-12 12:51 | disposition home or self-care (01) ==
PROVIDERS: PCP Nurse Practitioner Family; Visit Provider Internal Medicine Hematology & Oncology
DX: Z08 Encounter for follow-up examination after completed treatment for malignant neoplasm (principal); Z85.118 Personal history of other malignant neoplasm of bronchus and lung; F17.210 Nicotine dependence, cigarettes, uncomplicated; Z99.81 Dependence on supplemental oxygen; J43.9 Emphysema, unspecified
CPT/HCPCS: 36415; 80053; 85025; 99214

== ENCOUNTER → 2021-03-16 00:01 | Outpatient (BNVA) | payer MEDICARE, MEDICAID, SELFPAY | PROVIDERS: PCP Nurse Practitioner Family; Visit Provider Internal Medicine Pulmonary Disease | DX: Z20.822 Contact with and (suspected) exposure to COVID-19 (principal) | CPT/HCPCS: 87635 ==

== ENCOUNTER 2021-03-20 08:40 | Outpatient (CLI) | payer MEDICARE, MEDICAID, SELFPAY ==
--- NOTE | 2021-03-20 09:53 | PFTS_ITS ---
Date of Study:03/20/21 Date of Dictation: 03/26/2021 MECHANICS: Postbronchodilator forced vital capacity (FVC) is reduced. Postbronchodilator forced expiratory volume in one second (FEV1) is moderately reduced. FEV1/FVC is reduced. There is no significant response to bronchodilators. FLOW VOLUME LOOP: Sloping of expiratory limb suggestive of airway obstruction . LUNG VOLUMES: Total lung capacity (TLC) is normal. Residual volume (RV) is normal. DIFFUSING CAPACITY FOR CARBON MONOXIDE: Severely reduced 42% . INTERPRETATION: The pulmonary function tests are consistent with moderate obstructive ventilatory disease pattern on spirometry. There is no significant bronchodilator response. Lung volumes are normal. There is severe gas transfer defect out of proportion to obstruction on spirometry findings. All these constellation of findings suggestive of moderate emphysema and possible coexisting pulmonary vascular pathology clinical correlation recommended MTDD
== END 2021-03-20 08:41 | disposition home or self-care (01) ==
LOC: RT 08:42
PROVIDERS: PCP Nurse Practitioner Family; Visit Provider Internal Medicine Pulmonary Disease
DX: J43.2 Centrilobular emphysema (principal)
CPT/HCPCS: 94060; 94618

== ENCOUNTER 2021-05-14 10:03 | Emergency (ER) | payer MEDICARE, MEDICAID, SELFPAY ==
--- NOTE | 2021-05-14 10:07 | W.ED.SOB ---
HPI - SOB/Dyspnea General: Chief Complaint: Shortness of Breath/Dyspnea Stated Complaint: shortness of breath Time Seen by Provider: 05/14/21 10:06 Source: patient Mode of arrival: EMS Limitations: no limitations History of Present Illness: HPI Narrative: 64-year-old male presents emergency room with complaint of difficulty breathing short of breath wheezing. Patient has known history of COPD is chronically on 4 L but nasal cannula of oxygen. He has had a mild increase in productive cough. He denies any fever sweats or chills. No chest pain no hemoptysis. MD elicited complaint: shortness of breath and cough Pertinent past history: COPD Onset (ago): minute(s) Timing: constant Severity: mild Exacerbating factors: nothing Relieving factors: nothing Associated symptoms: Deny abdominal pain, chest congestion, chest pain, cough, diaphoresis, dizziness, extremity pain, fever(s), hemoptysis, lightheadedness, myalgias, nausea, orthopnea, palpitations, paresthesias, polydipsia, polyuria, rash, sense of impending doom, syncope or vomiting Treatment prior to arrival: none Review of Systems Const: Denies: fever(s) or diaphoresis ENMT: Denies: throat pain or uvular edema Card: Denies: chest pain, palpitations, lightheadedness, syncope or orthopnea Resp: Denies: hemoptysis or chest congestion GI: Denies: abdominal pain, nausea or vomiting Musc: Denies: extremity pain Neuro: Denies: dizziness Endo: Denies: polyuria or polydipsia PFS ED PFSH: Medical History ADD (attention deficit disorder) Cardiac enzymes elevated Cervical post-laminectomy syndrome Colon polyps COPD (chronic obstructive pulmonary disease) COPD (chronic obstructive pulmonary disease) Coronary artery disease DDD (degenerative disc disease) Depression Hepatitis B Hepatitis C History of lung cancer Non-small cell lung cancer, squamous type, treated with resection History of melanoma Hx of malignant melanoma of skin Hyperlipidemia Lumbar post-laminectomy syndrome Marijuana use, continuous Migraine Neuropathy Psychiatric care Shortness of Breath Spontaneous pneumothorax Supplemental oxygen dependent Thyroid nodule Tobacco dependency Surgical History History of appendectomy History of cervical spinal surgery (05/14/12) C3-C4 ACDFF, Dr. Kirk History of decompression of median nerve (~1990) 1990 left wrist History of fusion of cervical spine Dr. May Kirk 03/31/2014 C7-T1 ACDFF Dr. May Kirk 05/14/2012 C3-C4 ACDFF Dr. May Kirk 05/18/2009 C4-C5 ACDFF History of lobectomy of lung History of lumbar fusion (~02/03/07) Dr. May Kirk 02/03/2007 L4-L5 anterior lumbar interbody fusion/fixation Dr. May Kirk 01/30/2006 Left L4-L5 hemilaminotomy/discectomy/foraminotomy History of lung surgery (~05/2008) Family History Mother Lung cancer CAD (coronary artery disease), Onset Age: 40 Cancer Father Lung cancer Stroke CAD (coronary artery disease), Onset Age: 59 Cancer Brother Lung cancer Cancer Family/Other Diabetes Other Lung disease Denies family history of Clotting disorder Dementia Chronic kidney disease (CKD) Suicide Anesthesia complication Bleeding disorder Social History Smoking and tobacco status: current every day smoker cigarettes Packs smoked per day: 2 Years cigarettes smoked: 50 Alcohol intake: current Household members: spouse Marital status: Current occupational status: disabled History of recent travel: No Physical Exam Const: GENERAL APPEARANCE: cooperative and comfortable ORIENTATION/CONSCIOUSNESS: Yes awake, Yes oriented to person, Yes oriented to place and Yes oriented to time HENMT: COMMON NORMALS: normocephalic, atraumatic and hearing grossly normal bilaterally HEAD & SCALP: normocephalic and atraumatic THROAT: no uvular edema Resp: EFFORT & INSPECTION: Yes pursed lip breathing, Yes Actively coughing and Yes uses accessory muscles AUSCULTATION: rhonchi and wheezes Cardio: COMMON NORMALS: regular rate, regular rhythm and No murmurs present (Cardio) RATE: regular rate RHYTHM: regular rhythm GI: COMMON NORMALS: Soft to palpation and No hepatosplenomegaly present AUSCULTATION: Yes normoactive bowel sounds PALPATION: Yes Soft to palpation, No Tenderness to palpation present (GI), No Guarding due to palpation present (GI) and Yes No hepatosplenomegaly present Extremity: COMMON NORMALS: normal to inspection, capillary refill normal, no clubbing, cyanosis or edema, no calf tenderness and no pedal edema Neuro: SENSORIUM/ORIENTATION: Yes oriented to person, Yes oriented to place and Yes oriented to time Skin: COMMON NORMALS: no rashes or lesions noted GENERAL SKIN EXAM: no rashes or lesions noted Course Vital Signs: Vital signs: Vital Signs Temperature 98.2 F 05/14/21 10:22 Pulse Rate 94 05/14/21 10:22 Respiratory Rate 21 H 05/14/21 10:22 Blood Pressure 144/84 05/14/21 10:22 Pulse Oximetry 98 05/14/21 10:22 MDM - SOB/Dyspnea Medical Decision Making Improved with treamtent in the ER, D/C home on steriods and albuterol nebs. Start levaquin for 7 days. follow up with PCP within 1 wk. Medical Records I reviewed the patient's medical records. Lab Data I reviewed the patient's lab results. : 05/14/21 11:09 05/14/21 11:09 Labs/Radiology: Radiology Impressions Chest X-Ray 05/14/21 10:29 IMPRESSION: 1. Nonspecific bibasilar opacities, favoring atelectasis or pneumonia. 2. Hyperinflation with prominent interstitial markings suggesting COPD changes. Laboratory Results WBC 15.2 10^3/uL (4.0-10.0) H 05/14/21 11:09 RBC 3.99 10^6/uL (4.1-5.3) L 05/14/21 11:09 Hgb 11.4 g/dL (11.7-16.6) L 05/14/21 11:09 Hct 37.2 % (42.0-52.0) L 05/14/21 11:09 MCV 93.2 fl (80-94) 05/14/21 11:09 MCH 28.6 pg (28.0-34.0) 05/14/21 11:09 MCHC 30.6 g/dL (30.0-36.0) 05/14/21 11:09 RDW 12.7 % (12.1-15.1) 05/14/21 11:09 Plt Count 276 10^3/cmm (130-400) 05/14/21 11:09 MPV 10.6 fL (7.4-10.4) H 05/14/21 11:09 Neut % (Auto) 87.0 % 05/14/21 11:09 Lymph % (Auto) 6.9 % 05/14/21 11:09 [place] % (Auto) 4.7 % 05/14/21 11:09 Eos % (Auto) 0.5 % 05/14/21 11:09 Baso % (Auto) 0.3 % 05/14/21 11:09 Neut # (Auto) 13.20 10^3/uL (1.8-7.7) H 05/14/21 11:09 Lymph # (Auto) 1.1 10^3/uL (0.8-4.8) 05/14/21 11:09 [place] # (Auto) 0.7 10^3/uL (0.2-0.9) 05/14/21 11:09 Eos # (Auto) 0.1 10^3/uL (0.0-0.8) 05/14/21 11:09 Baso # (Auto) 0.0 10^3/uL (0.0-0.1) 05/14/21 11:09 Nucleated RBC % (auto) 0 % 05/14/21 11:09 Nucleated RBCs # 0.0 /100WBC 05/14/21 11:09 Specimen Type Arterial 05/14/21 10:50 Sample Site Brachial, right 05/14/21 10:50 ABG pH 7.43 (7.35-7.45) 05/14/21 10:50 ABG pCO2 47.7 mmHg (35-45) H 05/14/21 10:50 ABG pO2 72.7 mmHg (80.0-100.0) L 05/14/21 10:50 ABG HCO3 31.8 mmol/L (22-26) H 05/14/21 10:50 ABG O2 Saturation 94.2 05/14/21 10:50 ABG Base Excess 6.6 mmol/L (-2.0-2.0) H 05/14/21 10:50 [place] Test N/a 05/14/21 10:50 A-a O2 Gradient 2.5 mmHg (5-10) L 05/14/21 10:50 Hematocrit 31.6 % (42-52) L 05/14/21 10:50 Hgb O2 Saturation 92.1 % (95-100) L 05/14/21 10:50 Carboxyhemoglobin 1.1 %THgb (0.4-20.1) 05/14/21 10:50 Methemoglobin 1.2 % (0.4-1.5) 05/14/21 10:50 Total Hemoglobin 10.3 g/dL (14-18) L 05/14/21 10:50 Sodium 139.0 mmol/L (131-143) 05/14/21 10:50 Potassium 3.9 mmol/L (3.5-5.0) 05/14/21 10:50 Glucose 106.0 mg/dL (70-115) 05/14/21 10:50 Ionized Calcium 1.2 mmol/L (1.1-1.4) 05/14/21 10:50 O2 Delivery Device Nc 05/14/21 10:50 O2 Liters/Min 3.0 % 05/14/21 10:50 Road Passenger Firer ID Hinja 05/14/21 10:50 Sodium 135 mmol/L (136-145) L 05/14/21 11:09 Potassium 4.4 mmol/L (3.5-5.1) 05/14/21 11:09 Chloride 99 mmol/L (98-107) 05/14/21 11:09 Carbon Dioxide 25 mmol/L (22-29) 05/14/21 11:09 Anion Gap 15.4 (5-19) 05/14/21 11:09 BUN 5 mg/dL (8-23) L 05/14/21 11:09 Creatinine 0.5 mg/dL (0.7-1.2) L 05/14/21 11:09 GFR Calculation 167.9 mL/min (90-130) H 05/14/21 11:09 Glucose 102 mg/dL (65-115) 05/14/21 11:09 Calculated Osmolality 277 mOsm/kg (285-295) L 05/14/21 11:09 Calcium 9.2 mg/dL (8.5-10.5) 05/14/21 11:09 Total Bilirubin 0.3 mg/dL (0.15-1.2) 05/14/21 11:09 AST 19 U/L (0-40) 05/14/21 11:09 ALT 17 U/L (0-41) 05/14/21 11:09 Alkaline Phosphatase 75 IU/L (40-130) 05/14/21 11:09 Total Protein 7.1 g/dL (6.6-8.7) 05/14/21 11:09 Albumin 3.0 g/dL (3.5-5.2) L 05/14/21 11:09 Globulin 4.1 g/dL (1.3-4.6) 05/14/21 11:09 Coronavirus 229E (PCR) Not detected (NOT DETECT) 05/14/21 11:09 SARS-CoV-2 (PCR) Not detected (NOT DETECT) 05/14/21 11:09 Discharge Plan Discharge Patient Disposition: Home Clinical Impression: Acute exacerbation of chronic obstructive airways disease Condition: Stable Prescriptions: New prednisone 20 mg tablet 20 mg PO TID Qty: 20 0RF Rx Instructions: 2 p.o. twice daily x3 days, 1 p.o. 3 times daily x3 days, 1 p.o. twice daily x3 days, 1 p.o. daily x4 days levofloxacin 500 mg tablet 500 mg PO DAILY 7 Days 0RF ipratropium-albuterol 0.5 mg-3 mg(2.5 mg base)/3 mL solution for nebulization 3 ml inhalation Q4H PRN (Reason: shortness of breath or wheezing) Qty: 180 0RF Rx Instructions: until breathing returns to target peak flow/parameters Discontinued prednisone 20 mg tablet 20 mg PO DAILY 7 Days Qty: 7 0RF prednisone 5 mg tablet 5 - 10 mg PO BID PRN (Reason: lungs) 0RF Rx Instructions: see pahrmacy comments No Action Trelegy Ellipta 100-62.5-25 mcg blister with device 1 inh inhalation DAILY Qty: 60 3RF albuterol sulfate [ProAir HFA] 90 mcg/actuation HFA aerosol inhaler 2 puff INHALATION Q6H PRN (Reason: Shortness Of Breath) Qty: 8.5 3RF levalbuterol HCl [Xopenex] 0.63 mg/3 mL solution for nebulization 0.63 mg inhalation TID PRN (Reason: shortness of breath or wheezing) Qty: 90 3RF tamsulosin 0.4 mg capsule 0.4 mg PO BID 0RF Daliresp 500 mcg tablet 500 mcg PO QAM Qty: 30 3RF naproxen 500 mg tablet See Rx Instructions .ROUTE .COMPLEX Qty: 60 0RF Dose Instruction: TAKE 1 TABLET(500 MG) BY MOUTH TWICE DAILY WITH MEALS Rx Instructions: TAKE 1 TABLET(500 MG) BY MOUTH TWICE DAILY WITH MEALS albuterol sulfate 90 mcg/actuation HFA aerosol inhaler 2 inh INHALATION Q4H PRN (Reason: shortness of breath or wheezing) Qty: 18 2RF ropinirole 0.25 mg tablet See Rx Instructions .ROUTE .COMPLEX Qty: 90 0RF Dose Instruction: TAKE 1 TABLET(0.25 MG) BY MOUTH DAILY AT BEDTIME Rx Instructions: TAKE 1 TABLET(0.25 MG) BY MOUTH DAILY AT BEDTIME ondansetron HCl 4 mg tablet See Rx Instructions .ROUTE .COMPLEX Qty: 30 0RF Dose Instruction: TAKE 1 TABLET(4 MG) BY MOUTH EVERY 8 HOURS NEEDED FOR NAUSEA OR VOMITING Rx Instructions: TAKE 1 TABLET(4 MG) BY MOUTH EVERY 8 HOURS NEEDED FOR NAUSEA OR VOMITING baclofen 20 mg tablet 20 mg PO TID PRN (Reason: Muscle Spasm) 0RF gabapentin 600 mg tablet 600 mg PO TID 0RF tadalafil [Cialis] 5 mg tablet 5 mg PO BEDTIME 0RF multivitamin Tablet 1 tab PO QAM 0RF Vitamin B-12 2,500 mcg Tablet, Sublingual 2,500 mcg SUBLINGUAL QAM 0RF Vitamin D3 1 cap PO QAM 0RF Augmentin 875-125 mg tablet 1 tab PO BID Qty: 14 0RF oxycodone 5 mg tablet 5 mg PO Q4H PRN (Reason: pain) Qty: 10 0RF Discharge Orders: Discharge ED (Routine); Ordered 05/14/21 Ordered By: Clayton Cortes Referrals: Dunia Cardenas FNP [Primary Care Provider] - Coding Level of Care Code ED Community Health Representative for Chg Fwd Exam Detailed
[2021-05-14 10:22] VITALS: BP 144/84; PULSE 94; RESP 21; TEMP 36.8; O2SAT 98; BMI 19.3
--- NOTE | 2021-05-14 10:29 | XRR_ITS ---
PROCEDURE INFORMATION: Exam: XR Chest Exam date and time: 05/14/2021 9:36 AM Age: 65 years old Clinical indication: Cough and dyspnea; Additional info: Dyspnea/cough TECHNIQUE: Imaging protocol: XR of the chest. Views: 1 view. Total images: 1 COMPARISON: CR XR chest 1V portable [id number] 02/26/2021 5:42 PM FINDINGS: Lungs: Nonspecific bibasilar opacities, favoring atelectasis or pneumonia. Hyperinflation with prominent interstitial markings suggesting COPD changes. Pleural spaces: There is biapical pleural thickening, likely related to chronic pleural-parenchymal scarring. Heart/Mediastinum: Heart size is stable when compared to the prior exam. Bones/joints: Osseous structures are unchanged from the prior exam. Other findings: Stable postsurgical changes. XR/XR chest 1V portable [id number] IMPRESSION: 1. Nonspecific bibasilar opacities, favoring atelectasis or pneumonia. 2. Hyperinflation with prominent interstitial markings suggesting COPD changes.
[2021-05-14 10:58] LABS: ABG PCO2 47.7 mmHg (35-45); ABG PH Result 7.43 (7.35-7.45); Alveolar-Arterial Oxygen Gradi 2.5 mmHg (5-10); Arterial Blood Gas Hematocrit 31.6 % (42-52); Base Excess ABG 6.6 mmol/L (-2.0-2.0); Blood Gas Sample Site Brachial, right; Blood Gas Sample Type Arterial; Carboxyhemoglobin 1.1 %THgb (0.4-20.1); HCO3 ABG 31.8 mmol/L (22-26); HGB O2 Sat 92.1 % (95-100); Ionized Calcium Level - ABG 1.2 mmol/L (1.1-1.4); Methemoglobin 1.2 % (0.4-1.5); Oxygen Device NC; Oxygen Saturation ABG 94.2; PO2 ABG 72.7 mmHg (80.0-100.0); Potassium Level - ABG 3.9 mmol/L (3.5-5.0); Total Hemoglobin 10.3 g/dL (14-18)
[2021-05-14 11:18] LABS: Basophils % 0.3 %; Eosinophils # 0.1 10^3/uL (0.0-0.8); Eosinophils % 0.5 %; Hematocrit 37.2 % (42.0-52.0); Hemoglobin 11.4 g/dL (11.7-16.6); Lymphocytes # 1.1 10^3/uL (0.8-4.8); Lymphocytes % 6.9 %; Mean Corpuscular HGB Conc 30.6 g/dL (30.0-36.0); Mean Corpuscular Hemoglobin 28.6 pg (28.0-34.0); Mean Corpuscular Volume 93.2 fl (80-94); Mean Platelet Volume 10.6 fL (7.4-10.4); Monocytes # 0.7 10^3/uL (0.2-0.9); Monocytes % 4.7 %; Nucleated Red Blood Cells % 0 %; Platelet Count 276 10^3/cmm (130-400); Red Blood Count 3.99 10^6/uL (4.1-5.3); Red Cell Distribution Width 12.7 % (12.1-15.1); White Blood Count 15.2 10^3/uL (4.0-10.0)
[2021-05-14 11:39] LABS: Alkaline Phosphatase 75 IU/L (40-130); Blood Urea Nitrogen 5 mg/dL (8-23); Calcium 9.2 mg/dL (8.5-10.5); Carbon Dioxide 25 mmol/L (22-29); Chloride 99 mmol/L (98-107); Globulin 4.1 g/dL (1.3-4.6); Glomerular Filtration Rate 167.9 mL/min (90-130); Glucose 102 mg/dL (65-115); Osmolality Calculated 277 mOsm/kg (285-295); Sodium 135 mmol/L (136-145); Total Bilirubin 0.3 mg/dL (0.15-1.2); Total Protein 7.1 g/dL (6.6-8.7)
[2021-05-14 11:42] LABS: Creatinine Clr Calc Pharmacy 146.0733
[2021-05-14 11:43] LABS: Alanine Aminotransferase 17 U/L (0-41); Anion Gap 15.4 (5-19); Aspartate Amino Transferase 19 U/L (0-40); Potassium 4.4 mmol/L (3.5-5.1)
[2021-05-14 13:02] LABS: Adenovirus Not Detected (NOT DETECT); Chlamydia Pneumoniae Not Detected (NOT DETECT); Coronavirus 229E,HKU1,NL63,OC4 Not Detected (NOT DETECT); Human Metapneumovirus Not Detected (NOT DETECT); Human Rhinovirus/Enterovirus Not Detected (NOT DETECT); Influenza A Not Detected (NOT DETECT); Influenza A H1 Not Detected (NOT DETECT); Influenza A H1-2009 Not Detected (NOT DETECT); Influenza A H3 Not Detected (NOT DETECT); Influenza B Not Detected (NOT DETECT); Mycoplasma Pneumoniae Not Detected (NOT DETECT); Parainfluenza Virus Type 1 Not Detected (NOT DETECT); Parainfluenza Virus Type 2 Not Detected (NOT DETECT); Parainfluenza Virus Type 3 Not Detected (NOT DETECT); Parainfluenza Virus Type 4 Not Detected (NOT DETECT); Respiratory Syncytial Virus A Not Detected (NOT DETECT); Respiratory Syncytial Virus B Not Detected (NOT DETECT); SARS-COV-2 Not Detected (NOT DETECT)
== END 2021-05-14 13:39 | disposition home or self-care (01) ==
LOC: ER 10:47 → OBGYN 12:20 → ER 13:19
PROVIDERS: Emergency Provider Family Medicine; PCP Nurse Practitioner Family
DX: J44.1 Chronic obstructive pulmonary disease with (acute) exacerbation (principal); J44.9 Chronic obstructive pulmonary disease, unspecified; I25.10 Atherosclerotic heart disease of native coronary artery without angina pectoris; Z86.19 Personal history of other infectious and parasitic diseases; Z85.118 Personal history of other malignant neoplasm of bronchus and lung; E78.5 Hyperlipidemia, unspecified; Z99.81 Dependence on supplemental oxygen; Z90.2 Acquired absence of lung [part of]; F17.210 Nicotine dependence, cigarettes, uncomplicated; Z20.822 Contact with and (suspected) exposure to COVID-19
CPT/HCPCS: 36600; 71045; 80051; 80053; 82330; 82805; 85025; 87070; 87205; 87635; 99283

== ENCOUNTER 2021-05-16 17:46 | Emergency (ER) | payer MEDICARE, MEDICAID, SELFPAY ==
[2021-05-16] VITALS (10 sets, daily range): BP systolic 145–158; BP diastolic 93–104; PULSE 90–108; RESP 17–18; O2SAT 95–100; BMI 18.6
--- NOTE | 2021-05-16 18:25 | W.ED.WOUNDLC ---
HPI - Wound/Laceration General: Chief Complaint: Wound/Laceration Stated Complaint: Adnormal spot Time Seen by Provider: 05/16/21 18:25 History of Present Illness: Mr. Lizarraga is a 65-year-old gentleman with complex past medical history including COPD with hypoxic respiratory failure chronically on oxygen, history of lung cancer, history of perianal abscess who presents to the emergency department due to concern over painful buttock wound. He reports first noticing a small pimple type lesion 2 days ago and his significant other tried to pop it though did not express much pus. Since that time he has had increased pain, redness, swelling, and pus. He denies associated tracking towards the rectum, rectal pain, or changes go to the bathroom. He has had generalized malaise though no measured fevers. Otherwise has been at his baseline health. Intensity of symptoms is moderate to severe. Course has persisted. No other specific changes in health, exacerbating, or alleviating factors identified. Location: other Associated symptoms: Reports pain Review of Systems General: Reports: 10 or more systems reviewed and unremarkable except in HPI and below PFSH ED PFSH: Medical History ADD (attention deficit disorder) Cardiac enzymes elevated Cervical post-laminectomy syndrome Colon polyps COPD (chronic obstructive pulmonary disease) COPD (chronic obstructive pulmonary disease) Coronary artery disease DDD (degenerative disc disease) Depression Hepatitis B Hepatitis C History of lung cancer Non-small cell lung cancer, squamous type, treated with resection History of melanoma Hx of malignant melanoma of skin Hyperlipidemia Lumbar post-laminectomy syndrome Marijuana use, continuous Migraine Neuropathy Psychiatric care Shortness of Breath Spontaneous pneumothorax Supplemental oxygen dependent Thyroid nodule Tobacco dependency Surgical History History of appendectomy History of cervical spinal surgery (05/14/12) C3-C4 JAVIER, Dr. Kirk History of decompression of median nerve (~1990) 1990 left wrist History of fusion of cervical spine Dr. May Kirk 03/31/2014 C7-T1 ACDFF Dr. May Kirk 05/14/2012 C3-C4 ACDFF Dr. May Kirk 05/18/2009 C4-C5 ACDFF History of lobectomy of lung History of lumbar fusion (~02/03/07) Dr. May Kirk 02/03/2007 L4-L5 anterior lumbar interbody fusion/fixation Dr. May Kirk 01/30/2006 Left L4-L5 hemilaminotomy/discectomy/foraminotomy History of lung surgery (~05/2008) Family History Mother Lung cancer CAD (coronary artery disease), Onset Age: 40 Cancer Father Lung cancer Stroke CAD (coronary artery disease), Onset Age: 59 Cancer Brother Lung cancer Cancer Family/Other Diabetes Other Lung disease Denies family history of Clotting disorder Dementia Chronic kidney disease (CKD) Suicide Anesthesia complication Bleeding disorder Social History Smoking and tobacco status: current every day smoker cigarettes Packs smoked per day: 2 Years cigarettes smoked: 50 Alcohol intake: current Household members: spouse Marital status: Current occupational status: disabled History of recent travel: No Physical Exam Const: COMMON NORMALS: alert GENERAL APPEARANCE: cooperative, well developed and ill appearing (chronically) HENMT: COMMON NORMALS: normocephalic and atraumatic HEAD & SCALP: normocephalic and atraumatic Eye: COMMON NORMALS: conjunctivae normal CONJUNCTIVA: Yes conjunctivae normal SCLERA: sclerae normal Neck/C-Spine: COMMON NORMALS: supple GENERAL: Yes trachea midline Resp: COMMON NORMALS: normal respiratory effort EFFORT & INSPECTION: Yes able to speak in complete sentences AUSCULTATION: diminished lung sounds Cardio: COMMON NORMALS: regular rate and regular rhythm RATE: regular rate RHYTHM: regular rhythm GI: COMMON NORMALS: Soft to palpation PALPATION: Yes Soft to palpation and No Tenderness to palpation present (GI) PERCUSSION: normal to percussion Back/Pelvis: OTHER: Indurated raised and swollen approximately 6 cm region with central fluctuance on the inferior medial right buttock Extremity: GENERAL: Yes normal exam except as noted and No edema Neuro: COMMON NORMALS: moves all extremities SENSORIUM/ORIENTATION: Yes alert and No Orientation impaired Course ED course: - Patient was seen and evaluated by me at bedside - Patient placed on cardiac monitors, IV access obtained - Initial evaluation notable for lesion as above - Labs personally interpreted by me - analgesia given - Labs notable for minimal leukocytosis. Near baseline normocytic anemia. No acute electrolyte derangements. - I performed bedside ultrasound of the soft tissue area of interest. The overall appearance is likely consistent with abscess however the internal debris is significantly more hyperechoic than typical of an abscess and therefore I felt that CT was warranted. CT imaging notable for abscess without evidence of deep tracking or perianal component. - I prepared to perform incision and drainage at bedside when the patient became significantly anxious and upset regarding plan. I did provide IV analgesia prior to the proposed procedure. The patient adamantly refuses because he is concerned about pain. Unfortunately, as I explained to the patient, there is no way to guarantee no pain and local anesthetics do cause pain initially before numbing the area. This was not satisfactory to the patient. The patient states that he will only tolerate drainage if he is knocked out. The patient is absolutely not a candidate for emergency department procedural sedation for an incision and drainage. The risk is significant. I explained this to the patient however he continued to adamantly decline incision and drainage. He understands risks of significant worsening including from untreated infection. Based on my evaluation of the patient at this time I believe that he has capacity to make medical decisions. - I did discuss the case with Dr. Farrell who will see patient in clinic if the patient desires. I clearly explained to the patient that I cannot imagine a circumstance where a general surgeon will take the patient to the operating room for drainage of the abscess as it currently stands. - Patient left AGAINST MEDICAL ADVICE. I did provide him paperwork and a prescription for Bactrim. Note: Click bubbles or prepopulated hagen in note writing are used for assistance with data collection and billing and are inherently more limited than narrative and other text portions of this note. Please use narrative for additional clinical history and defer to narrative/free test for any case of contradictory information. If information appears in only free text or click bubble it should be considered present or absent as reported. Please contact note sign writer hand for clarifications of clinical information or contradictory information. MDM is a brief summary, contradictory or erroneous seeming information should be clarified and full note should be reviewed. Vital Signs: Vital signs: Vital Signs Pulse Rate 94 05/16/21 22:35 Respiratory Rate 18 05/16/21 22:35 Blood Pressure 151/95 05/16/21 22:35 Pulse Oximetry 97 05/16/21 22:35 MDM - Wound/Laceration Medical Decision Making 65-year-old gentleman presenting with scheduled concern for abscess. Patient has significant comorbidities. I provided IV analgesia however while preparing for incision and drainage the patient became markedly agitated regarding possibility of any pain. Given degree of comorbidities it is not reasonable to perform procedural sedation for relatively minor incision and drainage procedure as the risks significantly outweigh benefits. He ended up leaving AGAINST MEDICAL ADVICE for outpatient follow-up with general surgery. Medical Records I reviewed the patient's medical records. Lab Data I reviewed the patient's lab results. : 05/16/21 19:00 05/16/21 19:[address] 05/16/21 19:56 IMPRESSION: 1. 4.8 cm subcutaneous soft tissue abscess in the inferior medial left buttock and extending into the medial thigh. This does not represent a perianal abscess, with no visible connection to the anal canal. 2. Suspected wall thickening in the distal sigmoid colon and rectum could represent colitis/proctitis. Laboratory Results WBC 10.5 10^3/uL (4.0-10.0) H 05/16/21 19:00 RBC 3.93 10^6/uL (4.1-5.3) L 05/16/21 19:00 Hgb 11.1 g/dL (11.7-16.6) L 05/16/21 19:00 Hct 35.2 % (42.0-52.0) L 05/16/21 19:00 MCV 89.6 fl (80-94) 05/16/21 19:00 MCH 28.2 pg (28.0-34.0) 05/16/21 19:00 MCHC 31.5 g/dL (30.0-36.0) 05/16/21 19:00 RDW 12.8 % (12.1-15.1) 05/16/21 19:00 Plt Count 340 10^3/cmm (130-400) 05/16/21 19:00 MPV 9.6 fL (7.4-10.4) 05/16/21 19:00 Neut % (Auto) 85.2 % 05/16/21 19:00 Lymph % (Auto) 8.9 % 05/16/21 19: Willacy % (Auto) 5.4 % 05/16/21 19:00 Eos % (Auto) 0.0 % 05/16/21 19:00 Baso % (Auto) 0.1 % 05/16/21 19:00 Neut # (Auto) 8.94 10^3/uL (1.8-7.7) H 05/16/21 19:00 Lymph # (Auto) 0.9 10^3/uL (0.8-4.8) 05/16/21 19:00 Willacy # (Auto) 0.6 10^3/uL (0.2-0.9) 05/16/21 19:00 Eos # (Auto) 0.0 10^3/uL (0.0-0.8) 05/16/21 19:00 Baso # (Auto) 0.0 10^3/uL (0.0-0.1) 05/16/21 19:00 Nucleated RBC % (auto) 0 % 05/16/21 19:00 Nucleated RBCs # 0.0 /100WBC 05/16/21 19:00 Sodium 137 mmol/L (136-145) 05/16/21 19:00 Potassium 4.6 mmol/L (3.5-5.1) 05/16/21 19:00 Chloride 98 mmol/L (98-107) 05/16/21 19:00 Carbon Dioxide 34 mmol/L (22-29) H 05/16/21 19:00 Anion Gap 9.6 (5-19) 05/16/21 19:00 BUN 11 mg/dL (8-23) 05/16/21 19:00 Creatinine 0.5 mg/dL (0.7-1.2) L 05/16/21 19:00 GFR Calculation 167.9 mL/min (90-130) H 05/16/21 19:00 Glucose 107 mg/dL (65-115) 05/16/21 19:00 Calculated Osmolality 284 mOsm/kg (285-295) L 05/16/21 19:00 Calcium 10.0 mg/dL (8.5-10.5) 05/16/21 19:00 Discharge Plan Discharge Patient Disposition: Left Against Medical Advice Clinical Impression: Abscess of buttock Condition: Stable Prescriptions: New Bactrim DS 800-160 mg tablet 1 tab PO DAILY 10 Days Qty: 20 0RF No Action Trelegy Ellipta 100-62.5-25 mcg blister with device 1 inh inhalation DAILY Qty: 60 3RF albuterol sulfate [ProAir HFA] 90 mcg/actuation HFA aerosol inhaler 2 puff INHALATION Q6H PRN (Reason: Shortness Of Breath) Qty: 8.5 3RF levalbuterol HCl [Xopenex] 0.63 mg/3 mL solution for nebulization 0.63 mg inhalation TID PRN (Reason: shortness of breath or wheezing) Qty: 90 3RF tamsulosin 0.4 mg capsule 0.4 mg PO BID 0RF Daliresp 500 mcg tablet 500 mcg PO QAM Qty: 30 3RF naproxen 500 mg tablet See Rx Instructions .ROUTE .COMPLEX Qty: 60 0RF Dose Instruction: TAKE 1 TABLET(500 MG) BY MOUTH TWICE DAILY WITH MEALS Rx Instructions: TAKE 1 TABLET(500 MG) BY MOUTH TWICE DAILY WITH MEALS albuterol sulfate 90 mcg/actuation HFA aerosol inhaler 2 inh INHALATION Q4H PRN (Reason: shortness of breath or wheezing) Qty: 18 2RF ropinirole 0.25 mg tablet See Rx Instructions .ROUTE .COMPLEX Qty: 90 0RF Dose Instruction: TAKE 1 TABLET(0.25 MG) BY MOUTH DAILY AT BEDTIME Rx Instructions: TAKE 1 TABLET(0.25 MG) BY MOUTH DAILY AT BEDTIME ondansetron HCl 4 mg tablet See Rx Instructions .ROUTE .COMPLEX Qty: 30 0RF Dose Instruction: TAKE 1 TABLET(4 MG) BY MOUTH EVERY 8 HOURS NEEDED FOR NAUSEA OR VOMITING Rx Instructions: TAKE 1 TABLET(4 MG) BY MOUTH EVERY 8 HOURS NEEDED FOR NAUSEA OR VOMITING baclofen 20 mg tablet 20 mg PO TID PRN (Reason: Muscle Spasm) 0RF gabapentin 600 mg tablet 600 mg PO TID 0RF tadalafil [Cialis] 5 mg tablet 5 mg PO BEDTIME 0RF multivitamin Tablet 1 tab PO QAM 0RF Vitamin B-12 2,500 mcg Tablet, Sublingual 2,500 mcg SUBLINGUAL QAM 0RF Vitamin D3 1 cap PO QAM 0RF Augmentin 875-125 mg tablet 1 tab PO BID Qty: 14 0RF oxycodone 5 mg tablet 5 mg PO Q4H PRN (Reason: pain) Qty: 10 0RF prednisone 20 mg tablet 20 mg PO TID Qty: 20 0RF Rx Instructions: 2 p.o. twice daily x3 days, 1 p.o. 3 times daily x3 days, 1 p.o. twice daily x3 days, 1 p.o. daily x4 days ipratropium-albuterol 0.5 mg-3 mg(2.5 mg base)/3 mL solution for nebulization 3 ml inhalation Q4H PRN (Reason: shortness of breath or wheezing) Qty: 180 0RF Rx Instructions: until breathing returns to target peak flow/parameters Discharge Orders: Discharge ED (Routine); Ordered 05/16/21 Ordered By: Jon Wise Referrals: Dunia Cardenas FNP [Primary Care Provider] - Discharge Diet: Usual diet Discharge Activity: Resume usual activity Patient Instructions: Abscess (ED) Activity Restrictions/Additional Instructions: Thank you for visiting the emergency department. You were seen and evaluated for infection. You were found to have a abscess on your buttocks. The accepted treatment is bedside incision and drainage and antibiotics. Without incision and drainage abscesses do not allow for adequate treatment with antibiotics. You are declining incision and drainage in the emergency department and choosing to leave AGAINST MEDICAL ADVICE. In this case, given your high degree of comorbidities, your decision to leave may lead to life-threatening complications including sepsis, permanent debility or pain, or other complications. You may return to an emergency department for any reason at any time. I will prescribe antibiotics regardless in case there is some efficacy. You may call Dr Farrell's clinic for follow-up if desired. As discussed, however, the likelihood of having this abscess drained under general anesthesia is extremely unlikely. Please follow-up with your primary care provider. Please return to the emergency department for anything that you are concerned about and feel needs emergency department evaluation. Coding Level of Care Code ED [employer] Applications Developer for Laci Fwsalvatore Exam Comprehensive
[2021-05-16] MEDS: morphine 4 mg/mL SDV 1 mL IVP ×2 (19:03→21:57)
[2021-05-16 19:06] LABS: Basophils % 0.1 %; Hematocrit 35.2 % (42.0-52.0); Hemoglobin 11.1 g/dL (11.7-16.6); Lymphocytes # 0.9 10^3/uL (0.8-4.8); Lymphocytes % 8.9 %; Mean Corpuscular HGB Conc 31.5 g/dL (30.0-36.0); Mean Corpuscular Hemoglobin 28.2 pg (28.0-34.0); Mean Corpuscular Volume 89.6 fl (80-94); Mean Platelet Volume 9.6 fL (7.4-10.4); Monocytes # 0.6 10^3/uL (0.2-0.9); Monocytes % 5.4 %; Neutrophils # 8.94 10^3/uL (1.8-7.7); Neutrophils % 85.2 %; Nucleated Red Blood Cells % 0 %; Platelet Count 340 10^3/cmm (130-400); Red Blood Count 3.93 10^6/uL (4.1-5.3); Red Cell Distribution Width 12.8 % (12.1-15.1); White Blood Count 10.5 10^3/uL (4.0-10.0)
[2021-05-16 19:28] LABS: Anion Gap 9.6 (5-19); Blood Urea Nitrogen 11 mg/dL (8-23); Carbon Dioxide 34 mmol/L (22-29); Chloride 98 mmol/L (98-107); Creatinine Clr Calc Pharmacy 126.1239; Glomerular Filtration Rate 167.9 mL/min (90-130); Glucose 107 mg/dL (65-115); Osmolality Calculated 284 mOsm/kg (285-295); Potassium 4.6 mmol/L (3.5-5.1); Sodium 137 mmol/L (136-145)
--- NOTE | 2021-05-16 19:56 | CTR_ITS ---
PROCEDURE INFORMATION: Exam: CT Pelvis With Contrast Exam date and time: 05/16/2021 8:12 PM Age: 65 years old Clinical indication: Pelvic pain; Patient HX: Left infragluteul/upper thigh mass, ? abscess, ? deep tracking TECHNIQUE: Imaging protocol: Computed tomography images of the pelvis with intravenous contrast. Radiation optimization: All CT scans at this facility use at least one of these dose optimization techniques: automated exposure control; mA and/or kV adjustment per patient size (includes targeted exams where dose is matched to clinical indication); or iterative reconstruction. Contrast material: OMNI 300; Contrast volume: 95 ml; Contrast route: INTRAVENOUS (IV); COMPARISON: CT abdomen pelvis w con* [id number] 01/23/2020 2:18 PM RADIATION DOSE METRICS: Total DLP (mGy-cm): 263.37 FINDINGS: Stomach and bowel: The visualized small bowel is unremarkable. Suspected mild wall thickening within the distal sigmoid colon and rectum. Appendix: The appendix is not visualized. No secondary signs of appendicitis. Intraperitoneal space: Unremarkable. No free air. No significant fluid collection. Lymph nodes: Prominent bilateral inguinal lymph nodes are most likely reactive. Urinary bladder: Normal. No mass. Reproductive: Normal as visualized. Bones/joints: Anterior mechanical and bony fusion of L4-L5. No fracture identified. Soft tissues: 4.8 x 2.4 x 2.5 cm subcutaneous soft tissue abscess in the inferior medial left buttock and medial thigh. There is a thick enhancing surrounding rind with mild fat stranding. This does not appear to communicate with the anus. CT/CT pelvis w con* [id number] IMPRESSION: 1. 4.8 cm subcutaneous soft tissue abscess in the inferior medial left buttock and extending into the medial thigh. This does not represent a perianal abscess, with no visible connection to the anal canal. 2. Suspected wall thickening in the distal sigmoid colon and rectum could represent colitis/proctitis.
[2021-05-16] MEDS: iohexol 300 mg/mL 100 mL Btl IV (20:16)
== END 2021-05-16 22:35 | disposition left against medical advice (07) ==
PROVIDERS: Emergency Provider Emergency Medicine; PCP Nurse Practitioner Family
DX: L02.31 Cutaneous abscess of buttock (principal); Z53.21 Procedure and treatment not carried out due to patient leaving prior to being seen by health care provider; J44.9 Chronic obstructive pulmonary disease, unspecified; I25.10 Atherosclerotic heart disease of native coronary artery without angina pectoris; Z86.19 Personal history of other infectious and parasitic diseases; Z85.118 Personal history of other malignant neoplasm of bronchus and lung; E78.5 Hyperlipidemia, unspecified; Z99.81 Dependence on supplemental oxygen; F17.210 Nicotine dependence, cigarettes, uncomplicated
CPT/HCPCS: 72193; 80048; 85025; 96374; 96376; 99284; J2270; Q9967

== ENCOUNTER 2021-05-17 14:12 | Emergency (ER) | payer MEDICARE, MEDICAID, SELFPAY ==
[2021-05-17] VITALS (8 sets, daily range): BP systolic 132–152; BP diastolic 81–97; PULSE 84–107; RESP 15–20; TEMP 36.7; O2SAT 95–100; BMI 18.6
--- NOTE | 2021-05-17 18:26 | ED_ITS ---
HPI - General Adult General: Chief complaint: General Medical Stated complaint: states that doctor wants to see him? Time Seen by Provider: 05/17/21 18:08 Source: patient Mode of arrival: ambulatory Limitations: no limitations History of Present Illness: 65-year-old male has a history of a left gluteal abscess. He was seen here last night refused to have it drained last night he was supposed to follow-up with surgery states that he had more pain. He has had some slight drainage denies any fever denies any vomiting or diarrhea. Associated symptoms: Deny chest pain, dyspnea, headache(s), nausea, rash or vomiting Review of Systems Const: Denies: fever(s), chills, body aches or change in appetite Eyes: Denies: blurry vision or eye discomfort ENMT: Denies: throat pain or dental pain Card: Denies: chest pain Resp: Denies: dyspnea GI: Denies: abdominal pain, nausea, vomiting or diarrhea : Denies: dysuria Musc: Denies: neck pain or back pain Skin/Breast: Denies: rash Neuro: Denies: headache(s) Psych: Denies: depression Jose/Lymph: Denies: easy bruising All/Imm: Denies: urticaria PFSH ED PFSH: Medical History ADD (attention deficit disorder) Cardiac enzymes elevated Cervical post-laminectomy syndrome Colon polyps COPD (chronic obstructive pulmonary disease) COPD (chronic obstructive pulmonary disease) Coronary artery disease DDD (degenerative disc disease) Depression Hepatitis B Hepatitis C History of lung cancer Non-small cell lung cancer, squamous type, treated with resection History of melanoma Hx of malignant melanoma of skin Hyperlipidemia Lumbar post-laminectomy syndrome Marijuana use, continuous Migraine Neuropathy Psychiatric care Shortness of Breath Spontaneous pneumothorax Supplemental oxygen dependent Thyroid nodule Tobacco dependency Surgical History History of appendectomy History of cervical spinal surgery (05/14/12) C3-C4 ACDFF, Dr. Kirk History of decompression of median nerve (~1990) 1990 left wrist History of fusion of cervical spine Dr. May Kirk 03/31/2014 C7-T1 ACDFF Dr. May Kirk 05/14/2012 C3-C4 ACDFF Dr. May Kirk 05/18/2009 C4-C5 ACDFF History of lobectomy of lung History of lumbar fusion (~02/03/07) Dr. May Kirk 02/03/2007 L4-L5 anterior lumbar interbody fusion/fixation Dr. May Kirk 01/30/2006 Left L4-L5 hemilaminotomy/discectomy/foraminotomy History of lung surgery (~05/2008) Family History Mother Lung cancer CAD (coronary artery disease), Onset Age: 40 Cancer Father Lung cancer Stroke CAD (coronary artery disease), Onset Age: 59 Cancer Brother Lung cancer Cancer Family/Other Diabetes Other Lung disease Denies family history of Clotting disorder Dementia Chronic kidney disease (CKD) Suicide Anesthesia complication Bleeding disorder Social History Smoking and tobacco status: current every day smoker cigarettes Packs smoked per day: 2 Years cigarettes smoked: 50 Alcohol intake: current Household members: spouse Marital status: Current occupational status: disabled History of recent travel: No Physical Exam Const: COMMON NORMALS: no acute distress, patient oriented x3 and healthy appearing HENMT: COMMON NORMALS: normocephalic and atraumatic HEAD & SCALP: normocephalic and atraumatic Eye: COMMON NORMALS: Equal, round and reactive pupils present and EOMs intact bilaterally PUPIL: Yes Equal, round and reactive pupils present Neck/C-Spine: COMMON NORMALS: full ROM and supple Chest: COMMONS NORMALS: normal inspection of the chest and normal palpation of entire chest wall Resp: COMMON NORMALS: normal respiratory effort, No retractions, No use of accessory muscles and clear to auscultation bilaterally AUSCULTATION: clear to auscultation bilaterally Cardio: COMMON NORMALS: regular rate, regular rhythm and No murmurs present (Cardio) RATE: regular rate RHYTHM: regular rhythm GI: COMMON NORMALS: Normal to inspection, nondistended, normoactive bowel sounds present, Soft to palpation, non-tender and no masses PALPATION: Yes Soft to palpation Back/Pelvis: BACK IMAGE (MALE): 1. 4 to 5 cm abscess to left buttocks with some slight redness around it no necrosis Extremity: COMMON NORMALS: normal to inspection and full ROM Neuro: COMMON NORMALS: patient oriented x3, moves all extremities and no focal motor deficits Psych: COMMON NORMALS: mental status grossly normal, Normal thought process present and cooperative THOUGHT PROCESS: Normal thought process present Skin: COMMON NORMALS: no rashes or lesions noted and no wounds GENERAL SKIN EXAM: no rashes or lesions noted Procedures Abscess I/D Site: other (L buttocks) Side (if applicable): left Sedation/analgesia: propofol Local Anesthetic: lidocaine 2% Amount of anesthesia used (mL): 10 Technique: incised with #11 blade Packing used?: iodoform Procedural Sedation Indication: incision and drainage of abscess ASA Class: III Time of Last PO Intake: 14:00 Preparation: quality associate applied, pulse oximeter, supplemental O2 applied and suction/airway equipment at bedside IV Propofol dose (mg): 100 Patient Tolerated Procedure: well Complications: none Course Vital Signs: Vital signs: Vital Signs Temperature 98.1 F 05/17/21 14:31 Pulse Rate 96 05/17/21 18:56 Respiratory Rate 20 H 05/17/21 18:56 Blood Pressure 139/87 05/17/21 18:56 Pulse Oximetry 97 05/17/21 18:56 MDM - General Adult Medical Decision Making Patient presents with abscess to left buttocks patient here is adamant that he had to be sedated to have it incised and drained he refused to have it drained with local awake and inform him with his COPD that he had the risk of hypoxic and even having to require elevation he understands his risk and states that he wants to be sedated did conscious sedate patient with propofol he tolerated it very well incised and drained the abscess packing was placed he is now awake and alert able to answer all my questions he stable for discharge he is still follow-up with surgery he is to return in 2 days to have packing removed he is to continue his antibiotics he was started on yesterday Lab Data : 05/17/21 18:38 05/17/21 18:38 Laboratory Results WBC 9.6 10^3/uL (4.0-10.0) 05/17/21 18:38 RBC 4.23 10^6/uL (4.1-5.3) 05/17/21 18:38 Hgb 11.8 g/dL (11.7-16.6) 05/17/21 18:38 Hct 37.9 % (42.0-52.0) L 05/17/21 18:38 MCV 89.6 fl (80-94) 05/17/21 18:38 MCH 27.9 pg (28.0-34.0) L 05/17/21 18:38 MCHC 31.1 g/dL (30.0-36.0) 05/17/21 18:38 RDW 12.8 % (12.1-15.1) 05/17/21 18:38 Plt Count 389 10^3/cmm (130-400) 05/17/21 18:38 MPV 9.3 fL (7.4-10.4) 05/17/21 18:38 Neut % (Auto) 79.5 % 05/17/21 18: Lymph % (Auto) 14.1 % 05/17/21 18: [place] % (Auto) 6.0 % 05/17/21 18:38 Eos % (Auto) 0.0 % 05/17/21 18:38 Baso % (Auto) 0.1 % 05/17/21 18: Neut # (Auto) 7.65 10^3/uL (1.8-7.7) 05/17/21 18:38 Lymph # (Auto) 1.4 10^3/uL (0.8-4.8) 05/17/21 18:38 [place] # (Auto) 0.6 10^3/uL (0.2-0.9) 05/17/21 18:38 Eos # (Auto) 0.0 10^3/uL (0.0-0.8) 05/17/21 18: Baso # (Auto) 0.0 10^3/uL (0.0-0.1) 05/17/21 18:38 Nucleated RBC % (auto) 0 % 05/17/21 18: Nucleated RBCs # 0.0 /100WBC 05/17/21 18:38 Sodium 143 mmol/L (136-145) 05/17/21 18:38 Potassium 4.6 mmol/L (3.5-5.1) 05/17/21 18:38 Chloride 99 mmol/L (98-107) 05/17/21 18:38 Carbon Dioxide 34 mmol/L (22-29) H 05/17/21 18:38 Anion Gap 14.6 (5-19) 05/17/21 18:38 BUN 13 mg/dL (8-23) 05/17/21 18:38 Creatinine 0.6 mg/dL (0.7-1.2) L 05/17/21 18:38 GFR Calculation 136.1 mL/min (90-130) H 05/17/21 18:38 Glucose 127 mg/dL (65-115) H 05/17/21 18:38 Calculated Osmolality 298 mOsm/kg (285-295) H 05/17/21 18:38 Calcium 10.1 mg/dL (8.5-10.5) 05/17/21 18:38 Total Bilirubin 0.2 mg/dL (0.15-1.2) 05/17/21 18:38 AST 49 U/L (0-40) H 05/17/21 18:38 ALT 73 U/L (0-41) H 05/17/21 18:38 Alkaline Phosphatase 110 IU/L (40-130) 05/17/21 18:38 Total Protein 8.1 g/dL (6.6-8.7) 05/17/21 18:38 Albumin 3.7 g/dL (3.5-5.2) 05/17/21 18:38 Globulin 4.4 g/dL (1.3-4.6) 05/17/21 18:38 Discharge Plan Discharge Patient Disposition: Home Clinical Impression: Abscess of buttock, left Condition: Stable Prescriptions: No Action Trelegy Ellipta 100-62.5-25 mcg blister with device 1 inh inhalation DAILY Qty: 60 3RF albuterol sulfate [ProAir HFA] 90 mcg/actuation HFA aerosol inhaler 2 puff INHALATION Q6H PRN (Reason: Shortness Of Breath) Qty: 8.5 3RF levalbuterol HCl [Xopenex] 0.63 mg/3 mL solution for nebulization 0.63 mg inhalation TID PRN (Reason: shortness of breath or wheezing) Qty: 90 3RF tamsulosin 0.4 mg capsule 0.4 mg PO BID 0RF Daliresp 500 mcg tablet 500 mcg PO QAM Qty: 30 3RF naproxen 500 mg tablet See Rx Instructions .ROUTE .COMPLEX Qty: 60 0RF Dose Instruction: TAKE 1 TABLET(500 MG) BY MOUTH TWICE DAILY WITH MEALS Rx Instructions: TAKE 1 TABLET(500 MG) BY MOUTH TWICE DAILY WITH MEALS albuterol sulfate 90 mcg/actuation HFA aerosol inhaler 2 inh INHALATION Q4H PRN (Reason: shortness of breath or wheezing) Qty: 18 2RF ropinirole 0.25 mg tablet See Rx Instructions .ROUTE .COMPLEX Qty: 90 0RF Dose Instruction: TAKE 1 TABLET(0.25 MG) BY MOUTH DAILY AT BEDTIME Rx Instructions: TAKE 1 TABLET(0.25 MG) BY MOUTH DAILY AT BEDTIME ondansetron HCl 4 mg tablet See Rx Instructions .ROUTE .COMPLEX Qty: 30 0RF Dose Instruction: TAKE 1 TABLET(4 MG) BY MOUTH EVERY 8 HOURS NEEDED FOR NAUSEA OR VOMITING Rx Instructions: TAKE 1 TABLET(4 MG) BY MOUTH EVERY 8 HOURS NEEDED FOR NAUSEA OR VOMITING baclofen 20 mg tablet 20 mg PO TID PRN (Reason: Muscle Spasm) 0RF gabapentin 600 mg tablet 600 mg PO TID 0RF tadalafil [Cialis] 5 mg tablet 5 mg PO BEDTIME 0RF multivitamin Tablet 1 tab PO QAM 0RF Vitamin B-12 2,500 mcg Tablet, Sublingual 2,500 mcg SUBLINGUAL QAM 0RF Vitamin D3 1 cap PO QAM 0RF Augmentin 875-125 mg tablet 1 tab PO BID Qty: 14 0RF oxycodone 5 mg tablet 5 mg PO Q4H PRN (Reason: pain) Qty: 10 0RF prednisone 20 mg tablet 20 mg PO TID Qty: 20 0RF Rx Instructions: 2 p.o. twice daily x3 days, 1 p.o. 3 times daily x3 days, 1 p.o. twice daily x3 days, 1 p.o. daily x4 days levofloxacin 500 mg tablet 500 mg PO DAILY 7 Days 0RF ipratropium-albuterol 0.5 mg-3 mg(2.5 mg base)/3 mL solution for nebulization 3 ml inhalation Q4H PRN (Reason: shortness of breath or wheezing) Qty: 180 0RF Rx Instructions: until breathing returns to target peak flow/parameters Bactrim DS 800-160 mg tablet 1 tab PO DAILY 10 Days Qty: 20 0RF Discharge Orders: Discharge ED (Routine); Ordered 05/17/21 Ordered By: Isa Reed Referrals: Ronald,Dunia, PREC[facility] [employer] SPECIALIST [Primary Care Provider] - Discharge Diet: Advance as tolerated Discharge Activity: Resume usual activity Patient Instructions: Abscess (ED) Coding Level of Care Code ED Liquor Commissioner for Laci Hidalgo
[2021-05-17 18:48] LABS: Basophils % 0.1 %; Hematocrit 37.9 % (42.0-52.0); Hemoglobin 11.8 g/dL (11.7-16.6); Lymphocytes # 1.4 10^3/uL (0.8-4.8); Lymphocytes % 14.1 %; Mean Corpuscular HGB Conc 31.1 g/dL (30.0-36.0); Mean Corpuscular Hemoglobin 27.9 pg (28.0-34.0); Mean Corpuscular Volume 89.6 fl (80-94); Mean Platelet Volume 9.3 fL (7.4-10.4); Monocytes # 0.6 10^3/uL (0.2-0.9); Neutrophils # 7.65 10^3/uL (1.8-7.7); Neutrophils % 79.5 %; Nucleated Red Blood Cells % 0 %; Platelet Count 389 10^3/cmm (130-400); Red Blood Count 4.23 10^6/uL (4.1-5.3); Red Cell Distribution Width 12.8 % (12.1-15.1); White Blood Count 9.6 10^3/uL (4.0-10.0)
[2021-05-17 19:26] LABS: Alanine Aminotransferase 73 U/L (0-41); Albumin Level 3.7 g/dL (3.5-5.2); Alkaline Phosphatase 110 IU/L (40-130); Anion Gap 14.6 (5-19); Aspartate Amino Transferase 49 U/L (0-40); Blood Urea Nitrogen 13 mg/dL (8-23); Calcium 10.1 mg/dL (8.5-10.5); Carbon Dioxide 34 mmol/L (22-29); Chloride 99 mmol/L (98-107); Globulin 4.4 g/dL (1.3-4.6); Glomerular Filtration Rate 136.1 mL/min (90-130); Glucose 127 mg/dL (65-115); Osmolality Calculated 298 mOsm/kg (285-295); Potassium 4.6 mmol/L (3.5-5.1); Sodium 143 mmol/L (136-145); Total Bilirubin 0.2 mg/dL (0.15-1.2); Total Protein 8.1 g/dL (6.6-8.7)
[2021-05-17] MEDS: propofol 10 mg/mL SDV 20 mL 50 MG IVP (19:30)
[2021-05-17 19:31] LABS: Creatinine Clr Calc Pharmacy 105.1032
[2021-05-17] MEDS: propofol 10 mg/mL SDV 20 mL 30 MG IVP (19:31)
[2021-05-17] MEDS: propofol 10 mg/mL SDV 20 mL IVP (19:32)
[2021-05-17] MEDS: vancomycin 1,000 MG in sodium chloride 0.9% 250 ML 250 MG IV (19:40)
--- NOTE | 2021-05-17 19:47 | PC.NURSE ---
Conscious Sedation; pt in room and provider, RT, propellant charge loader, and this RN at bedside at 1929. pt's name and , allergies, and site verified with a timeout at 1929. pt given 40mg propofol by provider at 1929, 30mg propofol given by provider at 1930, and 10mg propofol given by provider at 1931. pt remained awake but tranquil during procedure and remains that way at this time. pt is awake and conversing with this RN, pt maintaining airway and is currently on 3L/NC which is baseline. pt initially placed on 10L/NC during initial sedation. no adverse effects at this time from procedure or medication. pt's VSS throughout procedure and currently. 1954; pt is awake and alert with eyes open and is conversing with this RN. pt is A&O x4. VSS. 1999; pt awake and alert with eyes open and conversing with this RN. pt is A&O x4. VSS.
--- NOTE | 2021-05-17 20:11 | PC.NURSE ---
pt remains awake, alert, eyes open and conversing with this RN. pt is A&O x4, maintaining airway and is on 3L/NC which is his baseline. VSS.
[2021-05-17] MEDS: lidocaine 2% INJ 20 mL INJECTION (21:30)
== END 2021-05-17 21:47 | disposition home or self-care (01) ==
PROVIDERS: Emergency Provider Emergency Medicine; PCP Nurse Practitioner Family
DX: L02.31 Cutaneous abscess of buttock (principal); J44.9 Chronic obstructive pulmonary disease, unspecified; I25.10 Atherosclerotic heart disease of native coronary artery without angina pectoris; Z86.19 Personal history of other infectious and parasitic diseases; Z85.118 Personal history of other malignant neoplasm of bronchus and lung; E78.5 Hyperlipidemia, unspecified; Z99.81 Dependence on supplemental oxygen; Z90.2 Acquired absence of lung [part of]; F17.210 Nicotine dependence, cigarettes, uncomplicated
CPT/HCPCS: 10060; 80053; 85025; 87070; 87077; 87186; 96365; 99284; J2704; J3370; J7050

== ENCOUNTER → 2021-05-24 13:05 | Outpatient (BNVA) | payer MEDICARE, MEDICAID, SELFPAY | PROVIDERS: PCP Nurse Practitioner Family; Visit Provider Nurse Practitioner Psychiatric/Mental Health | DX: F33.1 Major depressive disorder, recurrent, moderate (principal); F90.2 Attention-deficit hyperactivity disorder, combined type; Z87.898 Personal history of other specified conditions | CPT/HCPCS: 90792 ==

== ENCOUNTER → 2021-06-14 07:12 | Outpatient (BNVA) | payer MEDICARE, MEDICAID, SELFPAY | PROVIDERS: PCP Nurse Practitioner Family; Visit Provider Nurse Practitioner Psychiatric/Mental Health | DX: F33.1 Major depressive disorder, recurrent, moderate (principal); F90.2 Attention-deficit hyperactivity disorder, combined type; Z87.898 Personal history of other specified conditions | CPT/HCPCS: 99214 ==

== ENCOUNTER 2021-10-01 09:31 | Outpatient (CLI) | payer MEDICARE, MEDICAID, SELFPAY ==
--- NOTE | 2021-10-01 09:30 | USCV_ITS ---
Gato Lizarraga Age: 66 Gender: M : 1955 Exam Date: 10/01/2021 09:44 Ordering Phys: Gwyn Hooks DO Technologist: Flor Schaffer [place] [facility] [place]: murmur BP: 98 / 64 HR: 71 Rhythm: Sinus Technical Quality: Adequate MEASUREMENTS (Male / Female) Normal Values 2D ECHO LV Diastolic Diameter PLAX 4.0 cm 4.2 - 5.9 / 3.9 - 5.3 cm LV Systolic Diameter PLAX 2.5 cm IVS Diastolic Thickness 1.0 cm 0.6 - 1.0 / 0.6 - 0.9 cm IVS Systolic Thickness 1.3 cm LVPW Diastolic Thickness 1.0 cm 0.6 - 1.0 / 0.6 - 0.9 cm LVPW Systolic Thickness 1.8 cm LVOT Diameter 2.1 cm LV Ejection Fraction 2D Teich 68.0 % LV Ejection Fraction MOD 2C 62.7 % LV Ejection Fraction 2C AL 63.1 % LA Diameter 2.4 cm LA Width 3.0 cm LA Height 3.2 cm RA Width 2.9 cm RA Height 3.4 cm Aorta at Sinotubular Diameter 2.4 cm IVC Diameter 1.5 cm M-MODE MV E Point Septal Separation 1.0 cm DOPPLER AV Peak Velocity 109.0 cm/s LVOT Peak Velocity 109.0 cm/s AV Area Cont Eq vti 3.4 cm squared AV Area Cont Eq pk 3.6 cm squared MV Peak Velocity 76.0 cm/s MV Area PHT 4.3 cm squared Mitral E to A Ratio 0.8 MV E' Velocity 34.5 cm/s Mitral E to MV E' Ratio 6.5 Mitral E to LV E' Lateral Ratio 5.7 Mitral E to LV E' Septal Ratio 7.5 TR Peak Velocity 75.0 cm/s TR Peak Gradient 2.3 mmHg Right Atrial Pressure 3.0 mmHg Pulmonary Artery Systolic Pressu 5.3 mmHg PV Peak Velocity 77.0 cm/s RV Acceleration Time 0.1 s RV Ejection Time 0.3 s RV AcT/ET 0.5 FINDINGS Left Ventricle Left ventricle is normal in size. LV systolic function is normal with EF of 55 to 60%. No regional wall motion abnormalities are seen. Grade 1 diastolic dysfunction Right Ventricle Normal in size and function Right Atrium Normal in size Left Atrium Normal in size Mitral Valve Mitral valve is thickened. Mild mitral regurgitation. Aortic Valve Aortic valve is thickened and calcified. No significant stenosis or regurgitation is seen. Tricuspid Valve Trace tricuspid regurgitation. Insufficient TR jet to calculate RVSP Pulmonic Valve Grossly normal Pericardium Grossly normal Aorta Normal size IVC CONCLUSIONS LV systolic function is normal with EF of 55 to 60% Grade 1 diastolic dysfunction. Mild mitral regurgitation. Mitral valve is thickened. Aortic valve is thickened and calcified. No significant stenosis or regurgitation is seen. Trace tricuspid regurgitation. No comparison studies are available Tito Vickers MD (Electronically Signed) Final Date: 06 October 2021 12:52 S
== END 2021-10-01 09:32 | disposition home or self-care (01) ==
LOC: RAD 09:32
PROVIDERS: PCP Family Medicine; Visit Provider Family Medicine
DX: R00.1 Bradycardia, unspecified (principal); R01.1 Cardiac murmur, unspecified; R07.89 Other chest pain; I08.3 Combined rheumatic disorders of mitral, aortic and tricuspid valves
CPT/HCPCS: 93306

== ENCOUNTER → 2021-10-02 09:42 | Outpatient (BNVA) | payer MEDICARE, MEDICAID, SELFPAY | PROVIDERS: PCP Family Medicine; Visit Provider Family Medicine | DX: J43.2 Centrilobular emphysema (principal); R06.02 Shortness of breath; M25.572 Pain in left ankle and joints of left foot; M54.6 Pain in thoracic spine; M54.50 Low back pain, unspecified; Z85.118 Personal history of other malignant neoplasm of bronchus and lung | CPT/HCPCS: 84550 ==

== ENCOUNTER → 2021-10-09 10:10 | Outpatient (BNVA) | payer MEDICARE, MEDICAID, SELFPAY | PROVIDERS: PCP Family Medicine; Visit Provider Podiatrist Foot & Ankle Surgery | DX: M25.572 Pain in left ankle and joints of left foot (principal); M76.72 Peroneal tendinitis, left leg; G89.29 Other chronic pain | CPT/HCPCS: 20550; 73610; 99204; J1100; J3301; J3490 ==

== ENCOUNTER 2021-10-24 10:52 | Oncology outpatient (recurring) (ONCR) | payer MEDICARE, MEDICAID, SELFPAY ==
[2021-10-24 11:12] LABS: Basophils % 0.6 %; Eosinophils # 0.2 10^3/uL (0.0-0.8); Eosinophils % 2.5 %; Hematocrit 38.9 % (42.0-52.0); Hemoglobin 11.9 g/dL (11.7-16.6); Lymphocytes # 1.5 10^3/uL (0.8-4.8); Lymphocytes % 20.6 %; Mean Corpuscular HGB Conc 30.6 g/dL (30.0-36.0); Mean Corpuscular Hemoglobin 27.9 pg (28.0-34.0); Mean Corpuscular Volume 91.3 fl (80-94); Mean Platelet Volume 10.1 fL (7.4-10.4); Monocytes # 0.4 10^3/uL (0.2-0.9); Monocytes % 6.2 %; Neutrophils # 4.97 10^3/uL (1.8-7.7); Nucleated Red Blood Cells % 0 %; Platelet Count 228 10^3/cmm (130-400); Red Blood Count 4.26 10^6/uL (4.1-5.3); Red Cell Distribution Width 14.9 % (12.1-15.1); White Blood Count 7.1 10^3/uL (4.0-10.0)
[2021-10-24 11:28] LABS: Alanine Aminotransferase 19 U/L (0-41); Albumin Level 3.4 g/dL (3.5-5.2); Alkaline Phosphatase 72 U/L (40-130); Blood Urea Nitrogen 7 mg/dL (8-23); Carbon Dioxide 34 mmol/L (22-29); Chloride 98 mmol/L (98-107); Glomerular Filtration Rate 135.6 mL/min (90-130); Glucose 100 mg/dL (65-115); Osmolality Calculated 282 mOsm/kg (285-295); Sodium 137 mmol/L (136-145); Total Bilirubin 0.2 mg/dL (0.15-1.2); Total Protein 6.4 g/dL (6.6-8.7)
[2021-10-24 11:29] LABS: Anion Gap 9.6 (5-19); Aspartate Amino Transferase 19 U/L (0-40); Potassium 4.6 mmol/L (3.5-5.1)
--- NOTE | 2021-10-24 11:30 | CT_ITS ---
WS: [id number] CT CHEST TECHNIQUE: Contrast enhanced CT of the chest with coronal and sagittal reformatted images. CLINICAL INFORMATION: Follow up COMPARISON: CTA chest February 23, 2021 DLP: 665.[address] scans at [facility] use at least one of these dose optimization techniques: automated e xposure control; mA and/or kV adjustment per patient size (includes targeted exams where dose is matc hed to clinical indication); or iterative reconstruction. FINDINGS: Advanced chronic emphysematous changes. Fibrosis lung apices. Prior postoperative changes partial LEF T upper lobectomy with surgical clips in the LEFT lung apex. Circumferential pleural thickening with fluid in the LEFT upper lobe. Pleural fluid and pleural thickening has increased compared to the prio r examinations. No definite evidence of recurrent mass or lesion. A few hazy opacities in the LEFT up per lobe.Volume loss LEFT lung with elevation LEFT hemidiaphragm. Slight hazy atelectasis in RIGHT middle lobe. Normal caliber thoracic aorta. Normal caliber descendi ng thoracic aorta. Proximal main pulmonary arteries are normal. Prominent lymph nodes RIGHT hilum rony suring 19 x 17 mm unchanged. No progressive lymphadenopathy. No LEFT axillary lymphadenopathy. Adrenal glands are normal. CT/CT chest w con* [id number] IMPRESSION: 1. Evidence of prior partial LEFT upper lobectomy with volume loss LEFT lung. 2. Increased circumferential pleural fluid and pleural thickening peripherally in the LEFT upper lobe. This may be due to treatment-related changes but is ne w since February 23, 2021. Recommend correlation for pneumonia. A few hazy opac ities in the LEFT upper lobe. 3. Otherwise no evidence of recurrent or progressive disease. 4. Stable RIGHT hilar lymphadenopathy measuring 19 x 17 mm. 5. Advanced chronic emphysematous changes. 6. No other remarkable changes compared to previous.
[2021-10-24] MEDS: iohexol 350 mg/mL 100 mL Btl IV (11:47)
== END 2021-10-24 23:59 | disposition home or self-care (01) ==
PROVIDERS: PCP Family Medicine; Visit Provider Internal Medicine Hematology & Oncology
DX: Z85.118 Personal history of other malignant neoplasm of bronchus and lung (principal); C34.12 Malignant neoplasm of upper lobe, left bronchus or lung
CPT/HCPCS: 36415; 71260; 80053; 85025; Q9967

== ENCOUNTER 2021-11-08 07:59 | Oncology outpatient (recurring) (ONCR) | payer MEDICARE, MEDICAID, SELFPAY | END 2021-11-23 23:59 | disposition home or self-care (01) | PROVIDERS: PCP Family Medicine; Visit Provider Internal Medicine Hematology & Oncology | DX: Z85.118 Personal history of other malignant neoplasm of bronchus and lung (principal); F17.210 Nicotine dependence, cigarettes, uncomplicated | CPT/HCPCS: 99213; 99214 ==

== ENCOUNTER 2022-02-02 21:33 | Emergency (ER) | payer MEDICARE, MEDICAID, SELFPAY ==
[2022-02-02] VITALS (9 sets, daily range): BP systolic 120–131; BP diastolic 73–76; PULSE 97; RESP 16–18; TEMP 36.8; O2SAT 94–98; BMI 20.5
--- NOTE | 2022-02-02 22:11 | ECG_ITS ---
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 Measurements Intervals [place] Rate: 87 P: 67 SD: 154 QRS: 57 QRSD: 97 T: 71 QT: 352 QTc: 425 Interpretive Statements SINUS RHYTHM VOLTAGE CRITERIA FOR LVH [MEETS CRITERIA IN ONE OF: R(aVL), S(V1), R(V5), R(V5/V6)+S(V1)] Compared to ECG 02/26/2021 19:01:48 No significant changes Electronically Signed On 02-03-2022 12:52:44 CONSTRUCTION PIT WORKER by Johnny Garcia M.D. [email or web address]
--- NOTE | 2022-02-02 22:11 | XRR_ITS ---
PROCEDURE INFORMATION: Exam: XR Chest Exam date and time: 02/02/2022 10:29 PM Age: 66 years old Clinical indication: Shortness of breath; Additional info: SOB TECHNIQUE: Imaging protocol: Radiologic exam of the chest. Views: 1 view. COMPARISON: CT chest w con* [id number] 10/24/2021 11:43 AM FINDINGS: Tubes, catheters and devices: Left hilar clips. Lungs: Severe [id number]-right lung scarring is multifocal with diffuse loss of volume on the left. Left midlung suture. Pleural spaces: No pneumothorax Heart/Mediastinum: The heart is normal size. Diaphragm: Moderate left hemidiaphragm elevation. Bones/joints: Multifocal cervical fusion. XR/XR chest 1V portable [id number] IMPRESSION: 1. Chronic and postop findings with no acute process or significant change from 05/14/2021. 2. Also, see the 10/24/2021 CT chest report.
--- NOTE | 2022-02-02 22:14 | W.ED.SOB ---
HPI - SOB/Dyspnea General: Chief Complaint: Shortness of Breath/Dyspnea Stated Complaint: CP/SOB Time Seen by Provider: 02/02/22 21:42 Source: patient History of Present Illness: HPI Narrative: 66-year-old male with a history of lung cancer and lobectomy. He says he has been cancer free for 5 years. He presents with shortness of breath, some sputum production, and left-sided pleuritic chest pain. He called EMS. Shortness of breath is improved after DuoNeb treatment in route. Pleuritic pain is still present MD elicited complaint: shortness of breath, pain with inspiration and chest pain Pertinent past history: COPD and other Onset (ago): hour(s) (noon) Context: other Timing: constant Severity: moderate Exacerbating factors: lying flat and exertion Relieving factors: oxygen and bronchodilators Known history of: COPD and other Associated symptoms: Reports chest congestion, chest pain and cough; Deny abdominal pain, diaphoresis, dizziness, fever(s), nausea, palpitations, syncope or vomiting Treatment prior to arrival: oxygen and bronchodilator Review of Systems Const: Denies: fever(s) or diaphoresis ENMT: Denies: throat pain Card: Reports: chest pain; Denies: palpitations or syncope Resp: Reports: dyspnea, productive cough and chest congestion GI: Denies: abdominal pain, nausea or vomiting Musc: Denies: back pain Neuro: Denies: dizziness PFSH ED PFSH: Medical History ADD (attention deficit disorder) Attention deficit hyperactivity disorder (ADHD), combined type, mild Cardiac enzymes elevated Cervical post-laminectomy syndrome Colon polyps COPD (chronic obstructive pulmonary disease) COPD (chronic obstructive pulmonary disease) Coronary artery disease DDD (degenerative disc disease) Depression Hepatitis B Hepatitis C History of lung cancer Non-small cell lung cancer, squamous type, treated with resection History of marijuana use History of melanoma Hx of malignant melanoma of skin Hyperlipidemia Lumbar post-laminectomy syndrome Major depressive disorder, recurrent episode, moderate with anxious distress Marijuana use, continuous Migraine Neuropathy Psychiatric care Shortness of Breath Spontaneous pneumothorax Supplemental oxygen dependent Thyroid nodule Tobacco dependency Surgical History History of appendectomy History of cervical spinal surgery (05/14/12) C3-C4 ACDSHALONDA, Dr. Kirk History of decompression of median nerve (~1990) 1990 left wrist History of fusion of cervical spine Dr. May Kirk 03/31/2014 C7-T1 ACDFF Dr. May Kirk 05/14/2012 C3-C4 ACDFF Dr. May Kirk 05/18/2009 C4-C5 ACDFF History of lobectomy of lung History of lumbar fusion (~02/03/07) Dr. May Kirk 02/03/2007 L4-L5 anterior lumbar interbody fusion/fixation Dr. May Kirk 01/30/2006 Left L4-L5 hemilaminotomy/discectomy/foraminotomy History of lung surgery (~05/2008) Family History Mother Lung cancer CAD (coronary artery disease), Onset Age: 40 Cancer Father Lung cancer Stroke CAD (coronary artery disease), Onset Age: 59 Cancer Brother Lung cancer Cancer Family/Other Diabetes Other Lung disease Denies family history of Clotting disorder Dementia Chronic kidney disease (CKD) Suicide Anesthesia complication Bleeding disorder Social History Smoking and tobacco status: never smoked Alcohol intake: current Household members: spouse Marital status: Current occupational status: disabled History of recent travel: No Physical Exam Const: COMMON NORMALS: no acute distress GENERAL APPEARANCE: frail appearing (Mildly) NUTRITIONAL APPEARANCE: thin HENMT: COMMON NORMALS: normocephalic, atraumatic and Normal external nose present HEAD & SCALP: normocephalic and atraumatic FACE & SINUS: normal facial exam and face symmetric NOSE: Normal external nose present THROAT: posterior oropharynx normal Eye: COMMON NORMALS: Equal, round and reactive pupils present and EOMs intact bilaterally PUPIL: Yes Equal, round and reactive pupils present Neck/C-Spine: COMMON NORMALS: supple GENERAL: Yes trachea midline Chest: CHEST: Yes Symmetrical chest wall rise Resp: COMMON NORMALS: normal respiratory effort, No use of accessory muscles and clear to auscultation bilaterally AUSCULTATION: clear to auscultation bilaterally Cardio: COMMON NORMALS: regular rate and regular rhythm RATE: regular rate RHYTHM: regular rhythm GI: COMMON NORMALS: Normal to inspection, nondistended, normoactive bowel sounds present, Soft to palpation and non-tender PALPATION: Yes Soft to palpation Extremity: COMMON NORMALS: no pedal edema Neuro: LAURA COMA SCALE: document GCS findings Marston coma scale eye opening: Spontaneous Marston coma scale verbal response: Orientated Laura coma scale motor response: Obey commands Laura coma scale total score: 15 Psych: COMMON NORMALS: mental status grossly normal and cooperative Skin: COMMON NORMALS: no rashes or lesions noted GENERAL SKIN EXAM: no rashes or lesions noted Course Vital Signs: Vital signs: Vital Signs Temperature 98.2 F 02/02/22 21:37 Pulse Rate 97 02/02/22 21:37 Respiratory Rate 16 02/02/22 22:18 Blood Pressure 120/76 02/02/22 22:20 Pulse Oximetry 94 02/02/22 22:20 MDM - SOB/Dyspnea Medical Decision Making Patient's vitals are stable on his home O2 settings. His blood gas is not remarkable. CBC and BMP are not remarkable. Chest x-ray shows chronic and postoperative findings without acute changes. D-dimer is negative. Troponins are negative EKG shows a sinus rhythm with normal axis and intervals, and no acute ST changes. Rate is 80. Lactic acid normal. Likely pleuritic pain related COPD exacerbation. We will treat accordingly. Lab Data 02/02/22 21:48 02/02/22 21:48 Labs/Radiology: Radiology Impressions Chest X-Ray 02/02/22 22:11 IMPRESSION: 1. Chronic and postop findings with no acute process or significant change from 05/14/2021. 2. Also, see the 10/24/2021 CT chest report. Laboratory Results WBC 5.0 10^3/uL (4.0-10.0) 02/02/22 21:48 RBC 3.92 10^6/uL (4.1-5.3) L 02/02/22 21:48 Hgb 11.4 g/dL (11.7-16.6) L 02/02/22 21:48 Hct 35.8 % (42.0-52.0) L 02/02/22 21:48 MCV 91.3 fl (80-94) 02/02/22 21:48 MCH 29.1 pg (28.0-34.0) 02/02/22 21:48 MCHC 31.8 g/dL (30.0-36.0) 02/02/22 21:48 RDW 13.3 % (12.1-15.1) 02/02/22 21:48 Plt Count 233 10^3/cmm (130-400) 02/02/22 21:48 MPV 10.4 fL (7.4-10.4) 02/02/22 21:48 Neut % (Auto) 65.7 % 02/02/22 21:48 Lymph % (Auto) 26.5 % 02/02/22 21:48 Bremer % (Auto) 7.4 % 02/02/22 21:48 Eos % (Auto) 0.0 % 02/02/22 21:48 Baso % (Auto) 0.4 % 02/02/22 21:48 Neut # (Auto) 3.27 10^3/uL (1.8-7.7) 02/02/22 21:48 Lymph # (Auto) 1.3 10^3/uL (0.8-4.8) 02/02/22 21:48 Bremer # (Auto) 0.4 10^3/uL (0.2-0.9) 02/02/22 21:48 Eos # (Auto) 0.0 10^3/uL (0.0-0.8) 02/02/22 21:48 Baso # (Auto) 0.0 10^3/uL (0.0-0.1) 02/02/22 21:48 Nucleated RBC % (auto) 0 % 02/02/22 21:48 Nucleated RBCs # 0.0 /100WBC 02/02/22 21:48 D-Dimer 0.40 ug/mIFEU (0-0.59) 02/02/22 21:48 Specimen Type Arterial 02/02/22 22:24 Sample Site Radial, left 02/02/22 22:24 ABG pH 7.40 (7.35-7.45) 02/02/22 22:24 ABG pCO2 59.4 mmHg (35-45) H 02/02/22 22:24 ABG pO2 113.0 mmHg (80.0-100.0) H 02/02/22 22:24 ABG HCO3 36.8 mmol/L (22-26) H 02/02/22 22:24 ABG Base Excess 10.1 mmol/L (-2.0-2.0) H 02/02/22 22:24 Torey Test Pos 02/02/22 22:24 Hematocrit 34.8 % (42-52) L 02/02/22 22:24 Hgb O2 Saturation 95.3 % (95-100) 02/02/22 22:24 Carboxyhemoglobin 2.6 %THgb (0.4-20.1) 02/02/22 22:24 Methemoglobin 1.2 % (0.4-1.5) 02/02/22 22:24 Total Hemoglobin 11.3 g/dL (14-18) L 02/02/22 22:24 O2 Delivery Device Nc 02/02/22 22:24 O2 Liters/Min 3.0 % 02/02/22 22:24 Director Of Field Coordination ID [place] 02/02/22 22:24 Sodium 137 mmol/L (136-145) 02/02/22 21:48 Potassium 3.5 mmol/L (3.5-5.1) 02/02/22 21:48 Chloride 95 mmol/L (98-107) L 02/02/22 21:48 Carbon Dioxide 35 mmol/L (22-29) H 02/02/22 21:48 Anion Gap 10.5 (5-19) 02/02/22 21:48 BUN 8 mg/dL (8-23) 02/02/22 21:48 Creatinine 0.7 mg/dL (0.7-1.2) 02/02/22 21:48 GFR Calculation 113.5 mL/min (90-130) 02/02/22 21:48 Glucose 136 mg/dL (65-115) H 02/02/22 21:48 Calculated Osmolality 284 mOsm/kg (285-295) L 02/02/22 21:48 Lactic Acid 1.9 mmol/L (0.5-2.2) 02/02/22 21:48 Calcium 9.8 mg/dL (8.5-10.5) 02/02/22 21:48 Total Bilirubin 0.2 mg/dL (0.15-1.2) 02/02/22 21:48 AST 14 U/L (0-40) 02/02/22 21:48 ALT 14 U/L (0-41) 02/02/22 21:48 Alkaline Phosphatase 68 U/L (40-130) 02/02/22 21:48 Troponin T Baseline 10 ng/L (0-15) 02/02/22 21:48 Troponin T 120 Minute Cancelled 02/03/22 00:02 Delta Troponin T Cancelled 02/03/22 00:02 NT-Pro-B Natriuret Pep 27 pg/mL (0-125) 02/02/22 21:48 Total Protein 6.8 g/dL (6.6-8.7) 02/02/22 21:48 Albumin 3.7 g/dL (3.5-5.2) 02/02/22 21:48 Globulin 3.1 g/dL (1.3-4.6) 02/02/22 21:48 Discharge Plan Discharge Patient Disposition: Home Clinical Impression: COPD exacerbation, Acute pleurisy without pleural effusion Condition: Stable Prescriptions: New Medrol (Jim) 4 mg tablets,dose pack See Rx Instructions .ROUTE .COMPLEX Qty: 21 0RF Rx Instructions: orally per package directions Continued oxycodone-acetaminophen 10-325 mg tablet 1 tab PO Q8H PRN (Reason: pain) 30 Days Qty: 10 0RF No Action Daliresp 500 mcg tablet 500 mcg PO QAM Qty: 30 3RF albuterol sulfate [ProAir HFA] 90 mcg/actuation HFA aerosol inhaler 2 puff INHALATION Q6H PRN (Reason: Shortness Of Breath) Qty: 8.5 3RF levalbuterol HCl [Xopenex] 0.63 mg/3 mL solution for nebulization 0.63 mg inhalation TID PRN (Reason: shortness of breath or wheezing) Qty: 90 3RF ipratropium-albuterol 0.5 mg-3 mg(2.5 mg base)/3 mL solution for nebulization 3 ml inhalation Q4H PRN (Reason: shortness of breath or wheezing) Qty: 180 3RF Rx Instructions: until breathing returns to target peak flow/parameters gabapentin 600 mg tablet 600 mg PO TID Qty: 270 1RF ondansetron HCl 4 mg tablet 4 mg PO Q6H PRN (Reason: nausea and vomiting) Qty: 120 3RF Rx Instructions: May take one tablet every 6 hours as needed for nausea/anxiety sertraline [Zoloft] 100 mg tablet 100 mg PO .morning Qty: 30 3RF Rx Instructions: Take one tablet every morning tamsulosin 0.4 mg capsule 0.4 mg PO BID Qty: 180 2RF bupivacaine HCl 0.5 % (5 mg/mL) solution 5 mg Tendon Sheath Inj. ONCE Qty: 1 0RF dexamethasone sodium phosphate 4 mg/mL solution 4 mg Tendon Sheath Inj. ONCE Qty: 1 0RF montelukast [Singulair] 10 mg tablet 10 mg PO DAILY Qty: 90 1RF aripiprazole [Abilify] 10 mg tablet 10 mg PO .7 pm Qty: 30 5RF Rx Instructions: Take one tablet at 7pm. ropinirole 0.25 mg tablet See Rx Instructions .ROUTE .COMPLEX Qty: 90 1RF Dose Instruction: TAKE 1 TABLET(0.25 MG) BY MOUTH DAILY AT BEDTIME Rx Instructions: TAKE 1 TABLET(0.25 MG) BY MOUTH DAILY AT BEDTIME methocarbamol 500 mg tablet 500 mg PO TID Qty: 90 1RF Trelegy Ellipta 100-62.5-25 mcg blister with device 1 inh inhalation Q24H Qty: 60 2RF naproxen 500 mg tablet 500 mg PO BID Qty: 60 2RF tadalafil [Cialis] 5 mg tablet 5 mg PO BEDTIME Qty: 90 2RF multivitamin Tablet 1 tab PO QAM Vitamin B-12 2,500 mcg Tablet, Sublingual 2,500 mcg SUBLINGUAL QAM Discharge Orders: Discharge ED (Routine); Ordered 02/03/22 Ordered By: Sanya Frazier Referrals: Gwyn Hooks DO [Primary Care Provider] - Patient Instructions: Pleurisy (ED), COPD (Chronic Obstructive Pulmonary Disease) (ED), Opioid Safety, Pain Management Activity Restrictions/Additional Instructions: Return for worsening pain or shortness of breath despite treatment, fever greater than 100, other concerning symptoms. Use your nebulizer every 4 hours while awake for the next 24 hours, then as needed. Other medications as directed. Pain medication is only for severe pain. Coding Level of Care Code ED Hi Lift Operator for Laci Fwd Exam Comprehensive
[2022-02-02] MEDS: ondansetron 2 mg/ML SDV 2 mL 4 MG IVP (22:18)
[2022-02-02] MEDS: morphine 4 mg/mL SDV 1 mL IVP (22:18)
[2022-02-02 22:22] LABS: Basophils % 0.4 %; Hematocrit 35.8 % (42.0-52.0); Hemoglobin 11.4 g/dL (11.7-16.6); Lymphocytes # 1.3 10^3/uL (0.8-4.8); Lymphocytes % 26.5 %; Mean Corpuscular HGB Conc 31.8 g/dL (30.0-36.0); Mean Corpuscular Hemoglobin 29.1 pg (28.0-34.0); Mean Corpuscular Volume 91.3 fl (80-94); Mean Platelet Volume 10.4 fL (7.4-10.4); Monocytes # 0.4 10^3/uL (0.2-0.9); Monocytes % 7.4 %; Neutrophils # 3.27 10^3/uL (1.8-7.7); Neutrophils % 65.7 %; Nucleated Red Blood Cells % 0 %; Platelet Count 233 10^3/cmm (130-400); Red Blood Count 3.92 10^6/uL (4.1-5.3); Red Cell Distribution Width 13.3 % (12.1-15.1)
[2022-02-02 22:35] LABS: ABG PCO2 59.4 mmHg (35-45); Arterial Blood Gas Hematocrit 34.8 % (42-52); Base Excess ABG 10.1 mmol/L (-2.0-2.0); Blood Gas Allen Test Pos; Blood Gas Operator Identificat WALCI; Blood Gas Sample Site Radial, left; Blood Gas Sample Type Arterial; Carboxyhemoglobin 2.6 %THgb (0.4-20.1); HCO3 ABG 36.8 mmol/L (22-26); HGB O2 Sat 95.3 % (95-100); Methemoglobin 1.2 % (0.4-1.5); Oxygen Device NC; Total Hemoglobin 11.3 g/dL (14-18)
[2022-02-02 22:39] LABS: Lactic Sepsis W/Reflex 1.9 mmol/L (0.5-2.2)
[2022-02-02 22:43] LABS: Troponin(5th) Baseline 10 ng/L (0-15)
[2022-02-02 22:50] LABS: Alanine Aminotransferase 14 U/L (0-41); Albumin Level 3.7 g/dL (3.5-5.2); Alkaline Phosphatase 68 U/L (40-130); Anion Gap 10.5 (5-19); Aspartate Amino Transferase 14 U/L (0-40); Blood Urea Nitrogen 8 mg/dL (8-23); Calcium 9.8 mg/dL (8.5-10.5); Carbon Dioxide 35 mmol/L (22-29); Chloride 95 mmol/L (98-107); Globulin 3.1 g/dL (1.3-4.6); Glomerular Filtration Rate 113.5 mL/min (90-130); Glucose 136 mg/dL (65-115); NT Pro B Type Natriuretic Pept 27 pg/mL (0-125); Osmolality Calculated 284 mOsm/kg (285-295); Potassium 3.5 mmol/L (3.5-5.1); Sodium 137 mmol/L (136-145); Total Bilirubin 0.2 mg/dL (0.15-1.2); Total Protein 6.8 g/dL (6.6-8.7)
--- NOTE | 2022-02-03 00:01 | ECG_ITS ---
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 Measurements Intervals [place] Rate: 86 P: 73 CT: 151 QRS: 56 QRSD: 99 T: 73 QT: 355 QTc: 427 Interpretive Statements SINUS RHYTHM VOLTAGE CRITERIA FOR LVH [MEETS CRITERIA IN ONE OF: R(aVL), S(V1), R(V5), R(V5/V6)+S(V1)] Compared to ECG 02/02/2022 22:30:05 No significant changes Electronically Signed On 02-03-2022 12:54:56 AUTOMATIC BEADING LATHE OPERATOR by Johnny Garcia M.D. [email or web address]
== END 2022-02-03 00:40 | disposition home or self-care (01) ==
PROVIDERS: Emergency Provider Emergency Medicine; PCP Family Medicine
DX: J44.1 Chronic obstructive pulmonary disease with (acute) exacerbation (principal); R09.1 Pleurisy; I25.10 Atherosclerotic heart disease of native coronary artery without angina pectoris; Z86.19 Personal history of other infectious and parasitic diseases; Z85.118 Personal history of other malignant neoplasm of bronchus and lung; E78.5 Hyperlipidemia, unspecified; Z99.81 Dependence on supplemental oxygen; Z90.2 Acquired absence of lung [part of]
CPT/HCPCS: 36600; 71045; 80053; 82805; 83605; 83880; 84484; 85025; 85378; 87040; 93005; 96374; 96375; 99285; J2270; J2405; J2930

== ENCOUNTER 2022-03-14 15:26 | Emergency (ER) | payer MEDICARE, MEDICAID, SELFPAY ==
[2022-03-14 15:28] VITALS: BP 104/71; PULSE 114; RESP 18; TEMP 36.7; O2SAT 96
--- NOTE | 2022-03-14 15:50 | ED_ITS ---
Documented by User: PARIS Lopez 03/14/22 16:39 HPI - Back Pain/Injury General: Chief Complaint: Back Pain/Injury Stated Complaint: cant walk,sent for CT Time Seen by Provider: 03/14/22 15:50 History of Present Illness: Patient is in today for back pain. He is a difficult historian. He reports that approximately 2 weeks he has been having increased pain in his low back. He states that he saw his doctor 2 weeks ago because he had been seeing his doctor for abdominal pain but that was better and so he saw him for the low back pain. He reports that he has tried everything he could at home to help with the low back pain and it was not improving so his doctor was sending him to get x-rays today outpatient. He reports that he was having such significant pain after he stood up at the doctor's office today that when he was in x-ray he called his doctor and the doctor advised him to come to the ER for CT scan. Patient reports central low back pain with numbness and tingling to the right leg pain in the right side groin. He denies saddle anesthesia. He denies bowel or bladder incontinence however he reports that he does not feel like he gets the early urge to go like he used to. He states that he does not know he needs to go until it is almost too late. He denies any fever, chills, nausea, vomiting. Associated symptoms: Deny abdominal pain, chills, fever(s), nausea or vomiting Review of Systems Const: Denies: fever(s) or chills Card: Denies: chest pain, palpitations or irregular heart rhythm Resp: Reports: other (Chronic shortness of breath on home O2-history lung CA) GI: Denies: abdominal pain, nausea or vomiting Musc: Reports: back pain and extremity pain PFS ED PFSH: Medical History ADD (attention deficit disorder) Attention deficit hyperactivity disorder (ADHD), combined type, mild Cardiac enzymes elevated Cervical post-laminectomy syndrome Colon polyps COPD (chronic obstructive pulmonary disease) COPD (chronic obstructive pulmonary disease) Coronary artery disease DDD (degenerative disc disease) Depression Hepatitis B Hepatitis C History of lung cancer Non-small cell lung cancer, squamous type, treated with resection History of marijuana use History of melanoma Hx of malignant melanoma of skin Hyperlipidemia Lumbar post-laminectomy syndrome Major depressive disorder, recurrent episode, moderate with anxious distress Marijuana use, continuous Migraine Neuropathy Psychiatric care Shortness of Breath Spontaneous pneumothorax Supplemental oxygen dependent Thyroid nodule Tobacco dependency Surgical History History of appendectomy History of cervical spinal surgery (05/14/12) C3-C4 ACDFF, Dr. Kirk History of decompression of median nerve (~1990) 1990 left wrist History of fusion of cervical spine Dr. May Kirk 03/31/2014 C7-T1 ACDFF Dr. May Kirk 05/14/2012 C3-C4 ACDFF Dr. May Kirk 05/18/2009 C4-C5 ACDFF History of lobectomy of lung History of lumbar fusion (~02/03/07) Dr. May Kirk 02/03/2007 L4-L5 anterior lumbar interbody fusion/fixation Dr. May Kirk 01/30/2006 Left L4-L5 hemilaminotomy/discectomy/foraminotomy History of lung surgery (~05/2008) Family History Mother Lung cancer CAD (coronary artery disease), Onset Age: 40 Cancer Father Lung cancer Stroke CAD (coronary artery disease), Onset Age: 59 Cancer Brother Lung cancer Cancer Family/Other Diabetes Other Lung disease Denies family history of Clotting disorder Dementia Chronic kidney disease (CKD) Suicide Anesthesia complication Bleeding disorder Social History Smoking and tobacco status: never smoked Alcohol intake: current Household members: spouse Marital status: Current occupational status: disabled History of recent travel: No Physical Exam Const: COMMON NORMALS: patient oriented x3 and alert OTHER: Patient is on O2 nasal cannula. He is frail appearing gentleman. He is moving extremely slow and appears to be in pain Back/Pelvis: OTHER: Patient has tenderness to lumbar spine L3-L5 region. No obvious bony step-offs appreciated. Patient reports decreased sensation to the entire right leg as compared to the left leg when I am touching. Patient has weaker push pulls on the right leg as compared to the left leg. Color and sensation are equal bilateral. Patient is able to bear weight but is very cautious about moving due to pain Neuro: COMMON NORMALS: patient oriented x3 SENSORIUM/ORIENTATION: Yes alert Course Vital Signs: Vital signs: Vital Signs Temperature 98.0 F 03/14/22 15:28 Pulse Rate 114 H 03/14/22 15:28 Respiratory Rate 16 03/14/22 16:29 Blood Pressure 104/71 03/14/22 15:28 Pulse Oximetry 96 03/14/22 15:28 Oxygen Delivery Me thod 03/14/22 15:28 MDM - Back Pain/Injury Labs Radiology Impressions Lumbar Spine CT 03/14/22 16:20 IMPRESSION: Postsurgical change with anterior fusion hardware L4-5. Spondylotic changes with moderate disc space narrowing or degenerative disc disease above the level of fusion L3-4 and mild degenerative disc disease L1-2, as noted above.. No significant central spinal canal stenosis. Discharge Plan Discharge Patient Disposition: Home Clinical Impression: Lumbar back pain Degenerative arthritis of lumbar spine Qualifiers: Spinal osteoarthritis complication: other spinal osteoarthritis Qualified Code(s): M47.896 - Other spondylosis, lumbar region Condition: Stable Prescriptions: New hydrocodone-acetaminophen 7.5-325 mg tablet 1 tab PO Q8H PRN (Reason: pain) Qty: 10 0RF No Action albuterol sulfate [ProAir HFA] 90 mcg/actuation HFA aerosol inhaler 2 puff INHALATION Q6H PRN (Reason: Shortness Of Breath) Qty: 8.5 3RF levalbuterol HCl [Xopenex] 0.63 mg/3 mL solution for nebulization 0.63 mg inhalation TID PRN (Reason: shortness of breath or wheezing) Qty: 90 3RF ipratropium-albuterol 0.5 mg-3 mg(2.5 mg base)/3 mL solution for nebulization 3 ml inhalation Q4H PRN (Reason: shortness of breath or wheezing) Qty: 180 3RF Rx Instructions: until breathing returns to target peak flow/parameters ondansetron HCl 4 mg tablet 4 mg PO Q6H PRN (Reason: nausea and vomiting) Qty: 120 3RF Rx Instructions: May take one tablet every 6 hours as needed for nausea/anxiety tamsulosin 0.4 mg capsule 0.4 mg PO BID Qty: 180 2RF montelukast [Singulair] 10 mg tablet 10 mg PO DAILY Qty: 90 1RF prednisone 10 mg tablet 10 mg PO DAILY 30 Days Qty: 30 0RF Trelegy Ellipta 100-62.5-25 mcg blister with device 1 inh inhalation Q24H Qty: 60 2RF Daliresp 500 mcg tablet 500 mcg PO QAM Qty: 90 3RF sertraline [Zoloft] 100 mg tablet 100 mg PO .morning Qty: 90 3RF Rx Instructions: Take one tablet every morning gabapentin 600 mg tablet 600 mg PO TID Qty: 270 1RF aripiprazole [Abilify] 10 mg tablet 10 mg PO .7 pm Qty: 90 3RF Rx Instructions: Take one tablet at 7pm. ropinirole 0.25 mg tablet See Rx Instructions .ROUTE .COMPLEX Qty: 90 3RF Dose Instruction: TAKE 1 TABLET(0.25 MG) BY MOUTH DAILY AT BEDTIME Rx Instructions: TAKE 1 TABLET(0.25 MG) BY MOUTH DAILY AT BEDTIME oxycodone-acetaminophen 10-325 mg tablet 1 tab PO Q8H PRN (Reason: pain) 7 Days Qty: 14 0RF naproxen 500 mg tablet 500 mg PO BID Qty: 60 2RF tadalafil [Cialis] 5 mg tablet 5 mg PO BEDTIME Qty: 90 2RF multivitamin Tablet 1 tab PO QAM Vitamin B-12 2,500 mcg Tablet, Sublingual 2,500 mcg SUBLINGUAL QAM Discharge Orders: Discharge ED (Routine); Ordered 03/14/22 Ordered By: Sami Hill Referrals: Gwyn Hooks DO [Primary Care Provider] - Discharge Diet: Usual diet Discharge Activity: Increase activity as tolerated Patient Instructions: Back Pain (ED) Activity Restrictions/Additional Instructions: Maintain activity as much as possible. Continue with routine home care as directed. Follow-up with primary care for further instructions and and treatment options. Return to ED for new concerns or worsening symptoms. Sign Out Sign Out Data: Patient Sign Out occurred on 03/14/22 at 17:10. Patient's care was discussed, and care was transferred from to Sami Hill. Post-Handoff Eval: 66-year-old male patient with history of back pain worse over the last 2 weeks. Concern for metastasis due to history of lung cancer. Awaiting CT scan for further evaluation. Coding Level of Care Code ED Plastics Patternmaker for Chg Fwd Exam Problem Focused Documented by User: MICHAEL Sanford 03/14/22 18:47 HPI - Back Pain/Injury General: Chief Complaint: Back Pain/Injury Stated Complaint: cant walk,sent for CT Time Seen by Provider: 03/14/22 15:50 PFSH ED PFSH: Medical History ADD (attention deficit disorder) Attention deficit hyperactivity disorder (ADHD), combined type, mild Cardiac enzymes elevated Cervical post-laminectomy syndrome Colon polyps COPD (chronic obstructive pulmonary disease) COPD (chronic obstructive pulmonary disease) Coronary artery disease DDD (degenerative disc disease) Depression Hepatitis B Hepatitis C History of lung cancer Non-small cell lung cancer, squamous type, treated with resection History of marijuana use History of melanoma Hx of malignant melanoma of skin Hyperlipidemia Lumbar post-laminectomy syndrome Major depressive disorder, recurrent episode, moderate with anxious distress Marijuana use, continuous Migraine Neuropathy Psychiatric care Shortness of Breath Spontaneous pneumothorax Supplemental oxygen dependent Thyroid nodule Tobacco dependency Surgical History History of appendectomy History of cervical spinal surgery (05/14/12) C3-C4 ACDSHALONDA, Dr. Kirk History of decompression of median nerve (~1990) 1990 left wrist History of fusion of cervical spine Dr. May Kirk 03/31/2014 C7-T1 ACDFF Dr. May Kirk 05/14/2012 C3-C4 ACDFF Dr. May Kirk 05/18/2009 C4-C5 ACDFF History of lobectomy of lung History of lumbar fusion (~02/03/07) Dr. May Kirk 02/03/2007 L4-L5 anterior lumbar interbody fusion/fixation Dr. May Kirk 01/30/2006 Left L4-L5 hemilaminotomy/discectomy/foraminotomy History of lung surgery (~05/2008) Family History Mother Lung cancer CAD (coronary artery disease), Onset Age: 40 Cancer Father Lung cancer Stroke CAD (coronary artery disease), Onset Age: 59 Cancer Brother Lung cancer Cancer Family/Other Diabetes Other Lung disease Denies family history of Clotting disorder Dementia Chronic kidney disease (CKD) Suicide Anesthesia complication Bleeding disorder Social History Smoking and tobacco status: never smoked Alcohol intake: current Household members: spouse Marital status: Current occupational status: disabled History of recent travel: No Course Vital Signs: Vital signs: Vital Signs Temperature 98.0 F 03/14/22 15:28 Pulse Rate 114 H 03/14/22 15:28 Respiratory Rate 16 03/14/22 16:29 Blood Pressure 104/71 03/14/22 15:28 Pulse Oximetry 96 03/14/22 15:28 Oxygen Delivery Me thod 03/14/22 15:28 MDM - Back Pain/Injury Medical Decision Making 66-year-old male patient comes in today for complaints of increasing pain to his low back for the last 2 weeks. Patient appears nontoxic. Patient reported some radiation of pain into the lower legs. Patient also reported weakness in his extremities. Differential diagnosis includes not limited to generative disc disease, spinal fracture, foraminal stenosis. CT noted no significant foraminal stenosis or fractures. CT noted some degenerative changes. Believe patient probably has exacerbation of his chronic back pain recommended follow-up with primary care for further instructions. Patient was given a short course of 10 tablets of hydrocodone for his pain exacerbation. Patient was a poor candidate for NSAIDs causing swelling when used. Labs Radiology Impressions Lumbar Spine CT 03/14/22 16:20
--- NOTE | 2022-03-14 16:20 | CTR_ITS ---
PROCEDURE INFORMATION: Exam: CT Lumbar Spine Without Contrast Exam date and time: 03/14/2022 5:41 PM Age: 66 years old Clinical indication: Condition or disease; Disc degeneration; Lumbar region; Prior surgery; Surgery date: 6+ months; Additional info: Low back pain and parasthesia on RT TECHNIQUE: Imaging protocol: Computed tomography of the lumbar spine without contrast. Radiation optimization: All CT scans at this facility use at least one of these dose optimization techniques: automated exposure control; mA and/or kV adjustment per patient size (includes targeted exams where dose is matched to clinical indication); or iterative reconstruction. COMPARISON: MR lumbar spine wo/w con [id number] 05/03/2020 2:35 PM RADIATION DOSE METRICS: Total DLP (mGy-cm): 378.8 FINDINGS: Bones/joints: Postsurgical change with anterior fusion hardware noted L4 and L5 levels, as seen with prior CT lumbar spine of May 01, 2020. Partial laminectomy noted at these levels as well. Spondylotic change noted with vertebral marginal spur formation appearing more prominent L3-4 level, along with component of facet spondylotic change within the lower lumbar spine. L1-L2: No significant disc protrusion. No severe spinal canal stenosis. Mild amount neural foraminal narrowing on the left. Mild nitrogen disc degeneration L1-2. L2-L3: No significant disc protrusion. No severe spinal canal stenosis. No significant neural foraminal narrowing. L3-L4: Moderate disc space narrowing noted L3-4 above the level of fusion indicating moderate nt degenerative disc disease, demonstrating an interval change from previous exam. No significant disc protrusion. No severe spinal canal stenosis. Mild bony encroachment of the right neural foraminal canal on the right laterally. L4-L5: No significant disc protrusion. No severe spinal canal stenosis. No significant neural foraminal narrowing. L5-S1: No significant disc protrusion. No severe spinal canal stenosis. No significant neural foraminal narrowing. Soft tissues: Mild vascular calcification. CT/CT lumbar spine wo con* [id number] IMPRESSION: Postsurgical change with anterior fusion hardware L4-5. Spondylotic changes with moderate disc space narrowing or degenerative disc disease above the level of fusion L3-4 and mild degenerative disc disease L1-2, as noted above.. No significant central spinal canal stenosis.
[2022-03-14 16:29] VITALS: RESP 16
[2022-03-14] MEDS: ondansetron 4 MG Tablet PO (16:29)
[2022-03-14] MEDS: morphine 4 mg/mL SDV 1 mL IM (16:29)
[2022-03-14] MEDS: HYDROcodone-acetaminophen 7.5-325 mg Tablet 1 TAB PO (18:47)
== END 2022-03-14 18:48 | disposition home or self-care (01) ==
PROVIDERS: Emergency Provider Nurse Practitioner Family; PCP Family Medicine
DX: M47.896 Other spondylosis, lumbar region (principal); Z90.2 Acquired absence of lung [part of]; J44.9 Chronic obstructive pulmonary disease, unspecified; I25.10 Atherosclerotic heart disease of native coronary artery without angina pectoris; Z86.19 Personal history of other infectious and parasitic diseases; Z85.118 Personal history of other malignant neoplasm of bronchus and lung; E78.5 Hyperlipidemia, unspecified
CPT/HCPCS: 72131; 96372; 99284; J2270; Q0162

== ENCOUNTER 2022-05-29 15:57 | Outpatient (CLI) | payer MEDICARE, MEDICAID, SELFPAY ==
--- NOTE | 2022-05-29 16:00 | CTR_ITS ---
PROCEDURE INFORMATION: Exam: CT Chest With Contrast; Diagnostic Exam date and time: 05/29/2022 4:47 PM Age: 66 years old Clinical indication: Condition or disease; Lung condition and disease; Other: Cancer; Shortness of breath; Prior surgery; Surgery type: Left lung surgery; Additional info: Follow up lung cancer. Shortness of breath. TECHNIQUE: Imaging protocol: Diagnostic computed tomography of the chest with contrast. Radiation optimization: All CT scans at this facility use at least one of these dose optimization techniques: automated exposure control; mA and/or kV adjustment per patient size (includes targeted exams where dose is matched to clinical indication); or iterative reconstruction. Contrast material: OMNI 350; Contrast volume: 95 ml; Contrast route: INTRAVENOUS (IV); REPORTING DATA: Count of CT and Cardiac NM exams in prior 12 months: This patient has received 2 known CTs and 0 known cardiac nuclear medicine studies in the 12 months prior to the current study. COMPARISON: CT chest w con* [id number] 10/24/2021 11:43 AM RADIATION DOSE METRICS: Total DLP (mGy-cm): 228.73 FINDINGS: Lungs: Bilateral largely left upper lobe pleuroparenchymal fibrosis and/or posttreatment changes, similar to prior exam. Left upper lobe lobectomy again seen. Emphysematous changes. Right upper lobe 13.5 mm nodule, new compared to prior exam, series 4, image 27. Pleural spaces: Unremarkable. No pneumothorax. No pleural effusion. Heart: Unremarkable. No cardiomegaly. No pericardial effusion. Coronary arteries: Coronary artery atherosclerotic calcifications. Lymph nodes: Stable right hilar 19 mm nonspecific lymph node. Scattered prominent mediastinal lymph nodes measuring up to 8.7 mm. Vasculature: Unremarkable. No aortic aneurysm. Diaphragm: Left diaphragmatic eventration. Bones/joints: Multiple chronic left posterior healed rib fractures. Soft tissues: Unremarkable. CT/CT chest w con* [id number] IMPRESSION: 1. Bilateral largely left upper lobe pleuroparenchymal fibrosis and/or posttreatment changes, similar to prior exam. 2. Right upper lobe 13.5 mm nodule, new compared to prior exam, series 4, image 27. Finding may reflect metastatic disease. 3. Stable right hilar 19 mm nonspecific lymph node. Scattered prominent mediastinal lymph nodes measuring up to 8.7 mm, nonspecific. 4. Left upper lobe lobectomy again seen. 5. Left diaphragmatic eventration. 6. Emphysematous changes. 7. Coronary artery atherosclerotic calcifications. COMMENTS: In the absence of a history or active diagnosis of lung cancer, it is recommended that this patient with emphysema be evaluated for enrollment in a low dose CT lung cancer screening program.
[2022-05-29 16:46] LABS: Blood Urea Nitrogen 6 mg/dL (8-23); Glomerular Filtration Rate 97.3 mL/min (90-130)
[2022-05-29] MEDS: iohexol 350 mg/mL 100 mL Btl IV (16:51)
== END 2022-05-29 15:58 | disposition home or self-care (01) ==
LOC: RAD 16:00
PROVIDERS: PCP Family Medicine; Visit Provider Internal Medicine Hematology & Oncology
DX: J43.9 Emphysema, unspecified (principal); J84.10 Pulmonary fibrosis, unspecified; Z90.2 Acquired absence of lung [part of]; Z85.118 Personal history of other malignant neoplasm of bronchus and lung
CPT/HCPCS: 71260; 82565; 84520; Q9967

== ENCOUNTER 2022-06-13 08:42 | Oncology outpatient (recurring) (ONCR) | payer MEDICARE, MEDICAID, SELFPAY ==
[2022-06-13 09:06] LABS: Basophils % 0.3 %; Eosinophils # 0.1 10^3/uL (0.0-0.8); Eosinophils % 0.9 %; Hematocrit 44.9 % (42.0-52.0); Hemoglobin 14.7 g/dL (11.7-16.6); Lymphocytes # 1.9 10^3/uL (0.8-4.8); Lymphocytes % 16.4 %; Mean Corpuscular HGB Conc 32.7 g/dL (30.0-36.0); Mean Corpuscular Hemoglobin 30.1 pg (28.0-34.0); Mean Corpuscular Volume 91.8 fl (80-94); Mean Platelet Volume 10.1 fL (7.4-10.4); Monocytes # 0.8 10^3/uL (0.2-0.9); Monocytes % 6.7 %; Neutrophils # 8.83 10^3/uL (1.8-7.7); Neutrophils % 75.2 %; Nucleated Red Blood Cells % 0 %; Platelet Count 272 10^3/cmm (130-400); Red Blood Count 4.89 10^6/uL (4.1-5.3); Red Cell Distribution Width 12.8 % (12.1-15.1); White Blood Count 11.7 10^3/uL (4.0-10.0)
[2022-06-13 09:26] LABS: Alanine Aminotransferase 15 U/L (0-41); Albumin Level 3.9 g/dL (3.5-5.2); Alkaline Phosphatase 77 U/L (40-130); Blood Urea Nitrogen 9 mg/dL (8-23); Calcium 9.5 mg/dL (8.5-10.5); Carbon Dioxide 31 mmol/L (22-29); Chloride 97 mmol/L (98-107); Globulin 3.6 g/dL (1.3-4.6); Glomerular Filtration Rate 135.6 mL/min (90-130); Glucose 85 mg/dL (65-115); Osmolality Calculated 286 mOsm/kg (285-295); Sodium 139 mmol/L (136-145); Total Bilirubin 0.2 mg/dL (0.15-1.2); Total Protein 7.5 g/dL (6.6-8.7)
[2022-06-13 09:48] LABS: Anion Gap 15.6 (5-19); Aspartate Amino Transferase 16 U/L (0-40); Potassium 4.6 mmol/L (3.5-5.1)
== END 2022-06-23 23:59 | disposition home or self-care (01) ==
PROVIDERS: PCP Family Medicine; Visit Provider Internal Medicine Hematology & Oncology
DX: Z08 Encounter for follow-up examination after completed treatment for malignant neoplasm (principal); Z85.118 Personal history of other malignant neoplasm of bronchus and lung; R53.1 Weakness; R53.83 Other fatigue; F17.210 Nicotine dependence, cigarettes, uncomplicated; R04.2 Hemoptysis; Z79.2 Long term (current) use of antibiotics; Z79.899 Other long term (current) drug therapy; Z99.81 Dependence on supplemental oxygen
CPT/HCPCS: 36415; 80053; 85025; 99214

== ENCOUNTER 2022-08-03 06:05 | Outpatient (CLI) | payer OTHER, MEDICARE, SELFPAY ==
--- NOTE | 2022-08-03 08:30 | PETR_ITS ---
PROCEDURE INFORMATION: Exam: PET/CT Skull Base to Mid-thigh Exam date and time: 08/03/2022 9:56 AM Age: 66 years old Clinical indication: Condition or disease; Primary cancer: Lung cancer; Follow-up oncological assessment; Prior surgery; Surgery date: 6+ months; Surgery type: Left lung; Additional info: History of lung cancer LABS AND CLINICAL REPORTS: Glucose: 116 mg/dl Treatment strategy for malignancy (PET staging): Restaging (PS) TECHNIQUE: Imaging protocol: Following at least four-hour fasting and following the injection of radiopharmaceutical, low dose CT images were obtained. Then, PET images were obtained. Attenuation corrected images were constructed using the CT scan. Fused images of PET and CT were reviewed. The standardized uptake values (SUV) reported below are maximum values within a region of interest, expressed in gm/ml. Exam includes orbital meatal line to mid-thigh. Radiopharmaceutical: 10.55 mCi F-18 FDG (Fluorodeoxyglucose), IV. Time of imaging post radiopharmaceutical administration: 1 hour Injection site: Left hand COMPARISON: CT chest 05/29/2022, CT lumbar spine 03/14/2022, CT pelvis 05/16/2021, CTA chest 02/23/2021, CT chest, abdomen and pelvis 12/22/2020, PT PET Scan 10/09/2017 12:04 PM images (prior PET report not yet available at the time of this dictation) FINDINGS: Brain: Visualized brain has normal physiologic uptake. Pharynx: No abnormal uptake. Larynx: No abnormal uptake. Thyroid: A focus of elevated uptake in the right thyroid lobe in a 1.1 cm low-density nodule is noted on series 4, image 38, SUV max 3.9 (previously 3.9). Lungs, pleura and trachea: Postoperative changes of partial left upper lobectomy are noted with resection of a previously noted radiotracer avid left upper lobe nodule on the prior PET-CT. A pleural based masslike region of soft tissue density in the anterior left lung apex appears slightly more prominent than on the CT of 05/29/2022 and is radiotracer avid, SUV max 21.1 measuring 5.1 x 2.8 cm in the axial plane on series 3, image 44 by approximately 4.5 cm superior to inferior. This appearance is new since the prior PET-CT. Adjacent non radiotracer avid pleural thickening in the lateral and posterior aspect of the left lung apex is noted containing surgical clips. A spiculated solid nodular density measuring 1 cm in the right upper lobe on series 3, image 52 is mildly radiotracer avid, SUV max 2.5, decreased in size compared with 05/29/2022 with decreased central cavitation. Extensive bilateral centrilobular and paraseptal emphysematous changes are noted. Evaluation of the lungs is somewhat limited by respiratory motion artifact. Heart: Normal physiologic uptake. Mediastinal space: No abnormal uptake. Liver: No abnormal uptake. Gallbladder and bile ducts: No abnormal uptake. Pancreas: No abnormal uptake. Spleen: No abnormal uptake. Adrenal glands: No abnormal uptake. Kidneys and ureters: Normal physiologic uptake. Stomach and bowel: No abnormal uptake. Vasculature: No abnormal uptake. Lymph nodes: No abnormal uptake. Scattered mildly prominent mediastinal lymph nodes appears similar for example in the pericardial fat lateral to the main pulmonary artery measuring 1.5 x 0.9 cm without elevated uptake. In a region of previously noted right hilar lymphadenopathy on CT series 3, image 57, assessment of the size of lymph nodes in this region is limited, however this area measures approximately 3.5 x 1.8 cm on series 3, image 57 similar to the prior study. Uptake in this location demonstrates an SUV max 2.8 (previously 3.1). Mild uptake in the subcarinal space within clustered lymph nodes measuring approximately 3.7 x 1.3 cm on series 3, image 58 is also noted, SUV max 2.8 (previously 2.6). Bones/joints: No abnormal uptake in the visualized axial and appendicular skeleton. Numerous non radiotracer avid healed posterior left rib fractures appear similar appear postoperative changes in the cervical spine, cervicothoracic junction and lumbar spine are noted. Mild curvature of the thoracolumbar junction convex to the right is noted. Soft tissues: No abnormal uptake in the visualized head, neck, chest, abdomen, pelvis, and extremities. METRICS: Mediastinal blood pool: SUV max 1.5 [facility] SUB[facility] [id number] IMPRESSION: 1. Interval increase in masslike soft tissue density in the left upper lobe compared with the CT chest of 05/29/2022, new since the prior PET-CT with markedly elevated uptake (SUV max 21.1) which is highly concerning for malignancy. Adjacent non radiotracer avid pleural thickening is noted suggestive of scarring. 2. Decreased size of a previously noted spiculated cavitary right upper lobe nodule compared with 05/29/2022 with low-level activity (SUV max 2.5). Although neoplastic involvement in this region cannot be excluded, resolving atypical infectious involvement is an additional consideration. 3. Bilateral pulmonary emphysematous changes. 4. Similar mild prominence of mediastinal and clustered right hilar lymph nodes demonstrating similar low-level activity which may be inflammatory, infectious or neoplastic in etiology. 5. Unchanged elevated uptake within a right thyroid nodule for which neoplastic involvement cannot be excluded. 6. Additional nonurgent findings as detailed above.
== END 2022-08-03 06:06 | disposition home or self-care (01) ==
LOC: RAD 08-05 06:06
PROVIDERS: PCP Family Medicine; Visit Provider Nurse Practitioner Family
DX: R91.1 Solitary pulmonary nodule (principal); R91.8 Other nonspecific abnormal finding of lung field; Z85.118 Personal history of other malignant neoplasm of bronchus and lung
CPT/HCPCS: 78815; A9552

== ENCOUNTER 2022-09-20 07:49 | Oncology outpatient (recurring) (ONCR) | payer MEDICARE, MEDICAID, SELFPAY ==
[2022-09-20 07:50] VITALS: BP 137/80; PULSE 96; RESP 18; TEMP 36.3; O2SAT 93
[2022-09-20 08:20] LABS: Basophils % 0.3 %; Eosinophils # 0.1 10^3/uL (0.0-0.8); Eosinophils % 1.1 %; Hematocrit 39.9 % (42.0-52.0); Hemoglobin 12.3 g/dL (11.7-16.6); Lymphocytes # 1.4 10^3/uL (0.8-4.8); Mean Corpuscular HGB Conc 30.8 g/dL (30.0-36.0); Mean Corpuscular Hemoglobin 27.9 pg (28.0-34.0); Mean Corpuscular Volume 90.5 fl (80-94); Mean Platelet Volume 9.4 fL (7.4-10.4); Monocytes # 0.7 10^3/uL (0.2-0.9); Monocytes % 7.1 %; Neutrophils # 8.15 10^3/uL (1.8-7.7); Nucleated Red Blood Cells % 0 %; Platelet Count 261 10^3/cmm (130-400); Red Blood Count 4.41 10^6/uL (4.1-5.3); Red Cell Distribution Width 12.1 % (12.1-15.1); White Blood Count 10.5 10^3/uL (4.0-10.0)
[2022-09-20 08:50] LABS: Alanine Aminotransferase 11 U/L (0-41); Albumin Level 3.6 g/dL (3.5-5.2); Alkaline Phosphatase 89 U/L (40-130); Aspartate Amino Transferase 13 U/L (0-40); Blood Urea Nitrogen 6 mg/dL (8-23); Calcium 9.7 mg/dL (8.5-10.5); Carbon Dioxide 35 mmol/L (22-29); Chloride 95 mmol/L (98-107); Creatinine Clr Calc Pharmacy 89.6333; Globulin 3.1 g/dL (1.3-4.6); Glomerular Filtration Rate 166.9 mL/min (90-130); Glucose 120 mg/dL (65-115); Osmolality Calculated 283 mOsm/kg (285-295); Sodium 137 mmol/L (136-145); Total Bilirubin 0.3 mg/dL (0.15-1.2); Total Protein 6.7 g/dL (6.6-8.7)
[2022-09-20 08:51] LABS: Anion Gap 11.2 (5-19); Potassium 4.2 mmol/L (3.5-5.1)
== END 2022-09-23 23:59 | disposition home or self-care (01) ==
PROVIDERS: PCP Family Medicine; Visit Provider Internal Medicine Hematology & Oncology
DX: Z85.118 Personal history of other malignant neoplasm of bronchus and lung (principal)
CPT/HCPCS: 36415; 80053; 85025

== ENCOUNTER 2022-09-20 09:51 | Emergency (ER) | payer MEDICARE, MEDICAID, SELFPAY ==
[2022-09-20 09:54] VITALS: BP 107/71; PULSE 107; RESP 20; TEMP 36.8; O2SAT 94; BMI 19.8
--- NOTE | 2022-09-20 10:06 | XR_ITS ---
WS: [id number] EXAMINATION: XR chest 1V portable [id number] REASON FOR EXAM: dyspnea/cough COMPARISON: 02/02/2022 ORDER DATE: 09/20/2022 10:18 AM TECHNIQUE: A single, portable frontal chest x-ray was obtained. Lungs: Severe htes-[id number]-msoa-right lung scarring is multifocal with diffuse loss of volume on the left. Left midlung suture and pulmonary resection. Pleural spaces: No pneumothorax Heart/Mediastinum: The heart is normal size. Diaphragm: Moderate left hemidiaphragm elevation. Bones/joints: Multifocal cervical fusion. XR/XR chest 1V portable [id number] IMPRESSION: Chronic and postop findings with no acute process or significant change
--- NOTE | 2022-09-20 10:10 | ED_ITS ---
HPI - SOB/Dyspnea General: Chief Complaint: Shortness of Breath/Dyspnea Stated Complaint: sent by jony/diana pneumonia Time Seen by Provider: 09/20/22 09:56 Source: patient Mode of arrival: ambulatory History of Present Illness: HPI Narrative: 67-year-old male presents emergency room known history of non-small cell lung CA. He recently had a root what appears to be recurrence in the right upper lobe with PET scan confirmed it appears to be a cancerous lesion but has not yet been biopsied. He previously had tumor in the left upper lobe which was resected and he was treated. He had decided to enter hospice due to pain from pleuritic irritation Dr. Mullen followed up with him today and encouraged him to consider treatment he thinks that this is likely to be amenable to treatment. Patient has had some hemoptysis recently. No fever sweats or chills he is normally on 4 to 5 L by nasal cannula and when he arrives here is satting in the mid and upper 90s on 3 L. MD elicited complaint: shortness of breath and cough Pertinent past history: COPD and other (lung CA) Onset (ago): week(s) Severity: mild Exacerbating factors: nothing Relieving factors: nothing Known history of: COPD and other (lung CA) Associated symptoms: Reports hemoptysis; Deny abdominal pain, chest congestion, chest pain, cough, diaphoresis, dizziness, extremity pain, fever(s), lightheadedness, myalgias, nausea, orthopnea, palpitations, paresthesias, polydipsia, polyuria, rash, sense of impending doom, syncope or vomiting Treatment prior to arrival: none Review of Systems Const: Denies: fever(s) or diaphoresis Card: Denies: chest pain, palpitations, lightheadedness, syncope or orthopnea Resp: Reports: dyspnea, productive cough and hemoptysis; Denies: chest congestion GI: Denies: abdominal pain, nausea or vomiting Musc: Reports: back pain (upper back pain); Denies: neck pain or extremity pain Neuro: Denies: dizziness Endo: Denies: polyuria or polydipsia [facility] ED PFSH: Medical History ADD (attention deficit disorder) Attention deficit hyperactivity disorder (ADHD), combined type, mild Cardiac enzymes elevated Cervical post-laminectomy syndrome Colon polyps COPD (chronic obstructive pulmonary disease) COPD (chronic obstructive pulmonary disease) Coronary artery disease DDD (degenerative disc disease) Depression Hepatitis B Hepatitis C History of lung cancer Non-small cell lung cancer, squamous type, treated with resection History of marijuana use History of melanoma Hx of malignant melanoma of skin Hyperlipidemia Lumbar post-laminectomy syndrome Major depressive disorder, recurrent episode, moderate with anxious distress Marijuana use, continuous Migraine Neuropathy Shortness of Breath Spontaneous pneumothorax Supplemental oxygen dependent Thyroid nodule Tobacco dependency Surgical History History of appendectomy History of cervical spinal surgery (05/14/12) C3-C4 ACDFF, Dr. Kirk History of decompression of median nerve (~1990) 1990 left wrist History of fusion of cervical spine Dr. May Kirk 03/31/2014 C7-T1 ACDFF Dr. May Kirk 05/14/2012 C3-C4 ACDFF Dr. May Kirk 05/18/2009 C4-C5 ACDFF History of lobectomy of lung History of lumbar fusion (~02/03/07) History of lung surgery (~05/2008) Family History Mother Lung cancer CAD (coronary artery disease), Onset Age: 40 Cancer Father Lung cancer Stroke CAD (coronary artery disease), Onset Age: 59 Cancer Brother Lung cancer Cancer Family/Other Diabetes Other Lung disease Denies family history of Clotting disorder Dementia Chronic kidney disease (CKD) Suicide Anesthesia complication Bleeding disorder Social History Smoking and tobacco status: current every day smoker cigarettes Packs smoked per day: 2 Years cigarettes smoked: 50 Quit status (tobacco): has tried quititng Alcohol intake: current Substance/Drug Use: current Substance/Drug use frequency: daily Household members: spouse Marital status: Current occupational status: disabled Physical Exam Const: GENERAL APPEARANCE: cooperative and comfortable ORIENTATION/CONSCIOUSNESS: Yes awake, Yes oriented to person, Yes oriented to place and Yes oriented to time HENMT: COMMON NORMALS: normocephalic, atraumatic and hearing grossly normal bilaterally HEAD & SCALP: normocephalic and atraumatic Resp: COMMON NORMALS: normal respiratory effort, No retractions and No use of accessory muscles AUSCULTATION: rhonchi and wheezes Cardio: COMMON NORMALS: regular rate, regular rhythm and No murmurs present (Cardio) RATE: regular rate RHYTHM: regular rhythm GI: COMMON NORMALS: Soft to palpation and No hepatosplenomegaly present AUSCULTATION: Yes normoactive bowel sounds PALPATION: Yes Soft to palpation, No Tenderness to palpation present (GI), No Guarding due to palpation present (GI) and Yes No hepatosplenomegaly present : COMMON NORMALS: Yes no CVA tenderness BLADDER/KIDNEY EXAM: Yes no CVA tenderness Back/Pelvis: COMMON NORMALS: no CVA tenderness Extremity: COMMON NORMALS: normal to inspection, capillary refill normal, no clubbing, cyanosis or edema, no calf tenderness and no pedal edema Neuro: SENSORIUM/ORIENTATION: Yes oriented to person, Yes oriented to place and Yes oriented to time Skin: COMMON NORMALS: no rashes or lesions noted GENERAL SKIN EXAM: no rashes or lesions noted Course Vital Signs: Vital signs: Vital Signs Temperature 98.3 F 09/20/22 09:54 Pulse Rate 92 09/20/22 11:26 Respiratory Rate 16 09/20/22 11:20 Blood Pressure 112/75 09/20/22 10:22 Pulse Oximetry 93 09/20/22 11:20 Oxygen Delivery Me thod Nasal Cannula 09/20/22 11:20 Oxygen Flow Rate 3 09/20/22 11:20 MDM - SOB/Dyspnea Medical Decision Making Labs done in Dr. Mullen's office reviewed. Chest x-ray shows no acute pneumonia. He is actually managing mid upper 90s sats on 3 L normally uses 4-5. He does feel better after nebulizer treatment. Discussed with the patient he feels comfortable going home. At this point I do not have anything warranting admission. Will discharge home on oral antibiotics steroid taper aggressive use of nebulizers and set the patient up for outpatient follow-up with pulmonology for bronchoscopy and biopsy. Medical Records I reviewed the patient's medical records. Lab Data I reviewed the patient's lab results. Labs/Radiology: Radiology Impressions Chest X-Ray 09/20/22 10:06 IMPRESSION: Chronic and postop findings with no acute process or significant change Discharge Plan Discharge Patient Disposition: Home Clinical Impression: COPD exacerbation, History of lung cancer, Mass of upper lobe of left lung Condition: Stable Prescriptions: New prednisone 20 mg tablet 20 mg PO TID Qty: 15 0RF Rx Instructions: 1 p.o. 3 times daily x3 days, 1 p.o. twice daily x2 days, 1 p.o. daily x2 days ipratropium-albuterol 0.5 mg-3 mg(2.5 mg base)/3 mL solution for nebulization 3 ml inhalation Q4H PRN (Reason: shortness of breath or wheezing) Qty: 90 0RF levofloxacin 750 mg tablet 750 mg PO DAILY 10 Days Qty: 10 0RF Discontinued prednisone 10 mg tablet 10 mg PO DAILY 30 Days Qty: 30 0RF prednisone 5 mg tablet 5 mg PO DIRECTED Rx Instructions: see taper instructions prednisone 10 mg tablet 10 mg PO DAILY Qty: 5 0RF Rx Instructions: Take in addition to prednisone 10mg daily, for a total dose of 20mg, over the next 5 days. No Action levalbuterol HCl [Xopenex] 0.63 mg/3 mL solution for nebulization 0.63 mg inhalation TID PRN (Reason: shortness of breath or wheezing) Qty: 90 3RF ipratropium-albuterol 0.5 mg-3 mg(2.5 mg base)/3 mL solution for nebulization 3 ml inhalation Q4H PRN (Reason: shortness of breath or wheezing) Qty: 180 3RF Rx Instructions: until breathing returns to target peak flow/parameters Trelegy Ellipta 100-62.5-25 mcg blister with device 1 inh inhalation Q24H Qty: 60 2RF sertraline [Zoloft] 100 mg tablet 100 mg PO .morning Qty: 90 3RF Rx Instructions: Take one tablet every morning ropinirole 0.25 mg tablet See Rx Instructions .ROUTE .COMPLEX Qty: 90 3RF Dose Instruction: TAKE 1 TABLET(0.25 MG) BY MOUTH DAILY AT BEDTIME Rx Instructions: TAKE 1 TABLET(0.25 MG) BY MOUTH DAILY AT BEDTIME lorazepam 0.5 mg tablet 0.5 mg PO TID PRN morphine 60 mg tablet extended release 60 mg PO Q12H roflumilast [Daliresp] 500 mcg tablet 500 mcg PO DAILY cholecalciferol (vitamin D3) 25 mcg (1,000 unit) capsule 25 mcg PO DAILY ascorbic acid (vitamin C) 1,000 mg capsule 1 g PO Q6H amoxicillin 875 mg tablet 875 mg PO BID Qty: 20 0RF guaifenesin 1,200 mg tablet extended release 12hr 1,200 mg PO BID Qty: 30 0RF Rx Instructions: Take with a full 8oz glass of water tadalafil [Cialis] 5 mg tablet 5 mg PO BEDTIME Qty: 90 2RF aripiprazole [Abilify] 10 mg tablet 10 mg PO .7 pm Qty: 90 2RF Rx Instructions: Take one tablet at 7pm. Daliresp 500 mcg tablet 500 mcg PO QAM Qty: 30 0RF Rx Instructions: Must have office visit for future refills. tamsulosin 0.4 mg capsule See Rx Instructions .ROUTE .COMPLEX Qty: 180 3RF Dose Instruction: TAKE 1 CAPSULE BY MOUTH TWICE DAILY Rx Instructions: TAKE 1 CAPSULE BY MOUTH TWICE DAILY ondansetron HCl 4 mg tablet 4 mg PO Q6H PRN (Reason: nausea and vomiting) Qty: 120 3RF Rx Instructions: May take one tablet every 6 hours as needed for nausea/anxiety albuterol sulfate 90 mcg/actuation HFA aerosol inhaler See Rx Instructions .ROUTE .COMPLEX Qty: 34 3RF Dose Instruction: USE 2 INHALATIONS BY MOUTH EVERY 6 HOURS NEEDED FOR SHORTNESS OF BREATH Rx Instructions: USE 2 INHALATIONS BY MOUTH EVERY 6 HOURS NEEDED FOR SHORTNESS OF BREATH oxycodone-acetaminophen 10-325 mg tablet 1 tab PO Q8H 30 Days Qty: 90 0RF gabapentin 600 mg tablet See Rx Instructions .ROUTE .COMPLEX Qty: 270 3RF Dose Instruction: TAKE 1 TABLET BY MOUTH 3 TIMES DAILY Rx Instructions: TAKE 1 TABLET BY MOUTH 3 TIMES DAILY multivitamin Tablet 1 tab PO QAM Vitamin B-12 2,500 mcg Tablet, Sublingual 2,500 mcg SUBLINGUAL QAM Discharge Orders: Discharge ED (Routine); Ordered 09/20/22 Ordered By: Clayton Cortes Referrals: Gwyn Hooks DO [Primary Care Provider] - Patient Instructions: Opioid Safety, Pain Management Coding Level of Care Code ED Strings Teacher for Laci Hidalgo
[2022-09-20 10:22] VITALS: BP 112/75; PULSE 97
[2022-09-20] MEDS: methylPREDNISolone sod succ 125 MG in water for injection-sterile 2 ML 24 MG IVP (11:04)
[2022-09-20] MEDS: ipratropium-albuterol 3 mL Neb INHALATION (11:18)
[2022-09-20 11:20] VITALS: PULSE 102; RESP 16; O2SAT 93
[2022-09-20 11:26] VITALS: PULSE 92
--- NOTE | 2022-09-20 12:09 | PC.SOCIAL ---
Addendum entered by Felecia Bacon 09/27/22 14:26: account manager forest service received the following message from the pulmonology clinic regarding follow up appointment: Attempted to call patient, no vm setup. Patient has 2 referrals going for pulm. On Fri 11:34a Sep 25, 2022 Dulce Carter (Covering For: [facility]) Wrote To: Radha Lucio [facility] Attempted to call patient, no vm setup patient to be seen on 09/27 or on 10/[address] Patrick On Fri 4:48p Sep 24, 2022 Dulce Carter (Covering For: [facility]) Wrote To: Radha Lucio [facility] Dr. Patrick to speak to PCP and let us know where to schedule. On Fri 12:34p Sep 20, 2022 Monie Quintanilla (Covering For: [facility]) Wrote To: Radha Lucio [facility] On Fri 12:12p Sep 20, 2022 Monie Quintanilla (Covering For: Pulmonology Front Office) Wrote To: Radha Lucio [facility] Will have review on Friday Original Note: Pulmonlogy Follow-Up Referral sent to pulmonology at this time; clinic to contact patient with appt date/time.
== END 2022-09-20 11:54 | disposition home or self-care (01) ==
PROVIDERS: Emergency Provider Family Medicine; PCP Family Medicine
DX: C34.12 Malignant neoplasm of upper lobe, left bronchus or lung; J43.8 Other emphysema; Z99.81 Dependence on supplemental oxygen; R59.0 Localized enlarged lymph nodes; R05.8 Other specified cough; R50.9 Fever, unspecified; R07.89 Other chest pain; F17.210 Nicotine dependence, cigarettes, uncomplicated; R06.00 Dyspnea, unspecified
CPT/HCPCS: 36415; 71045; 80053; 85025; 87040; 94640; 96374; 99214; 99284; J2930

== ENCOUNTER → 2022-10-01 13:49 | Outpatient (BNVA) | payer OTHER, SELFPAY | PROVIDERS: PCP Family Medicine; Visit Provider Internal Medicine Pulmonary Disease | DX: R91.8 Other nonspecific abnormal finding of lung field (principal); J43.2 Centrilobular emphysema; Z85.118 Personal history of other malignant neoplasm of bronchus and lung; F12.10 Cannabis abuse, uncomplicated; F41.9 Anxiety disorder, unspecified; F17.210 Nicotine dependence, cigarettes, uncomplicated; Z99.81 Dependence on supplemental oxygen | CPT/HCPCS: 99214 ==

== ENCOUNTER 2022-10-18 07:17 | Outpatient (CLI) | payer MEDICARE, MEDICAID, SELFPAY ==
--- NOTE | 2022-10-18 07:15 | US_ITS ---
WS: [id number] ULTRASOUND SOFT TISSUES LEFT apex HISTORY: Evaluate LEFT apical mass for possible biopsy COMPARISON: PET/CT 08/03/2022 per TECHNIQUE: 2-D and color Doppler imaging is submitted. Soft tissue mass is identified at the LEFT apex between the ribs. There is a significant amount of in creased vascularity in this mass and along the tract and which biopsy would be obtained. This mass do es not appear accessible by ultrasound or CT. Study was reviewed by Dr. Russell and Dr. Hdez. We both agree this is not accessible by imaging. IMPRESSION: LEFT apical soft tissue mass is not accessible by CT or ultrasound.
== END 2022-10-18 07:18 | disposition home or self-care (01) ==
PROVIDERS: PCP Family Medicine; Visit Provider Internal Medicine Pulmonary Disease
DX: R91.1 Solitary pulmonary nodule (principal)
CPT/HCPCS: 76882